=== PATIENT | female | born 1935 | race Caucasian/White ===

== ENCOUNTER 2016-10-20 07:17 | Inpatient (IN) | payer OTHER, MEDICARE ==
[2016-09-21 11:25] VITALS: BMI 31.0
--- NOTE | 2016-09-21 12:02 | PAT Medication Instructions ---
Service Date September 21, 2016. Current Home Medication List Amoxicillin (Amoxil), 2,000 MG PO PRIOR TO DENTAL APPT Aspirin Enteric Coated (Ecotrin Or Generic *), 81 MG PO QAM Calcium/Vitamin D (Os-Deon 500 Plus D), 1 TAB PO QAM Docusate Sodium (Colace), 100 MG PO QAM Levothyroxine Sodium (Levothyroxine Sodium), 1 TAB PO QAM Meloxicam (Mobic), 15 MG PO QAM PRN for Pain Metoprolol Succinate (Metoprolol Succinate ER), 25 MG PO QAM Polyvinyl Alcohol (Lubricant Drops), 1 DROPS OPL TID PRN for DRY EYE Simvastatin (Zocor), 40 MG PO QAM Medication Instructions For Your Scheduled Surgery - Hold the following medications 7-10 days prior to surgery per surgeon instructions: Meloxicam (Mobic), 15 MG PO QAM PRN for Pain - Hold the following medications the morning of surgery: Amoxicillin (Amoxil), 2,000 MG PO PRIOR TO DENTAL APPT Calcium/Vitamin D (Os-Deon 500 Plus D), 1 TAB PO QAM Docusate Sodium (Colace), 100 MG PO QAM - Take the following medications the morning of surgery with a sip of water: Aspirin Enteric Coated (Ecotrin Or Generic *), 81 MG PO QAM Levothyroxine Sodium (Levothyroxine Sodium), 1 TAB PO QAM Metoprolol Succinate (Metoprolol Succinate ER), 25 MG PO QAM Simvastatin (Zocor), 40 MG PO QAM Tylenol (if needed) Polyvinyl Alcohol (Lubricant Drops), 1 DROPS OPL TID PRN for DRY EYE - Take the following medications as scheduled the night before surgery: Tylenol (if needed) Polyvinyl Alcohol (Lubricant Drops), 1 DROPS OPL TID PRN for DRY EYE If you have any questions please call us at [phone] or [phone] ( Padmini) or [phone]
--- NOTE | 2016-09-21 13:00 | DIAGNOSTIC IMAGING REPORT ---
CHEST PREADMISSION(PA/LAT) CLINICAL HISTORY: PAT COMPARISON STUDY: No previous studies for comparison. FINDINGS: The bones soft tissues and hemidiaphragms are normal. The cardiomediastinal silhouette is normal. The lungs are clear. The pulmonary vasculature is normal. IMPRESSION: Negative chest. Electronically signed by: Jose Roberto Berg M.D. 09/21/2016 12:58 PM Dictated Date/Time: 09/21/2016 12:58 PM
[2016-09-21 13:17] LABS: BASO % 0.3 %; BASO ABS # 0.02 K/uL (0-0.2); COMPLETE YES; EOS % 4.2 %; HEMATOCRIT 36.8 % (37-47); IG% 0.3 %; LYMPH % 24.1 %; LYMPH ABS # 1.62 K/uL (1.2-3.4); MEAN CELL VOLUME 100.3 fL (80-100); MEAN CORPUSCULAR HEMOGLOBIN 32.4 pg (25-34); MEAN CORPUSCULAR HGB CONC 32.3 g/dl (32-36); MEAN PLATELET VOLUME 10.3 fL (7.4-10.4); MONO % 8.2 %; NEUT % 62.9 %; PLATELET COUNT 239 K/uL (130-400); RED BLOOD COUNT 3.67 M/uL (4.2-5.4); WHITE BLOOD COUNT 6.73 K/uL (4.8-10.8)
[2016-09-21 13:32] LABS: ESTIMATED AVERAGE GLUCOSE 111 mg/dl; HA1C FLAG Normal (Normal)
[2016-09-21 13:52] LABS: PROTHROMBIN TIME (PATIENT) 10.2 SECONDS (9.0-12.0)
[2016-09-21 14:14] LABS: BUN/CREATININE RATIO 24.7 (10-20); CALCIUM 9.4 mg/dl (8.5-10.1); CREATININE 0.87 mg/dl (0.60-1.20); POTASSIUM 3.9 mmol/L (3.5-5.1)
[2016-09-27 13:35] LABS: URINE APPEARANCE CLEAR (CLEAR); URINE BILIRUBIN NEG (NEG); URINE COLOR YELLOW; URINE EPITHELIAL CELL AUTO >30 /lpf (0-5); URINE NITRITE NEG (NEG); URINE PH 5.5 (4.5-7.5); URINE SPECIFIC GRAVITY 1.013 (1.000-1.030); UROBILINOGEN NEG (NEG)
[2016-09-27 13:48] LABS: MANUAL MICROSCOPIC REQUIRED? NO; REVIEW REQ? NO
--- NOTE | 2016-10-19 14:33 | HISTORY & PHYSICAL EXAMINATION ---
DATE OF ADMISSION: 10/20/2016 CHIEF COMPLAINT: Left knee pain. HISTORY OF PRESENT ILLNESS: The patient is an 81-year-old female with known osteoarthritis about her left knee. She had a previous right total knee approximately 11 years ago which has done well. She had a previous left knee corticosteroid injection as well as knee aspiration. She takes Aleve for pain p.r.n. She continues to have significant pain and disability with activities of daily living. She uses a cane for ambulation. She now desires to proceed with left total knee arthroplasty. PAST MEDICAL HISTORY: Hypercholesterolemia, hypothyroidism, osteoarthritis, breast cancer, and obesity. PAST SURGICAL HISTORY: Right knee, right hip, hysterectomy, left breast lumpectomy, bladder surgery, appendectomy, and tonsillectomy. MEDICATIONS: Include levothyroxine 50 mcg daily, Meloxicam 15 mg daily, simvastatin 40 mg daily, metoprolol succinate ER 25 mg daily, baby aspirin daily, stool softener daily, calcium plus D daily. ALLERGIES: NIACIN WHICH CAUSES HIVES. SOCIAL HISTORY AND REVIEW OF SYSTEMS: Noncontributory. PHYSICAL EXAMINATION: GENERAL: Well-nourished, well-developed elderly female who appears her stated age. HEENT: Normocephalic, atraumatic, extraocular movements intact, oropharynx pink and moist. NECK: Supple without adenopathy. LUNGS: Clear to auscultation bilaterally. HEART: Regular rate and rhythm. ABDOMEN: Soft, nontender, nondistended, obese. EXTREMITIES: The upper extremity within normal limits. The left knee has a valgus alignment. She complains primarily of anterior knee pain. Her range of motion is approximately 0-120 degrees with moderate crepitus. X-RAYS: X-rays were reviewed. She has well-fixed, well-aligned total knee on the right. Her left knee has a valgus alignment. She has mild to moderate tibiofemoral arthritis. She has severe patellofemoral arthritis with complete loss of the joint space and large osteophytes. ASSESSMENT: Left knee degenerative joint disease. PLAN: Risks versus benefits were discussed and consent was obtained. The patient's primary care physician is Dr. Andres Aquino. Will proceed with left total knee arthroplasty upon preop workup and medical clearance.
[2016-10-20] VITALS (10 sets, daily range): BP systolic 120–160; BP diastolic 52–71; PULSE 56–81; TEMP 34.5–36.9; O2SAT 93–98; Ht 160 cm; Wt 81.8 kg
[~2016-10-20] VITALS: Ht 160 cm; Wt 81.8 kg
--- NOTE | 2016-10-20 06:53 | History & Physical Bridge Note ---
H&P Re-Evaluation Bridge Note: I have examined the patient, reviewed the History & Physical and in the interval since the performance of the History & Physical I have noted the following changes of clinical significance: No changes noted
[~2016-10-20 07:17] MED LIST: ACETAMINOPHEN 500 MG TAB PO SCH; AMOX500C3 PO; ASPEC81 PO; BUPIVACAINE 0.5 % 5 MG/1 ML PF 10ML VIAL ONE; BUPIVACAINE/EPINEPHRINE 0.25% 1:200,000 30 ML VIAL ONE; CALC500C70 PO; CEFAZOLIN 2000 MG/60 ML D5W 60 ML IV SCH; CLC100X PO; CeleBREX 200 MG CAP PO SCH; DEXAMETHASONE 4 MG TAB PO SCH; FAMOTIDINE 20 MG TAB PO SCH; GABAPENTIN 300 MG CAP PO SCH; LACTATED RINGER'S 1000ML 1,000 ML IV SCH; LACTATED RINGER'S 1000ML 500 ML IV ONE; LACTATED RINGER'S 1000ML IV SCH; LEVO50TA6 PO; MELO15TA10 PO; METOCLOPRAMIDE HCL 10 MG TAB PO SCH; ROPIVACAINE 5MG/ML 30 ML 150 MG, BUPIVACAINE/EPINEPHR 0.5% MPF 30 ML, KETOROLAC TROMETH... INFIL SCH; SIMV40TA4 PO; TPRSR/25 PO; [UNRECOGNIZED DRUG - CODE] OPL
[2016-10-20] MEDS ORDERED: MIDAZOLAM HCL 1 MG/ML 2ML VIAL ONE (07:47)
[2016-10-20] MEDS ORDERED: ATROPINE SULFATE 0.1 MG/ML 5ML SYR IV PRN (08:30)
[2016-10-20] MEDS ORDERED: ONDANSETRON INJ 2 MG/ML 2 ML VIAL IV PRN (08:30)
[2016-10-20] MEDS ORDERED: FENTANYL CITRATE INJ 50 MCG/1 ML 2 ML VIAL IV PRN (08:30)
[2016-10-20] MEDS ORDERED: PHENYLEPHRINE 100MCG/ML 5ML SYR IV PRN (08:30)
[2016-10-20] MEDS ORDERED: EpHEDrine SULFATE INJ 50 MG/ML AMP IV PRN (08:30)
[2016-10-20] MEDS ORDERED: MEPERIDINE HCL 25 MG/ML CARP IV PRN (08:30)
[2016-10-20] MEDS ORDERED: LABETALOL HCL IV 5 MG/ML 20ML IV PRN (08:30)
[2016-10-20] MEDS ORDERED: NALOXONE HCL 0.4 MG/1 ML VIAL/CARP IV PRN (08:30)
[2016-10-20] MEDS ORDERED: FLUMAZENIL 0.1 MG/1 ML 10 ML VIAL IV PRN (08:30)
[2016-10-20] MEDS ORDERED: BACITRACIN 50000 UNIT VIAL ONE (08:57)
[2016-10-20] MEDS ORDERED: POVIDONE-IODINE OP SOLN 30 ML BTL ONE (08:57)
[2016-10-20] MEDS ORDERED: ORTHO JOINT ANESTHETIC ONE (08:57)
[2016-10-20] MEDS: TRANEXAMIC ACID INJ 1,000 MG in SODIUM CHLORIDE 0.9% 100ML 100 ML IV SCH ×2 (09:24→14:39)
[2016-10-20] MEDS ORDERED: PROPOFOL IV EMULSION 10 MG/ML 20 ML VIAL IV ONE (10:11)
[2016-10-20] MEDS ORDERED: LIDOCAINE HCL 2% 2 ML VIAL (20MG/ML) ONE (10:11)
--- NOTE | 2016-10-20 11:17 | [facility] Post Operative Brief Note ---
Immediate Operative Summary Operative Date Oct 20, 2016. Pre-Operative Diagnosis Left knee degenerative joint disease Post-Operative Diagnosis same Procedure(s) Performed Left total knee arthroplasty with lateral release Surgeon Dr. Zeng Boat Patcher Plastic Surgeon(s) Eitan Vázquez PA-C Estimated Blood Loss 10 ml Findings severe OA Specimens a. Left knee bone and tissue Disposition Recovery Room / PACU
--- NOTE | 2016-10-20 11:55 | OPERATIVE REPORT ---
DATE OF OPERATION: 10/20/2016 PREOPERATIVE DIAGNOSIS: Osteoarthritis left knee. POSTOPERATIVE DIAGNOSIS: Osteoarthritis left knee. PROCEDURE: Left total knee arthroplasty. SURGEON: Dr. Zeng. WHITE SPOOLER: Eitan Vázquez PA-C. ANESTHESIA: Spinal. COMPLICATIONS: None. OPERATION AND FINDINGS: Following induction of spinal anesthesia, the patient's left leg was prepped and draped in the usual sterile manner. Limb was exsanguinated with an Esmarch bandage and tourniquet was inflated to 350 mmHg. A longitudinal incision was made anteriorly. Subcutaneous tissue was sharply dissected. Electrocautery was used for hemostasis. Prepatellar bursa was incised and median parapatellar incision was performed. Patella was everted and the knee was flexed. Fat pad was removed to aid in visualization and the anterior and posterior cruciate ligaments were removed. The medial face of the tibia was cleared of soft tissue first with a Bovie and a Harris elevator. This tissue was retracted posteriorly using a blunt Hohmann. A Elizabeth retractor was used to expose the synovium above on the anterior aspect of the femur and this was removed down to bone. The PSI guide was placed on the distal femur and two pins were placed anteriorly and kept in position and two additional pins were placed distally and removed. The distal femoral cutting block was placed in position and the distal femoral cut was used in the +0 setting. Next, the cutting block was removed and size 3 block was placed in the distal end of the femur. Care was taken to ensure appropriate external rotation and feeler gauge was used to ensure no notching would occur. The femoral block was centered on the distal femur and in the medial and lateral direction and was fixed using two bone screws. The gold pins were then removed. The oscillating saw was used to create the bone cuts and the distal femoral cutting block was removed and the reciprocating saw was used to further trim the femoral cuts as well as a deep in the area for the trochlear groove. Next, posterior condyle remnants were removed. Following this, a meniscal clamp and knife were utilized to remove the anterior portion of both medial and lateral meniscus. The proximal tibia PSI guide was placed into position and the proximal tibial cutting guide was screwed into position. The extra medullary alignment guide was utilized to ensure appropriate alignment. The proximal tibia was cut and the proximal tibial cutting block was removed and this bone fragment was removed. The appropriate guide was used to perform the notch cut on the distal femur and a lamina lens molder and a cochlear knife were utilized to finish both medial and lateral meniscectomies to remove any remnants of the posterior or anterior cruciate ligaments. Following this, the distal femoral component was impacted into position and blunt Brett was used to sublux the tibia anteriorly. The proximal tibia was sized and a size 2 tibial tray was chosen as the size to be used. This was put into position and appropriate external rotation and a double check with extramedullary alignment guide was performed. The canal for the tibial stem was prepared first with a 17 mm drill and then the punch and a mallet and the trial tibial poly was placed. A 13 mm stabilized was chosen the size to be used. It was brought to extension and the patella was prepared with the patellar reamer. A size 31 component was chosen the size to be used. The trial component was placed and knee was taken through a full range of motion and there was found to be no lateral subluxation of the tibia. A lateral release was required to allow for proper patella tracking. The trials were all removed. The final components were obtained and assembled. Cement was mixed. The knee was thoroughly irrigated and the ortho mix was injected about the knee joint. The final components were cemented into position. After thoroughly suctioning and drying the bone ends, all excess cement was removed. The knee was held in extension while the cement hardened. The wound was irrigated and closed over a Hemovac drain. #1 Vicryl was used to close the extensor mechanism. Subcutaneous tissues closed using 0 Dexon. Skin was closed with jessica. Sterile dressing of Adaptic, 4 x 4's, sterile Webril, and Johny was applied. The patient tolerated the procedure well. Due to the complex nature of the procedure, the entire surgery was performed with the operational assistance of Eitan Vázquez PA-C. The specimen preparation assistant, under direct supervision, was involved in the actual performance of all aspects of the surgical procedure including hemostasis, tissue retraction and incision, instrument management, patient positioning, and wound closure. I attest to the content of the Intraoperative Record and any orders documented therein. Any exception s are noted below.
[2016-10-20] MEDS ORDERED: ZOLPIDEM TARTRATE 5 MG TAB PO PRN (12:45)
[2016-10-20] MEDS ORDERED: MoRPHine SULFATE 2 MG/ML CARP IV PRN (12:45)
[2016-10-20] MEDS ORDERED: MAGNESIUM HYDROXIDE SUSP 30 ML UDC PO PRN (12:45)
[2016-10-20] MEDS ORDERED: ALUMINUM/MAGNESIUM/SIMETH (MAALOX MAX) 30 ML UDC PO PRN (12:45)
[2016-10-20] MEDS ORDERED: METOCLOPRAMIDE HCL INJ 5 MG/ML 2 ML VIAL IV PRN (12:45)
--- NOTE | 2016-10-20 12:48 | DIAGNOSTIC IMAGING REPORT ---
LEFT KNEE 1 OR 2 VIEWS ROUTINE CLINICAL HISTORY: Postop knee arthroplasty COMPARISON: 09/07/2012 DISCUSSION: There are postsurgical changes of a total left knee arthroplasty. The femoral and tibial components appear well seated. Overlying skin jessica and surgical drains are evident. There is air in soft tissues consistent with recent surgery. IMPRESSION: Postsurgical changes of a total left knee arthroplasty. Electronically signed by: Maximiliano Balderas M.D. 10/20/2016 12:47 PM Dictated Date/Time: 10/20/2016 12:46 PM
--- NOTE | 2016-10-20 13:18 | Anesthesiology Progress Note ---
Anesthesia Post Op Note Date & Time Oct 20, 2016 at 13:18 Vital Signs Pain Intensity: 0 Vital Signs Past 12 Hours Date Time Temp Pulse Resp B/P (MAP) Pulse Ox O2 Delivery O2 Flow Rate FiO2 10/20/16 13:05 68 14 124/57 94 Nasal Cannula 4 10/20/16 12:55 66 14 122/58 96 Nasal Cannula 4 10/20/16 12:45 36.8 66 14 110/65 96 Nasal Cannula 4 10/20/16 12:35 63 14 111/54 94 Nasal Cannula 4 10/20/16 12:25 62 13 108/55 94 Nasal Cannula 4 10/20/16 12:15 64 15 113/56 96 Nasal Cannula 4 10/20/16 12:05 65 11 111/52 97 Nasal Cannula 4 10/20/16 11:55 67 13 116/58 96 Nasal Cannula 4 10/20/16 11:45 67 14 117/54 94 Nasal Cannula 4 10/20/16 11:39 36.6 72 16 111/59 95 Nasal Cannula 4 10/20/16 07:44 36.7 81 20 142/71 98 Room Air Notes Mental Status: alert / awake / arousable, participated in evaluation Pt Amnestic to Procedure: Yes Nausea / Vomiting: adequately controlled Pain: adequately controlled Airway Patency, RR, SpO2: stable & adequate BP & HR: stable & adequate Hydration State: stable & adequate Neuraxial Anesthesia: was administered, sensory block is resolving Anesthetic Complications: no major complications apparent
[2016-10-20] MEDS ORDERED: MoRPHine SULFATE 4 MG/ML 1 ML CARP\\VIAL IV PRN (15:00)
[2016-10-20] MEDS: D5W AND 1/2NSS + 20MEQ KCL 1,000 ML IV SCH (15:37)
[2016-10-20] MEDS: KETOROLAC TROMETHAMINE 15 MG/ML VIAL IV. SCH ×2 (15:37→21:46)
[2016-10-20] MEDS: FERROUS GLUCONATE 324 MG TAB PO SCH (17:47)
[2016-10-20] MEDS: CEFAZOLIN IV 2,000 MG in DEXTROSE 5% 50ML 50 ML IV SCH (17:48)
[2016-10-20] MEDS: ONDANSETRON INJ 2 MG/ML 2 ML VIAL IV PRN ×2 (19:42→19:45)
[2016-10-20] MEDS: HYDROCODONE/ACETAMOPHEN 5/325MG TAB PO PRN ×3 (19:45→23:52)
[2016-10-20] MEDS: DOCUSATE SODIUM 100 MG CAP PO SCH (20:44)
[2016-10-20] MEDS: ASPIRIN 81 MG ECTAB PO SCH (20:44)
[2016-10-21] MEDS: D5W AND 1/2NSS + 20MEQ KCL 1,000 ML IV SCH (00:34)
[2016-10-21] MEDS: CEFAZOLIN IV 2,000 MG in DEXTROSE 5% 50ML 50 ML IV SCH (03:25)
[2016-10-21] MEDS: KETOROLAC TROMETHAMINE 15 MG/ML VIAL IV. SCH ×2 (03:58→09:21)
[2016-10-21] MEDS: LEVOTHYROXINE 50 MCG TAB PO SCH (05:34)
[2016-10-21 06:57] LABS: HEMATOCRIT 36.3 % (37-47); MEAN CELL VOLUME 98.4 fL (80-100); MEAN CORPUSCULAR HEMOGLOBIN 31.2 pg (25-34); MEAN CORPUSCULAR HGB CONC 31.7 g/dl (32-36); MEAN PLATELET VOLUME 10.2 fL (7.4-10.4); PLATELET COUNT 227 K/uL (130-400); RED BLOOD COUNT 3.69 M/uL (4.2-5.4); WHITE BLOOD COUNT 16.07 K/uL (4.8-10.8)
[2016-10-21 07:26] VITALS: BP 157/75; PULSE 63; TEMP 36.3; O2SAT 90
[2016-10-21] MEDS ORDERED: DEXAMETHASONE INJ 10 MG in SYRINGE 0 ML IV ONE (07:30)
[2016-10-21 07:34] LABS: BUN/CREATININE RATIO 20.5 (10-20); CALCIUM 8.9 mg/dl (8.5-10.1); CREATININE 1.1 mg/dl (0.60-1.20); POTASSIUM 4.5 mmol/L (3.5-5.1)
--- NOTE | 2016-10-21 07:38 | Orthopedic Progress Note ---
Orthopedic Progress Note Date of Service Oct 21, 2016. Subjective Post OP Day: 1 Reports: feeling well (Pt states she can't move her foot on operative side) Objective N/V intact, dressing C/D/I (Hemovac d/c'd) Mild foot drop noted on operative side Date Time Temp Pulse Resp B/P (MAP) Pulse Ox O2 Delivery O2 Flow Rate FiO2 10/21/16 07:26 36.3 63 18 157/75 (102) 90 Room Air 10/20/16 23:44 Room Air 10/20/16 23:25 36.4 62 18 156/71 (99) 93 Room Air 10/20/16 21:00 98 Room Air 10/20/16 19:42 36.5 65 18 160/52 (88) 98 Nasal Cannula 2.0 10/20/16 16:30 34.5 56 16 138/71 (93) 97 Nasal Cannula 2.0 10/20/16 15:45 Nasal Cannula 3.0 10/20/16 15:26 34.8 57 16 120/68 (85) 96 Nasal Cannula 3.0 10/20/16 14:29 68 16 127/67 (87) 96 Nasal Cannula 2.0 10/20/16 14:01 66 16 122/66 (84) 96 Nasal Cannula 2.0 10/20/16 13:35 94 Nasal Cannula 3.0 10/20/16 13:35 94 Nasal Cannula 3.0 10/20/16 13:30 36.9 69 16 129/68 (88) 94 Nasal Cannula 3.0 10/20/16 13:15 36.4 65 14 126/58 96 Nasal Cannula 4 10/20/16 13:05 68 14 124/57 94 Nasal Cannula 4 10/20/16 12:55 66 14 122/58 96 Nasal Cannula 4 10/20/16 12:45 36.8 66 14 110/65 96 Nasal Cannula 4 10/20/16 12:35 63 14 111/54 94 Nasal Cannula 4 10/20/16 12:25 62 13 108/55 94 Nasal Cannula 4 10/20/16 12:15 64 15 113/56 96 Nasal Cannula 4 10/20/16 12:05 65 11 111/52 97 Nasal Cannula 4 10/20/16 11:55 67 13 116/58 96 Nasal Cannula 4 10/20/16 11:45 67 14 117/54 94 Nasal Cannula 4 10/20/16 11:39 36.6 72 16 111/59 95 Nasal Cannula 4 10/20/16 07:44 36.7 81 20 142/71 98 Room Air Laboratory Results 24 Hours: Test 10/21/16 06:08 Hematocrit 36.3 % Hemoglobin 11.5 g/dL Assessment & Plan Assessment: 81 yo female stable POD #1 s/p left TKA, mild foot drop likely related to intraoperative injection Plan: 1. Med management 2. DVT prophylaxis- ASA, SCDs 3. PT/OT 4. D/C planning- pt interested in [facility]
--- NOTE | 2016-10-21 07:40 | Discharge Instructions ---
Discharge Instructions Date of Service Oct 21, 2016. Admission Reason for Admission: Unilateral Primary Osteoarthritis, Left Knee Discharge Discharge Diagnosis / Problem: Left knee arthritis Discharge Goals Goal(s): Decrease discomfort, Improve function Activity Recommendations Activity Limitations: as noted below Weightbearing Status: Left weightbearing (as tolerated) . Instructions / Follow-Up Instructions / Follow-Up ACTIVITY RECOMMENDATIONS: SELF CARE INSTRUCTIONS AFTER TOTAL KNEE REPLACEMENT A. You may need to continue a physical therapy program after discharge from the hospital. There are several options available to you. Your doctor will assist you in selecting the best one for you. 1. An out-patient facility 2 to 3 times a week for therapy or home therapy. 2. Continue working on all exercises taught to you in the hospital. Your goals should be to increase bending of your knee to 90 degrees and beyond and to fully straighten your knee. B. You may progress at your own pace from walking with a walker or crutches to a cane; then to no assistive devices. C. Make walking a part of your daily routine. Be up as much as comfortable with rest periods throughout the day. Rest with leg elevation is very important. Use the ice wrap frequently for the first 3-4 weeks. D. There are no restrictions on activities. You may ride in a car, shop, participate in nurse emergency room and all social activities. E. Wear the long elastic stockings (FRANDY hose) 20 hours a day for 2 weeks after surgery. They can be removed several times a day for laundering and for a bath. F. You may shower, no tub baths until cleared by your doctor. SPECIAL CARE INSTRUCTIONS: VERY IMPORTANT TO READ AND REVIEW A. There are a few signs you need to watch for after you are home. Call [facility] if you notice any of the followin. Increased severe knee pain. Some pain is expected especially when you exercise. 2. Increased swelling in your leg or knee; pain or swelling of the calf muscle in either lower leg. 3. Any fluid drainage from the incision. 4. Shortness of breath or chest pain. B. Please call [facility] at if you have any concerns or questions about your operation or recovery. The doctor or his nurse will return your call promptly. C. You must take antibiotics before dental work, bladder, bowel or other surgery. Your doctor will provide you with a permanent care to carry describing this precaution. IMPORTANT: * REMEMBER TO TAKE ASPIRIN, 81 MG, TWICE DAILY FOR 4 WEEKS UNLESS OTHERWISE DIRECTED. THIS IS YOUR BLOOD THINNER. * HIGH RISK PATIENTS MAY BE PRESCRIBED A STRONGER BLOOD THINNER. THIS WILL BE PROVIDED AT DISCHARGE. * CALL IF INCREASED PAIN, REDNESS, DRAINAGE OR FEVER GREATER THAT 101. * WEAR FRANDY HOSE 20 HOURS PER DAY FOR 2 WEEKS. Silverlon- This is a large adhesive bandage that contains silver ions. This helps your incision heal by fighting off bacteria and protecting it from the outside environment. You are permitted to shower with this dressing. This will remain on your incision for 7 days and then should be removed. Some visible blood or drainage through the dressing window is normal. If there is significant drainage or leaking noted before the 7 days notify your doctor's office immediately. Once removed, keep incision clean and dry. If there is any drainage or redness noted, please call your surgeon. FOLLOW UP VISIT: If appointment is not already scheduled: Please call [facility] to make a follow-up appointment for 2 weeks after your surgery at . Current Hospital Diet Patient's current hospital diet: Regular Diet Discharge Diet Recommended Diet: Regular Diet Procedures Procedures Performed: Left total knee arthroplasty with lateral release Pending Studies Studies pending at discharge: no Laboratory Results Hemoglobin A1c Test 09/21/16 12:07 Range/Units Estimated Average Glucose 111 mg/dl Hemoglobin A1c 5.5 4.5-5.6 % Medical Emergencies . Who to Call and When: Medical Emergencies: If at any time you feel your situation is an emergency, please call 911 immediately. . Non-Emergent Contact Non-Emergency issues call your: Surgeon Call Non-Emergent contact if: temperature is above 101.5, your pain is not controlled, wound has increased drainage, wound has increased redness . "Provider Documentation" section prepared by Eitan Vázquez PA-C. . VTE Core Measure Inpt VTE Proph given/why not?: Other Anticoagulation (ASA 81mg bid), T.E.D. Stockings, SCD's [place] Drug Monitoring Program Search Results: patient reviewed within database, no issues identified
[2016-10-21] MEDS: METOPROLOL SUCC 25MG EXT REL TAB PO SCH (09:20)
[2016-10-21] MEDS: ASPIRIN 81 MG ECTAB PO SCH ×2 (09:21→20:34)
[2016-10-21] MEDS: FERROUS GLUCONATE 324 MG TAB PO SCH ×3 (09:21→18:06)
[2016-10-21] MEDS: PANTOprazole SOD 40 MG TAB PO SCH (09:22)
[2016-10-21] MEDS: SIMVASTATIN 40 MG TAB PO SCH (09:22)
[2016-10-21] MEDS: ONDANSETRON INJ 2 MG/ML 2 ML VIAL IV PRN (09:22)
[2016-10-21] MEDS: DOCUSATE SODIUM 100 MG CAP PO SCH ×2 (09:22→20:34)
[2016-10-21] MEDS: MULTIVITAMIN TAB PO SCH (09:22)
[2016-10-21] MEDS: HYDROCODONE/ACETAMOPHEN 5/325MG TAB PO PRN ×3 (09:25→15:16)
--- NOTE | 2016-10-21 10:24 | Anesthesiology Progress Note ---
Anesthesia Post Op Note Date & Time Oct 21, 2016 at 10:23 Vital Signs Pain Intensity: 7.0 Vital Signs Past 12 Hours Date Time Temp Pulse Resp B/P (MAP) Pulse Ox O2 Delivery O2 Flow Rate FiO2 10/21/16 07:26 36.3 63 18 157/75 (102) 90 Room Air 10/20/16 23:44 Room Air 10/20/16 23:25 36.4 62 18 156/71 (99) 93 Room Air Notes Mental Status: alert / awake / arousable, participated in evaluation Pt Amnestic to Procedure: Yes Nausea / Vomiting: adequately controlled Pain: adequately controlled Airway Patency, RR, SpO2: stable & adequate BP & HR: stable & adequate Hydration State: stable & adequate Neuraxial Anesthesia: sensory block resolved Anesthetic Complications: no major complications apparent
[2016-10-21 10:56] VITALS: BP 148/78; PULSE 65; TEMP 36.5; O2SAT 96
[2016-10-21 11:45] VITALS: BP 157/75; PULSE 63; O2SAT 90
[2016-10-21 11:49] VITALS: BP 166/71; PULSE 64; O2SAT 96
[2016-10-21 15:15] VITALS: BP 167/88; PULSE 65; TEMP 36.5; O2SAT 94
[2016-10-21] MEDS: CeleBREX 200 MG CAP PO SCH (20:34)
[2016-10-21 23:45] VITALS: BP 168/65; PULSE 67; TEMP 36.6; O2SAT 93
[2016-10-22] MEDS: HYDROCODONE/ACETAMOPHEN 5/325MG TAB PO PRN ×3 (00:46→13:52)
[2016-10-22] MEDS: LEVOTHYROXINE 50 MCG TAB PO SCH (06:11)
[2016-10-22 07:34] VITALS: BP 140/60; PULSE 68; TEMP 36.7; O2SAT 92
[2016-10-22 07:51] VITALS: O2SAT 92
--- NOTE | 2016-10-22 08:19 | Orthopedic Progress Note ---
Orthopedic Progress Note Date of Service Oct 22, 2016. Subjective Post OP Day: 2 Reports: feeling well, calf pain (Left side behind the knee), pain controlled w PO medications, Denies: chest pain, SOB, nausea / vomiting, light headedness Additional Notes: Patient states she feels well. She states she has some calf pain today. Unsure if it was from PT yesterday. She states it is behind her knee and runs down her calf muscle. Objective N/V intact, capillary refill less than 2 sec., dressing C/D/I, A&O x3, toes mobile patient had pain to palpation over the medial and lateral gastrocnemius. (+) Homans's sign. Patient was able to move toes and ankle. Dressing was C/D/I. Date Time Temp Pulse Resp B/P (MAP) Pulse Ox O2 Delivery O2 Flow Rate FiO2 10/22/16 07:51 92 Room Air 10/22/16 07:34 36.7 68 16 140/60 (86) 92 Room Air 10/22/16 00:40 Room Air 10/21/16 23:45 36.6 67 18 168/65 (99) 93 Room Air 10/21/16 15:15 Room Air 10/21/16 15:15 36.5 65 16 167/88 (114) 94 Room Air 10/21/16 11:49 64 166/71 (102) 96 Room Air 10/21/16 11:45 63 90 10/21/16 10:56 36.5 65 16 148/78 (101) 96 Room Air Assessment & Plan Assessment: 81 yo female stable POD #2 s/p left TKA Calf pain Plan: 1. Med management 2. DVT prophylaxis- ASA, SCDs 3. PT/OT 4. D/C planning- [facility] 5. Will check a left lower extremity doppler US to rule out DVT after increased calf pain S/P left TKA. Inhouse Planning Pain Management: Celebrex, [place], Morphine DVT Prophylaxis: TEDs, SCDs, ASA Discharge Planning Discharge Planning: usp facility ([facility]
[2016-10-22] MEDS: DOCUSATE SODIUM 100 MG CAP PO SCH (09:48)
[2016-10-22] MEDS: METOPROLOL SUCC 25MG EXT REL TAB PO SCH (09:48)
[2016-10-22] MEDS: MULTIVITAMIN TAB PO SCH (09:49)
[2016-10-22] MEDS: FERROUS GLUCONATE 324 MG TAB PO SCH ×2 (09:49→12:44)
[2016-10-22] MEDS: CeleBREX 200 MG CAP PO SCH (09:49)
[2016-10-22] MEDS: PANTOprazole SOD 40 MG TAB PO SCH (09:49)
[2016-10-22] MEDS: ASPIRIN 81 MG ECTAB PO SCH (09:49)
[2016-10-22] MEDS: SIMVASTATIN 40 MG TAB PO SCH (09:50)
--- NOTE | 2016-10-22 10:08 | DIAGNOSTIC IMAGING REPORT ---
Venous Doppler left leg LEFT VENOUS DOPP LOWER EXT UNILAT CLINICAL HISTORY: Calf pain, (+) Homans sign S/P left TKA pain TECHNIQUE: Venous Doppler COMPARISON STUDY: None FINDINGS: Normal study IMPRESSION: Normal study Electronically signed by: Jose Roberto Berg M.D. 10/22/2016 10:07 AM Dictated Date/Time: 10/22/2016 10:06 AM
[2016-10-22] MEDS ORDERED: ACET-1138 PO (12:33)
[2016-10-22] MEDS ORDERED: CLB200 PO (12:33)
[2016-10-22] MEDS ORDERED: ASPEC81 PO (12:33)
[2016-10-22] MEDS ORDERED: ONDA8TAB6 PO (12:33)
[2016-10-22] MEDS ORDERED: OXYSR10 PO (12:33)
[2016-10-22] MEDS ORDERED: RXC5 PO (12:33)
[2016-10-22 12:53] VITALS: BP 140/60; PULSE 68; TEMP 36.7; O2SAT 92
--- NOTE | 2016-11-04 12:02 | Discharge Summary ---
Orthopedic Discharge Summary Admission Date/Reason Oct 20, 2016 at 08:00 Unilateral Primary Osteoarthritis, Left Knee. Discharge Date/Disposition Oct 22, 2016 Rehab Diagnosis Principal Diagnosis: Left knee arthritis Procedure(s) Performed Left total knee arthroplasty Medication Reconciliation New Medications: Acetaminophen (Tylenol Extra Strength) 500 Mg Tab 1000 MG PO Q8 for 30 Days Ondansetron Hcl (Zofran) 8 Mg Tab 8 MG PO Q8 PRN for Nausea, #20 TAB Oxycodone HCl (Oxycontin) 10 Mg Tabcr 10 MG PO Q12, #20 Oxycodone HCl (Oxycodone HCl) 5 Mg Tab 5 MG PO Q4, #60 Aspirin (Aspirin EC Low Dose) 81 Mg Ectab 81 MG PO BID for 30 Days Take aspirin 81mg twice a day for 30 days. After 30 days, continue normal routine of aspirine 81mg once a day. Celecoxib (Celebrex) 200 Mg Cap 200 MG PO BID for 30 Days, #60 CAP Continued Medications: Amoxicillin (Amoxil) 500 Mg Cap 2000 MG PO PRIOR TO DENTAL APPT, #21 CAP Calcium/Vitamin D (Os-Deon 500 Plus D) Tab 1 TAB PO QAM, TAB Docusate Sodium (Colace) 100 Mg Cap 100 MG PO QAM, CAP Levothyroxine Sodium (Levothyroxine Sodium) 50 Mcg Tab 1 TAB PO QAM for 90 Days, #90 TAB 3 Refills Metoprolol Succinate (Metoprolol Succinate ER) 25 Mg Tabcr 25 MG PO QAM, #30 Polyvinyl Alcohol (Lubricant Drops) 1.4 % Mike 1 DROPS OPL TID PRN for DRY EYE Simvastatin (Zocor) 40 Mg Tab 40 MG PO QAM, TAB Discontinued Medications: Aspirin Enteric Coated (Ecotrin Or Generic *) 81 Mg Ectab 81 MG PO QAM, 0 Refills Meloxicam (Mobic) 15 Mg Tab 15 MG PO QAM PRN for Pain, TAB Admission Physical Exam As per Admitting History & Physical. Hospital Course Pt tolerated left TKA well. No post-op complications. Mild foot drop noted POD #1 which resolved prior to discharge. H/H stable and did not require transfusion. Pain well controlled with spinal anesthesia, intra-op injection, IV, and oral pain medications. Pt started on ASA 81mg bid for DVT prophylaxis. Pt discharged to [facility] and will follow-up in 10-14 days Discharge Instructions Please refer to the electronic Patient Visit Report (Discharge Instructions) for additional information.
== END 2016-10-22 14:09 | DRG 470 ==
LOC: C.ACU 07:17 → C.3E 08:00 → ENRESERV 13:11
PROC: 0SRD0J9 Replacement of Left Knee Joint with Synthetic Substitute, Cemented, Open Approach (ICD-10-PCS; principal; 2016-10-20 09:15)
DX: M17.12 Unilateral primary osteoarthritis, left knee (principal); M21.372 Foot drop, left foot; M79.662 Pain in left lower leg; E78.00 Pure hypercholesterolemia, unspecified; E03.9 Hypothyroidism, unspecified; E66.9 Obesity, unspecified; Z79.899 Other long term (current) drug therapy; Z79.82 Long term (current) use of aspirin; Z68.31 Body mass index [BMI] 31.0-31.9, adult; T50.905A Adverse effect of unspecified drugs, medicaments and biological substances, initial encounter

== ENCOUNTER 2017-04-08 16:52 | Emergency (ER) | payer OTHER, MEDICARE ==
[~2017-04-08] VITALS: Ht 160 cm; Wt 82.9 kg
[~2017-04-08 16:52] MED LIST changes: +ACET-1138 PO; -ACETAMINOPHEN 500 MG TAB PO SCH; -BUPIVACAINE 0.5 % 5 MG/1 ML PF 10ML VIAL ONE; -BUPIVACAINE/EPINEPHRINE 0.25% 1:200,000 30 ML VIAL ONE; -CEFAZOLIN 2000 MG/60 ML D5W 60 ML IV SCH; +CLB200 PO; -CeleBREX 200 MG CAP PO SCH; -DEXAMETHASONE 4 MG TAB PO SCH; -FAMOTIDINE 20 MG TAB PO SCH; -GABAPENTIN 300 MG CAP PO SCH; -LACTATED RINGER'S 1000ML 1,000 ML IV SCH; -LACTATED RINGER'S 1000ML 500 ML IV ONE; -LACTATED RINGER'S 1000ML IV SCH; -MELO15TA10 PO; -METOCLOPRAMIDE HCL 10 MG TAB PO SCH; +ONDA8TAB6 PO; +OXYSR10 PO; -ROPIVACAINE 5MG/ML 30 ML 150 MG, BUPIVACAINE/EPINEPHR 0.5% MPF 30 ML, KETOROLAC TROMETH... INFIL SCH; +RXC5 PO
[2017-04-08 17:01] VITALS: TEMP 36.7; Ht 160 cm; Wt 82.9 kg
[2017-04-08] MEDS ORDERED: ALBUT/IPRATROP 3MG/0.5MG NEB 3 ML VIAL INH STA (17:11)
[2017-04-08 18:08] LABS: BASO % 0.4 %; BASO ABS # 0.02 K/uL (0-0.2); COMPLETE YES; EOS % 5.4 %; HEMATOCRIT 38.4 % (37-47); IG% 0.2 %; LYMPH % 23.8 %; LYMPH ABS # 1.14 K/uL (1.2-3.4); MEAN CELL VOLUME 98.7 fL (80-100); MEAN CORPUSCULAR HEMOGLOBIN 31.6 pg (25-34); MEAN PLATELET VOLUME 10.2 fL (7.4-10.4); MONO % 14.4 %; NEUT % 55.8 %; PLATELET COUNT 223 K/uL (130-400); RED BLOOD COUNT 3.89 M/uL (4.2-5.4); WHITE BLOOD COUNT 4.78 K/uL (4.8-10.8)
[2017-04-08] MEDS ORDERED: DOCU100C31 PO (18:14)
[2017-04-08] MEDS ORDERED: ASPI81TA28 PO (18:14)
[2017-04-08] MEDS ORDERED: MELO7.5T5 PO (18:14)
[2017-04-08] MEDS ORDERED: TYLOTC500 PO (18:14)
[2017-04-08 18:23] LABS: BUN/CREATININE RATIO 19.3 (10-20); CALCIUM 9.4 mg/dl (8.5-10.1); CREATININE 0.97 mg/dl (0.60-1.20)
--- NOTE | 2017-04-08 18:32 | DIAGNOSTIC IMAGING REPORT ---
CHEST 2 VIEWS ROUTINE HISTORY: 81 years-old Female cough, wheeze acute cough with wheezing COMPARISON: Chest radiograph 09/21/2016 TECHNIQUE: PA and lateral views of the chest FINDINGS: Cardiac silhouette is upper limits of normal, unchanged. Atherosclerosis of the aorta. There is no pneumothorax, pleural effusion, focal airspace consolidation or overt pulmonary edema. Bones of the chest are grossly intact. Degenerative changes are seen within the spine and shoulders. IMPRESSION: No acute cardiopulmonary process. The above report was generated using voice recognition software. It may contain grammatical, syntax or spelling errors. Electronically signed by: Jacobo Tripathi M.D. 04/08/2017 6:31 PM Dictated Date/Time: 04/08/2017 6:29 PM
--- NOTE | 2017-04-08 18:46 | EMERGENCY ROOM VISIT NOTE ---
ED Visit Note First contact with patient: 18:33 Patient was seen by our PA/[employer] F[employer] MANAGER. I was involved in the patient's care and did evaluate the patient myself. I was involved in the care throughout the ER stay. The patient presents with cough. On exam, she is wheezing with rhonchi. She appears to have acute bronchitis. Chest film does not show pneumonia, laboratories are essentially unremarkable. She is not hypoxic or febrile. The patient will be discharged with an albuterol inhaler, she did well with a DuoNeb. A prescription for an antibiotic will be given to start if not improving over the next couple days with just the inhaler. Outpatient follow-up was suggested.
[2017-04-08] MEDS ORDERED: AMOX875T PO (19:00)
[2017-04-08] MEDS ORDERED: ALBUTEROL HFA 8 GM INHALER INH ONE (19:00)
--- NOTE | 2017-04-08 19:01 | EMERGENCY ROOM VISIT NOTE ---
History First contact with patient: 17:05 Chief Complaint: COUGH Stated Complaint: COUGH-CONGESTION Nursing Triage Summary: Pt states she had a scratchy throat on Monday. C/O x 2 days. Productive at time. Pt SO states "sometimes she coughs for an hour straight" Pt denies pain excepts "when I cough and with deep inhalation" History of Present Illness The patient is a 81 year old female who presents to the Emergency Room with complaints of worsening cough over the last several days. The patient states that she was seen by her PCP on Monday for a scratchy throat. She had just started coughing that day. He prophylactically placed her on Z-Nate. She has been taking that. She has only one more day left. The patient states that sometimes she is able to cough out the sputum and sometimes she is not. She took NyQuil last night and was finally able to sleep. The patient states that she has a history of getting bronchitis. The patient denies any fever, headache , ear pain. She states her throat is sore from coughing. The patient denies any history of asthma or COPD. Review of Systems 10 system review was performed and was negative unless stated otherwise history of present illness. Past Medical/Surgical History Medical Problems: (1) Atrial Fibrillation (2) Degenerative arthritis of left knee (3) Hx Of Breast Malignancy (4) Hypertension Nos (5) Knee Joint Replacement Status (6) Left knee DJD (7) Osteoarthros Nos-L/Leg (8) Pure Hypercholesterolem Social History Smoking Status: Never Smoker Alcohol Use: none Marital Status: Housing Status: lives with family Occupation Status: retired Current/Historical Medications Scheduled Amoxicillin (Amoxil), 2,000 MG PO PRIOR TO DENTAL APPT Aspirin (Aspirin Ec), 81 MG PO QAM Calcium/Vitamin D (Os-Deon 500 Plus D), 1 TAB PO QAM Docusate Sodium (Docusate Sodium), 100 MG PO QAM Levothyroxine Sodium (Levothyroxine Sodium), 50 MCG PO QAM Meloxicam (Mobic), 7.5 MG PO QAM Metoprolol Succinate (Metoprolol Succinate ER), 25 MG PO QAM Simvastatin (Zocor), 40 MG PO QAM Scheduled PRN Acetaminophen (Tylenol), 1,000 MG PO Q8H PRN for Pain Physical Exam Vital Signs Date Time Temp Pulse Resp B/P (MAP) Pulse Ox O2 Delivery O2 Flow Rate FiO2 04/08/17 18:26 83 18 153/90 93 Room Air 04/08/17 17:05 95 Room Air 04/08/17 17:01 36.7 77 16 151/76 94 Room Air Physical Exam PHYSICAL EXAM: Vital Signs were reviewed: Temperature 36.7, blood pressure 151/ 76, pulse 77, respiratory rate 16 Reviewed Nurse's notes and agree. Oxygen saturation is 94 % on room air which is normal . GENERAL: 81-year-old female appears in no acute distress. MENTAL STATUS: Alert, oriented, coherent. EARS: Canals clear. TMs good light reflex, no erythema or fluid level noted. NOSE: Nasal mucosa with mild erythema. Clear drainage noted.. PHARYNX: Moderate erythema, no edema noted. No exudate noted. Airway is adequate. NECK: Supple, non-tender. No lymphadenopathy noted. LUNGS: Patient has rhonchi throughout both lung miles with some expiratory wheezing noted. This is bilateral. Good air exchange noted. CARDIAC: Regular rate and rhythm without murmur. SKIN: No rashes noted. Medical Decision & Procedures ER Provider Diagnostic Interpretation: CHEST 2 VIEWS ROUTINE HISTORY: 81 years-old Female cough, wheeze acute cough with wheezing COMPARISON: Chest radiograph 09/21/2016 TECHNIQUE: PA and lateral views of the chest FINDINGS: Cardiac silhouette is upper limits of normal, unchanged. Atherosclerosis of the aorta. There is no pneumothorax, pleural effusion, focal airspace consolidation or overt pulmonary edema. Bones of the chest are grossly intact. Degenerative changes are seen within the spine and shoulders. IMPRESSION: No acute cardiopulmonary process. The above report was generated using voice recognition software. It may contain grammatical, syntax or spelling errors. Electronically signed by: Jacboo Tripathi M.D. 04/08/2017 6:31 PM Laboratory Results 04/08/17 17:45 Red Blood Count 3.89, Mean Corpuscular Volume 98.7, Mean Corpuscular Hemoglobin 31.6, Mean Corpuscular Hemoglobin Concent 32.0, Mean Platelet Volume 10.2, Neutrophils (%) (Auto) 55.8, Lymphocytes (%) (Auto) 23.8, Monocytes (%) (Auto) 14.4, Eosinophils (%) (Auto) 5.4, Basophils (%) (Auto) 0.4, Neutrophils # (Auto ) 2.66, Lymphocytes # (Auto) 1.14, Monocytes # (Auto) 0.69, Eosinophils # (Auto ) 0.26, Basophils # (Auto) 0.02 04/08/17 17:45 Test 04/08/17 17:45 04/08/17 17:50 White Blood Count 4.78 K/uL (4.8-10.8) Red Blood Count 3.89 M/uL (4.2-5.4) Hemoglobin 12.3 g/dL (12.0-16.0) Hematocrit 38.4 % (37-47) Mean Corpuscular Volume 98.7 fL (80-100) Mean Corpuscular Hemoglobin 31.6 pg (25-34) Mean Corpuscular Hemoglobin Concent 32.0 g/dl (32-36) Platelet Count 223 K/uL (130-400) Mean Platelet Volume 10.2 fL (7.4-10.4) Neutrophils (%) (Auto) 55.8 % Lymphocytes (%) (Auto) 23.8 % Monocytes (%) (Auto) 14.4 % Eosinophils (%) (Auto) 5.4 % Basophils (%) (Auto) 0.4 % Neutrophils # (Auto) 2.66 K/uL (1.4-6.5) Lymphocytes # (Auto) 1.14 K/uL (1.2-3.4) Monocytes # (Auto) 0.69 K/uL (0.11-0.59) Eosinophils # (Auto) 0.26 K/uL (0-0.5) Basophils # (Auto) 0.02 K/uL (0-0.2) RDW Standard Deviation 51.7 fL (36.4-46.3) RDW Coefficient of Variation 14.5 % (11.5-14.5) Immature Granulocyte % (Auto) 0.2 % Immature Granulocyte # (Auto) 0.01 K/uL (0.00-0.02) Anion Gap 5.0 mmol/L (3-11) Est Creatinine Clear Calc Drug Dose 44.8 ml/min Estimated GFR () 62.6 Estimated GFR (Non- 54.0 BUN/Creatinine Ratio 19.3 (10-20) Calcium Level 9.4 mg/dl (8.5-10.1) Influenza Type A Antigen Neg for Influ A (NEG) Influenza Type B Antigen Neg for Influ B (NEG) Medications Administered Medications (Trade) Dose Ordered Sig/Althea Route Start Time Stop Time Status Last Admin Dose Admin Albuterol/ Ipratropium (Duoneb) 3 ml NOW STAT INH 04/08/17 17:11 04/08/17 17:14 DC 04/08/17 17:52 3 ML ED Course The patient was evaluated. The patient's EMR medication list were reviewed. IV access was obtained. CBC and differential renal profile was ordered. The patient was given a DuoNeb. Chest x-ray was ordered and interpreted by the radiologist and myself as above without any acute findings. Rapid influenza was negative for influenza A and influenza B. Labs are reviewed and were unremarkable. White count was slightly low. The patient was reevaluated she still had scattered rhonchi and wheezing throughout both lung miles but there was much better air exchange. The patient was independently evaluated by Dr. Betts who agreed with treatment plan. The patient was given a Ventolin HFA inhaler with instructions on how to use. She was given 3 puffs all in the emergency room and given the inhaler to take with her. The patient was discharged home in stable condition.. Medical Decision Differential diagnosis include pneumonia, bronchitis, URI, influenza [place] Drug Monitoring Program Search Results: patient reviewed within database Medication Reconcilliation Current Medication List: was personally reviewed by me Blood Pressure Screening Patient's blood pressure: Elevated blood pressure Blood pressure disposition: Elevated BP felt to be situational Impression Primary Impression: Acute bronchitis Departure Information Dispostion Home / Self-Care Condition GOOD Prescriptions Amoxicillin & Pot Clavulanate (Augmentin 875-125 mg) 1 Tab Tab 1 TAB PO BID for 10 Days, #20 TAB Prov: Althea Berg PA-C 04/08/17 Referrals Andres Aquino D.O. (PCP) Forms HOME CARE DOCUMENTATION FORM, IMPORTANT VISIT INFORMATION Patient Instructions Bronchitis Acute, [facility] Additional Instructions Take your last Zithromax tomorrow. Use Ventolin HFA inhaler 2 puffs every 4 hours as needed for cough or chest tightness. Use this for at least 5 days. Recommend [id number] Mucinex as directed on the label for 5 days. If your symptoms are not improving in 3-4 days, start taking the Augmentin as prescribed. If symptoms are a lot worse follow-up with your family doctor or return to ER. Problem Qualifiers Primary Impression: Acute bronchitis Bronchitis organism: unspecified organism Qualified Codes: J20.9 - Acute bronchitis, unspecified
[2017-04-08 19:17] VITALS: BP 153/73; PULSE 81; O2SAT 97
== END 2017-04-08 19:21 | disposition home or self-care (01) ==
LOC: C.EDB 16:53 → C.EDC 19:21
DX: J20.9 Acute bronchitis, unspecified (principal); I10 Essential (primary) hypertension; E78.00 Pure hypercholesterolemia, unspecified; I48.91 Unspecified atrial fibrillation; Z79.82 Long term (current) use of aspirin; Z79.1 Long term (current) use of non-steroidal anti-inflammatories (NSAID)

== ENCOUNTER 2020-08-21 15:58 | Observation (INO) ==
--- OUTSIDE RECORDS SUMMARY | 2020-08-21 16:01 | External Medical Summary | Continuity of Care Document ---
:1935 Author Name Eduard Cortes Address Unavailable Unavailable , Care Team Providers Name Role Phone Luciana Cortes Unavailable [email or web address] PCP, UNKNOWN Unavailable Unavailable Assessments Assessed Problems:Encounter for preventive health examination Problems Active medical history not documented Allergies and Adverse Reactions Allergy history not documented Medications Medications not documented Procedures Procedures not documented Immunizations Influenza On: 09-Mar-2015 13:54 Lot #: [id number], [employer] Interventions Medications/Immunizations AdministeredInfluenza; Done: 09 Mar 2015 Plan of Treatment Planned Observations Planned Goals not documented Results No Known Results Results not documented Encounters Appointment; Luciana Eagle Nurse 09-Mar-2015 11:30 Encounter Diagnosis: Problem not documented
--- OUTSIDE RECORDS SUMMARY | 2020-08-21 16:01 | External Medical Summary | Continuity of Care Document ---
:1935 Author Name Eduard Cortes Address Unavailable Unavailable , Care Team Providers Name Role Phone Luciana Cortes [place] [email or web address] [place], UNKNOWN Unavailable Unavailable Assessments Assessed Problems:Encounter for preventive health examination Problems Active medical history not documented Allergies and Adverse Reactions Allergy history not documented Medications Medications not documented Procedures Procedures not documented Immunizations Influenza On: 09-Mar-2015 13:54 Lot #: [id number], [employer] Interventions Medications/Immunizations AdministeredInfluenza; Done: 09 Mar 2015 Plan of Treatment Planned Observations Planned Goals not documented Results No Known Results Results not documented Encounters Appointment; Luciana Eagle Nurse 09-Mar-2015 11:30 Encounter Diagnosis: Problem not documented
[2020-08-21] MEDS ORDERED: ASPIRIN CHEW 324 MG PO STA (16:08)
[2020-08-21] MEDS ORDERED: ONDANSETRON INJ 2 MG/ML 2 ML VIAL IV STA (16:08)
[2020-08-21] MEDS ORDERED: NITROGLYCERIN SL 0.4 MG/TAB TAB SL ONE (16:09)
--- NOTE | 2020-08-21 16:18 | Emergency Department Note ---
Impression & Plan Chest pain ED Provider Note NAME: ZEINAB RON AGE: 85 SEX: F : 1935 ARRIVES VIA: Walk-In INFORMANT: Patient, ED PROVIDER(S): José Luis León DO CHIEF COMPLAINT: Chest pain HPI: The patient is an 85-year-old female who presented to the emergency department for an evaluation of discomfort in her chest. The patient states that she awoke this morning and noticed discomfort in her left arm. She states that the pain was in her left shoulder and into her left side of her neck. She also notices it in her upper chest as well as across her upper back. She denies having any nausea or vomiting but did notice some GI upset earlier. She took a baby aspirin with only minimal relief in her symptoms. The patient states that the pain is been ongoing throughout the day. She presented to the emergency department today because of concerns it could be from her heart. She denies having any fever or cough. The patient has not had any recent traveling. She denies having any lower extremity swelling or pain. The patient did not see her primary care provider prior to coming to the emergency department. The patient states the pain is moderate at this time. She states it is not consistently associated with exertion. ROS: See above HPI for pertinent positives & negatives. A total of 10 systems reviewed and were otherwise negative. PAST MEDICAL HISTORY: See Below PAST SURGICAL HISTORY: See Below FAMILY HISTORY: See Below SOCIAL HISTORY: See Below HOME MEDICATIONS: See Below ALLERGIES: See Below VITALS: See Below PHYSICAL EXAMINATION: GENERAL: Patient is awake alert in no acute distress patient is resting comfortably and showing no signs of anxiety EYES: The conjunctivae are clear. The pupils are round and reactive. EARS, NOSE, MOUTH AND THROAT: The nose is without any evidence of any deformity. NECK: The neck is nontender and supple. RESPIRATORY: Normal respiratory effort is noted there is no evidence of wheezing rhonchi or rales CARDIOVASCULAR: Regular rate and rhythm noted there no murmurs rubs or gallops normal S1 normal S2. GASTROINTESTINAL: The abdomen is soft. Abdomen is nontender. MUSCULOSKELETAL/EXTREMITIES: There is no evidence of gross deformity full range of motion is noted in the hips and shoulders. SKIN: Trace pedal edema was noted bilaterally. Skin is warm and dry. Pulses are symmetric in both feet. NEUROLOGIC: Patient is awake alert and oriented x3. MEDICAL DECISION MAKING: The patient is an 85-year-old female who presented to the emergency department for an evaluation of chest pain. The patient describes anterior heaviness across her chest. It was also in her upper extremity and across her back. I discussed the patient's laboratory and radiographic studies with her. I also discussed the limitations of the emergency department work-up for chest pain with her. She was treated with nitroglycerin and aspirin in the emergency department. Symptoms were somewhat improved but not completely resolved. Given the patient's age and comorbidities I do feel the patient may require further inpatient management. I discussed her case with the on[facility]call [facility] They have agreed to evaluate the patient in the emergency department for further management and disposition. Triage Nursing notes reviewed. Prior medical records reviewed Vital Signs: reviewed and remarkable for elevated blood pressure. Differential diagnosis: Cardiac ischemia, aortic dissection, pulmonary embolism, pneumothorax, pneumonia, pericarditis, myocarditis, esophageal rupture, GERD, cholecystitis, pancreatitis, musculoskeletal, as well as other pathologies. ER treatment provided: See below Diagnostics interpreted by me: ECG: EKG was obtained in the emergency department. My interpretation is normal sinus rhythm at 79 bpm. There is no ectopy. There is no acute ST segment abnormalities noted. This was compared to a tracing from August 242017. No significant changes were noted. Cardiac Monitoring: An order was placed for continuous cardiac monitoring. The monitor shows a rate of 85 bpm with sinus rhythm. Laboratory studies: As stated above and show below. Imaging studies: See below Consultation(s): 181: I discussed this case with Sola who is on for the [facility] group. She will evaluate the patient in the emergency department Past Med/Surg History Medical History (Updated 08/21/20 @ 20:23 by José Luis León DO) Breast cancer Left breast s/p lumpectomy CKD (chronic kidney disease), stage III Coccygeal contusion Degenerative arthritis of left knee HLD (hyperlipidemia) Hypothyroidism Palpitations Right hip pain TIA (transient ischemic attack) Surgical History (Updated 08/21/20 @ 19:00 by Margarita Johnson PA-C) History of appendectomy History of arthroplasty of both knees History of hip replacement, total History of hysterectomy Family History (Updated 08/21/20 @ 19:01 by Margarita Johnson PA-C) Brother Coronary heart disease Cancer Bladder cancer Sister Cancer Breast cancer Father Cancer Stomach cancer Daughter Cancer AML Social History (Updated 08/21/20 @ 19:02 by Margarita Johnson PA-C) Smoking Status: Never smoker Hx Alcohol Use: No Hx Substance Use: No Feels Safe at Home: Yes Allergies Allergies Allergy/AdvReac Type Severity Reaction Status Date / Time niacin Allergy Unknown hives Verified 08/21/20 19:19 Opioid Analgesics AdvReac Unknown "gets very Uncoded 08/21/20 19:19 sick" Home Meds Home Medications Medication Instructions Recorded Confirmed acetaminophen [Tylenol Extra 1,000 mg PO TID PRN 08/21/20 08/21/20 Strength] aspirin [Aspir-81] 81 mg PO DAILY 08/21/20 08/21/20 calcium carbonate-vitamin D3 1 tab PO DAILY 08/21/20 08/21/20 [Calcium + D] cetirizine [Zyrtec] 10 mg PO DAILY PRN 08/21/20 08/21/20 conjugated estrogens [Premarin] 0.625 mg VAGINAL BID PRN 08/21/20 08/21/20 docusate sodium [Colace] 100 mg PO DAILY 08/21/20 08/21/20 hydrocortisone [Proctosol HC] 1 ea TOPICAL DAILY PRN 08/21/20 08/21/20 levothyroxine 50 mcg PO DAILY 08/21/20 08/21/20 metoprolol succinate 50 mg PO DAILY 08/21/20 08/21/20 simvastatin 40 mg PO DAILY 08/21/20 08/21/20 Results & Data (ED) Vital Signs Vital Signs - 24 hr 08/21/20 16:17 08/21/20 16:18 08/21/20 16:29 Pulse Rate 72 70 70 Pulse Rate [Apical] 72 Pulse Rate from SpO2 Sensor 72 70 Pulse Rhythm Regular Pulse Strength Normal Respiratory Rate 20 18 15 Respiratory Effort / Characteristics Non-Labored Spontaneous Non-Labored Spontaneous Respiratory Depth Normal Normal Respiratory Pattern Regular Regular Blood Pressure 176/95 H Blood Pressure [Left Arm] 176/96 H Blood Pressure Mean 122 Blood Pressure Mean [Left Arm] 122 Pulse Oximetry 98 98 97 Oxygen Delivery Method Room Air Room Air Sepsis Recent Fever Within 48 Hours No Sepsis New/Unexplained Change in Mental Status N/A Sepsis Action Taken by Nursing No Action Required 08/21/20 16:30 08/21/20 16:31 08/21/20 16:42 Pulse Rate 71 71 Pulse Rate [Apical] Pulse Rate from SpO2 Sensor 67 70 71 Pulse Rhythm Pulse Strength Respiratory Rate 21 17 Respiratory Effort / Characteristics Respiratory Depth Respiratory Pattern Blood Pressure 138/76 Blood Pressure [Left Arm] Blood Pressure Mean 96 Blood Pressure Mean [Left Arm] Pulse Oximetry 100 98 93 Oxygen Delivery Method Sepsis Recent Fever Within 48 Hours Sepsis New/Unexplained Change in Mental Status Sepsis Action Taken by Nursing 08/21/20 17:00 08/21/20 17:30 08/21/20 18:00 Pulse Rate 69 67 74 Pulse Rate [Apical] Pulse Rate from SpO2 Sensor 68 66 75 Pulse Rhythm Pulse Strength Respiratory Rate 20 18 27 H Respiratory Effort / Characteristics Respiratory Depth Respiratory Pattern Blood Pressure 163/80 H 147/91 H Blood Pressure [Left Arm] Blood Pressure Mean 107 109 Blood Pressure Mean [Left Arm] Pulse Oximetry 96 96 96 Oxygen Delivery Method Sepsis Recent Fever Within 48 Hours Sepsis New/Unexplained Change in Mental Status Sepsis Action Taken by Nursing 08/21/20 18:02 08/21/20 18:30 08/21/20 19:00 Pulse Rate 69 65 Pulse Rate [Apical] Pulse Rate from SpO2 Sensor 67 65 Pulse Rhythm Pulse Strength Respiratory Rate 18 13 Respiratory Effort / Characteristics Respiratory Depth Respiratory Pattern Blood Pressure 95/47 L 173/88 H Blood Pressure [Left Arm] Blood Pressure Mean 63 116 Blood Pressure Mean [Left Arm] Pulse Oximetry 98 97 Oxygen Delivery Method Sepsis Recent Fever Within 48 Hours Sepsis New/Unexplained Change in Mental Status Sepsis Action Taken by Nursing 08/21/20 19:30 08/21/20 19:31 08/21/20 20:00 Pulse Rate 68 77 69 Pulse Rate [Apical] Pulse Rate from SpO2 Sensor 67 75 69 Pulse Rhythm Pulse Strength Respiratory Rate 22 19 18 Respiratory Effort / Characteristics Respiratory Depth Respiratory Pattern Blood Pressure 225/88 H Blood Pressure [Left Arm] Blood Pressure Mean 133 Blood Pressure Mean [Left Arm] Pulse Oximetry 96 91 97 Oxygen Delivery Method Sepsis Recent Fever Within 48 Hours Sepsis New/Unexplained Change in Mental Status Sepsis Action Taken by Nursing 08/21/20 20:02 Pulse Rate 81 Pulse Rate [Apical] Pulse Rate from SpO2 Sensor 73 Pulse Rhythm Pulse Strength Respiratory Rate 20 Respiratory Effort / Characteristics Respiratory Depth Respiratory Pattern Blood Pressure 189/93 H Blood Pressure [Left Arm] Blood Pressure Mean 125 Blood Pressure Mean [Left Arm] Pulse Oximetry 99 Oxygen Delivery Method Sepsis Recent Fever Within 48 Hours Sepsis New/Unexplained Change in Mental Status Sepsis Action Taken by Residential Medications Current Medication List: was personally reviewed by me Laboratory Data Attestation: I reviewed the patient's lab results. Result diagrams: 08/21/20 16:15 08/21/20 16:15 Lab Results 08/21/20 08/21/20 08/21/20 Range/Units 16:15 16:15 19:08 WBC 9.08 (4.8-10.8) K/uL RBC 3.98 L (4.2-5.4) M/uL Hgb 13.0 (12.0-16.0) g/dL Hct 39.0 (37-47) % MCV 98.0 (80-100) fL MCH 32.7 (25-34) pg MCHC 33.3 (32-36) g/dL RDW Std Deviation 49.7 H (36.4-46.3) fL RDW Coeff of Dylon 13.9 (11.5-14.5) % Plt Count 263 (130-400) K/uL MPV 9.8 (7.4-10.4) fL Immature Gran % (Auto) 0.2 % Neut % (Auto) 60.6 % Lymph % (Auto) 25.0 % [place] % (Auto) 11.1 % Eos % (Auto) 2.9 % Baso % (Auto) 0.2 % Neut # (Auto) 5.50 (1.4-6.5) K/uL Lymph # (Auto) 2.27 (1.2-3.4) K/uL [place] # (Auto) 1.01 H (0.11-0.59) K/uL Eos # (Auto) 0.26 (0-0.5) K/uL Baso # (Auto) 0.02 (0-0.2) K/uL Immature Gran # (Auto) 0.02 (0.00-0.02) K/uL Sodium 139 (136-145) mmol/L Potassium 4.0 (3.5-5.1) mmol/L Chloride 106 (98-107) mmol/L Carbon Dioxide 29 (21-32) mmol/L Anion Gap 4.0 (3-11) BUN 16 (7-18) mg/dl Creatinine 0.94 (0.6-1.2) mg/dl Est Cr Clr Drug Dosing 43.0 ml/min Est GFR ( Amer) 63.2 Est GFR (Non-Af Amer) 54.5 BUN/Creatinine Ratio 16.5 (10-20) Glucose 78 (70-99) mg/dl Calcium 9.4 (8.5-10.1) mg/dl Total Bilirubin 0.4 (0.2-1) mg/dl AST 10 L (15-37) U/L ALT 15 (12-78) U/L Alkaline Phosphatase 89 (45-117) U/L Troponin I < 0.015 (0-0.045) ng/ml Total Protein 7.4 (6.4-8.2) gm/dl Albumin 3.8 (3.4-5.0) gm/dl Globulin 3.6 (2.5-4.0) gm/dl Albumin/Globulin Ratio 1.1 (0.9-2) Lipase 120 (73-393) U/L COVID-19 Eval Order CovFluRsv at [facility] SARS-CoV-2 (PCR) (Negative) Influenza Type A (PCR) (Neg) Influenza Type B (PCR) (Neg) RSV (RT-PCR) (Neg) 08/21/20 Range/Units 19:08 WBC (4.8-10.8) K/uL RBC (4.2-5.4) M/uL Hgb (12.0-16.0) g/dL Hct (37-47) % MCV (80-100) fL MCH (25-34) pg MCHC (32-36) g/dL RDW Std Deviation (36.4-46.3) fL RDW Coeff of Dylon (11.5-14.5) % Plt Count (130-400) K/uL MPV (7.4-10.4) fL Immature Gran % (Auto) % Neut % (Auto) % Lymph % (Auto) % [place] % (Auto) % Eos % (Auto) % Baso % (Auto) % Neut # (Auto) (1.4-6.5) K/uL Lymph # (Auto) (1.2-3.4) K/uL [place] # (Auto) (0.11-0.59) K/uL Eos # (Auto) (0-0.5) K/uL Baso # (Auto) (0-0.2) K/uL Immature Gran # (Auto) (0.00-0.02) K/uL Sodium (136-145) mmol/L Potassium (3.5-5.1) mmol/L Chloride (98-107) mmol/L Carbon Dioxide (21-32) mmol/L Anion Gap (3-11) BUN (7-18) mg/dl Creatinine (0.6-1.2) mg/dl Est Cr Clr Drug Dosing ml/min Est GFR ( Amer) Est GFR (Non-Af Amer) BUN/Creatinine Ratio (10-20) Glucose (70-99) mg/dl Calcium (8.5-10.1) mg/dl Total Bilirubin (0.2-1) mg/dl AST (15-37) U/L ALT (12-78) U/L Alkaline Phosphatase (45-117) U/L Troponin I (0-0.045) ng/ml Total Protein (6.4-8.2) gm/dl Albumin (3.4-5.0) gm/dl Globulin (2.5-4.0) gm/dl Albumin/Globulin Ratio (0.9-2) Lipase (73-393) U/L COVID-19 Eval Order SARS-CoV-2 (PCR) NEGATIVE (Negative) Influenza Type A (PCR) Negative (Neg) Influenza Type B (PCR) Negative (Neg) RSV (RT-PCR) Negative (Neg) Administered Medications Discontinued Medications Aspirin (Aspirin Chew 324 Mg) 324 mg PO NOW STA Stop: 08/21/20 16:09 Last Admin: 08/21/20 16:27 Dose: 324 mg Documented by: [id number] Nitroglycerin (Nitroglycerin Sl 0.4 Mg/Tab Tab) 0.4 mg SL UD ONE Stop: 08/21/20 16:10 Last Admin: 08/21/20 16:28 Dose: 0.4 mg Documented by: [id number] Ondansetron HCl (Ondansetron Inj 2 Mg/Ml 2 Ml Vial) 4 mg IV NOW STA Stop: 08/21/20 16:09 Last Admin: 08/21/20 16:28 Dose: 4 mg Documented by: [id number] Imaging Data Radiologist's Impression: Chest X-Ray 08/21/20 16:08 SINGLE VIEW CHEST CLINICAL HISTORY: Atypical chest pain FINDINGS: An AP, portable, upright chest radiograph is compared to study dated 08/24/2017. The heart is enlarged noting atherosclerotic calcification of the thoracic aorta. The pulmonary vasculature is noncongested. Chronic interstitial thickening is similar to previous. There is bibasilar scarring/atelectasis. No airspace consolidation or large pleural effusion is identified. No pneumothorax is seen. The skeletal structures are osteopenic. The bony thorax is grossly intact. Degenerative change is noted throughout the thoracic spine. IMPRESSION: Cardiomegaly with no active disease in the chest. ACT 112: Negative or not required by law. Electronically signed by: Nathanael Tomas M.D. 08/21/2020 4:21 PM Discharge Plan Visit Data Chief Complaint: Chest Pain Stated Complaint: CHEST PAIN/PRESSURE X 1DAY ED Provider: José Luis León Discharge Problem: Chest pain Forms Stand Alone Forms: [facility] Prescriptions Prescriptions: No Action cetirizine [Zyrtec] 10 mg Tablet 10 mg PO DAILY PRN (Reason: allergies) RF: 0 aspirin [Aspir-81] 81 mg Tablet,Delayed Release (Dr/Ec) 81 mg PO DAILY RF: 0 acetaminophen [Tylenol Extra Strength] 500 mg Tablet 1,000 mg PO TID PRN (Reason: Pain) RF: 0 Premarin 0.625 mg/gram Cream 0.625 mg VAGINAL BID PRN (Reason: ..) RF: 0 Proctosol HC 2.5 % Cream With Applicator 1 ea topical DAILY PRN (Reason: Hemorrhoids) RF: 0 calcium carbonate-vitamin D3 [Calcium + D] 600 mg(1,500mg) -200 unit Tablet 1 tab PO DAILY RF: 0 simvastatin 40 mg tablet 40 mg PO DAILY RF: 0 levothyroxine 50 mcg tablet 50 mcg PO DAILY RF: 0 docusate sodium [Colace] 100 mg Capsule 100 mg PO DAILY RF: 0 metoprolol succinate 25 mg tablet extended release 24 hr 50 mg PO DAILY RF: 0 Discharge Problem: Chest pain Qualifiers: Chest pain type: unspecified Qualified Code(s): R07.9 - Chest pain, unspecified
--- NOTE | 2020-08-21 16:22 | XRay Report ---
SINGLE VIEW CHEST CLINICAL HISTORY: Atypical chest pain FINDINGS: An AP, portable, upright chest radiograph is compared to study dated 08/24/2017. The heart i s enlarged noting atherosclerotic calcification of the thoracic aorta. The pulmonary vasculature is n oncongested. Chronic interstitial thickening is similar to previous. There is bibasilar scarring/atel ectasis. No airspace consolidation or large pleural effusion is identified. No pneumothorax is seen. The skeletal structures are osteopenic. The bony thorax is grossly intact. Degenerative change is not ed throughout the thoracic spine. IMPRESSION: Cardiomegaly with no active disease in the chest. ACT 112: Negative or not required by law. Electronically signed by: Nathanael Tomas M.D. 08/21/2020 4:21 PM
[2020-08-21 16:23] LABS: Basophils # (auto) 0.02 K/uL (0-0.2); Basophils % (auto) 0.2 %; Eosinophils # (auto) 0.26 K/uL (0-0.5); Eosinophils % (auto) 2.9 %; Immature Granulocytes # (auto) 0.02 K/uL (0.00-0.02); Immature Granulocytes % (auto) 0.2 %; Lymphocytes # (auto) 2.27 K/uL (1.2-3.4); Mean Corpuscular Hemoglobin 32.7 pg (25-34); Mean Corpuscular Hgb Conc 33.3 g/dL (32-36); Mean Platelet Volume 9.8 fL (7.4-10.4); Monocytes # (auto) 1.01 K/uL (0.11-0.59); Monocytes % (auto) 11.1 %; Neutrophils % (auto) 60.6 %; Platelet Count 263 K/uL (130-400); RDW Coefficient of Variation 13.9 % (11.5-14.5); RDW Standard Deviation 49.7 fL (36.4-46.3); Red Blood Count 3.98 M/uL (4.2-5.4); White Blood Count 9.08 K/uL (4.8-10.8)
[2020-08-21 16:42] LABS: Alanine Aminotransferase 15 U/L (12-78); Albumin Level 3.8 gm/dl (3.4-5.0); Aspartate Aminotransferase 10 U/L (15-37); BUN Creatinine Ratio 16.5 (10-20); Blood Urea Nitrogen 16 mg/dl (7-18); Calcium 9.4 mg/dl (8.5-10.1); Carbon Dioxide 29 mmol/L (21-32); Chloride 106 mmol/L (98-107); Est GFR (African American) 63.2; Est GFR (Non-African American) 54.5; Glucose 78 mg/dl (70-99); Lipase 120 U/L (73-393); Sodium 139 mmol/L (136-145)
[2020-08-21 16:47] LABS: Albumin Globulin Ratio 1.1 (0.9-2); Alkaline Phosphatase 89 U/L (45-117); Bilirubin,Total 0.4 mg/dl (0.2-1); Globulin 3.6 gm/dl (2.5-4.0); Total Protein 7.4 gm/dl (6.4-8.2); Troponin I < 0.015 ng/ml (0-0.045)
--- NOTE | 2020-08-21 19:02 | History & Physical Report ---
Date of Service August 21, 2020 Assessment & Plan (1) Chest pain: Pt is 85 y/o F with PMH palpitations, TIA, HLD, CKD III, hypothyroidism presented to ER with c/o bilateral shoulder pain and CP today. Denies palpitations, diaphoresis, SOB, dizziness In ER P: 72, R: 20, BP: 172/96, 95% on RA. Labs unremarkable. Initial troponin negative. EKG: sinus with Q waves inferior (seen on prior EKGs), Q wave anterior. CXR: no acute findings. In ER given 1 SL nitro without change in symptoms R/O ACS. Risk factors: hyperlipidemia, obesity, FH -Monitor Vitals -Repeat BP: 163/80. Monitor BP closely -Repeat EKG in am -Will trend troponin -echo -lipid panel in am, continue statin -continue aspirin & beta ronny -Nitro prn CP and repeat EKG for CP -Cardiology consult (2) Palpitations: History of palpitations. On metoprolol. Denies palpations since. -Continue metoprolol (3) HLD (hyperlipidemia): -Continue statin (4) CKD (chronic kidney disease), stage III: Cr: 0.9. Baseline Cr: 1.0 -Monitor renal functions and avoid nephrotoxic agents when possible (5) Hypothyroidism: -TSH in am -Continue levothyroxine DVT Prophylaxis -Heparin SQ Full Code as per discussion with pt, reports would not want prolonged life support if poor prognosis Follows with Dr Aquino for routine care Pt was seen and care coordinated with Dr Maravilla. See addendum History of Present Illness Chief Complaint: chest pain Primary Care Provider: Andres Aquino, Pt is 85 y/o F with PMH palpitations, TIA, HLD, CKD III, hypothyroidism presented to ER with c/o CP today. Patient states woke up this morning and had some pressure sensation to right shoulder. She initially thought she slept on her shoulder wrong. Patient states throughout the day pain spread to right- sided neck, anterior chest, left shoulder. She describes chest discomfort as as pressure and states "not real bad pain". Denies shortness of breath, dizziness, nausea vomiting. She has had prior history of palpitations and is on metoprolol and denies any palpitations since being on this. Denies other cardiac history. Patient states history of recurrent falls. Last fall over 1 month ago and occurred when she was trying to sit on chair and missed the chair chair. She denies any injury from that fall. Denies any dizziness, chest pain, shortness of breath symptoms prior to falls. She reports is not very active secondary to concern for falling. Pt had 2nd Pfizer COVID-19 vaccine on 07/29/2020. Reports after that had intermittent "flash of heat". Denies fevers. Denies diaphoresis, vomiting, diarrhea, constipation, MARQUEZ, syncope, vision changes, orthopnea, cough, sore throat, choking, otalgia, rhinorrhea, abdominal pain, paresthesias, extremity weakness, extremity edema, rashes, urinary symptoms. Allergies Allergy/AdvReac Type Severity Reaction Status Date / Time niacin Allergy Unknown hives Verified 08/21/20 19:19 Opioid Analgesics AdvReac Unknown "gets very Uncoded 08/21/20 19:19 sick" Home Medications Medication Instructions Recorded Confirmed Type acetaminophen [Tylenol Extra 1,000 mg PO TID PRN 08/21/20 08/21/20 History Strength] aspirin [Aspir-81] 81 mg PO DAILY 08/21/20 08/21/20 History calcium carbonate-vitamin D3 1 tab PO DAILY 08/21/20 08/21/20 History [Calcium + D] cetirizine [Zyrtec] 10 mg PO DAILY PRN 08/21/20 08/21/20 History conjugated estrogens [Premarin] 0.625 mg VAGINAL BID PRN 08/21/20 08/21/20 History docusate sodium [Colace] 100 mg PO DAILY 08/21/20 08/21/20 History hydrocortisone [Proctosol HC] 1 ea TOPICAL DAILY PRN 08/21/20 08/21/20 History levothyroxine 50 mcg PO DAILY 08/21/20 08/21/20 History metoprolol succinate 50 mg PO DAILY 08/21/20 08/21/20 History simvastatin 40 mg PO DAILY 08/21/20 08/21/20 History Past Med/Surg History Medical History (Updated 08/21/20 @ 20:23 by José Luis León DO) Breast cancer Left breast s/p lumpectomy CKD (chronic kidney disease), stage III Coccygeal contusion Degenerative arthritis of left knee HLD (hyperlipidemia) Hypothyroidism Palpitations Right hip pain TIA (transient ischemic attack) Surgical History (Updated 08/21/20 @ 19:00 by Margarita Johnson PA-C) History of appendectomy History of arthroplasty of both knees History of hip replacement, total History of hysterectomy Family History (Updated 08/21/20 @ 19:01 by Margarita Johnson PA-C) Brother Coronary heart disease Cancer Bladder cancer Sister Cancer Breast cancer Father Cancer Stomach cancer Daughter Cancer AML Social History (Updated 08/21/20 @ 19:02 by Margarita Johnson PA-C) Smoking Status: Never smoker Hx Alcohol Use: No Hx Substance Use: No Preferred Language: Singaporean Beliefs That Will Affect Care: None Current Living Situation: Significant Other Current Living Situation Comment: lives in one story house with one step Other Information That Helps Us Care for You: No Feels Safe at Home: Yes Safety Concerns: Feels Safe At This Time Assistive Devices: Glasses Review of Systems Review of Systems: All systems reviewed & are unremarkable except as noted in HPI & below Physical Exam Physical Exam: General: no distress, overweight Head: normocephalic, atraumatic Eyes: PERRL, EOM's intact, conjunctiva non-injected, anicteric ENT: normal inspection external ears, nose, mucous membranes moist Neck: supple, trachea midline, non-tender, ROM intact Lungs: clear, no respiratory distress, no wheezing/rhonchi/rales CV: RRR, no murmur, trace pretibial edema; chest wall non-tender to palpation Abd: normal BS, soft, non-tender Ext: no cyanosis, no calf tenderness, no tenderness with ROM of bilateral shoulders/arms Neuro: A&O x 3, no focal deficits noted, normal affect Skin: warm, dry Results & Data Results & Data ([facility]) Vital Signs (Past 12 Hours) Vital Signs Pulse Pulse Resp BP BP Pulse Ox 08/21/20 17:00 69 20 163/80 H 96 08/21/20 16:42 71 17 138/76 93 08/21/20 16:31 71 21 98 08/21/20 16:30 100 08/21/20 16:29 70 72 15 176/95 H 176/96 H 97 08/21/20 16:18 70 18 98 08/21/20 16:17 72 20 98 Laboratory Results Short CBC 08/21/20 Range/Units 16:15 WBC 9.08 (4.8-10.8) K/uL Hgb 13.0 (12.0-16.0) g/dL Hct 39.0 (37-47) % Plt Count 263 (130-400) K/uL BMP 08/21/20 16:15 Sodium 139 Potassium 4.0 Chloride 106 Carbon Dioxide 29 BUN 16 Creatinine 0.94 Glucose 78 Calcium 9.4 Cardiac Enzymes 08/21/20 Range/Units 16:15 Troponin I < 0.015 (0-0.045) ng/ml Liver Function 08/21/20 Range/Units 16:15 Total Bilirubin 0.4 (0.2-1) mg/dl AST 10 L (15-37) U/L ALT 15 (12-78) U/L Alkaline Phosphatase 89 (45-117) U/L Albumin 3.8 (3.4-5.0) gm/dl Diagnostic Findings Chest X-Ray 08/21/20 16:08 SINGLE VIEW CHEST CLINICAL HISTORY: Atypical chest pain FINDINGS: An AP, portable, upright chest radiograph is compared to study dated 08/24/2017. The heart is enlarged noting atherosclerotic calcification of the thoracic aorta. The pulmonary vasculature is noncongested. Chronic interstitial thickening is similar to previous. There is bibasilar scarring/atelectasis. No airspace consolidation or large pleural effusion is identified. No pneumothorax is seen. The skeletal structures are osteopenic. The bony thorax is grossly intact. Degenerative change is noted throughout the thoracic spine. IMPRESSION: Cardiomegaly with no active disease in the chest. ACT 112: Negative or not required by law. Electronically signed by: Nathanael Tomas M.D. 08/21/2020 4:21 PM ECG Rhythm: sinus rhythm Findings: + Q waves (Inferior, anterior) Supervising Physician Co-Signing Physician Notes Attending Addendum: The patient was seen and examined in ER She is an 85-year-old female with significant past medical history of palpitation, TIA, CKD stage III hypothyroidism with the history of completed second dose of COVID-19 vaccine on 29 July was admitted through ER with chest tightness and achiness involving bilateral shoulder area with associated minimal shortness of breath but no sweating, fever and/or chills The pain was not relieved with sublingual nitro and initial investigations are unremarkable She was still complaining some achiness involving the upper chest on either side during my examination in the emergency room On examination Minimal distress at rest and anxious Hemodynamically stable Chest-occasional crackles right base Heart-S1-S2, regular Abdomen-benign Extremities-trace edema bilaterally [employer]GER-alert, awake and oriented x3 Her admission labs, EKG and imaging studies reviewed EKG showed possible old inferior [place] otherwise nothing remarkable in the cardiac troponins were negative We will get serial cardiac enzymes and echocardiogram Recommendation could be secondary to Covid vaccination but difficult to justify Cardiology evaluation Agree with assessment and plan as outlined above by SANJANA Jimenez Dr
[2020-08-21 19:59] LABS: Influenza A virus by PCR Negative (Neg); Influenza B virus by PCR Negative (Neg); RSV by PCR Negative (Neg); SARS CoV2 RNA(COVID-19) InHosp NEGATIVE (Negative)
[2020-08-21] MEDS ORDERED: METOPROLOL TARTRATE 25 MG TAB PO STA (21:03)
[2020-08-21] MEDS ORDERED: ACETAMINOPHEN 325 MG TAB PO PRN (22:03)
[2020-08-21] MEDS ORDERED: NITROGLYCERIN SL 0.4 MG/TAB TAB SL PRN (22:03)
[2020-08-21] MEDS ORDERED: HYDROCORTISONE 2.5% CR 30 GM TUBE EXT PRN (22:34)
[2020-08-21] MEDS: HEPARIN SOD 5,000 UNIT/0.5 ML VIAL SQ SCH (23:25)
--- NOTE | 2020-08-22 00:05 | Electrocardiogram Report ---
Test Reason : Blood Pressure : / mmHG Vent. Rate : 079 BPM Atrial Rate : 079 BPM P-R Int : 186 ms QRS Dur : 092 ms QT Int : 392 ms P-R-T Axes : 001 -14 034 degrees QTc Int : 449 ms Normal sinus rhythm Low voltage QRS Inferior infarct (cited on or before 31-MAY-2004) Cannot rule out Anterior infarct , age undetermined Abnormal ECG When compared with ECG of 24-AUG-2017 12:35, No significant change was found Confirmed by Dat Carson ([id number]) on 08/22/2020 12:04:55 AM Referred By: Confirmed By:Dat Carson
[2020-08-22 04:11] LABS: Hematocrit (blood only) 40.3 % (37-47); Hemoglobin 12.9 g/dL (12.0-16.0); Mean Corpuscular Hemoglobin 31.7 pg (25-34); Mean Platelet Volume 9.9 fL (7.4-10.4); Platelet Count 274 K/uL (130-400); RDW Standard Deviation 50.8 fL (36.4-46.3); Red Blood Count 4.07 M/uL (4.2-5.4); White Blood Count 7.73 K/uL (4.8-10.8)
[2020-08-22 04:26] LABS: BUN Creatinine Ratio 18.4 (10-20); Calcium 9.1 mg/dl (8.5-10.1); Creatinine Clr Calc Pharmacy 45.3 ml/min; Est GFR (African American) 67.5; Est GFR (Non-African American) 58.3; Potassium 4.1 mmol/L (3.5-5.1)
[2020-08-22 04:37] LABS: Thyroid Stimulating Hormone 3.86 uIu/ml (0.300-4.500)
[2020-08-22] MEDS ORDERED: LEVOTHYROXINE SODIUM 50 MCG TABLET PO SCH (06:30)
[2020-08-22] MEDS ORDERED: METOPROLOL SUCC 50MG EXT REL TAB PO SCH (09:00)
[2020-08-22] MEDS ORDERED: ASPIRIN 81 MG ECTAB PO SCH ×2 (09:00)
[2020-08-22] MEDS ORDERED: DOCUSATE SODIUM 100 MG CAP PO SCH (09:00)
[2020-08-22] MEDS ORDERED: SIMVASTATIN 40 MG TAB PO SCH (09:00)
[2020-08-22] MEDS: HEPARIN SOD 5,000 UNIT/0.5 ML VIAL SQ SCH (09:11)
--- NOTE | 2020-08-22 12:50 | Hospitalist Progress Note ---
Date of Service August 22, 2020 Assessment & Plan (1) Chest pain: Pt is 85 y/o F with PMH palpitations, TIA, HLD, CKD III, hypothyroidism presented to ER with c/o bilateral shoulder pain and CP today. Denies palpitations, diaphoresis, SOB, dizziness In ER P: 72, R: 20, BP: 172/96, 95% on RA. Labs unremarkable. Initial troponin negative. EKG: sinus with Q waves inferior (seen on prior EKGs), Q wave anterior. CXR: no acute findings. In ER given 1 SL nitro without change in symptoms R/O ACS. Risk factors: hyperlipidemia, obesity, FH Nitro prn CP and repeat EKG for CP Serial cardiac enzymes and repeat EKG unremarkable Echo of the heart showed-normal LV size with mild hypertrophy without any wall motion abnormality, EF 60 to 65%, grade 1 diastolic dysfunction, aortic valve sclerosis without any significant stenosis, trace aortic regurgitation and no change compared with echo of 08/25/2017 Appreciate cardiology input and recommendation Like to be discharged today (2) Palpitations: History of palpitations. On metoprolol. Denies palpations since. -Continue metoprolol (3) HLD (hyperlipidemia): -Continue statin -Lipid profile showed triglyceride elevated at 313, cholesterol elevated at 214, LDL 102 and HDL 49 (4) CKD (chronic kidney disease), stage III: Cr: 0.9. Baseline Cr: 1.0 -Monitor renal functions and avoid nephrotoxic agents when possible -Creatinine is normal (5) Hypothyroidism: -TSH 3.860 -Continue levothyroxine DVT Prophylaxis -Heparin SQ Full Code as per discussion with pt, reports would not want prolonged life support if poor prognosis Follows with Dr Aquino for routine care Likely to be discharged this afternoon Admission and Anticipated Discharge Date Admission Date: August 21, 2020 Subjective 08/22/2020 The patient was seen and examined in medical telemetry unit She has been feeling much better today Denies any upper bilateral chest tenderness and/or pain and/or discomfort Denies any fever and/or chills, no nausea and or vomiting Review of Systems Review of Systems: All systems reviewed and are unremarkable except as noted below Cardiovascular: no chest pain, no chest pain at rest, no dyspnea at rest and no palpitations Gastrointestinal: no abdominal pain, no nausea and no vomiting Physical Exam Physical Exam: Lying in bed comfortably Constitutional: well developed, well nourished and + obese; not ill appearing and not in distress Eyes: PERRL, conjunctivae normal, anicteric sclerae ENMT: external ear and nose normal, oropharynx normal Neck: trachea midline, no thyromegaly Respiratory: no respiratory distress Auscultation: lungs clear to auscultation bilaterally Cardiovascular: Rate/Rhythm: regular rate, regular rhythm and + tachycardic Heart Sounds: + murmur (2/6 discharge systolic murmur over precordium) Extremities: + edema (Trace edema bilaterally) Gastrointestinal (Abdomen): Inspection/Auscultation: normal bowel sounds; abdomen not distended Percussion/Palpation: abdomen soft; abdomen nontender Musculoskeletal: No acute arthritis in any joint Neurologic: Alert, awake and oriented x3 Psychiatric: A+Ox3, euthymic affect Lymphatic: no cervical or axillary lymphadenopathy Results & Data Results & Data ([facility]) Vital Signs (Past 12 Hours) Vital Signs Temp Pulse Pulse Resp BP Pulse Ox 08/22/20 12:24 36.8 C 106 H 16 157/76 H 97 08/22/20 10:16 63 08/22/20 07:39 37.0 C 64 16 132/76 92 08/22/20 03:35 37.0 C 61 16 145/70 H 91 Laboratory Results Short CBC 08/21/20 08/22/20 Range/Units 16:15 03:50 WBC 9.08 7.73 (4.8-10.8) K/uL Hgb 13.0 12.9 (12.0-16.0) g/dL Hct 39.0 40.3 (37-47) % Plt Count 263 274 (130-400) K/uL BMP 08/21/20 08/22/20 16:15 03:50 Sodium 139 144 Potassium 4.0 4.1 Chloride 106 110 H Carbon Dioxide 29 30 BUN 16 16 Creatinine 0.94 0.89 Glucose 78 93 Calcium 9.4 9.1 Cardiac Enzymes 08/21/20 08/21/20 08/22/20 Range/Units 16:15 22:20 03:50 Troponin I < 0.015 < 0.015 < 0.015 (0-0.045) ng/ml Liver Function 08/21/20 Range/Units 16:15 Total Bilirubin 0.4 (0.2-1) mg/dl AST 10 L (15-37) U/L ALT 15 (12-78) U/L Alkaline Phosphatase 89 (45-117) U/L Albumin 3.8 (3.4-5.0) gm/dl Medications Administered Current Inpatient Medications Acetaminophen (Acetaminophen 325 Mg Tab) 650 mg PO Q4H PRN PRN Reason: Pain or Fever Stop: 09/20/20 22:02 Aspirin (Aspirin 81 Mg Ectab) 81 mg PO DAILY [facility] Stop: 09/21/20 08:59 Last Admin: 08/22/20 09:12 Dose: 81 mg Documented by: Docusate Sodium (Docusate Sodium 100 Mg Cap) 100 mg PO DAILY [facility] Stop: 09/21/20 08:59 Last Admin: 08/22/20 09:12 Dose: 100 mg Documented by: Heparin Sodium (Porcine) (Heparin Sod 5,000 Unit/0.5 Ml Vial) 5,000 units SQ Q12 RANJEET Stop: 09/20/20 22:02 Last Admin: 08/22/20 09:11 Dose: 5,000 units Documented by: Hydrocortisone (Hydrocortisone 2.5% Cr 30 Gm Tube) 1 appln EXT DAILY PRN PRN Reason: Hemorrhoids Stop: 09/20/20 22:33 Levothyroxine Sodium (Levothyroxine Sodium 50 Mcg Tablet) 50 mcg PO DAILYBB [facility] Stop: 09/21/20 06:29 Last Admin: 08/22/20 06:35 Dose: 50 mcg Documented by: Metoprolol Succinate (Metoprolol Succ 50mg Ext Rel Tab) 50 mg PO DAILY [facility] Stop: 09/21/20 08:59 Last Admin: 08/22/20 09:12 Dose: 50 mg Documented by: Nitroglycerin (Nitroglycerin Sl 0.4 Mg/Tab Tab) 0.4 mg SL UD PRN PRN Reason: Chest Pain Stop: 09/20/20 22:02 Simvastatin (Simvastatin 40 Mg Tab) 40 mg PO DAILY [facility] Stop: 09/21/20 08:59 Last Admin: 08/22/20 09:12 Dose: 40 mg Documented by: (1) Chest pain Chest pain type: unspecified Qualified Code(s): R07.9 - Chest pain, unspecified
--- NOTE | 2020-08-22 13:19 | Cardiology Consultation ---
Date of Consultation August 22, 2020 Assessment & Plan (1) Chest pain: Patient is an 85-year-old female with cardiovascular risk factors of hypertension hyperlipidemia, past TIA who presented with atypical pain for angina with right shoulder pain on awakening from sleep. Has been aware of ge neralized malaise and fatigue since Covid vaccination approximately 3 weeks ago no other focal complaints. No fevers chills or unexplained infections. Initial evaluation reveals no evidence of myocardial injury or ischemia. Overall LV systolic function is preserved. Recommendations: Patient's metoprolol succinate was increased from 25 mg to 50 mg on admission would continue at this dosing on discharge. Lipids reflect persistent hyperlipidemia with elevated triglycerides. Would recommend discontinuing simvastatin begin rosuvastatin 10 mg/day on discharge given persistent lipid abnormalities, risk factors, prior TIA Would recommend cardiology follow-up post hospital discharge. Patient requests Dr. Franklin Carson [facility] physician group (cares for patient's ) (2) HTN (hypertension): (3) CKD (chronic kidney disease), stage III: (4) TIA (transient ischemic attack): History of Present Illness Reason for Consultation: Chest pain, malaise Requesting Physician: Dr. Maravilla Attending Physician: Karis Maravilla MD History of Present Illness Patient is an 85-year-old female whose underlying issues 1. Hypertension on therapy 2. Hyperlipidemia 3. TIA 2018 without obstructive disease by CTA and carotid duplex 4. Prior history of palpitations no defined arrhythmia. Patient referred after hospitalization for complaints of right shoulder pain. Patient notes 2 to 3-week history of malaise after second dose of Covid vaccination. Last evening awakened from sleep with pain in her right shoulder and mild pressure sensation in chest and presented to the emergency room for further evaluation. She notes no ongoing complaints. Notes no recent change in exercise capacity other than malaise. Notes no fevers chills or unexplained infections. No prior history of cardiac disease, angina, congestive heart failure, arrhythmia. No history of valvular heart disease rheumatic fever scarlet fever. No recent change in weight dietary habits or sleep. Patient is relatively sedentary about home due to orthopedic issues but does perform on daily tasks and shopping. No recent change in exercise capacity. EKGs demonstrate sinus rhythm with Q waves in lead III and aVF unchanged from 2017. Echocardiogram demonstrates normal to hyperdynamic LV function with mild left hypertrophy and no wall motion or normality's. Cardiac enzymes negative for injury or infarct. Patient currently asymptomatic Allergies Allergy/AdvReac Type Severity Reaction Status Date / Time niacin Allergy Unknown hives Verified 08/21/20 19:19 Opioid Analgesics AdvReac Unknown "gets very Uncoded 08/21/20 19:19 sick" Home Medications Medication Instructions Recorded Confirmed Type acetaminophen [Tylenol Extra 1,000 mg PO TID PRN 08/21/20 08/21/20 History Strength] aspirin [Aspir-81] 81 mg PO DAILY 08/21/20 08/21/20 History calcium carbonate-vitamin D3 1 tab PO DAILY 08/21/20 08/21/20 History [Calcium + D] cetirizine [Zyrtec] 10 mg PO DAILY PRN 08/21/20 08/21/20 History conjugated estrogens [Premarin] 0.625 mg VAGINAL BID PRN 08/21/20 08/21/20 History docusate sodium [Colace] 100 mg PO DAILY 08/21/20 08/21/20 History hydrocortisone [Proctosol HC] 1 ea TOPICAL DAILY PRN 08/21/20 08/21/20 History levothyroxine 50 mcg PO DAILY 08/21/20 08/21/20 History metoprolol succinate 50 mg PO DAILY 08/21/20 08/21/20 History simvastatin 40 mg PO DAILY 08/21/20 08/21/20 History Patient History Medical History (Updated 08/22/20 @ 13:28 by Lance Groves MD) Breast cancer Left breast s/p lumpectomy CKD (chronic kidney disease), stage III Coccygeal contusion Degenerative arthritis of left knee HLD (hyperlipidemia) Hypothyroidism Palpitations Right hip pain TIA (transient ischemic attack) Surgical History (Updated 08/21/20 @ 19:00 by Margarita Johnson PA-C) History of appendectomy History of arthroplasty of both knees History of hip replacement, total History of hysterectomy Family History (Updated 08/21/20 @ 19:01 by Margarita Johnson PA-C) Brother Coronary heart disease Cancer Bladder cancer Sister Cancer Breast cancer Father Cancer Stomach cancer Daughter Cancer AML Social History (Updated 08/21/20 @ 19:02 by Margarita Johnson PA-C) Smoking Status: Never smoker Hx Alcohol Use: No Hx Substance Use: No Preferred Language: Surinamese Beliefs That Will Affect Care: None Current Living Situation: Significant Other Current Living Situation Comment: lives in one story house with one step Other Information That Helps Us Care for You: No Feels Safe at Home: Yes Safety Concerns: Feels Safe At This Time Assistive Devices: None and Denture - Upper Results & Data ([facility]) Vital Signs (Past 12 Hours) Vital Signs Temp Pulse Pulse Resp BP Pulse Ox 08/22/20 12:24 36.8 C 106 H 16 157/76 H 97 08/22/20 10:16 63 08/22/20 07:39 37.0 C 64 16 132/76 92 08/22/20 03:35 37.0 C 61 16 145/70 H 91 Laboratory Results Laboratory Results - last 24 hr 08/21/20 08/21/20 08/21/20 16:15 16:15 19:08 WBC 9.08 RBC 3.98 L Hgb 13.0 Hct 39.0 MCV 98.0 MCH 32.7 MCHC 33.3 RDW Std Deviation 49.7 H RDW Coeff of Dylon 13.9 Plt Count 263 MPV 9.8 Immature Gran % (Auto) 0.2 Neut % (Auto) 60.6 Lymph % (Auto) 25.0 [place] % (Auto) 11.1 Eos % (Auto) 2.9 Baso % (Auto) 0.2 Neut # (Auto) 5.50 Lymph # (Auto) 2.27 [place] # (Auto) 1.01 H Eos # (Auto) 0.26 Baso # (Auto) 0.02 Immature Gran # (Auto) 0.02 Sodium 139 Potassium 4.0 Chloride 106 Carbon Dioxide 29 Anion Gap 4.0 BUN 16 Creatinine 0.94 Est Cr Clr Drug Dosing 43.0 Est GFR ( Amer) 63.2 Est GFR (Non-Af Amer) 54.5 BUN/Creatinine Ratio 16.5 Glucose 78 Calcium 9.4 Total Bilirubin 0.4 AST 10 L ALT 15 Alkaline Phosphatase 89 Troponin I < 0.015 Total Protein 7.4 Albumin 3.8 Globulin 3.6 Albumin/Globulin Ratio 1.1 Triglycerides Cholesterol LDL Cholesterol, Calc VLDL Cholesterol, Calc HDL Cholesterol Cholesterol/HDL Ratio Lipase 120 TSH COVID-19 Eval Order CovFluRsv at [facility] SARS-CoV-2 (PCR) Influenza Type A (PCR) Influenza Type B (PCR) RSV (RT-PCR) 08/21/20 08/21/20 08/22/20 19:08 22:20 03:50 WBC RBC Hgb Hct MCV MCH MCHC RDW Std Deviation RDW Coeff of Dylon Plt Count MPV Immature Gran % (Auto) Neut % (Auto) Lymph % (Auto) [place] % (Auto) Eos % (Auto) Baso % (Auto) Neut # (Auto) Lymph # (Auto) [place] # (Auto) Eos # (Auto) Baso # (Auto) Immature Gran # (Auto) Sodium Potassium Chloride Carbon Dioxide Anion Gap BUN Creatinine Est Cr Clr Drug Dosing Est GFR ( Amer) Est GFR (Non-Af Amer) BUN/Creatinine Ratio Glucose Calcium Total Bilirubin AST ALT Alkaline Phosphatase Troponin I < 0.015 < 0.015 Total Protein Albumin Globulin Albumin/Globulin Ratio Triglycerides Cholesterol LDL Cholesterol, Calc VLDL Cholesterol, Calc HDL Cholesterol Cholesterol/HDL Ratio Lipase TSH COVID-19 Eval Order SARS-CoV-2 (PCR) NEGATIVE Influenza Type A (PCR) Negative Influenza Type B (PCR) Negative RSV (RT-PCR) Negative 08/22/20 08/22/20 03:50 03:50 WBC 7.73 RBC 4.07 L Hgb 12.9 Hct 40.3 MCV 99.0 MCH 31.7 MCHC 32.0 RDW Std Deviation 50.8 H RDW Coeff of Dylon 14.0 Plt Count 274 MPV 9.9 Immature Gran % (Auto) Neut % (Auto) Lymph % (Auto) [place] % (Auto) Eos % (Auto) Baso % (Auto) Neut # (Auto) Lymph # (Auto) [place] # (Auto) Eos # (Auto) Baso # (Auto) Immature Gran # (Auto) Sodium 144 Potassium 4.1 Chloride 110 H Carbon Dioxide 30 Anion Gap 4.0 BUN 16 Creatinine 0.89 Est Cr Clr Drug Dosing 45.3 Est GFR ( Amer) 67.5 Est GFR (Non-Af Amer) 58.3 BUN/Creatinine Ratio 18.4 Glucose 93 Calcium 9.1 Total Bilirubin AST ALT Alkaline Phosphatase Troponin I Total Protein Albumin Globulin Albumin/Globulin Ratio Triglycerides 313 H Cholesterol 214 H LDL Cholesterol, Calc 102 VLDL Cholesterol, Calc 63 HDL Cholesterol 49 Cholesterol/HDL Ratio 4 Lipase TSH 3.860 COVID-19 Eval Order SARS-CoV-2 (PCR) Influenza Type A (PCR) Influenza Type B (PCR) RSV (RT-PCR) (1) Chest pain Chest pain type: unspecified Qualified Code(s): R07.9 - Chest pain, unspecified
--- NOTE | 2020-08-22 18:43 | Electrocardiogram Report ---
Test Reason : Blood Pressure : / mmHG Vent. Rate : 063 BPM Atrial Rate : 063 BPM P-R Int : 214 ms QRS Dur : 088 ms QT Int : 426 ms P-R-T Axes : 002 -16 032 degrees QTc Int : 435 ms Sinus rhythm with 1st degree A-V block possible Inferior infarct (cited on or before 31-MAY-2004) Abnormal ECG When compared with ECG of 21-AUG-2020 16:11, No significant change was found Confirmed by Can Olivas ([id number]) on 08/22/2020 6:43:22 PM Referred By: REFERRED SELF Confirmed By:Ashutosh Olivas
--- NOTE | 2020-08-23 08:19 | Discharge Summary ---
Date of Service August 23, 2020 Admission HPI Per Admitting Provider Pt is 85 y/o F with PMH palpitations, TIA, HLD, CKD III, hypothyroidism presented to ER with c/o CP today. Patient states woke up this morning and had some pressure sensation to right shoulder. She initially thought she slept on her shoulder wrong. Patient states throughout the day pain spread to right- sided neck, anterior chest, left shoulder. She describes chest discomfort as as pressure and states "not real bad pain". Denies shortness of breath, dizziness, nausea vomiting. She has had prior history of palpitations and is on metoprolol and denies any palpitations since being on this. Denies other cardiac history. Patient states history of recurrent falls. Last fall over 1 month ago and occurred when she was trying to sit on chair and missed the chair chair. She denies any injury from that fall. Denies any dizziness, chest pain, shortness of breath symptoms prior to falls. She reports is not very active secondary to concern for falling. Pt had 2nd Pfizer COVID-19 vaccine on 07/29/2020. Reports after that had intermittent "flash of heat". Denies fevers. Denies diaphoresis, vomiting, diarrhea, constipation, MARQUEZ, syncope, vision changes, orthopnea, cough, sore throat, choking, otalgia, rhinorrhea, abdominal pain, paresthesias, extremity weakness, extremity edema, rashes, urinary symptoms. Admission Exam Per Admitting Provider Physical Exam: General: no distress, overweight Head: normocephalic, atraumatic Eyes: PERRL, EOM's intact, conjunctiva non-injected, anicteric ENT: normal inspection external ears, nose, mucous membranes moist Neck: supple, trachea midline, non-tender, ROM intact Lungs: clear, no respiratory distress, no wheezing/rhonchi/rales CV: RRR, no murmur, trace pretibial edema; chest wall non-tender to palpation Abd: normal BS, soft, non-tender Ext: no cyanosis, no calf tenderness, no tenderness with ROM of bilateral shoulders/arms Neuro: A&O x 3, no focal deficits noted, normal affect Skin: warm, dry Principal Diagnosis Chest pain-no ACS, hypertension, CKD, hyperlipidemia Discharge Exam Constitutional well developed, well nourished and + obese; not ill appearing and not in distress Eyes PERRL, conjunctivae normal, anicteric sclerae ENMT external ear and nose normal, oropharynx normal Neck trachea midline, no thyromegaly Respiratory no respiratory distress Auscultation: lungs clear to auscultation bilaterally Cardiovascular Rate/Rhythm: regular rate, regular rhythm and + tachycardic Heart Sounds: + murmur (2/6 discharge systolic murmur over precordium) Extremities: + edema (Trace edema bilaterally) Gastrointestinal (Abdomen) Inspection/Auscultation: normal bowel sounds; abdomen not distended Percussion/Palpation: abdomen soft; abdomen nontender Psychiatric A+Ox3, euthymic affect Lymphatic no cervical or axillary lymphadenopathy Discharge Data Allergies Allergy/AdvReac Type Severity Reaction Status Date / Time niacin Allergy Unknown hives Verified 08/21/20 19:19 Opioid Analgesics AdvReac Unknown "gets very Uncoded 08/21/20 19:19 sick" Consultations 08/21/20 18:12 ED Decision to Admit Stat 08/22/20 08:00 Consult Cardiology Routine Hospital Course (1) Chest pain: Pt is 85 y/o F with PMH palpitations, TIA, HLD, CKD III, hypothyroidism presented to ER with c/o bilateral shoulder pain and CP today. Denies palpitations, diaphoresis, SOB, dizziness In ER P: 72, R: 20, BP: 172/96, 95% on RA. Labs unremarkable. Initial troponin negative. EKG: sinus with Q waves inferior (seen on prior EKGs), Q wave anterior. CXR: no acute findings. In ER given 1 SL nitro without change in symptoms R/O ACS. Risk factors: hyperlipidemia, obesity, FH Nitro prn CP and repeat EKG for CP Serial cardiac enzymes and repeat EKG unremarkable Echo of the heart showed-normal LV size with mild hypertrophy without any wall motion abnormality, EF 60 to 65%, grade 1 diastolic dysfunction, aortic valve sclerosis without any significant stenosis, trace aortic regurgitation and no change compared with echo of 08/25/2017 Appreciate cardiology input and recommendation Like to be discharged today (2) Palpitations: History of palpitations. On metoprolol. Denies palpations since. -Continue metoprolol (3) HLD (hyperlipidemia): -Continue statin -Lipid profile showed triglyceride elevated at 313, cholesterol elevated at 214, LDL 102 and HDL 49 (4) CKD (chronic kidney disease), stage III: Cr: 0.9. Baseline Cr: 1.0 -Monitor renal functions and avoid nephrotoxic agents when possible -Creatinine is normal (5) Hypothyroidism: -TSH 3.860 -Continue levothyroxine DVT Prophylaxis -Heparin SQ Full Code as per discussion with pt, reports would not want prolonged life support if poor prognosis Follows with Dr Aquino for routine care Likely to be discharged this afternoon Total Time Total Time Spent Total Time Spent (In Minutes): 35 minutes Total Time Includes: Examination of the Patient, Discharge Planning, Medication Reconciliation and Communication With Other Providers Discharge Plan Discharge Items Patient Disposition: Home - Self-Care Reason For Visit: CP Discharge Diagnosis: Chest pain-no ACS, hypertension, CKD, hyperlipidemia Condition on Discharge: Good Activity: Resume your previous activity Non-emergency contact: Primary Care Provider Call non-emergency contact if: you have any medication questions and your symptoms worsen Follow-up/Referrals: Andres Aquino, DO [Primary Care Provider] - (Your doctor's office will call you with an appointment within 7 days) Diet: Heart Healthy Addtl Attending Provider Instructions: Your metoprolol succinate has been increased to 75 mg daily Simvastatin has been discontinued and rosuvastatin 10 mg has been prescribed Please make an appointment with the poker dealer as an outpatient Pending Studies at Discharge: No Stand-Alone Forms: [employer], Smoking Cessation Medications and DC Order Prescriptions: New metoprolol succinate 50 mg Tablet Extended Release 24 Hr 75 mg PO DAILY 30 Days Qty: 45 RF: 0 rosuvastatin [Crestor] 10 mg tablet 10 mg PO DAILY Qty: 30 RF: 0 Continued cetirizine [Zyrtec] 10 mg Tablet 10 mg PO DAILY PRN (Reason: allergies) RF: 0 aspirin 81 mg Tablet,Delayed Release (Dr/Ec) 81 mg PO DAILY RF: 0 acetaminophen [Tylenol Extra Strength] 500 mg Tablet 1,000 mg PO TID PRN (Reason: Pain) RF: 0 Premarin 0.625 mg/gram Cream 0.625 mg VAGINAL BID PRN (Reason: ..) RF: 0 hydrocortisone 2.5 % Cream With Applicator 1 ea topical DAILY PRN (Reason: Hemorrhoids) RF: 0 calcium carbonate-vitamin D3 600 mg(1,500mg) -200 unit Tablet 1 tab PO DAILY RF: 0 levothyroxine 50 mcg tablet 50 mcg PO DAILY RF: 0 docusate sodium [Colace] 100 mg Capsule 100 mg PO DAILY RF: 0 Changed metoprolol succinate 25 mg tablet extended release 24 hr 75 mg PO DAILY Qty: 0 RF: 0 Discontinued simvastatin 40 mg tablet 40 mg PO DAILY RF: 0 Discharge Orders: Discharge Order (Routine); Ordered 08/22/20 Ordered By: Karis Lagunas/Other Patient Handouts: Controlling High Blood Pressure, What Is GERD?, Eating Heart-Healthy Foods Admission Data Admit Date/Time: 08/21/20 18:27 Attending Provider: Karis Maravilla Admit Provider: Karis Maravilla Primary Care Provider: Andres Aquino Other Providers: Karis Maravilla ; Lance Groves Other Interventions: Discharge Summary Assessment (RN) Last Done: 08/22/20 13:57
== END 2020-08-22 14:54 | disposition home or self-care (01) ==
LOC: ED 15:58 → 2W 15:58

== ENCOUNTER 2021-03-18 10:11 | Observation (INO) ==
[2021-03-18] MEDS ORDERED: fentaNYL citrate 100 MCG/2 ML VIAL ONE (10:37)
[2021-03-18] MEDS ORDERED: HEPARIN (PORCINE) 1000 UNIT/ML 10 ML (CATH LAB USE ONLY) ONE (10:37)
[2021-03-18] MEDS ORDERED: niCARdipine HCL INJ 2.5 MG/ML 10 ML AMP ONE (10:37)
[2021-03-18] MEDS ORDERED: MIDAZOLAM HCL 1 MG/ML 2ML VIAL ONE ×2 (10:37→13:05)
[2021-03-18] MEDS ORDERED: NITROGLYCERIN/D5W 100MCG/ML 20ML SYR ONE (10:38)
--- NOTE | 2021-03-18 11:32 | History & Physical Bridge Note ---
Date of Service March 18, 2021 History & Physical Bridge Note I have examined the patient, reviewed the History & Physical and in the interval since the performance of the History & Physical I have noted the following changes of clinical significance: no changes noted
--- NOTE | 2021-03-18 11:34 | Pre Anesthesia Assessment ---
Date of Service March 18, 2021 Pre Sedation Assessment Vital Signs Temp Pulse Resp BP Pulse Ox 03/18/21 10:49 36.7 C 68 16 180/101 H 98 Cardiovascular + regular rate Respiratory normal respiratory effort, lungs clear to auscultation Pre-Sedation Airway Assessment Smoking Status: Never smoker Short, Thick Neck: No Thyromental Distance: > or= 3.5 Finger Breadths Oral Cavity: + Dentures Mallampati Class: III ASA: ASA3 NPO Status Date of Last Intake of Fluids: 03/17/21 Time of Last Intake of Fluids: 20:00 Date of Last Intake of Solid Food: 03/17/21 Time of Last Intake of Solid Foods: 20:00 Procedure Planning Contraindications for Sedation: none Current Medications Reviewed: Yes Notes The planned sedation has been discussed with the patient. Informed Consent was obtained. I have identified the patient, determined the appropriateness of sedation and have assessed the patient immediately prior to the procedure. All medicine(s) and interventions are by my order.
--- NOTE | 2021-03-18 12:30 | Cardiac Catheterization ---
[facility] Data: Director Packaging Cardiac Status Clinical evaluation leading to the procedure CAD Presenation: Unstable angina Anginal Classification: CCS IV Heart Failure: No Cardiogenic Shock within 24 Hours: No Cardiac Arrest within 24 Hours: No Imaging Studies Past 6 Months: Yes Stress Studies Past 6 Months: Yes Standard Exercise Test: No Stress Echocardiogram: No Stress Testing w/SPECT MPI: Yes - Positive and Risk/Extent of Ischemia (High) Cardiac CTA: No Coronary Anatomy Dominant: Right Diagnostic Physicians Name: Dat Carson MD Status: Elective Closure Device Percutaneous Entry Location: Radial Closure Device: Radial Band Recommendations: PCI without planned CABG Cardiac Cath Procedure Full Procedure Date March 18, 2021 Pre-Procedure Diagnosis Pre-Procedure Diagnosis: Angina and Positive Stress Test AUC Score AUC Score: 8 Post-Procedure Diagnosis Post-Procedure Diagnosis: Severe CAD and Normal Intracardiac Pressures Procedure(s) Performed Procedure(s) Performed: Coronary Angiography and Left Heart Cath Controller Operations And Hr Manager Dat Carson MD Icu Tech(s) Barratte Operator Estimated Blood Loss Estimated Blood Loss: < 20 ml Medication(s) Medication(s): Fentanyl, Lidocaine 1%, Nicardipine and Versed Summary of Findings Procedures: 1. Coronary angiography 2. Left heart catheterization 3. Moderate sedation Indication: 85-year-old female with hypertension, dyslipidemia, paroxysmal atrial fibrillation, and chest discomfort with exertion and at rest concerning for angina. She underwent myocardial perfusion study which suggested LAD infarct and ischemia. Echo demonstrated reduced LV systolic function with an EF of 40 to 45%, with LAD wall motion abnormalities. When speaking with her today, she reported chest pressure while laying in her bed. ECG demonstrated sinus rhythm with anterior infarct, minor ST elevation in the anterior leads and T wave inversion throughout the precordium. ST/T wave abnormalities new compared to nuclear stress test performed 03/12/2021. Coronary angiography: 1. Left main: No significant CAD. 2. Left anterior descending: Large caliber vessel that wraps around the apex. Mid LAD diffusely diseased with approximately 95% tandem lesions, involving ostial segments of small caliber D2 and D3. Remainder of LAD without significant CAD. There is also small caliber D1 and D4. Faint left to left collaterals. 3. Circumflex: Proximal circumflex 30%. Remainder of circumflex and OM1 without significant CAD. 4. Right coronary artery: RCA is large and dominant. Mid RCA diffusely diseased approximately 30 to 40%. Luminal irregularities within the distal RCA. Large PL 1, medium caliber PL 2, and large PDA without significant CAD. Faint right to left collaterals to septal perforators. Left heart catheterization: 1. Left ventriculography was not performed. 2. Normal LVEDP; 12 mmHg. 3. No aortic stenosis. Moderate sedation: 1. Sedation start time: 11:54 AM 2. Sedation end time: 12:29 PM Impression: 1. Severe mid LAD CAD. 2. Otherwise, nonobstructive CAD involving RCA and circumflex. 3. Normal left-sided filling pressure. 4. No significant aortic stenosis. 5. Unstable angina. Plan: 1. Images reviewed with Dr. Ramirez of interventional cardiology who plans to perform PCI of the LAD. 2. Risk factor modification. 3. Consider cardiac rehab. Hemodynamics Rest Ao:: 140/56 Final Ao: 139/55 LV: 142/3/12 Recommendations Recommendations: PCI without planned CABG Specimens Specimens: None Radiation Exposure (mGy) 599 mGy. Fluoro time 1.8 min. Contrast (mls) 45 ml Procedural Complication(s) None Disposition remains in research laboratory manager for PCI attempt I attest to the content of the Intraoperative Record and any orders documented therein. Any exceptions are noted below. [facility] Card Cath Procedure Codes Cardiac Catheterization Procedure 1: Cardiovascular Cath Procedures: 17221 Coronaries and LHC (+/-LV) Moderate Sedation Procedure 1: Sedation/Anesthesia: 70928 Mod Sedation by the same physician;Init15 Min Child Age 5 & Up Procedure 2: Sedation/Anesthesia: 93883 Mod Sedation by the same physician; Ea [id number] Minutes Procedure 3: Sedation/Anesthesia: 48859 Mod Sedation by the same physician; Ea [id number] Minutes PG Care Time/CCT Total # of Minutes Spent Total Time Spent with Patient: Total time spent is greater than 50% in coordination of care (as documented) at patient's floor/unit and/or counseling patient:
[2021-03-18] MEDS ORDERED: CLOPIDOGREL BISULFATE 300 MG TAB ONE (13:17)
--- NOTE | 2021-03-18 13:53 | Post Anesthesia Assessment ---
Date of Service March 18, 2021 Post Sedation Assessment Vital Signs Temp Pulse Resp BP Pulse Ox 03/18/21 13:30 68 16 148/74 H 98 03/18/21 10:49 98.1 F 68 16 180/101 H 98 Recovery Score Activity: Moves 4 extremities Respiration: Deep Breath/Cough Circulation: +/-20% PreAnes Value Consciousness: Fully Awake Oxygen Saturation: > 92% On Room Air Post Anesthesia Score: 10 Discharge Sedation Level of Care: Fast Track Phase II Post Sedation Plan On clinical assessment, the patient appears to have tolerated the sedation without complications. Patient is recovering as anticipated. Patient will continue to be monitored by nursing and may be discharged when sedation discharge criteria are met per below protocol. Upon Completions of procedure up to 15 minutes continue every 5 minute vital signs and the P.A.R. score; then discharge to a Phase I or Fast Track to Phase II per the following guidelines: * Discharge Patient to appropriate Phase II area if PAR is 8 or greater or r eturn to pre- procedure baseline. The post - procedure orders will be as directed. * If PAR score is less than 8 or not return to pre-procedure baseline then patient will follow Phase I monitoring till PAR is reached for Phase II. The Phase I may be done in procedure room or may call to secure a Phase I area. * If naloxone or flumazenil are used for reversal, hold in Phase I for continued monitoring from when last reversal dose was given for a minimum of 60 minutes or longer pending the nurse and/or physician discretion of patient condition before discharge to Phase II. Please call the Sedation Physician to re-evaluate and complete post-note for discharge to Phase II area. Do NOT discharge from procedure sedation or Phase 1 until post- sedation evaluation note is complete by procedure /sedation MD Sedation Discharge Instructions to be given to the patient at discharge to home.
[2021-03-18] MEDS ORDERED: NITROGLYCERIN SL 0.4 MG/TAB TAB SL PRN (14:01)
[2021-03-18] MEDS ORDERED: ONDANSETRON INJ 2 MG/ML 2 ML VIAL IV PRN (14:01)
--- NOTE | 2021-03-18 14:01 | Cardiac Catheterization ---
[facility] Data: Crocodile Farmer Cardiac Status Clinical evaluation leading to the procedure CAD Presenation: Unstable angina Anginal Classification: CCS IV Heart Failure: No Cardiogenic Shock within 24 Hours: No Cardiac Arrest within 24 Hours: No Imaging Studies Past 6 Months: Yes Stress Studies Past 6 Months: Yes Stress Testing w/SPECT MPI: Yes - Positive and Risk/Extent of Ischemia (High) Diagnostic Physicians Name: Can Ramirez MD Status: Elective Closure Device Percutaneous Entry Location: Radial Closure Device: Radial Band Recommendations: PCI without planned CABG PCI Indication: + Stress Test and Unstable Angina Lesion Segment Name: mid LAD Culprit Artery: Yes Stenosis Prior to Rx (%): 95+% Chronic Total Occlusion: No IVUS: No FFR: No Pre-Procedure JACQUI Flow: 2 Previously Treated Lesion: No Lesion Complexity: Non-High/Non-C Lesion Length (mm): 25 Thrombus Present: Yes Bifurcation Lesion: Yes Guidewire Across Lesion: Stenosis Post-Procedure (%): 0 Post-Procedure JACQUI Flow: 3 Devices(s) Deployed: Yes Yes Intraprocedure Events Significant Disection: No Perforation: No Cardiac Cath Procedure Full Procedure Date March 18, 2021 Pre-Procedure Diagnosis Pre-Procedure Diagnosis: Angina and Positive Stress Test AUC Score AUC Score: 8 Post-Procedure Diagnosis Post-Procedure Diagnosis: Severe CAD and Normal Intracardiac Pressures Procedure(s) Performed Procedure(s) Performed: Coronary Angiography and Left Heart Cath Marble Helper Can Ramirez MD Medical Device Assembler(s) Order Caller Estimated Blood Loss Estimated Blood Loss: < 20 ml Medication(s) Medication(s): Fentanyl, Lidocaine 1%, Nicardipine and Versed Summary of Findings Indication: Accelerating chest pain, abnormal stress test, acute ECG changes suggestive of ACS. Access: 6 Fr right radial artery Catheters: EBU 3.5 guide Findings: For full details of patient's coronary angiography please see cath report dictated by Dr. Carson. Briefly, patient found to have severe single-vessel disease with acute mid LAD 95+ percent stenosis. Decision to proceed with PCI. -- PCI -- Antithrombotic therapy: Heparin, clopidogrel Procedure: Left main cannulated with EBU 3.5 guide Agricultural Economics Professor 50 wire passed across lesion into distal vessel Mid LAD lesion predilated with 2.5 compliant balloon Dilated lesion stented with 2.75 x 33 mm Xience drug-eluting stent Stent post-dilated with 3.5 noncompliant balloon Compromised flow in small to medium caliber second diagonal post noncompliant balloon Diagonal through stent struts wired with whisper wire Ostium of D3 dilated with 2.0 balloon through stent struts. IC vasodilators administered for spasm Post procedure JACQUI 3 flow in LAD/diagonal, stent well expanded with minimal residual stenosis and no apparent cardiac complications. Arterial Closure: TR band Summary: 1. Successful PCI of mid LAD with single drug-eluting stent (2.75 x 33 mm Xience; postdilated with 3.5 NC). - PTCA of ostium of jailed third diagonal with 2.0 balloon Recommendations: To PCU for continued monitoring Loaded with clopidogrel 600 mg in Crocodile Farmer Triple therapy while admitted. Discharged on dual therapy with clopidogrel, apixaban Consult cardiac Rehab Hemodynamics Rest Ao:: 152/59/99 Final Ao: 145/50/91 LV: -- Recommendations Recommendations: PCI without planned CABG Specimens Specimens: None Radiation Exposure (mGy) 2925 Contrast (mls) 160 Fluids (cc crystalloids) Fluids (cc crystalloids): 200 Drains Drains: none Anesthesia moderate Procedural Complication(s) None Disposition PCU I attest to the content of the Intraoperative Record and any orders documented therein. Any exceptions are noted below. [facility] Card Cath Procedure Codes Moderate Sedation Procedure 1: Sedation/Anesthesia: 18301 Mod Sedation by the same physician; Ea [id number] Minutes Stenting Procedure 1: Cardiovascular Stent Procedures: 77436 Perc transcatheter placement of intracoronary stent(s), with ang PG Care Time/CCT Total # of Minutes Spent Total Time Spent with Patient: Total time spent is greater than 50% in coordination of care (as documented) at patient's floor/unit and/or counseling patient:
[2021-03-18] MEDS ORDERED: CETIRIZINE HCL 10 MG TABLET PO PRN (14:06)
[2021-03-18] MEDS ORDERED: SODIUM CHLORIDE 0.9% 1000ML 1,000 ML IV SCH (14:15)
[2021-03-18] MEDS ORDERED: ACETAMINOPHEN 500 MG TAB PO PRN (15:52)
[2021-03-18] MEDS: APIXABAN 5 MG TABLET PO SCH (20:12)
[2021-03-19 06:06] LABS: Basophils # (auto) 0.01 K/uL (0-0.2); Basophils % (auto) 0.2 %; Eosinophils # (auto) 0.28 K/uL (0-0.5); Eosinophils % (auto) 5.3 %; Hemoglobin 11.2 g/dL (12.0-16.0); Immature Granulocytes # (auto) 0.01 K/uL (0.00-0.02); Immature Granulocytes % (auto) 0.2 %; Lymphocytes % (auto) 17.2 %; Monocytes # (auto) 0.48 K/uL (0.11-0.59); Monocytes % (auto) 9.2 %; Neutrophils # (auto) 3.56 K/uL (1.4-6.5); Neutrophils % (auto) 67.9 %; Platelet Count 230 K/uL (130-400); RDW Standard Deviation 51.1 fL (36.4-46.3); White Blood Count 5.24 K/uL (4.8-10.8)
--- NOTE | 2021-03-19 06:08 | Electrocardiogram Report ---
Test Reason : Blood Pressure : / mmHG Vent. Rate : 067 BPM Atrial Rate : 067 BPM P-R Int : 204 ms QRS Dur : 086 ms QT Int : 398 ms P-R-T Axes : 011 -27 065 degrees QTc Int : 420 ms Normal sinus rhythm Minimal voltage criteria for LVH, may be normal variant ( R in aVL ) Inferior infarct (cited on or before 31-MAY-2004) Anterior infarct , age undetermined Abnormal ECG When compared with ECG of 22-AUG-2020 07:32, Anterior infarct is now Present T wave inversion now evident in Anterior leads Confirmed by Dat Carson ([id number]) on 03/19/2021 6:07:47 AM Referred By: Arvind Quigley Confirmed By:Dat Carson
[2021-03-19] MEDS ORDERED: LEVOTHYROXINE SODIUM 50 MCG TABLET PO SCH (06:30)
[2021-03-19 06:35] LABS: BUN Creatinine Ratio 19.7 (10-20); Calcium 9.5 mg/dl (8.5-10.1); Creatinine Clr Calc Pharmacy 43.4 ml/min; Est GFR (African American) 62.4 ml/min; Est GFR (Non-African American) 53.9 ml/min; Potassium 4.2 mmol/L (3.5-5.1)
[2021-03-19 07:57] VITALS: TEMP 98.2; O2SAT 95
--- NOTE | 2021-03-19 08:33 | Discharge Summary ---
Date of Service March 19, 2021 Admission HPI Per Admitting Provider 85-year-old female with hypertension, dyslipidemia, paroxysmal atrial fibrillation, and chest discomfort with exertion and at rest concerning for angina. She underwent myocardial perfusion study which suggested LAD infarct and ischemia. Echo demonstrated reduced LV systolic function with an EF of 40 to 45%, with LAD wall motion abnormalities. Cardiac catheterization was recommended and she presented on 03/18/2021 for elective outpatient cardiac catheterization. When speaking with her on 03/18/2021, she reported chest pressure while laying in her bed while awaiting her catheterization. This same discomfort had been intermittently occurring, even at rest. ECG demonstrated sinus rhythm with anterior infarct, minor ST elevation in the anterior leads and T wave inversion throughout the precordium. ST/T wave abnormalities new compared to nuclear stress test performed 03/12/2021. Following the ECG, she was promptly [facility]. While in the lab, she had reported that her symptoms had resolved. Diagnostic cardiac catheterization was performed demonstrating severe mid LAD CAD. She underwent PCI by Dr. Ramirez and was admitted for observation. Admission Exam Per Admitting Provider Gen.: No acute distress. Alert. HEENT: Anicteric sclera. Neck: No JVD. Cardiac: Regular. Normal S1-S2. No murmurs, rubs, or gallops. Pulmonary: Clear to auscultation bilaterally without wheezes, rales, or rhonchi. Abdomen: Soft, nontender, nondistended, with normoactive bowel sounds. No bruits noted. Extremities: 2+ radial pulses bilaterally. 2+ posterior tibialis pulses bilaterally. No cyanosis. Psychiatric: Affect appears appropriate. Principal Diagnosis Coronary artery disease s/p LAD PCI; unstable angina Discharge Exam Gen.: No acute distress. Alert and oriented. HEENT: Anicteric sclera. Neck: No JVD. Cardiac: PMI was nondisplaced. No ventricular heave. Regular. Normal S1-S2. No murmurs, rubs, or gallops. Pulmonary: Clear to auscultation bilaterally without wheezes, rales, or rhonchi. Abdomen: Soft, nontender, nondistended, with normoactive bowel sounds. No bruits noted. Extremities: 2+ radial pulses bilaterally. Right radial cath site was clean, dry, and intact without erythema or discharge. 2+ posterior tibialis pulses bilaterally. No significant pitting edema or cyanosis. Psychiatric: Affect appears appropriate. Discharge Data Allergies Allergy/AdvReac Type Severity Reaction Status Date / Time niacin Allergy Unknown hives Verified 03/16/21 14:59 Opioid Analgesics AdvReac Unknown "gets very Uncoded 03/16/21 14:59 sick" Consultations 03/18/21 14:04 Consult Cardiac Rehabilitation Routine Procedures Performed Operation Date: 03/18/21 11:00 Cardiac catheterization: Coronary angiography: 1. Left main: No significant CAD. 2. Left anterior descending: Large caliber vessel that wraps around the apex. Mid LAD diffusely diseased with approximately 95% tandem lesions, involving ostial segments of small caliber D2 and D3. Remainder of LAD without significant CAD. There is also small caliber D1 and D4. Faint left to left collaterals. 3. Circumflex: Proximal circumflex 30%. Remainder of circumflex and OM1 without significant CAD. 4. Right coronary artery: RCA is large and dominant. Mid RCA diffusely diseased approximately 30 to 40%. Luminal irregularities within the distal RCA. Large PL 1, medium caliber PL 2, and large PDA without significant CAD. Faint right to left collaterals to septal perforators. Left heart catheterization: 1. Left ventriculography was not performed. 2. Normal LVEDP; 12 mmHg. 3. No aortic stenosis. PCI: 1. Successful PCI of mid LAD with single drug-eluting stent (2.75 x 33 mm Xience; postdilated with 3.5 NC). - PTCA of ostium of jailed third diagonal with 2.0 balloon Ordered Studies 03/18/21 06:33 CL Cath Imgs for PACS use only Routine Hospital Course (1) CAD (coronary artery disease): (2) S/P coronary artery stent placement: (3) HTN (hypertension): (4) Paroxysmal atrial fibrillation: (5) Unstable angina: ASSESSMENT/PLAN: 1. CAD s/p LAD PCI: She reported no further angina today. No heart failure symptoms. Continue Plavix 75 mg daily for 6 months while on therapeutic anticoagulation therapy. Then can exchange Plavix for aspirin 81 mg daily. Continue beta-ronny and statin therapy. Recommend cardiac rehab to be arranged as an outpatient. 2. Unstable angina: Has been experiencing unstable angina as an outpatient and had such symptoms when presenting for catheterization today. Symptoms have resolved with PCI of her LAD. 3. Hypertension: Blood pressure was hypertensive following catheterization but normal this morning. Continue outpatient regimen. 4. Paroxysmal atrial fibrillation: Sinus rhythm on telemetry. Continue anticoagulation for stroke risk reduction. Continue beta-ronny. 5. Disposition: She was hemodynamically stable and angina free at the time of today's visit this morning. It was recommended that she ambulate in the hallways and if tolerated, could be discharged home from a cardiology standpoint. She has follow-up appointment scheduled next week with Mr. Quigley in the cardiology office and should keep this appointment. She should call sooner for any other questions or concerns. 911 for angina that does not resolve within 5 minutes of nitroglycerin. Discharge care instructions and restrictions regarding recent cardiac catheterization were included on her discharge instruction form. Total Time Total Time Spent Total Time Spent (In Minutes): 30 Discharge Plan Discharge Items Patient Disposition: Home - Self-Care Reason For Visit: ACS Discharge Diagnosis: Unstable angina found to have severe LAD coronary artery disease and underwent LAD stent placement/. Activity: Per Instructions section Non-emergency contact: Family Service Aide Call non-emergency contact if: you have any medication questions, your symptoms worsen, you have a fever, your wound has increased redness, your wound has increased drainage and your wound pain has increased Follow-up/Referrals: Arvind Quigley PA-C [Physician Scanning Manager] - 03/25/21 1:00 pm (Keep scheduled appointment on Mar 25, 2021 at 1PM) PCP,NO [Primary Care Provider] - (f/u with PCP in 1 week) Diet: Heart Healthy Addtl Attending Provider Instructions: ACTIVITY RECOMMENDATIONS: Excess manipulation of the wrist should be avoided for the next 24-48 hours. * No lifting over 2 pounds (approximately a 1/2 gallon of milk) with the utilized arm for 24 hours. * No strenuous activity such as bowling or tennis for 3 days. * Keep the site of the procedure covered with a bandage for 24 hours. *You may shower the day after the procedure. Do not take a tub bath or submerge the puncture site in water for the next 3 days. *Do not operate any motorized equipment for 3 days. SPECIAL CARE INSTRUCTIONS: The site may be slightly bruised and sore following your procedure. Should any of the following occur, contact the DrHemalatha who performed your procedure. 1. Redness/inflammation, swelling, chills, or fever, or colored drainage at procedure site within 3-7 days after your procedure. 2. Coldness, discoloration, ongoing numbness, severe pain, or swelling. Expect mild tingling of hand and tenderness at the puncture site for up to three days. If this persists beyond three days, or other symptoms develop, notify the Dr. who performed your procedure. BLEEDING: If the procedure site on your wrist begins to bleed, do not panic 1. Place 1 or 2 fingers firmly just slightly above the insertion site to stop the bleeding. You may be able to feel your pulse as you hold pressure. 2. Lift your finger after 5 minutes to see if the bleeding has stopped. 3. Once the bleeding has stopped, gently wipe the wrist area clean with a bandage. * If the bleeding from your wrist does not stop after 10 minutes, or if there is a large amount of bleeding or spurting, call 911 ([address] not drive yourself to the hospital). SKIN IRRITATION: * You may experience some redness and/or swelling in the area where radiation was administered. If any skin irritation occurs, please contact your family physician. FOLLOW UP VISIT: 1. Keep previously scheduled appointment with Mr. Quigley on Mar 25, 2021 at 1:00 PM. 2. Call sooner for questions/concerns at [phone]. 3. Keep any scheduled doctor appointments. Pending Studies at Discharge: No Stand-Alone Forms: My [facility] [employer], Smoking Cessation Medications and DC Order Prescriptions: New clopidogrel 75 mg Tablet 75 mg PO QAM Qty: 90 RF: 3 atorvastatin 40 mg tablet 40 mg PO HS Qty: 90 RF: 3 Continued nitroglycerin 0.4 mg tablet, sublingual 0.4 mg sublingual Q5M PRN (Reason: chest pain) Qty: 25 RF: 4 isosorbide mononitrate 30 mg tablet extended release 24 hr 30 mg PO DAILY Qty: 30 RF: 5 metoprolol succinate 100 mg tablet extended release 24 hr 100 mg PO DAILY RF: 0 Eliquis 5 mg tablet 5 mg PO BID RF: 0 cetirizine [Zyrtec] 10 mg Tablet 10 mg PO DAILY PRN (Reason: allergies) RF: 0 acetaminophen [Tylenol Extra Strength] 500 mg Tablet 1,000 mg PO TID PRN (Reason: Pain) RF: 0 Premarin 0.625 mg/gram Cream 0.625 mg VAGINAL BID PRN (Reason: ..) RF: 0 hydrocortisone 2.5 % Cream With Applicator 1 ea topical DAILY PRN (Reason: Hemorrhoids) RF: 0 calcium carbonate-vitamin D3 600 mg(1,500mg) -200 unit Tablet 1 tab PO DAILY RF: 0 levothyroxine 50 mcg tablet 50 mcg PO DAILY RF: 0 docusate sodium [Colace] 100 mg Capsule 100 mg PO DAILY RF: 0 Discontinued meloxicam 7.5 mg tablet 7.5 mg PO DAILY PRN (Reason: Other) RF: 0 lovastatin 40 mg tablet 40 mg PO DAILY RF: 0 aspirin 81 mg Tablet,Delayed Release (Dr/Ec) 81 mg PO DAILY RF: 0 Discharge Orders: Discharge Order (Routine); Ordered 03/19/21 Ordered By: Dat Lagunas/Other Patient Handouts: Blood Pressure Check Steps Admission Data Admit Date/Time: 03/18/21 14:05 Attending Provider: Chris Ramirez Admit Provider: Chris Ramirez Primary Care Provider: PCP,NO Other Interventions: Discharge Summary Assessment (RN) Last Done: 03/19/21 09:56 Coding Level of Care Code 12653 OBS Care - Discharge Diagnoses CAD (coronary artery disease) I25.10 S/P coronary artery stent placement Z95.5 HTN (hypertension) I10 Paroxysmal atrial fibrillation I48.0 Unstable angina I20.0
[2021-03-19] MEDS: APIXABAN 5 MG TABLET PO SCH (08:48)
[2021-03-19] MEDS ORDERED: CALCIUM 600MG + VIT D 400 IU TAB PO SCH (09:00)
[2021-03-19] MEDS ORDERED: METOPROLOL SUCC 50MG EXT REL TAB PO SCH (09:00)
[2021-03-19] MEDS ORDERED: CLOPIDOGREL BISULFATE 75 MG TAB PO SCH (09:00)
[2021-03-19] MEDS ORDERED: ISOSORBIDE MONO EXTENDED REL 30 MG TABCR PO SCH (09:00)
[2021-03-19] MEDS ORDERED: ASPIRIN 81 MG ECTAB PO SCH (09:00)
[2021-03-19] MEDS ORDERED: LOVASTATIN 20 MG TAB PO SCH (09:00)
[2021-03-19] MEDS ORDERED: DOCUSATE SODIUM 100 MG CAP PO SCH (09:00)
[2021-03-19 09:53] VITALS: BP 131/83; PULSE 67
[2021-03-19] MEDS ORDERED: ENOXAPARIN INJ 40 MG/0.4 ML SYR SQ SCH (11:15)
--- NOTE | 2021-03-19 13:37 | Electrocardiogram Report ---
Test Reason : Blood Pressure : / mmHG Vent. 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
== END 2021-03-19 11:17 | disposition home or self-care (01) ==
LOC: CC 10:11 → 2S 10:11

== ENCOUNTER 2021-08-11 17:51 | Observation (INO) ==
[2021-08-11 18:06] LABS: Basophils # (auto) 0.02 K/uL (0-0.2); Basophils % (auto) 0.3 %; Eosinophils # (auto) 0.22 K/uL (0-0.5); Eosinophils % (auto) 3.5 %; Hematocrit (blood only) 36.7 % (37-47); Immature Granulocytes # (auto) 0.01 K/uL (0.00-0.02); Immature Granulocytes % (auto) 0.2 %; Lymphocytes % (auto) 27.1 %; Mean Corpuscular Hemoglobin 31.9 pg (25-34); Mean Corpuscular Hgb Conc 32.7 g/dL (32-36); Mean Corpuscular Volume 97.6 fL (80-100); Monocytes # (auto) 0.68 K/uL (0.11-0.59); Monocytes % (auto) 10.8 %; Neutrophils # (auto) 3.64 K/uL (1.4-6.5); Neutrophils % (auto) 58.1 %; Platelet Count 231 K/uL (130-400); RDW Coefficient of Variation 14.7 % (11.5-14.5); RDW Standard Deviation 52.9 fL (36.4-46.3); Red Blood Count 3.76 M/uL (4.2-5.4); White Blood Count 6.27 K/uL (4.8-10.8)
[2021-08-11 18:31] LABS: Troponin I < 0.03 ng/ml (0-0.04)
[2021-08-11] MEDS ORDERED: SODIUM CHLORIDE 0.9% 500 ML IV ONE (18:33)
--- NOTE | 2021-08-11 18:37 | XRay Report ---
XR chest 1V portable CLINICAL HISTORY: Atypical chest pain. COMPARISON STUDY: Chest CT March 05, 2021 chest radiograph July 06, 2021. FINDINGS: Lung volumes are normal. No pneumothorax or pleural effusion is present. Mild cardiomegaly is unchanged. There is no evidence for pulmonary edema. Subtle interstitial prominence is unchanged. IMPRESSION: No acute cardiopulmonary findings. No change in appearance of the chest. ACT 112: Negative or not required by law. Electronically signed by: Zachery Daugherty M.D. 08/11/2021 6:36 PM
--- NOTE | 2021-08-11 18:43 | Emergency Department Note ---
Impression & Plan Bilateral leg weakness, Substernal chest pain, Cerebrovascular disease ED Provider Note NAME: ZEINAB RON AGE: 86 SEX: F ARRIVES VIA: Ambulance INFORMANT: Patient ED PROVIDER(S): Pancho Swan MD CHIEF COMPLAINT: weakness, chest pain PLAN: Disposition: Admit MEDICAL DECISION MAKING: The patient is a pleasant 86-year-old woman with a past medical history of CAD s/p PCI, PAF on Eliquis, HTN, HLD, hypothyroidism, CKD, h/o covid-19 who presen ts to the emergency department for evaluation of bilateral lower extremity weakness which began prior to arrival where she reports she was performing her normal routine cleaning the house and sat down to watch television for an hour or so but when it she attempted get up she felt her legs so weak that she could not get up safely. She reports she eventually had the strength to stand and then carefully walk with a cane but felt very weak and unsteady. She reports she does go to physical therapy to strengthen her legs in the setting of severe arthritis of both knees and hips where she reports her right side is worse than her left. Reports feeling some indigestion when she was attempting to walk with a cane that eventually subsided. Otherwise she denies any cough, congestion, chest pain, shortness of breath, nausea, vomiting, diarrhea or urinary symptoms. On arrival the patient is in no acute distress, afebrile with blood pressure 200s/80s and vital signs otherwise stable. She appears euvolemic to dry. She has no focal neurologic deficits. EKG without overt acute ischemia. CXR negative for acute cardiopulmonary process. WBC, hbg, and platelets wnl. Chemistry without acidosis. Electrolytes unremarkable. LFTs without significant abnormality. Troponin n egative/undetectable. BNP 115, nonspecific. TSH wnl. Lipase wnl. Covid-19 RNA, NAAT negative. CT head and CTA head/neck negative for ICH or acute ischemia. However interval cerebrovascular disease is noted including severe stenosis of left A2 segment, moderate to severe stenosis of the rigvht P1 segment and left posterior cerebral artery. Upon re-evaluation the patient did feel improved following IVF hydration. She was able to ambulate to the bathroom at her recent baseline per her report. Findings were reviewed with the patient and her daughter over the phone. Ultimately we agreed with plan for admission with her transient symptoms of weakness and given she lives alone. Case was discussed with Janet Cordero hospitalist who will evaluate the patient for admission. Triage Nursing notes reviewed and agree them. Prior medical records reviewed Vital Signs: reviewed and remarkable for hypertension. Differential diagnosis: Infection, dehydration, metabolic abnormality, hypo/hyperglycemia, electrolyte disturbance, anemia, hypoxia, cardiac sources, intracerebral event, toxicologic, neurologic, as well as other pathologies. ER treatment provided: See below. Diagnostics interpreted by me: ECG: NSR, 66 bpm, no ectopy, TWA, no overt ST elevation or depression. Cardiac Monitoring: An order for continuous cardiac monitoring was placed and demonstrated NSR, 66 bpm, no ectopy. Laboratory studies: See below Imaging studies: See below Consultation(s): [facility] will [facility] the patient for admission. HPI: The patient is a pleasant 86-year-old woman with a past medical history of CAD s/p PCI, PAF on Eliquis, HTN, HLD, hypothyroidism, CKD, h/o covid-19 who presents to the emergency department for evaluation of bilateral lower extremity weakness which began prior to arrival where she reports she was performing her normal routine cleaning the house and sat down to watch television for an hour or so but when it she attempted get up she felt her legs so weak that she could not get up safely. She reports she eventually had the strength to stand and then carefully walk with a cane but felt very weak and unsteady. She reports she does go to physical therapy to strengthen her legs in the setting of severe arthritis of both knees and hips where she reports her right side is worse than her left. Reports feeling some indigestion when she was attempting to walk with a cane that eventually subsided. Otherwise she denies any cough, congestion, chest pain, shortness of breath, nausea, vomiting, diarrhea or urinary symptoms. ROS: See above HPI for pertinent positives & negatives. A total of 10 systems reviewed and were otherwise negative. VITALS:See Below PHYSICAL EXAMINATION: GENERAL: Awake, alert, fatigued-appearing, in no distress HENT: Normocephalic, atraumatic. Oropharynx with dry mucous membranes and otherwise unremarkable. EYES: Normal conjunctiva. Sclera non-icteric. EOMI. No nystamgus. PEARRL. NECK: Supple. No nuchal rigidity. FROM. No JVD. RESPIRATORY: Clear to auscultation. CARDIAC: Regular rate, normal rhythm. Extremities warm and well perfused. Pulses equal. ABDOMEN: Soft, non-distended. No tenderness to palpation. No rebound or guard ing. No masses. RECTAL: Deferred. MUSCULOSKELETAL: Chest examination reveals no tenderness. The back is symmetrical on inspection without obvious abnormality. There is no CVA tenderness to palpation. No joint edema. LOWER EXTREMITIES: Calves are equal size bilaterally and non-tender. No edema. No discoloration. NEURO: Normal sensorium. No sensory or motor deficits noted. 5/5 strength and SILT x 4 extremities. Cerebellar function intact including [id number], alternating palms, [id number]. SKIN: No rash or jaundice noted. Pancho Swan MD Past Med/Surg History Medical History Breast cancer Left breast s/p lumpectomy CAD (coronary artery disease) CKD (chronic kidney disease), stage III Coccygeal contusion Degenerative arthritis of left knee HLD (hyperlipidemia) HTN (hypertension) Hypothyroidism Palpitations Right hip pain TIA (transient ischemic attack) Surgical History History of appendectomy History of arthroplasty of both knees History of hip replacement, total History of hysterectomy S/P coronary artery stent placement Family History Brother Coronary heart disease Cancer Bladder cancer Sister Cancer Breast cancer Father Cancer Stomach cancer Daughter Cancer AML Other No family history of adverse response to anesthesia No family history of bleeding disorder Social History Smoking Status: Never smoker Second Hand Exposure: No; Do You Dip or Chew Tobacco: No; Tobacco Cessation Education Requested by Patient: No Hx Alcohol Use: No Hx Substance Use: No Preferred Language: Indonesian Communication Ability: Effective Specialty Sales Consultant Required: No Beliefs That Will Affect Care: None Current Living Situation: Alone Current Living Situation Comment: lives in one story house with one step How many Children do You have: 4 Other Information That Helps Us Care for You: No Feels Safe at Home: Yes Safety Concerns: Feels Safe At This Time Assistive Devices: Cane, Glasses and Walker Allergies Allergies Allergy/AdvReac Type Severity Reaction Status Date / Time niacin Allergy Intermediate hives Verified 08/11/21 18:25 Opioid Analgesics AdvReac Intermediate "gets very Uncoded 08/11/21 18:25 sick" Home Meds Home Medications Medication Instructions Recorded Confirmed acetaminophen 500 mg tablet 1,000 mg PO TID PRN 08/21/20 08/11/21 (Tylenol Extra Strength) calcium carbonate 600 mg-vitamin 1 tab PO DAILY 08/21/20 08/11/21 D3 5 mcg (200 unit) tablet cetirizine 10 mg tablet (Zyrtec) 10 mg PO DAILY PRN 08/21/20 08/11/21 docusate sodium 100 mg capsule 100 mg PO DAILY PRN 08/21/20 08/11/21 (Colace) levothyroxine 50 mcg tablet 50 mcg PO DAILY 08/21/20 08/11/21 apixaban 5 mg tablet (Eliquis) 5 mg PO BID 10/14/20 08/11/21 albuterol sulfate 90 mcg/actuation 2 puff INHALATION QID PRN 04/26/21 08/11/21 aerosol inhaler hydrocortisone 2.5 % topical cream 1 applic CO DIRECTED PRN 07/06/21 08/11/21 with perineal applicator fluticasone furoate 100 1 ea INHALATION QAM 08/11/21 08/11/21 mcg-vilanterol 25 mcg/dose inhalation powder (Breo Ellipta) metoprolol succinate 50 mg 50 mg PO DAILY 08/11/21 08/11/21 tablet,extended release 24 hr Previous Rx's Medication Instructions Recorded isosorbide mononitrate 30 mg 30 mg PO DAILY #30 tab 03/13/21 tablet,extended release 24 hr nitroglycerin 0.4 mg sublingual 0.4 mg SUBLINGUAL Q5M PRN #25 tab 03/13/21 tablet atorvastatin 40 mg tablet 40 mg PO HS #90 tab 06/01/21 Results & Data (ED) Vital Signs Vital Signs - 24 hr 08/11/21 17:58 08/11/21 18:07 08/11/21 18:12 Temperature 36.7 C Temperature Source Oral Pulse Rate 67 67 67 Pulse Rate [Apical] 67 Pulse Rate from SpO2 Sensor Respiratory Rate 20 19 20 Respiratory Effort / Characteristics Non-Labored Spontaneous Respiratory Depth Normal Respiratory Pattern Regular Blood Pressure 201/86 H Blood Pressure [Right Arm] 201/86 H Blood Pressure Mean 124 Blood Pressure Mean [Right Arm] 124 Pulse Oximetry 97 97 97 Oxygen Delivery Method Room Air Room Air Sepsis Recent Fever Within 48 Hours No Sepsis New/Unexplained Change in Mental Status No Sepsis Action Taken by Nursing No Action Required 08/11/21 18:30 08/11/21 19:00 08/11/21 19:18 Temperature Temperature Source Pulse Rate 66 82 69 Pulse Rate [Apical] Pulse Rate from SpO2 Sensor 70 Respiratory Rate 20 15 24 Respiratory Effort / Characteristics Respiratory Depth Respiratory Pattern Blood Pressure 204/110 H 203/97 H Blood Pressure [Right Arm] Blood Pressure Mean 141 132 Blood Pressure Mean [Right Arm] Pulse Oximetry 96 98 96 Oxygen Delivery Method Sepsis Recent Fever Within 48 Hours Sepsis New/Unexplained Change in Mental Status Sepsis Action Taken by Nursing 08/11/21 19:30 08/11/21 19:45 08/11/21 20:00 Temperature Temperature Source Pulse Rate 68 67 Pulse Rate [Apical] Pulse Rate from SpO2 Sensor Respiratory Rate 16 16 Respiratory Effort / Characteristics Non-Labored Respiratory Depth Normal Respiratory Pattern Blood Pressure 179/83 H 198/73 H Blood Pressure [Right Arm] Blood Pressure Mean 115 114 Blood Pressure Mean [Right Arm] Pulse Oximetry 97 95 Oxygen Delivery Method Room Air Sepsis Recent Fever Within 48 Hours Sepsis New/Unexplained Change in Mental Status Sepsis Action Taken by Nursing 08/11/21 20:30 08/11/21 21:00 08/11/21 21:30 Temperature Temperature Source Pulse Rate 71 69 72 Pulse Rate [Apical] Pulse Rate from SpO2 Sensor 70 71 Respiratory Rate 13 19 21 Respiratory Effort / Characteristics Respiratory Depth Respiratory Pattern Blood Pressure 183/68 H 195/80 H 197/93 H Blood Pressure [Right Arm] Blood Pressure Mean 106 118 127 Blood Pressure Mean [Right Arm] Pulse Oximetry 95 95 96 Oxygen Delivery Method Sepsis Recent Fever Within 48 Hours Sepsis New/Unexplained Change in Mental Status Sepsis Action Taken by Nursing 08/11/21 21:45 08/11/21 22:00 08/11/21 22:30 Temperature Temperature Source Pulse Rate 74 74 Pulse Rate [Apical] Pulse Rate from SpO2 Sensor 73 75 Respiratory Rate 23 18 Respiratory Effort / Characteristics Respiratory Depth Respiratory Pattern Blood Pressure 196/80 H 186/83 H Blood Pressure [Right Arm] Blood Pressure Mean 118 117 Blood Pressure Mean [Right Arm] Pulse Oximetry 96 96 Oxygen Delivery Method Room Air Sepsis Recent Fever Within 48 Hours Sepsis New/Unexplained Change in Mental Status Sepsis Action Taken by Nursing Laboratory Data Attestation: I reviewed the patient's lab results. Result diagrams: 08/11/21 17:40 08/11/21 17:40 Lab Results 08/11/21 08/11/21 08/11/21 Range/Units 17:40 17:40 17:40 WBC 6.27 (4.8-10.8) K/uL RBC 3.76 L (4.2-5.4) M/uL Hgb 12.0 (12.0-16.0) g/dL Hct 36.7 L (37-47) % MCV 97.6 (80-100) fL MCH 31.9 (25-34) pg MCHC 32.7 (32-36) g/dL RDW Std Deviation 52.9 H (36.4-46.3) fL RDW Coeff of [place]ylon 14.7 H (11.5-14.5) % Plt Count 231 (130-400) K/uL MPV 10.0 (7.4-10.4) fL Immature Gran % (Auto) 0.2 % Neut % (Auto) 58.1 % Lymph % (Auto) 27.1 % [place] % (Auto) 10.8 % Eos % (Auto) 3.5 % Baso % (Auto) 0.3 % Neut # (Auto) 3.64 (1.4-6.5) K/uL Lymph # (Auto) 1.70 (1.2-3.4) K/uL [place] # (Auto) 0.68 H (0.11-0.59) K/uL Eos # (Auto) 0.22 (0-0.5) K/uL Baso # (Auto) 0.02 (0-0.2) K/uL Immature Gran # (Auto) 0.01 (0.00-0.02) K/uL Sodium 140 (136-145) mmol/L Potassium 4.3 (3.5-5.1) mmol/L Chloride 106 (98-107) mmol/L Carbon Dioxide 26 (21-32) mmol/L Anion Gap 8 (3-11) BUN 19 (6-23) mg/dl Creatinine 0.94 (0.6-1.2) mg/dl Est Cr Clr Drug Dosing 43.7 ml/min Est GFR ( Amer) 62.8 ml/min Est GFR (Non-Af Amer) 54.2 ml/min BUN/Creatinine Ratio 20.2 H (10-20) Glucose 91 (70-99(Fasting)) mg/dl Calcium 9.7 (8.5-10.1) mg/dl Phosphorus 3.9 (2.5-4.9) mg/dl Magnesium 2.1 (1.7-2.4) mg/dl Total Bilirubin 0.4 (0.2-1.0) mg/dl AST 16 (13-39) U/L ALT 14 (7-52) U/L Alkaline Phosphatase 67 (34-104) U/L Total Creatine Kinase 77 (26-192) U/L Troponin I < 0.03 (0-0.04) ng/ml B-Natriuretic Peptide (0-100) pg/ml Total Protein 6.4 (6.0-8.3) gm/dl Albumin 4.0 (3.4-5.0) gm/dl Globulin 2.4 L (2.5-4.0) gm/dl Albumin/Globulin Ratio 1.7 (0.9-2) Lipase 24 (11-82) U/L TSH 2.587 (0.300-4.500) uIu/ml SARS-CoV-2, RNA, NAAT (NEGATIVE) 08/11/21 08/11/21 08/11/21 Range/Units 17:40 18:15 19:25 WBC (4.8-10.8) K/uL RBC (4.2-5.4) M/uL Hgb (12.0-16.0) g/dL Hct (37-47) % MCV (80-100) fL MCH (25-34) pg MCHC (32-36) g/dL RDW Std Deviation (36.4-46.3) fL RDW Coeff of Dylon (11.5-14.5) % Plt Count (130-400) K/uL MPV (7.4-10.4) fL Immature Gran % (Auto) % Neut % (Auto) % Lymph % (Auto) % [place] % (Auto) % Eos % (Auto) % Baso % (Auto) % Neut # (Auto) (1.4-6.5) K/uL Lymph # (Auto) (1.2-3.4) K/uL [place] # (Auto) (0.11-0.59) K/uL Eos # (Auto) (0-0.5) K/uL Baso # (Auto) (0-0.2) K/uL Immature Gran # (Auto) (0.00-0.02) K/uL Sodium (136-145) mmol/L Potassium (3.5-5.1) mmol/L Chloride (98-107) mmol/L Carbon Dioxide (21-32) mmol/L Anion Gap (3-11) BUN (6-23) mg/dl Creatinine (0.6-1.2) mg/dl Est Cr Clr Drug Dosing ml/min Est GFR ( Amer) ml/min Est GFR (Non-Af Amer) ml/min BUN/Creatinine Ratio (10-20) Glucose (70-99(Fasting)) mg/dl Calcium (8.5-10.1) mg/dl Phosphorus (2.5-4.9) mg/dl Magnesium (1.7-2.4) mg/dl Total Bilirubin (0.2-1.0) mg/dl AST (13-39) U/L ALT (7-52) U/L Alkaline Phosphatase (34-104) U/L Total Creatine Kinase Cancelled (26-192) U/L Troponin I (0-0.04) ng/ml B-Natriuretic Peptide 115 H (0-100) pg/ml Total Protein (6.0-8.3) gm/dl Albumin (3.4-5.0) gm/dl Globulin (2.5-4.0) gm/dl Albumin/Globulin Ratio (0.9-2) Lipase (11-82) U/L TSH (0.300-4.500) uIu/ml SARS-CoV-2, RNA, NAAT NEGATIVE (NEGATIVE) Administered Medications Lorazepam (Lorazepam 2 Mg/1 Ml Vial) 0.25 mg IV Q1H PRN PRN Reason: anxiety pre/during mri Stop: 09/11/21 00:30 Last Admin: 08/12/21 01:08 Dose: 0.25 mg Documented by: [id number] Discontinued Medications Apixaban (Apixaban 5 Mg Tablet) 5 mg PO NOW STA Stop: 08/12/21 00:31 Last Admin: 08/12/21 02:44 Dose: 5 mg Documented by: [id number] Sodium Chloride (Nss) 500 mls @ 999 mls/hr IV .Q31M ONE Stop: 08/11/21 19:03 Last Infusion: 08/11/21 19:22 Dose: 0 mls/hr Documented by: [id number] Admin: 08/11/21 18:45 Dose: 999 mls/hr Documented by: [id number] Ioversol (Optiray 320 125ml) 118 ml IV ONCE ONE Stop: 08/11/21 20:22 Last Admin: 08/11/21 20:22 Dose: 118 ml Documented by: [id number] Imaging Data Radiologist's Impression: Chest X-Ray 08/11/21 17:59 XR chest 1V portable CLINICAL HISTORY: Atypical chest pain. COMPARISON STUDY: Chest CT March 05, 2021 chest radiograph July 06, 2021. FINDINGS: Lung volumes are normal. No pneumothorax or pleural effusion is present. Mild cardiomegaly is unchanged. There is no evidence for pulmonary edema. Subtle interstitial prominence is unchanged. IMPRESSION: No acute cardiopulmonary findings. No change in appearance of the chest. ACT 112: Negative or not required by law. Electronically signed by: Zachery Daugherty M.D. 08/11/2021 6:[address] 08/11/21 18:24 CT OF THE HEAD WITHOUT CONTRAST CLINICAL HISTORY: weakness COMPARISON STUDY: MRI of the brain August 24, 2017. Head CT July 06, 2021. CT DOSE: 638.56 mGycm TECHNIQUE: Helical axial images of the head were obtained without IV contrast. Automated exposure control was utilized for the study. A dose lowering technique was utilized adhering to the principles of ALARA. FINDINGS: No acute intracranial hemorrhage, midline shift or mass effect is pr esent. The ventricular system is unremarkable. White matter hypodensities are unchanged and suggest small vessel disease. The basal cisterns are patent. No extra-axial collections are present. There are no findings to suggest acute dural sinus thrombosis or acute territorial infarct. No significant calvarial abnormalities are present. Visualized portions of the sinuses and mastoid air cells are clear. IMPRESSION: No acute intracranial findings. No change in appearance of the brain. ACT 112: Negative or not required by law. Electronically signed by: Zachery Daugherty M.D. 08/11/2021 8:36 PM Head CTA 08/11/21 18:24 CTA ANGIOGRAPHY OF THE HEAD CLINICAL HISTORY: weakness COMPARISON STUDY: CTA of the head August 24, 2017. TECHNIQUE: Helical axial images of the head were obtained following uneventful intravenous administration of 118 cc of Optiray. Sagittal and coronal reconstructions were viewed as well as maximal intensity projections on an independent 3-D workstation. Automated exposure control was utilized for the study. A dose lowering technique was utilized adhering to the principles of ALARA. CT DOSE: 960.40 mGycm FINDINGS: Ventricular system is unremarkable. No extra-axial collections are present. White matter hypodensity suggests small vessel disease. There is no intracranial aneurysm. There is severe stenosis of the left A2 segment which is new since CTA of August 24, 2017. persistence of the left posterior cerebral artery is again noted. This vessel is now diminutive. This also represents a change since prior CT of August 24, 2017. There is focal moderate to severe stenosis of the right P1 segment. Mild stenosis of a right cervical branch of the middle cerebral artery is present. IMPRESSION: Interval development of stenoses within multiple intracranial vessels since CTA of August 24, 2017. These include severe stenosis of the left A2 segment, moderate to severe stenosis of the right P1 segment and the left posterior cerebral artery which arises from the internal carotid artery. ACT 112: Negative or not required by law. Electronically signed by: Zachery Daugherty M.D. 08/11/2021 8:58 PM Neck CTA 08/11/21 18:24 CT ANGIOGRAPHY OF THE NECK WITH CONTRAST CLINICAL HISTORY: weakness COMPARISON STUDY: CTA of the neck August 24, 2017. Technique: CT angiography of the carotid and vertebral arteries was obtained using Optiray and 3D reconstruction on an independent workstation. NASCET criteria was utilized. Automated exposure control was utilized for the study. A dose lowering technique was utilized adhering to the principles of ALARA. Findings: Lung apices are unremarkable. There is no cervical lymphadenopathy. The bilateral common carotid, cervical internal carotid and vertebral arteries are patent. No stenosis within these vessels. No dissection is present. There is moderate plaque of the aortic arch. There is mild plaque within the bilateral carotid bifurcations. The appearance is similar to prior CTA. IMPRESSION: No stenosis or dissection within the bilateral common carotid, cervical internal carotid or vertebral arteries. ACT 112: Negative or not required by law. Electronically signed by: Zachery Daugherty M.D. 08/11/2021 8:49 PM Discharge Plan Visit Data Chief Complaint: Chest Pain ED Provider: Pancho Swan Discharge Problem: Bilateral leg weakness, Substernal chest pain, Cerebrovascular disease Patient Disposition: Admitted As Inpatient Discharge Instructions Interventions: ED Discharge Assessment Last Done: 08/12/21 01:13
[2021-08-11 19:46] LABS: Alanine Aminotransferase 14 U/L (7-52); Albumin Globulin Ratio 1.7 (0.9-2); Alkaline Phosphatase 67 U/L (34-104); Anion Gap 8 (3-11); Aspartate Aminotransferase 16 U/L (13-39); BUN Creatinine Ratio 20.2 (10-20); Bilirubin,Total 0.4 mg/dl (0.2-1.0); Blood Urea Nitrogen 19 mg/dl (6-23); Calcium 9.7 mg/dl (8.5-10.1); Carbon Dioxide 26 mmol/L (21-32); Chloride 106 mmol/L (98-107); Creatine Kinase 77 U/L (26-192); Creatinine Clr Calc Pharmacy 43.7 ml/min; Est GFR (African American) 62.8 ml/min; Est GFR (Non-African American) 54.2 ml/min; Globulin 2.4 gm/dl (2.5-4.0); Glucose 91 mg/dl (70-99(Fasting)); Lipase 24 U/L (11-82); Magnesium 2.1 mg/dl (1.7-2.4); Phosphorus 3.9 mg/dl (2.5-4.9); Potassium 4.3 mmol/L (3.5-5.1); Sodium 140 mmol/L (136-145); Total Protein 6.4 gm/dl (6.0-8.3)
[2021-08-11] MEDS ORDERED: OPTIRAY 320 125ml IV ONE (20:21)
--- NOTE | 2021-08-11 20:37 | CT Scan Report ---
CT OF THE HEAD WITHOUT CONTRAST CLINICAL HISTORY: weakness COMPARISON STUDY: MRI of the brain August 24, 2017. Head CT July 06, 2021. CT DOSE: 638.56 mGycm TECHNIQUE: Helical axial images of the head were obtained without IV contrast. Automated exposure con trol was utilized for the study. A dose lowering technique was utilized adhering to the principles o f ALARA. FINDINGS: No acute intracranial hemorrhage, midline shift or mass effect is present. The ventricular system is unremarkable. White matter hypodensities are unchanged and suggest small vessel disease. Th e basal cisterns are patent. No extra-axial collections are present. There are no findings to suggest acute dural sinus thrombosis or acute territorial infarct. No significant calvarial abnormalities ar e present. Visualized portions of the sinuses and mastoid air cells are clear. IMPRESSION: No acute intracranial findings. No change in appearance of the brain. ACT 112: Negative or not required by law. Electronically signed by: Zachery Daugherty M.D. 08/11/2021 8:36 PM
--- NOTE | 2021-08-11 20:51 | CT Scan Report ---
CT ANGIOGRAPHY OF THE NECK WITH CONTRAST CLINICAL HISTORY: weakness COMPARISON STUDY: CTA of the neck August 24, 2017. Technique: CT angiography of the carotid and vertebral arteries was obtained using Optiray and 3D rec onstruction on an independent workstation. NASCET criteria was utilized. Automated exposure control was utilized for the study. A dose lowering technique was utilized adhering to the principles of ALA RA. Findings: Lung apices are unremarkable. There is no cervical lymphadenopathy. The bilateral common ca rotid, cervical internal carotid and vertebral arteries are patent. No stenosis within these vessels. No dissection is present. There is moderate plaque of the aortic arch. There is mild plaque within t he bilateral carotid bifurcations. The appearance is similar to prior CTA. IMPRESSION: No stenosis or dissection within the bilateral common carotid, cervical internal carotid or vertebral arteries. ACT 112: Negative or not required by law. Electronically signed by: Zachery Daugherty M.D. 08/11/2021 8:49 PM
--- NOTE | 2021-08-11 21:00 | CT Scan Report ---
CTA ANGIOGRAPHY OF THE HEAD CLINICAL HISTORY: weakness COMPARISON STUDY: CTA of the head August 24, 2017. TECHNIQUE: Helical axial images of the head were obtained following uneventful intravenous administr ation of 118 cc of Optiray. Sagittal and coronal reconstructions were viewed as well as maximal inten sity projections on an independent 3-D workstation. Automated exposure control was utilized for the study. A dose lowering technique was utilized adhering to the principles of ALARA. CT DOSE: 960.40 mGycm FINDINGS: Ventricular system is unremarkable. No extra-axial collections are present. White matter hy podensity suggests small vessel disease. There is no intracranial aneurysm. There is severe stenosis of the left A2 segment which is new since CTA of August 24, 2017. persistence of the left executive account manager ior cerebral artery is again noted. This vessel is now diminutive. This also represents a change sinc e prior CT of August 24, 2017. There is focal moderate to severe stenosis of the right P1 segment. Mil d stenosis of a right cervical branch of the middle cerebral artery is present. IMPRESSION: Interval development of stenoses within multiple intracranial vessels since CTA of August 24, 2017. Th wesley include severe stenosis of the left A2 segment, moderate to severe stenosis of the right P1 segme nt and the left posterior cerebral artery which arises from the internal carotid artery. ACT 112: Negative or not required by law. Electronically signed by: Zachery Daugherty M.D. 08/11/2021 8:58 PM
--- NOTE | 2021-08-12 00:28 | History & Physical Report ---
Date of Service August 12, 2021 Assessment & Plan (1) Right leg weakness: Plan: Transient RLE weakness Rule out recurrent TIA History PAF on Eliquis, patient NSR hx CAD status post stent hypertension, slight elevated hyperlipidemia on statin Rx left breast cancer status post surgery OBS Medical telemetry Neurochecks MRI brain Re: TIA Permissive hypertension until acute stroke ruled out May need additional work-up or neurology consultation pending MRI results DVT prophylaxis. Eliquis DNR Text document was generated using [employer] voice recognition software. It may contain grammatical or spelling errors. Kindly contact undersigned for clarification of any documentation item in question. History of Present Illness Chief Complaint: Transient right leg weakness Primary Care Provider: Mary Anne Evans MD History obtained from patient and records. Medical history significant for PAF on Eliquis, CAD status post stent, hypertension, hyperlipidemia, TIA, left breast cancer status post surgery. Last confinement August 2020 for chest pain. ACS ruled out. Hours ago, patient was watching television at home when she noted trouble in getting up. Both legs were weak but right leg weaker than usual. Patient denies headache, chest pain, S OB. Patient compliant with home medications. Leg strength back to baseline upon arrival at the ER. Medical History as above Surgical History : Knee surgeries, breast biopsy, partial mastectomy left, appendectomy, STANISLAV, hip replacement, bladder surgery, cataract surgeries Family History : Bladder cancer, AML, stomach cancer, heart disease Personal/Social history : Non-smoker, no EtOH intake, retired SAL[employer] Allergies Allergy/AdvReac Type Severity Reaction Status Date / Time niacin Allergy Intermediate hives Verified 08/11/21 18:25 Opioid Analgesics AdvReac Intermediate "gets very Uncoded 08/11/21 18:25 sick" Home Medications Medication Instructions Recorded Confirmed Type acetaminophen 500 mg tablet 1,000 mg PO TID PRN 08/21/20 08/11/21 History (Tylenol Extra Strength) calcium carbonate 600 mg-vitamin 1 tab PO DAILY 08/21/20 08/11/21 History D3 5 mcg (200 unit) tablet cetirizine 10 mg tablet (Zyrtec) 10 mg PO DAILY PRN 08/21/20 08/11/21 History docusate sodium 100 mg capsule 100 mg PO DAILY PRN 08/21/20 08/11/21 History (Colace) levothyroxine 50 mcg tablet 50 mcg PO DAILY 08/21/20 08/11/21 History apixaban 5 mg tablet (Eliquis) 5 mg PO BID 10/14/20 08/11/21 History isosorbide mononitrate 30 mg 30 mg PO DAILY #30 tab 03/13/21 08/11/21 Rx tablet,extended release 24 hr nitroglycerin 0.4 mg sublingual 0.4 mg SUBLINGUAL Q5M PRN #25 tab 03/13/21 08/11/21 Rx tablet albuterol sulfate 90 mcg/actuation 2 puff INHALATION QID PRN 04/26/21 08/11/21 History aerosol inhaler atorvastatin 40 mg tablet 40 mg PO HS #90 tab 06/01/21 08/11/21 Rx hydrocortisone 2.5 % topical cream 1 applic [place] DIRECTED PRN 07/06/21 08/11/21 History with perineal applicator fluticasone furoate 100 1 ea INHALATION QAM 08/11/21 08/11/21 History mcg-vilanterol 25 mcg/dose inhalation powder (Breo Ellipta) metoprolol succinate 50 mg 50 mg PO DAILY 08/11/21 08/11/21 History tablet,extended release 24 hr Past Med/Surg History Medical History Breast cancer Left breast s/p lumpectomy CAD (coronary artery disease) CKD (chronic kidney disease), stage III Coccygeal contusion Degenerative arthritis of left knee HLD (hyperlipidemia) HTN (hypertension) Hypothyroidism Palpitations Right hip pain TIA (transient ischemic attack) Surgical History History of appendectomy History of arthroplasty of both knees History of hip replacement, total History of hysterectomy S/P coronary artery stent placement Family History Brother Coronary heart disease Cancer Bladder cancer Sister Cancer Breast cancer Father Cancer Stomach cancer Daughter Cancer AML Other No family history of adverse response to anesthesia No family history of bleeding disorder Social History Smoking Status: Never smoker Second Hand Exposure: No; Do You Dip or Chew Tobacco: No; Tobacco Cessation Education Requested by Patient: No Hx Alcohol Use: No Hx Substance Use: No Preferred Language: Pashto Communication Ability: Effective House Player Required: No Beliefs That Will Affect Care: None Current Living Situation: Alone Current Living Situation Comment: lives in one story house with one step How many Children do You have: 4 Other Information That Helps Us Care for You: No Feels Safe at Home: Yes Safety Concerns: Feels Safe At This Time Assistive Devices: Cane, Glasses and Walker Review of Systems Review of Systems: As per HPI, all 10 systems reviewed, all other ROS negative Physical Exam Physical Exam: GENERAL: Comfortable, pleasant, obese, looks younger for stated age, respiratory distress SKIN: Normal color, warm HEENT: [place] palpebral conjunctivae, no ptosis, moist buccal mucosa NECK : Supple, short neck, no tenderness CHEST : CTA, no tenderness HEART : RRR, no obvious murmurs ABDOMEN: Some distention, nontender EXTREMITIES : No LE swelling/tenderness, no other conspicuous deformities noted NEUROLOGIC : Coherent, no facial asymmetry, gait and stance not assessed Results & Data Results & Data ([facility]) Vital Signs (Past 12 Hours) Vital Signs Temp Pulse Pulse Resp BP BP Pulse Ox 08/11/21 22:30 74 18 186/83 H 96 08/11/21 22:00 74 23 196/80 H 96 08/11/21 21:30 72 21 197/93 H 96 08/11/21 21:00 69 19 195/80 H 95 08/11/21 20:30 71 13 183/68 H 95 08/11/21 20:00 67 16 198/73 H 95 08/11/21 19:30 68 16 179/83 H 97 08/11/21 19:18 69 24 96 08/11/21 19:00 82 15 203/97 H 98 08/11/21 18:30 66 20 204/110 H 96 08/11/21 18:12 67 20 97 08/11/21 18:07 67 19 97 08/11/21 17:58 36.7 C 67 67 20 201/86 H 201/86 H 97 Laboratory Results Laboratory Results WBC 6.27 K/uL (4.8-10.8) 08/11/21 17:40 RBC 3.76 M/uL (4.2-5.4) L 08/11/21 17:40 Hgb 12.0 g/dL (12.0-16.0) 08/11/21 17:40 Hct 36.7 % (37-47) L 08/11/21 17:40 MCV 97.6 fL (80-100) 08/11/21 17:40 MCH 31.9 pg (25-34) 08/11/21 17:40 MCHC 32.7 g/dL (32-36) 08/11/21 17:40 RDW Std Deviation 52.9 fL (36.4-46.3) H 08/11/21 17:40 RDW Coeff of [place]ylon 14.7 % (11.5-14.5) H 08/11/21 17:40 Plt Count 231 K/uL (130-400) 08/11/21 17:40 MPV 10.0 fL (7.4-10.4) 08/11/21 17:40 Immature Gran % (Auto) 0.2 % 08/11/21 17:40 Neut % (Auto) 58.1 % 08/11/21 17:40 Lymph % (Auto) 27.1 % 08/11/21 17:40 [place] % (Auto) 10.8 % 08/11/21 17:40 Eos % (Auto) 3.5 % 08/11/21 17:40 Baso % (Auto) 0.3 % 08/11/21 17:40 Neut # (Auto) 3.64 K/uL (1.4-6.5) 08/11/21 17:40 Lymph # (Auto) 1.70 K/uL (1.2-3.4) 08/11/21 17:40 [place] # (Auto) 0.68 K/uL (0.11-0.59) H 08/11/21 17:40 Eos # (Auto) 0.22 K/uL (0-0.5) 08/11/21 17:40 Baso # (Auto) 0.02 K/uL (0-0.2) 08/11/21 17:40 Immature Gran # (Auto) 0.01 K/uL (0.00-0.02) 08/11/21 17:40 Sodium 140 mmol/L (136-145) 08/11/21 17:40 Potassium 4.3 mmol/L (3.5-5.1) 08/11/21 17:40 Chloride 106 mmol/L (98-107) 08/11/21 17:40 Carbon Dioxide 26 mmol/L (21-32) 08/11/21 17:40 Anion Gap 8 (3-11) 08/11/21 17:40 BUN 19 mg/dl (6-23) 08/11/21 17:40 Creatinine 0.94 mg/dl (0.6-1.2) 08/11/21 17:40 Est Cr Clr Drug Dosing 43.7 ml/min 08/11/21 17:40 Est GFR ( Amer) 62.8 ml/min 08/11/21 17:40 Est GFR (Non-Af Amer) 54.2 ml/min 08/11/21 17:40 BUN/Creatinine Ratio 20.2 (10-20) H 08/11/21 17:40 Glucose 91 mg/dl (70-99(Fasting)) 08/11/21 17:40 Calcium 9.7 mg/dl (8.5-10.1) 08/11/21 17:40 Phosphorus 3.9 mg/dl (2.5-4.9) 08/11/21 17:40 Magnesium 2.1 mg/dl (1.7-2.4) 08/11/21 17:40 Total Bilirubin 0.4 mg/dl (0.2-1.0) 08/11/21 17:40 AST 16 U/L (13-39) 08/11/21 17:40 ALT 14 U/L (7-52) 08/11/21 17:40 Alkaline Phosphatase 67 U/L (34-104) 08/11/21 17:40 Total Creatine Kinase 77 U/L (26-192) 08/11/21 17:40 Total Creatine Kinase Cancelled 08/11/21 17:40 Troponin I < 0.03 ng/ml (0-0.04) 08/11/21 17:40 B-Natriuretic Peptide 115 pg/ml (0-100) H 08/11/21 18:15 Total Protein 6.4 gm/dl (6.0-8.3) 08/11/21 17:40 Albumin 4.0 gm/dl (3.4-5.0) 08/11/21 17:40 Globulin 2.4 gm/dl (2.5-4.0) L 08/11/21 17:40 Albumin/Globulin Ratio 1.7 (0.9-2) 08/11/21 17:40 Lipase 24 U/L (11-82) 08/11/21 17:40 TSH 2.587 uIu/ml (0.300-4.500) 08/11/21 17:40 SARS-CoV-2, RNA, NAAT NEGATIVE (NEGATIVE) 08/11/21 19:25 Impressions Chest X-Ray 08/11/21 17:59 XR chest 1V portable CLINICAL HISTORY: Atypical chest pain. COMPARISON STUDY: Chest CT March 05, 2021 chest radiograph July 06, 2021. FINDINGS: Lung volumes are normal. No pneumothorax or pleural effusion is present. Mild cardiomegaly is unchanged. There is no evidence for pulmonary edema. Subtle interstitial prominence is unchanged. IMPRESSION: No acute cardiopulmonary findings. No change in appearance of the chest. ACT 112: Negative or not required by law. Electronically signed by: Zachery Daugherty M.D. 08/11/2021 6:[address] 08/11/21 18:24 CT OF THE HEAD WITHOUT CONTRAST CLINICAL HISTORY: weakness COMPARISON STUDY: MRI of the brain August 24, 2017. Head CT July 06, 2021. CT DOSE: 638.56 mGycm TECHNIQUE: Helical axial images of the head were obtained without IV contrast. Automated exposure control was utilized for the study. A dose lowering technique was utilized adhering to the principles of ALARA. FINDINGS: No acute intracranial hemorrhage, midline shift or mass effect is present. The ventricular system is unremarkable. White matter hypodensities are unchanged and suggest small vessel disease. The basal cisterns are patent. No extra-axial collections are present. There are no findings to suggest acute dural sinus thrombosis or acute territorial infarct. No significant calvarial abnormalities are present. Visualized portions of the sinuses and mastoid air cells are clear. IMPRESSION: No acute intracranial findings. No change in appearance of the brain. ACT 112: Negative or not required by law. Electronically signed by: Zachery Daugherty M.D. 08/11/2021 8:36 PM Head CTA 08/11/21 18:24 CTA ANGIOGRAPHY OF THE HEAD CLINICAL HISTORY: weakness COMPARISON STUDY: CTA of the head August 24, 2017. TECHNIQUE: Helical axial images of the head were obtained following uneventful intravenous administration of 118 cc of Optiray. Sagittal and coronal reconstructions were viewed as well as maximal intensity projections on an independent 3-D workstation. Automated exposure control was utilized for the study. A dose lowering technique was utilized adhering to the principles of ALARA. CT DOSE: 960.40 mGycm FINDINGS: Ventricular system is unremarkable. No extra-axial collections are present. White matter hypodensity suggests small vessel disease. There is no intracranial aneurysm. There is severe stenosis of the left A2 segment which is new since CTA of August 24, 2017. persistence of the left posterior cerebral artery is again noted. This vessel is now diminutive. This also represents a change since prior CT of August 24, 2017. There is focal moderate to severe stenosis of the right P1 segment. Mild stenosis of a right cervical branch of the middle cerebral artery is present. IMPRESSION: Interval development of stenoses within multiple intracranial vessels since CTA of August 24, 2017. These include severe stenosis of the left A2 segment, moderate to severe stenosis of the right P1 segment and the left posterior cerebral artery which arises from the internal carotid artery. ACT 112: Negative or not required by law. Electronically signed by: Zachery Daugherty M.D. 08/11/2021 8:58 PM Neck CTA 08/11/21 18:24 CT ANGIOGRAPHY OF THE NECK WITH CONTRAST CLINICAL HISTORY: weakness COMPARISON STUDY: CTA of the neck August 24, 2017. Technique: CT angiography of the carotid and vertebral arteries was obtained using Optiray and 3D reconstruction on an independent workstation. NASCET criteria was utilized. Automated exposure control was utilized for the study. A dose lowering technique was utilized adhering to the principles of ALARA. Findings: Lung apices are unremarkable. There is no cervical lymphadenopathy. The bilateral common carotid, cervical internal carotid and vertebral arteries are patent. No stenosis within these vessels. No dissection is present. There is moderate plaque of the aortic arch. There is mild plaque within the bilateral carotid bifurcations. The appearance is similar to prior CTA. IMPRESSION: No stenosis or dissection within the bilateral common carotid, cervical internal carotid or vertebral arteries. ACT 112: Negative or not required by law. Electronically signed by: Zachery Daugherty M.D. 08/11/2021 8:49 PM Diagnostic Findings EKG as per my interpretation: Rate 65, NSR, LAD, LAFB, inferior infarct, T wave abnormalities anterolateral leads
[2021-08-12] MEDS ORDERED: APIXABAN 5 MG TABLET PO STA (00:30)
[2021-08-12] MEDS ORDERED: LORazepam 2 MG/1 ML VIAL IV PRN (00:31)
[2021-08-12] MEDS ORDERED: PROMETHAZINE HCL 12.5 MG in SODIUM CHLORIDE 0.9% 50 ML IV PRN (00:36)
[2021-08-12] MEDS ORDERED: DOCUSATE SODIUM 100 MG CAP PO PRN (02:18)
[2021-08-12] MEDS ORDERED: ACETAMINOPHEN 325 MG TAB PO PRN (02:18)
[2021-08-12 06:12] LABS: Basophils # (auto) 0.01 K/uL (0-0.2); Basophils % (auto) 0.1 %; Eosinophils # (auto) 0.23 K/uL (0-0.5); Eosinophils % (auto) 3.1 %; Hematocrit (blood only) 36.9 % (37-47); Immature Granulocytes # (auto) 0.01 K/uL (0.00-0.02); Immature Granulocytes % (auto) 0.1 %; Lymphocytes # (auto) 1.39 K/uL (1.2-3.4); Lymphocytes % (auto) 18.8 %; Mean Corpuscular Hemoglobin 31.9 pg (25-34); Mean Corpuscular Hgb Conc 32.5 g/dL (32-36); Mean Corpuscular Volume 98.1 fL (80-100); Mean Platelet Volume 9.6 fL (7.4-10.4); Monocytes # (auto) 0.85 K/uL (0.11-0.59); Monocytes % (auto) 11.5 %; Neutrophils % (auto) 66.4 %; Platelet Count 229 K/uL (130-400); RDW Coefficient of Variation 14.8 % (11.5-14.5); Red Blood Count 3.76 M/uL (4.2-5.4); White Blood Count 7.39 K/uL (4.8-10.8)
[2021-08-12] MEDS ORDERED: LEVOTHYROXINE SODIUM 50 MCG TABLET PO SCH (06:30)
[2021-08-12 06:37] LABS: Chol HDL Ratio 4.3 (0-5)
--- NOTE | 2021-08-12 07:59 | Magnetic Resonance Report ---
MR brain wo con CLINICAL HISTORY: tia TECHNIQUE: Multiplanar and multisequence MR images of the brain were obtained without intravenous con trast. Comparison: Comparison is made to MRI brain 08/24/2017 FINDINGS: No abnormal restricted diffusion is identified. Foci of T2 and FLAIR hyperintensity are noted in the paraventricular areas consistent with chronic small vessel ischemic disease. Ex vacuo ventriculomegal y and sulcal enlargement is noted compatible with diffuse encephalomalacia. There are no masses, mass effect, or midline shift. No abnormal enhancement is seen. There is no evidence of acute intraparenc hymal hemorrhage. No extra axial fluid collections are seen. The corpus callosum, pituitary gland, an d cerebellar tonsils appear grossly unremarkable. Flow voids of the major intracranial arterial vessels are identified. The imaged portions of the para nasal sinuses, mastoid air cells, and orbits are unremarkable. IMPRESSION: Chronic volume loss and age related white matter changes without evidence of acute abnormality. ACT 112: Negative or not required by law. Electronically signed by: Jaxon Leiva M.D. 08/12/2021 7:58 AM
[2021-08-12] MEDS ORDERED: ISOSORBIDE MONO EXTENDED REL 30 MG TABCR PO SCH (09:00)
[2021-08-12] MEDS ORDERED: METOPROLOL SUCC 25MG EXT REL TAB PO SCH (09:00)
[2021-08-12] MEDS ORDERED: FLUTICASONE/VILANTEROL 100/25MCG 14 PUFFS/INHALER INH SCH (09:00)
[2021-08-12] MEDS ORDERED: APIXABAN 5 MG TABLET PO SCH (09:00)
--- NOTE | 2021-08-12 09:37 | Electrocardiogram Report ---
Test Reason : Blood Pressure : / mmHG Vent. Rate : 066 BPM Atrial Rate : 066 BPM P-R Int : 190 ms QRS Dur : 106 ms QT Int : 422 ms P-R-T Axes : -04 -20 056 degrees QTc Int : 442 ms Normal sinus rhythm Old Inferior infarct T wave abnormality, consider anterolateral ischemia Abnormal ECG When compared with ECG of 06-JUL-2021 13:10, Criteria for Anterior infarct are no longer Present T wave inversion more evident in Anterior leads Confirmed by Sonny Dorado ([id number]) on 08/12/2021 9:37:22 AM Referred By: REFERRED SELF Confirmed By:Sonny Dorado
--- NOTE | 2021-08-12 12:36 | Discharge Summary ---
Date of Service August 12, 2021 Admission HPI Per Admitting Provider History obtained from patient and records. Medical history significant for PAF on Eliquis, CAD status post stent, hypertension, hyperlipidemia, TIA, left breast cancer status post surgery. Last confinement August 2020 for chest pain. ACS ruled out. Hours ago, patient was watching television at home when she noted trouble in getting up. Both legs were weak but right leg weaker than usual. Patient denies headache, chest pain, S OB. Patient compliant with home medications. Leg strength back to baseline upon arrival at the ER. Medical History as above Surgical History : Knee surgeries, breast biopsy, partial mastectomy left, appendectomy, STANISLAV, hip replacement, bladder surgery, cataract surgeries Family History : Bladder cancer, AML, stomach cancer, heart disease Personal/Social history : Non-smoker, no EtOH intake, retired [employer] Admission Exam Per Admitting Provider GENERAL: Comfortable, pleasant, obese, looks younger for stated age, respiratory distress SKIN: Normal color, warm HEENT: Lithium palpebral conjunctivae, no ptosis, moist buccal mucosa NECK : Supple, short neck, no tenderness CHEST : CTA, no tenderness HEART : RRR, no obvious murmurs ABDOMEN: Some distention, nontender EXTREMITIES : No LE swelling/tenderness, no other conspicuous deformities noted NEUROLOGIC : Coherent, no facial asymmetry, gait and stance not assessed Principal Diagnosis Right leg weakness History PAF Hx CAD status post stent Hypertension Discharge Exam General- No acute distress Head- atraumatic Eyes- PERRL, EOMI, ENT- oropharynx clear Neck- supple, no JVD Lungs- clear to auscultation Heart- regular rhythm; no murmur Abdomen- normal bowel sounds, soft, nontender Extremities- no calf tenderness Neuro- alert, oriented x 3; PERRL, EOMI; no facial palsy; no dysarthria Skin- warm & dry Discharge Data Allergies Allergy/AdvReac Type Severity Reaction Status Date / Time niacin Allergy Intermediate hives Verified 08/11/21 18:25 Opioid Analgesics AdvReac Intermediate "gets very Uncoded 08/11/21 18:25 sick" Consultations 08/11/21 23:47 ED Decision to Admit Stat Ordered Studies 08/11/21 18:24 CT angio head w con Stat CT angio neck with con Stat CT head/brain wo con Stat 08/12/21 00:31 MR brain wo con Urgent MR brain wo con CLINICAL HISTORY: tia TECHNIQUE: Multiplanar and multisequence MR images of the brain were obtained without intravenous contrast. Comparison: Comparison is made to MRI brain 08/24/2017 FINDINGS: No abnormal restricted diffusion is identified. Foci of T2 and FLAIR hyperintensity are noted in the paraventricular areas consistent with chronic small vessel ischemic disease. Ex vacuo ventriculomegaly and sulcal enlargement is noted compatible with diffuse encephalomalacia. There are no masses, mass effect, or midline shift. No abnormal enhancement is seen. There is no evidence of acute intraparenchymal hemorrhage. No extra axial fluid collections are seen. The corpus callosum, pituitary gland, and cerebellar tonsils appear grossly unremarkable. Flow voids of the major intracranial arterial vessels are identified. The imaged portions of the paranasal sinuses, mastoid air cells, and orbits are unremarka ble. IMPRESSION: Chronic volume loss and age related white matter changes without evidence of acute abnormality. ACT 112: Negative or not required by law. Electronically signed by: Jaxon Leiva M.D. 08/12/2021 7:58 AM Dictated:08/12/21 0756 Transcribed: 08/12/21755 CT ANGIOGRAPHY OF THE NECK WITH CONTRAST CLINICAL HISTORY: weakness COMPARISON STUDY: CTA of the neck August 24, 2017. Technique: CT angiography of the carotid and vertebral arteries was obtained using Optiray and 3D reconstruction on an independent workstation. NASCET criteria was utilized. Automated exposure control was utilized for the study. A dose lowering technique was utilized adhering to the principles of ALARA. Findings: Lung apices are unremarkable. There is no cervical lymphadenopathy. The bilateral common carotid, cervical internal carotid and vertebral arteries are patent. No stenosis within these vessels. No dissection is present. There is moderate plaque of the aortic arch. There is mild plaque within the bilateral carotid bifurcations. The appearance is similar to prior CTA. IMPRESSION: No stenosis or dissection within the bilateral common carotid, cervical internal carotid or vertebral arteries. ACT 112: Negative or not required by law. Electronically signed by: Zachery Daugherty M.D. 08/11/2021 8:49 PM Dictated:08/11/212044 Transcribed: 08/11/212044 CTA ANGIOGRAPHY OF THE HEAD CLINICAL HISTORY: weakness COMPARISON STUDY: CTA of the head August 24, 2017. TECHNIQUE: Helical axial images of the head were obtained following uneventful intravenous administration of 118 cc of Optiray. Sagittal and coronal reconstructions were viewed as well as maximal intensity projections on an independent 3-D workstation. Automated exposure control was utilized for the study. A dose lowering technique was utilized adhering to the principles of ALARA. CT DOSE: 960.40 mGycm FINDINGS: Ventricular system is unremarkable. No extra-axial collections are present. White matter hypodensity suggests small vessel disease. There is no intracranial aneurysm. There is severe stenosis of the left A2 segment which is new since CTA of August 24, 2017. persistence of the left posterior cerebral artery is again noted. This vessel is now diminutive. This also rep resents a change since prior CT of August 24, 2017. There is focal moderate to severe stenosis of the right P1 segment. Mild stenosis of a right cervical branch of the middle cerebral artery is present. IMPRESSION: Interval development of stenoses within multiple intracranial vessels since CTA of August 24, 2017. These include severe stenosis of the left A2 segment, moderate to severe stenosis of the right P1 segment and the left posterior cerebral artery which arises from the internal carotid artery. ACT 112: Negative or not required by law. Electronically signed by: Zachery Daugherty M.D. 08/11/2021 8:58 PM Dictated:08/11/212051 Transcribed: 08/11/212051 CT OF THE HEAD WITHOUT CONTRAST CLINICAL HISTORY: weakness COMPARISON STUDY: MRI of the brain August 24, 2017. Head CT July 06, 2021. CT DOSE: 638.56 mGycm TECHNIQUE: Helical axial images of the head were obtained without IV contrast. Automated exposure control was utilized for the study. A dose lowering technique was utilized adhering to the principles of ALARA. FINDINGS: No acute intracranial hemorrhage, midline shift or mass effect is present. The ventricular system is unremarkable. White matter hypodensities are unchanged and suggest small vessel disease. The basal cisterns are patent. No extra-axial collections are present. There are no findings to suggest acute dural sinus thrombosis or acute territorial infarct. No significant calvarial abnormalities are present. Visualized portions of the sinuses and mastoid air cells are clear. IMPRESSION: No acute intracranial findings. No change in appearance of the brain. ACT 112: Negative or not required by law. Electronically signed by: Zachery Daugherty M.D. 08/11/2021 8:36 PM Dictated:08/11/212033 Transcribed: 08/11/212033 XR chest 1V portable CLINICAL HISTORY: Atypical chest pain. COMPARISON STUDY: Chest CT March 05, 2021 chest radiograph July 06, 2021. FINDINGS: Lung volumes are normal. No pneumothorax or pleural effusion is present. Mild cardiomegaly is unchanged. There is no evidence for pulmonary edema. Subtle interstitial prominence is unchanged. IMPRESSION: No acute cardiopulmonary findings. No change in appearance of the chest. ACT 112: Negative or not required by law. Electronically signed by: Zachery Daugherty M.D. 08/11/2021 6:36 PM Dictated:08/11/211834 Transcribed: 08/11/211834 Hospital Course (1) Right leg weakness: Transient RLE weakness Need to R/O CVA CT head showed no acute intracranial findings. No change in appearance of the b rain. CTA head/neck showed Interval development of stenoses within multiple intracranial vessels since CTA of August 24, 2017. MRI showed Chronic volume loss and age related white matter changes without evidence of acute abnormality. Denies any focal neuro deficit back to her baseline as per daughter PT/OT eval Continue Eliquis and Statin Plan to discharge home today History PAF Currently on NSR with rate control with metoprolol Continue Eliquis Hx CAD status post stent Continue Eliquis, statin, metoprolol Stable Hypertension Continue metoprolol and Isosorbide monionitrte Continue monitor BP Hypothyroidism TSH wnl Continue levothyroxine Left breast cancer status post surgery DVT prophylaxis. Eliquis DNR Total Time Total Time Spent Total Time Spent (In Minutes): 35 minutes Discharge Plan Discharge Items Patient Disposition: Home - Self-Care Reason For Visit: TIA Discharge Diagnosis: Right leg weakness Activity: Resume your previous activity Non-emergency contact: Primary Care Provider Call non-emergency contact if: you have any medication questions Follow-up/Referrals: Mary Anne Evans MD [Primary Care Provider] - (Date & Time 08/16/2021 11:00 AM Provider Mary Anne Evans MD Department General Internal Medicine [facility] ) Diet: Heart Healthy Addtl Attending Provider Instructions: Follow up with your primary care provider Dr. Gunn on 08/16/21 @ 11AM General Internal Medicine [facility] Continue physical and occupational therapy Fall precaution Seek medical attention if your symptoms reoccur Pending Studies at Discharge: No Stand-Alone Forms: My [employer], Smoking Cessation Medications and DC Order Prescriptions: Continued nitroglycerin 0.4 mg tablet, sublingual 0.4 mg sublingual Q5M PRN (Reason: chest pain) Qty: 25 RF: 4 isosorbide mononitrate 30 mg tablet extended release 24 hr 30 mg PO DAILY Qty: 30 RF: 5 Eliquis 5 mg tablet 5 mg PO BID RF: 0 atorvastatin 40 mg tablet 40 mg PO HS Qty: 90 RF: 3 albuterol sulfate 90 mcg/actuation HFA aerosol inhaler 2 puff INHALATION QID PRN (Reason: Shortness Of Breath Or Wheezing) RF: 0 cetirizine [Zyrtec] 10 mg Tablet 10 mg PO DAILY PRN (Reason: allergies) RF: 0 acetaminophen [Tylenol Extra Strength] 500 mg Tablet 1,000 mg PO TID PRN (Reason: Pain) RF: 0 calcium carbonate-vitamin D3 600 mg(1,500mg) -200 unit Tablet 1 tab PO DAILY RF: 0 levothyroxine 50 mcg tablet 50 mcg PO DAILY RF: 0 docusate sodium [Colace] 100 mg Capsule 100 mg PO DAILY PRN (Reason: Constipation) RF: 0 hydrocortisone 2.5 % Cream With Perineal Applicator [address] DIRECTED PRN (Reason: Hemorrhoids) RF: 0 metoprolol succinate 50 mg tablet extended release 24 hr 50 mg PO DAILY RF: 0 Breo Ellipta 100-25 mcg/dose blister with device 1 ea INHALATION QAM RF: 0 Discharge Orders: Discharge Order (Routine); Ordered 08/12/21 Ordered By: Sergio Herrera Admission Data Admit Date/Time: 08/12/21 00:33 Attending Provider: Sergio Herrera Admit Provider: Vu Colon Primary Care Provider: Mary Anne Evans Other Providers: Vu Colon Other Interventions: Discharge Summary Assessment (RN) Last Done: 08/12/21 12:57
[2021-08-12] MEDS ORDERED: ATORVASTATIN 40 MG TAB PO SCH (21:00)
== END 2021-08-12 13:22 | disposition home or self-care (01) ==
LOC: ED 17:51 → 2N 17:51

== ENCOUNTER 2021-11-06 14:15 | Inpatient (IN) ==
--- NOTE | 2021-11-06 15:06 | Emergency Department Note ---
Impression & Plan Acute ischemic stroke ED Provider Note NAME: ZEINAB RON AGE: 86 SEX: F : 1935 ARRIVES VIA: Walk-In INFORMANT: Patient, the patient's family members ED PROVIDER(S): José Luis León DO CHIEF COMPLAINT: Weakness HPI: The patient is an 86-year-old female who presented to the emergency department for an evaluation of unilateral weakness. The patient states that for the week she has been having problems where her right side becomes weak. She states she did notice some left-sided symptoms yesterday where her left hand appeared to have numbness. She is noticed symptoms intermittently where she tries to ambulate and feels as though she is going to fall because of right- sided weakness. She was fine this morning when she awoke. Additional history was obtained from family members and states that this morning when she got up for breakfast she was "perfectly fine" and appeared to be at her neurologic baseline. She was able to ambulate without difficulty. She did complain of a headache yesterday. She does have a history of TIA with paroxysmal atrial fibrillation as well as coronary artery disease. She had been taking blood thinners and took her last dose last evening. She normally takes Eliquis. Otherwise she states she is been compliant with her outpatient medications. Her family states that today at approximately 10:30 AM she started to have symptoms again. Symptoms normally only last about 20 minutes but today the symptoms are ongoing and persistent. This is why she presented to the emergency department. She presented to the emergency department via triage. ROS: See above HPI for pertinent positives & negatives. A total of 10 systems reviewed and were otherwise negative. PAST MEDICAL HISTORY: See Below PAST SURGICAL HISTORY: See Below FAMILY HISTORY: See Below SOCIAL HISTORY: See Below HOME MEDICATIONS: See Below ALLERGIES: See Below VITALS: See Below PHYSICAL EXAMINATION: GENERAL: Patient is awake alert in no acute distress patient is resting comfort ably and showing no signs of anxiety EYES: The conjunctivae are clear. The pupils are round and reactive. EARS, NOSE, MOUTH AND THROAT: The nose is without any evidence of any deformity. Mucous membranes are moist. Tongue is midline. NECK: The neck is nontender and supple. RESPIRATORY: Normal respiratory effort is noted there is no evidence of wheezing rhonchi or rales CARDIOVASCULAR: Regular rate and rhythm noted there no murmurs rubs or gallops normal S1 normal S2. GASTROINTESTINAL: The abdomen is soft. Abdomen is nontender. MUSCULOSKELETAL/EXTREMITIES: There is no evidence of gross deformity full range of motion is noted in the hips and shoulders. SKIN: Skin is warm and dry. There is no significant pedal edema NEUROLOGIC: Patient is awake alert and oriented x3. There is no facial droop. There is diminished harness mender strength in the right hand versus the left. The patient is able to hold her left leg off the bed for greater than 5 seconds however her right leg appears to be weaker and falls to the bed after only 2 to 3 seconds. MEDICAL DECISION MAKING: Patient is an 86-year-old female who presented to the emergency department for a n evaluation of strokelike symptoms. The exact onset of symptoms was somewhat vague and the patient does take oral anticoagulants which she last took last evening. She was not made a stroke alert because she appeared to be outside of the 3-hour window. She also complained of some symptoms earlier in the week so she was not made a stroke alert but had a complete stroke evaluation. She was found to have signs of a vessel occlusion but it was not a vessel that would be amenable to mechanical thrombectomy. I discussed this case with the telestroke neurology group at [facility]. The patient was reevaluated multiple times. Symptoms did begin to wax and wane. I discussed this case with the on- call [facility] hospitalist. They have agreed to evaluate the patient in the emergency department for further management and disposition. The patient was treated with aspirin in the emergency department. Triage Nursing notes reviewed. Prior medical records reviewed Vital Signs: reviewed and remarkable for elevated blood pressure. Differential diagnosis: Infection, dehydration, metabolic abnormality, hypo/hyperglycemia, electrolyte disturbance, anemia, hypoxia, cardiac sources, intracerebral event, toxicologic, neurologic, as well as other pathologies. ER treatment provided: See below Diagnostics interpreted by me: ECG: EKG was obtained in the emergency department. My interpretation is sinus rhythm at 76 bpm. There was no ectopy. LVH was noted by voltage criteria. Diffuse ST and T wave abnormalities were noted especially in the anterior and high lateral leads. This was compared to a tracing from August 11, 2021. A similar tracing was noted. Cardiac Monitoring: An order was placed for continuous cardiac monitoring. The monitor shows a rate of 74 bpm with sinus rhythm. Laboratory studies: As stated above and show below. Imaging studies: See below Consultation(s): I discussed this case with Dr Parks. ED COURSE: Procedures: none Critical Care: I have personally spent greater than 40 minutes of critical care time in the direct management of this patient. This includes bedside care, interpretation of diagnostic studies, and testing, discussion with consultants, patient, and f amily members, and other required patient management activities. This 40 minutes is in excess of all separately billable procedures. Past Med/Surg History Medical History Bilateral leg weakness Breast cancer Left breast s/p lumpectomy CAD (coronary artery disease) Cardiomyopathy, ischemic Resolved, LVEF 60% to 65% on Echo 06/16/21. Cerebrovascular disease Chest pain CKD (chronic kidney disease), stage III Coccygeal contusion Degenerative arthritis of left knee HLD (hyperlipidemia) HTN (hypertension) Hypothyroidism Palpitations Right hip pain TIA (transient ischemic attack) Surgical History History of appendectomy History of arthroplasty of both knees History of hip replacement, total History of hysterectomy S/P coronary artery stent placement Family History Brother Coronary heart disease Cancer Sister Cancer Father Cancer Daughter Cancer Other No family history of adverse response to anesthesia No family history of bleeding disorder Social History Smoking Status: Never smoker Second Hand Exposure: No; Hx Alcohol Use: No Hx Substance Use: No Preferred Language: Faroese Communication Ability: Effective Division Order Analyst Required: No Beliefs That Will Affect Care: None Current Living Situation: Alone Current Living Situation Comment: lives in one story house with one step How many Children do You have: 4 Feels Safe at Home: Yes Assistive Devices: Cane, Glasses and Walker Allergies Allergies Allergy/AdvReac Type Severity Reaction Status Date / Time niacin Allergy Intermediate hives Verified 11/06/21 17:15 Opioid Analgesics AdvReac Intermediate "gets very Uncoded 11/06/21 17:15 sick" Home Meds Home Medications Medication Instructions Recorded Confirmed acetaminophen 500 mg tablet 1,000 mg PO TID PRN 04/16/21 07/02/22 (Tylenol Extra Strength) levothyroxine 50 mcg tablet 50 mcg PO DAILYBB 08/21/20 11/06/21 apixaban 5 mg tablet (Eliquis) 5 mg PO BID 10/14/20 11/06/21 albuterol sulfate 90 mcg/actuation 2 puff INHALATION QID PRN 04/26/21 11/06/21 aerosol inhaler fluticasone furoate 100 1 ea INHALATION QAM 08/11/21 11/06/21 mcg-vilanterol 25 mcg/dose inhalation powder (Breo Ellipta) isosorbide mononitrate 30 mg 30 mg PO QAM 11/06/21 11/06/21 tablet,extended release 24 hr metoprolol succinate 100 mg 100 mg PO QAM 11/06/21 11/06/21 tablet,extended release 24 hr Previous Rx's Medication Instructions Recorded nitroglycerin 0.4 mg sublingual 0.4 mg SUBLINGUAL Q5M PRN #25 tab 03/13/21 tablet atorvastatin 40 mg tablet 40 mg PO HS #90 tab 06/01/21 Results & Data (ED) Vital Signs Vital Signs - 24 hr 11/06/21 14:22 11/06/21 14:44 11/06/21 14:50 Temperature 36.9 C Temperature Source Oral Pulse Rate 69 77 76 Pulse Rate [Finger] Pulse Rate from SpO2 Sensor 77 Respiratory Rate 18 24 21 Respiratory Effort / Characteristics Non-Labored Respiratory Depth Normal Respiratory Pattern Regular Blood Pressure Blood Pressure [Left Arm] Blood Pressure Mean Blood Pressure Mean [Left Arm] Blood Pressure Position Sitting Pulse Oximetry 96 97 Oxygen Delivery Method Room Air Sepsis Recent Fever Within 48 Hours No Sepsis New/Unexplained Change in Mental Status N/A Sepsis Action Taken by Nursing No Action Required 11/06/21 15:00 11/06/21 15:10 11/06/21 15:21 Temperature Temperature Source Pulse Rate 77 79 Pulse Rate [Finger] Pulse Rate from SpO2 Sensor Respiratory Rate 21 16 Respiratory Effort / Characteristics Non-Labored Respiratory Depth Normal Respiratory Pattern Blood Pressure 161/91 H Blood Pressure [Left Arm] Blood Pressure Mean 114 Blood Pressure Mean [Left Arm] Blood Pressure Position Pulse Oximetry 97 Oxygen Delivery Method Room Air Sepsis Recent Fever Within 48 Hours Sepsis New/Unexplained Change in Mental Status Sepsis Action Taken by Nursing 11/06/21 15:30 11/06/21 15:40 11/06/21 15:50 Temperature Temperature Source Pulse Rate 73 76 80 Pulse Rate [Finger] Pulse Rate from SpO2 Sensor 74 75 73 Respiratory Rate 17 21 16 Respiratory Effort / Characteristics Respiratory Depth Respiratory Pattern Blood Pressure 182/67 H Blood Pressure [Left Arm] Blood Pressure Mean 105 Blood Pressure Mean [Left Arm] Blood Pressure Position Pulse Oximetry 95 97 94 Oxygen Delivery Method Sepsis Recent Fever Within 48 Hours Sepsis New/Unexplained Change in Mental Status Sepsis Action Taken by Nursing 11/06/21 16:00 11/06/21 16:10 11/06/21 16:20 Temperature Temperature Source Pulse Rate 70 68 74 Pulse Rate [Finger] Pulse Rate from SpO2 Sensor 69 68 68 Respiratory Rate 22 19 23 Respiratory Effort / Characteristics Respiratory Depth Respiratory Pattern Blood Pressure 189/88 H Blood Pressure [Left Arm] Blood Pressure Mean 121 Blood Pressure Mean [Left Arm] Blood Pressure Position Pulse Oximetry 97 93 92 Oxygen Delivery Method Sepsis Recent Fever Within 48 Hours Sepsis New/Unexplained Change in Mental Status Sepsis Action Taken by Nursing 11/06/21 16:30 11/06/21 16:40 11/06/21 16:50 Temperature Temperature Source Pulse Rate 73 74 73 Pulse Rate [Finger] Pulse Rate from SpO2 Sensor 73 73 73 Respiratory Rate 21 22 20 Respiratory Effort / Characteristics Respiratory Depth Respiratory Pattern Blood Pressure 185/96 H Blood Pressure [Left Arm] Blood Pressure Mean 125 Blood Pressure Mean [Left Arm] Blood Pressure Position Pulse Oximetry 96 95 91 Oxygen Delivery Method Sepsis Recent Fever Within 48 Hours Sepsis New/Unexplained Change in Mental Status Sepsis Action Taken by Nursing 11/06/21 17:00 11/06/21 17:10 11/06/21 17:20 Temperature Temperature Source Pulse Rate 74 70 78 Pulse Rate [Finger] Pulse Rate from SpO2 Sensor 73 72 73 Respiratory Rate 21 22 28 H Respiratory Effort / Characteristics Respiratory Depth Respiratory Pattern Blood Pressure 214/139 H Blood Pressure [Left Arm] Blood Pressure Mean 164 Blood Pressure Mean [Left Arm] Blood Pressure Position Pulse Oximetry 96 99 93 Oxygen Delivery Method Sepsis Recent Fever Within 48 Hours Sepsis New/Unexplained Change in Mental Status Sepsis Action Taken by Nursing 11/06/21 17:30 11/06/21 17:31 11/06/21 17:40 Temperature Temperature Source Pulse Rate 78 79 77 Pulse Rate [Finger] Pulse Rate from SpO2 Sensor 73 74 77 Respiratory Rate 20 19 20 Respiratory Effort / Characteristics Respiratory Depth Respiratory Pattern Blood Pressure 202/65 H Blood Pressure [Left Arm] Blood Pressure Mean 110 Blood Pressure Mean [Left Arm] Blood Pressure Position Pulse Oximetry 95 90 93 Oxygen Delivery Method Sepsis Recent Fever Within 48 Hours Sepsis New/Unexplained Change in Mental Status Sepsis Action Taken by Nursing 11/06/21 17:50 11/06/21 17:51 11/06/21 18:00 Temperature Temperature Source Pulse Rate 79 76 74 Pulse Rate [Finger] Pulse Rate from SpO2 Sensor 79 77 74 Respiratory Rate 28 H 21 19 Respiratory Effort / Characteristics Respiratory Depth Respiratory Pattern Blood Pressure 227/92 H Blood Pressure [Left Arm] Blood Pressure Mean 137 Blood Pressure Mean [Left Arm] Blood Pressure Position Pulse Oximetry 93 93 96 Oxygen Delivery Method Sepsis Recent Fever Within 48 Hours Sepsis New/Unexplained Change in Mental Status Sepsis Action Taken by Nursing 11/06/21 18:01 11/06/21 18:56 Temperature Temperature Source Pulse Rate 75 Pulse Rate [Finger] 74 Pulse Rate from SpO2 Sensor 76 Respiratory Rate 16 18 Respiratory Effort / Characteristics Respiratory Depth Respiratory Pattern Blood Pressure 193/93 H Blood Pressure [Left Arm] 204/70 H Blood Pressure Mean 126 Blood Pressure Mean [Left Arm] 114 Blood Pressure Position Pulse Oximetry 96 93 Oxygen Delivery Method Room Air Sepsis Recent Fever Within 48 Hours Sepsis New/Unexplained Change in Mental Status Sepsis Action Taken by Usp Medications Current Medication List: was personally reviewed by me Laboratory Data Attestation: I reviewed the patient's lab results. Result diagrams: 11/06/21 14:57 11/06/21 14:57 Lab Results 11/06/21 11/06/21 11/06/21 Range/Units 14:57 14:57 14:57 WBC 6.84 (4.8-10.8) K/uL RBC 3.93 L (4.2-5.4) M/uL Hgb 12.6 (12.0-16.0) g/dL POC Hgb (12.0-16.0) g/dl Hct 38.8 (37-47) % POC Hct (37-47) % MCV 98.7 (80-100) fL MCH 32.1 (25-34) pg MCHC 32.5 (32-36) g/dL RDW Std Deviation 49.6 H (36.4-46.3) fL RDW Coeff of Dylon 13.9 (11.5-14.5) % Plt Count 244 (130-400) K/uL MPV 9.8 (7.4-10.4) fL Immature Gran % (Auto) 0.1 % Neut % (Auto) 65.0 % Lymph % (Auto) 23.4 % [place] % (Auto) 8.0 % Eos % (Auto) 3.4 % Baso % (Auto) 0.1 % Neut # (Auto) 4.44 (1.4-6.5) K/uL Lymph # (Auto) 1.60 (1.2-3.4) K/uL [place] # (Auto) 0.55 (0.11-0.59) K/uL Eos # (Auto) 0.23 (0-0.5) K/uL Baso # (Auto) 0.01 (0-0.2) K/uL Immature Gran # (Auto) 0.01 (0.00-0.02) K/uL PT 10.4 (9.0-12.0) Seconds INR 1.0 (0.9-1.1) APTT 25.1 (21.0-31.0) Seconds PTT Ratio 0.9 POC Sodium (135-144) mmol/L Sodium 142 (136-145) mmol/L POC Potassium (3.3-5.0) mmol/L Potassium 4.0 (3.5-5.1) mmol/L POC Chloride (101-112) mmol/L Chloride 107 (98-107) mmol/L Carbon Dioxide 28 (21-32) mmol/L POC Total CO2 (24-31) mmol/L Anion Gap 7 (3-11) POC Anion Gap (16-25) mmol/L POC BUN (7-18) mg/dl BUN 20 (6-23) mg/dl Creatinine 0.91 (0.6-1.2) mg/dl POC Creatinine (0.6-1.3) mg/dl Est Cr Clr Drug Dosing 44.2 ml/min Est GFR ( Amer) 65.3 ml/min Est GFR (Non-Af Amer) 56.3 ml/min BUN/Creatinine Ratio 22.0 H (10-20) Glucose 142 H (70-99(Fasting)) mg/dl POC Glucose (other) (70-99) mg/dl Calcium 9.7 (8.5-10.1) mg/dl POC Ioniz Calcium Yesica (1.12-1.32) mmol/l Magnesium 2.0 (1.7-2.4) mg/dl Total Bilirubin 0.4 (0.2-1.0) mg/dl AST 13 (13-39) U/L ALT 10 (7-52) U/L Alkaline Phosphatase 82 (34-104) U/L Troponin I High Sens 7.8 (0-14) pg/ml Total Protein 6.5 (6.0-8.3) gm/dl Albumin 3.8 (3.4-5.0) gm/dl Globulin 2.7 (2.5-4.0) gm/dl Albumin/Globulin Ratio 1.4 (0.9-2) SARS-CoV-2, RNA, NAAT (NEGATIVE) 11/06/21 11/06/21 Range/Units 15:03 15:25 WBC (4.8-10.8) K/uL RBC (4.2-5.4) M/uL Hgb (12.0-16.0) g/dL POC Hgb 12.6 (12.0-16.0) g/dl Hct (37-47) % POC Hct 37 (37-47) % MCV (80-100) fL MCH (25-34) pg MCHC (32-36) g/dL RDW Std Deviation (36.4-46.3) fL RDW Coeff of Dylon (11.5-14.5) % Plt Count (130-400) K/uL MPV (7.4-10.4) fL Immature Gran % (Auto) % Neut % (Auto) % Lymph % (Auto) % [place] % (Auto) % Eos % (Auto) % Baso % (Auto) % Neut # (Auto) (1.4-6.5) K/uL Lymph # (Auto) (1.2-3.4) K/uL [place] # (Auto) (0.11-0.59) K/uL Eos # (Auto) (0-0.5) K/uL Baso # (Auto) (0-0.2) K/uL Immature Gran # (Auto) (0.00-0.02) K/uL PT (9.0-12.0) Seconds INR (0.9-1.1) APTT (21.0-31.0) Seconds PTT Ratio POC Sodium 142 (135-144) mmol/L Sodium (136-145) mmol/L POC Potassium 4.0 (3.3-5.0) mmol/L Potassium (3.5-5.1) mmol/L POC Chloride 104 (101-112) mmol/L Chloride (98-107) mmol/L Carbon Dioxide (21-32) mmol/L POC Total CO2 27 (24-31) mmol/L Anion Gap (3-11) POC Anion Gap 17.0 (16-25) mmol/L POC BUN 19 H (7-18) mg/dl BUN (6-23) mg/dl Creatinine (0.6-1.2) mg/dl POC Creatinine 1.0 (0.6-1.3) mg/dl Est Cr Clr Drug Dosing ml/min Est GFR ( Amer) ml/min Est GFR (Non-Af Amer) ml/min BUN/Creatinine Ratio (10-20) Glucose (70-99(Fasting)) mg/dl POC Glucose (other) 147 H (70-99) mg/dl Calcium (8.5-10.1) mg/dl POC Ioniz Calcium Yesica 1.35 H (1.12-1.32) mmol/l Magnesium (1.7-2.4) mg/dl Total Bilirubin (0.2-1.0) mg/dl AST (13-39) U/L ALT (7-52) U/L Alkaline Phosphatase (34-104) U/L Troponin I High Sens (0-14) pg/ml Total Protein (6.0-8.3) gm/dl Albumin (3.4-5.0) gm/dl Globulin (2.5-4.0) gm/dl Albumin/Globulin Ratio (0.9-2) SARS-CoV-2, RNA, NAAT POSITIVE A* (NEGATIVE) Administered Medications Discontinued Medications Aspirin (Aspirin Chew 324 Mg) 324 mg PO NOW STA Stop: 11/06/21 17:01 Last Admin: 11/06/21 17:28 Dose: 324 mg Documented by: [id number] Ioversol (Optiray 320 125ml) 119 ml IV ONCE ONE Stop: 11/06/21 15:16 Last Admin: 11/06/21 15:16 Dose: 119 ml Documented by: [id number] Labetalol HCl (Labetalol Hcl Iv 5 Mg/Ml 20ml) 10 mg IV NOW STA Stop: 11/06/21 18:17 Last Admin: 11/06/21 18:52 Dose: 10 mg Documented by: [id number] Cosigned by: [id number] Imaging Data Radiologist's Impression: Chest X-Ray 11/06/21 14:46 XR chest 1V portable CLINICAL HISTORY: Stroke Like Symptoms TECHNIQUE: Single frontal radiograph of the chest was obtained. Comparison: Comparison is made to chest radiograph 08/11/2021 FINDINGS: No lines and tubes are seen. Cardiomegaly is noted. The lungs are clear. No evidence of pleural effusion or pneumothorax. IMPRESSION: Cardiomegaly without evidence of acute abnormality. ACT 112: Negative or not required by law. Electronically signed by: Jaxon Leiva M.D. 11/06/2021 3:[address] 11/06/21 14:46 CT angio neck with con, CT head/brain wo con, CT angio head w con CLINICAL HISTORY: Stroke Like Symptoms . Numbness to the right leg and arm. TECHNIQUE: Contiguous axial CT images of the head were acquired from the base of the skull to the vertex without intravenous contrast administration. CT kasey ography of the head and neck was performed following intravenous administration of iodinated contrast. Coronal and sagittal MIPS were obtained from the axial data set and were submitted for review. Automated dose lowering techniques and/or adjustment according to patient size were utilized for this examination. All measurements were calculated based on NASCET criteria. CT DOSE: 1049.69 mGy.cm Comparison: None available at the time of this dictation. FINDINGS: CT head: Areas of decreased attenuation are present in the periventricular and subcortical white matter bilaterally consistent with small vessel ischemic disease. Generalized cerebral atrophy with commensurate enlargement of the ventricles, sulci, and cisterns is also present. There is questionable edema and loss of russell-white differentiation in the left ARMOND territory. Lungs and soft tissues are unremarkable. CTA Neck: A 3 vessel aortic arch is shown. There is no significant atherosclerotic plaque in the aortic arch or the origins of the innominate, left common carotid, and left subclavian arteries. The common carotid, external carotid, cervical segments of the internal carotid arteries, and the cervical segments of the vertebral arteries are patent without hemodynamically significant stenosis. Tortuosity of the internal carotid arteries noted bilaterally. The left vertebral artery is dominant. CTA Head: The anterior and posterior cerebral circulations are patent. There is interruption of the left ARMOND A3 segment (series 5 image 116) with distal reconstitution (image 129). There is a relative decrease in prominence of the distal left frontal vasculature. The middle cerebral arteries and posterior cerebral arteries and their visualized branches are patent. IMPRESSION: 1. There is questionable edema in the left anterior cerebral artery territory. No evidence of hemorrhagic transformation is seen. 2. There is interruption of the left A3 segment with distal reconstitution, this may represent an acute occlusion in the setting of numbness and motor dysfunction in the right leg. 3. No occlusion, hemodynamically significant stenosis, or dissection in the major cervical arteries. Assessment of stenosis of the internal carotid arteries is based on NASCET criteria. ACT 112: Negative or not required by law. Electronically signed by: Jaxon Leiva M.D. 11/06/2021 3:50 PM Head CTA 11/06/21 14:46 CT angio neck with con, CT head/brain wo con, CT angio head w con CLINICAL HISTORY: Stroke Like Symptoms . Numbness to the right leg and arm. TECHNIQUE: Contiguous axial CT images of the head were acquired from the base of the skull to the vertex without intravenous contrast administration. CT angiogr aphy of the head and neck was performed following intravenous administration of iodinated contrast. Coronal and sagittal MIPS were obtained from the axial data set and were submitted for review. Automated dose lowering techniques and/or adjustment according to patient size were utilized for this examination. All measurements were calculated based on NASCET criteria. CT DOSE: 1049.69 mGy.cm Comparison: None available at the time of this dictation. FINDINGS: CT head: Areas of decreased attenuation are present in the periventricular and subcortical white matter bilaterally consistent with small vessel ischemic disease. Generalized cerebral atrophy with commensurate enlargement of the ve ntricles, sulci, and cisterns is also present. There is questionable edema and loss of russell-white differentiation in the left ARMOND territory. Lungs and soft tissues are unremarkable. CTA Neck: A 3 vessel aortic arch is shown. There is no significant atherosclerotic plaque in the aortic arch or the origins of the innominate, left common carotid, and left subclavian arteries. The common carotid, external carotid, cervical segments of the internal carotid arteries, and the cervical segments of the vertebral arteries are patent without hemodynamically significant stenosis. Tortuosity of the internal carotid arteries noted bilaterally. The left vertebral artery is dominant. CTA Head: The anterior and posterior cerebral circulations are patent. There is interruption of the left ARMOND A3 segment (series 5 image 116) with distal reconstitution (image 129). There is a relative decrease in prominence of the distal left frontal vasculature. The middle cerebral arteries and posterior cerebral arteries and their visualized branches are patent. IMPRESSION: 1. There is questionable edema in the left anterior cerebral artery territory. No evidence of hemorrhagic transformation is seen. 2. There is interruption of the left A3 segment with distal reconstitution, t his may represent an acute occlusion in the setting of numbness and motor dysfunction in the right leg. 3. No occlusion, hemodynamically significant stenosis, or dissection in the major cervical arteries. Assessment of stenosis of the internal carotid arteries is based on NASCET criteria. ACT 112: Negative or not required by law. Electronically signed by: Jaxon Leiva M.D. 11/06/2021 3:50 PM Neck CTA 11/06/21 14:46 CT angio neck with con, CT head/brain wo con, CT angio head w con CLINICAL HISTORY: Stroke Like Symptoms . Numbness to the right leg and arm. TECHNIQUE: Contiguous axial CT images of the head were acquired from the base of the skull to the vertex without intravenous contrast administration. CT angiography of the head and neck was performed following intravenous administration of iodinated contrast. Coronal and sagittal MIPS were obtained from the axial data set and were submitted for review. Automated dose lowering techniques and/or adjustment according to patient size were utilized for this examination. All measurements were calculated based on NASCET criteria. CT DOSE: 1049.69 mGy.cm Comparison: None available at the time of this dictation. FINDINGS: CT head: Areas of decreased attenuation are present in the periventricular and subcortical white matter bilaterally consistent with small vessel ischemic disease. Generalized cerebral atrophy with commensurate enlargement of the ventr icles, sulci, and cisterns is also present. There is questionable edema and loss of russell-white differentiation in the left ARMOND territory. Lungs and soft tissues are unremarkable. CTA Neck: A 3 vessel aortic arch is shown. There is no significant a therosclerotic plaque in the aortic arch or the origins of the innominate, left common carotid, and left subclavian arteries. The common carotid, external carotid, cervical segments of the internal carotid arteries, and the cervical segments of the vertebral arteries are patent without hemodynamically significant stenosis. Tortuosity of the internal carotid arteries noted bilaterally. The left vertebral artery is dominant. CTA Head: The anterior and posterior cerebral circulations are patent. There is interruption of the left ARMOND A3 segment (series 5 image 116) with distal reconstitution (image 129). There is a relative decrease in prominence of the distal left frontal vasculature. The middle cerebral arteries and posterior cerebral arteries and their visualized branches are patent. IMPRESSION: 1. There is questionable edema in the left anterior cerebral artery territory. No evidence of hemorrhagic transformation is seen. 2. There is interruption of the left A3 segment with distal reconstitution, this may represent an acute occlusion in the setting of numbness and motor dysfunction in the right leg. 3. No occlusion, hemodynamically significant stenosis, or dissection in the major cervical arteries. Assessment of stenosis of the internal carotid arteries is based on NASCET criteria. ACT 112: Negative or not required by law. Electronically signed by: Jaxon Leiva M.D. 11/06/2021 3:50 PM Discharge Plan Visit Data Chief Complaint: Weakness Stated Complaint: WEAKNESS ON R SIDE & BAD COUGH ED Provider: José Luis León Discharge Problem: Acute ischemic stroke Patient Disposition: Being Evaluated by Hospitalist Forms Stand Alone Forms: My [facility] Prescriptions Prescriptions: No Action nitroglycerin 0.4 mg tablet, sublingual 0.4 mg sublingual Q5M PRN (Reason: chest pain) Qty: 25 RF: 4 Eliquis 5 mg tablet 5 mg PO BID RF: 0 atorvastatin 40 mg tablet 40 mg PO HS Qty: 90 RF: 3 albuterol sulfate 90 mcg/actuation HFA aerosol inhaler 2 puff INHALATION QID PRN (Reason: Shortness Of Breath Or Wheezing) RF: 0 isosorbide mononitrate 30 mg tablet extended release 24 hr 30 mg PO QAM RF: 0 metoprolol succinate 100 mg tablet extended release 24 hr 100 mg PO QAM RF: 0 acetaminophen [Tylenol Extra Strength] 500 mg Tablet 1,000 mg PO TID PRN (Reason: Pain) RF: 0 levothyroxine 50 mcg tablet 50 mcg PO DAILYBB RF: 0 fluticasone furoate-vilanterol [Breo Ellipta] 100-25 mcg/dose blister with device 1 ea INHALATION QAM RF: 0 Referrals Referrals: Mary Anne Evans MD [Primary Care Provider] -
[2021-11-06 15:15] LABS: iSTAT Hemoglobin 12.6 g/dl (12.0-16.0); iSTAT Ionized Calcium 1.35 mmol/l (1.12-1.32)
[2021-11-06] MEDS ORDERED: OPTIRAY 320 125ml IV ONE (15:15)
[2021-11-06 15:24] LABS: Basophils # (auto) 0.01 K/uL (0-0.2); Basophils % (auto) 0.1 %; Eosinophils # (auto) 0.23 K/uL (0-0.5); Eosinophils % (auto) 3.4 %; Hematocrit (blood only) 38.8 % (37-47); Hemoglobin 12.6 g/dL (12.0-16.0); Immature Granulocytes # (auto) 0.01 K/uL (0.00-0.02); Immature Granulocytes % (auto) 0.1 %; Lymphocytes % (auto) 23.4 %; Mean Corpuscular Hemoglobin 32.1 pg (25-34); Mean Corpuscular Hgb Conc 32.5 g/dL (32-36); Mean Corpuscular Volume 98.7 fL (80-100); Mean Platelet Volume 9.8 fL (7.4-10.4); Monocytes # (auto) 0.55 K/uL (0.11-0.59); Neutrophils # (auto) 4.44 K/uL (1.4-6.5); Platelet Count 244 K/uL (130-400); RDW Coefficient of Variation 13.9 % (11.5-14.5); RDW Standard Deviation 49.6 fL (36.4-46.3); Red Blood Count 3.93 M/uL (4.2-5.4); White Blood Count 6.84 K/uL (4.8-10.8)
[2021-11-06 15:34] LABS: Partial Thromboplastin Ratio 0.9; Partial Thromboplastin Time 25.1 Seconds (21.0-31.0); Prothrombin Time 10.4 Seconds (9.0-12.0)
--- NOTE | 2021-11-06 15:52 | CT Scan Report ---
CT angio neck with con, CT head/brain wo con, CT angio head w con CLINICAL HISTORY: Stroke Like Symptoms . Numbness to the right leg and arm. TECHNIQUE: Contiguous axial CT images of the head were acquired from the base of the skull to the freddy zhen without intravenous contrast administration. CT angiography of the head and neck was performed f ollowing intravenous administration of iodinated contrast. Coronal and sagittal MIPS were obtained fr om the axial data set and were submitted for review. Automated dose lowering techniques and/or adjus tment according to patient size were utilized for this examination. All measurements were calculated based on NASCET criteria. CT DOSE: 1049.69 mGy.cm Comparison: None available at the time of this dictation. FINDINGS: CT head: Areas of decreased attenuation are present in the periventricular and subcortical white clotilde er bilaterally consistent with small vessel ischemic disease. Generalized cerebral atrophy with comme nsurate enlargement of the ventricles, sulci, and cisterns is also present. There is questionable atul ma and loss of russell-white differentiation in the left ARMOND territory. Lungs and soft tissues are unremarkable. CTA Neck: A 3 vessel aortic arch is shown. There is no significant atherosclerotic plaque in the aor tic arch or the origins of the innominate, left common carotid, and left subclavian arteries. The c ommon carotid, external carotid, cervical segments of the internal carotid arteries, and the cervical segments of the vertebral arteries are patent without hemodynamically significant stenosis. Tortuosi ty of the internal carotid arteries noted bilaterally. The left vertebral artery is dominant. CTA Head: The anterior and posterior cerebral circulations are patent. There is interruption of the left ARMOND A3 segment (series 5 image 116) with distal reconstitution (image 129). There is a relative decrease in prominence of the distal left frontal vasculature. The middle cerebral arteries and post erior cerebral arteries and their visualized branches are patent. IMPRESSION: 1. There is questionable edema in the left anterior cerebral artery territory. No evidence of hemorr hagic transformation is seen. 2. There is interruption of the left A3 segment with distal reconstitution, this may represent an ac eric occlusion in the setting of numbness and motor dysfunction in the right leg. 3. No occlusion, hemodynamically significant stenosis, or dissection in the major cervical arteries. Assessment of stenosis of the internal carotid arteries is based on NASCET criteria. ACT 112: Negative or not required by law. Electronically signed by: Jaxon Leiva M.D. 11/06/2021 3:50 PM
[2021-11-06 15:54] LABS: Albumin Globulin Ratio 1.4 (0.9-2); Albumin Level 3.8 gm/dl (3.4-5.0); Bilirubin,Total 0.4 mg/dl (0.2-1.0); Calcium 9.7 mg/dl (8.5-10.1); Creatinine Clr Calc Pharmacy 44.2 ml/min; Est GFR (African American) 65.3 ml/min; Est GFR (Non-African American) 56.3 ml/min; Globulin 2.7 gm/dl (2.5-4.0); Total Protein 6.5 gm/dl (6.0-8.3)
--- NOTE | 2021-11-06 15:58 | XRay Report ---
XR chest 1V portable CLINICAL HISTORY: Stroke Like Symptoms TECHNIQUE: Single frontal radiograph of the chest was obtained. Comparison: Comparison is made to chest radiograph 08/11/2021 FINDINGS: No lines and tubes are seen. Cardiomegaly is noted. The lungs are clear. No evidence of pleural effus ion or pneumothorax. IMPRESSION: Cardiomegaly without evidence of acute abnormality. ACT 112: Negative or not required by law. Electronically signed by: Jaxon Leiva M.D. 11/06/2021 3:57 PM
[2021-11-06 16:00] LABS: Troponin I High Sensitivity 7.8 pg/ml (0-14)
[2021-11-06] MEDS ORDERED: ASPIRIN CHEW 324 MG PO STA (17:00)
[2021-11-06] MEDS ORDERED: LABETALOL HCL IV 5 MG/ML 20ML IV STA (18:16)
--- NOTE | 2021-11-06 18:36 | History & Physical Report ---
Date of Service November 06, 2021 Assessment & Plan (1) Right sided weakness: Plan: Present on admission with right side weakness Need to r/o acute CVA Stroke alert did not call because pt symptoms improved and she would not be a candidate for TPA since pt is on Eliquis CT head/CTA head /neck showed questionable edema in the left anterior cerebral artery territory. There is interruption of the left A3 segment with distal reconstitution, this may represent an acute occlusion. ER physician reached out to [place] stroke tele that suggested possible adding aspirin with the Eliquis Aspirin 325mg given in the ER Currently patient is asymptomatic Neuro consult Due to the edema mentioned on CT head that increases the risk of bleeding, case discussed with neurology Will hold on aspirin for now and continue Eliquis Continue statin Will get MRI head and echo Will check Lipid panel Continue neuro check PT/OT/Speech eval Continue monitor closely COVID 19 Pt completed all the vaccines for Covid 19 Denies any symptoms Discussed with family that pt does not meet the criteria for dexamethasone and remdesivir since she saturates well on RA Continue Covid 19 precaution Continue monitor closely Hypertensive urgency BP elevated in the ER with systolic above 200 Will give labetalol 10mg IVx1 Will allow permissive HTN Continue metoprolol and Isosorbide mononitrate Will add labetalol 10mg for SBP above 185 Continue monitor BP History PAF EKG showed NSR Rate control with metoprolol Continue Eliquis Hx CAD status post stent Continue Eliquis, statin, metoprolol Stable Hypothyroidism Will check TSH in am Continue levothyroxine Left breast cancer status post surgery DVT prophylaxis. Eliquis History of Present Illness Chief Complaint: Right sided weakness Primary Care Provider: Mary Anne Evans MD 86-year-old female with a PMH Hypertension, Dyslipidemia, TIA (2018), Breast Cancer, Hypothyroidism, Osteoarthritis, Stage III CKD, Paroxysmal Atrial Fibrillation with RVR (diagnosed on 10/08/20), Ischemic Cardiomyopathy, CAD s/p stent placement presented to the ER with right sided weakness. History obtained from family at bedside. As per family pt has not been feeling herself for the last few days. On Monday daughter noticed that her speech was a little slurred but resolved after few minutes. On pt was very weak that she could not hold herself. yesterday she had some numbness in the last 3 fingers (left hand). This morning she was fine and ambulated with no problem. Around 10 AM, she developed right sided weakness. She was not able to lift her right upper extremity and could not even lift her right leg to get out of the car. Family said she did not have any other symptoms or neurological symptoms. Pt said that she feels fine now. Pt was tested positive for COVID 19, but family was shocked because pt only had a mild cough few days ago that resolved. Family said that pt received all the vaccines and booster for COVID 19 and as well as monoclonal antibody in the past. She was diagnosed with covid 19 last year. Family denies any recent travel or sick contact. Currently patient is moving all 4 extremities. Denies any chest pain, palpitation, dizziness, feve, chills and SOB. Allergies Allergy/AdvReac Type Severity Reaction Status Date / Time niacin Allergy Intermediate hives Verified 11/06/21 17:15 Opioid Analgesics AdvReac Intermediate "gets very Uncoded 11/06/21 17:15 sick" Home Medications Medication Instructions Recorded Confirmed Type acetaminophen 500 mg tablet 1,000 mg PO TID PRN 08/21/20 11/06/21 History (Tylenol Extra Strength) levothyroxine 50 mcg tablet 50 mcg PO DAILYBB 08/21/20 11/06/21 History apixaban 5 mg tablet (Eliquis) 5 mg PO BID 10/14/20 11/06/21 History nitroglycerin 0.4 mg sublingual 0.4 mg SUBLINGUAL Q5M PRN #25 tab 03/13/21 11/06/21 Rx tablet albuterol sulfate 90 mcg/actuation 2 puff INHALATION QID PRN 04/26/21 11/06/21 History aerosol inhaler atorvastatin 40 mg tablet 40 mg PO HS #90 tab 06/01/21 11/06/21 Rx fluticasone furoate 100 1 ea INHALATION QAM 08/11/21 11/06/21 History mcg-vilanterol 25 mcg/dose inhalation powder (Breo Ellipta) isosorbide mononitrate 30 mg 30 mg PO QAM 11/06/21 11/06/21 History tablet,extended release 24 hr metoprolol succinate 100 mg 100 mg PO QAM 11/06/21 11/06/21 History tablet,extended release 24 hr Past Med/Surg History Medical History Bilateral leg weakness Breast cancer Left breast s/p lumpectomy CAD (coronary artery disease) Cardiomyopathy, ischemic Resolved, LVEF 60% to 65% on Echo 06/16/21. Cerebrovascular disease Chest pain CKD (chronic kidney disease), stage III Coccygeal contusion Degenerative arthritis of left knee HLD (hyperlipidemia) HTN (hypertension) Hypothyroidism Palpitations Right hip pain TIA (transient ischemic attack) Surgical History History of appendectomy History of arthroplasty of both knees History of hip replacement, total History of hysterectomy S/P coronary artery stent placement Family History Brother Coronary heart disease Cancer Sister Cancer Father Cancer Daughter Cancer Other No family history of adverse response to anesthesia No family history of bleeding disorder Social History Smoking Status: Never smoker Second Hand Exposure: No; Hx Alcohol Use: No Hx Substance Use: No Preferred Language: Kazakh Communication Ability: Effective Services Engineer Required: No Beliefs That Will Affect Care: None Current Living Situation: Family Current Living Situation Comment: Lives with Son and How many Children do You have: 4 Other Information That Helps Us Care for You: No Feels Safe at Home: Yes Safety Concerns: Feels Safe At This Time Assistive Devices: Cane, Glasses and Walker Review of Systems Review of Systems: All systems reviewed & are unremarkable except as noted in HPI & below Physical Exam Physical Exam: General- No acute distress Head- atraumatic Eyes- PERRL, EOMI, ENT- oropharynx clear Neck- supple, no JVD Lungs- clear to auscultation Heart- regular rhythm; no murmur Abdomen- normal bowel sounds, soft, nontender Extremities- no calf tenderness Neuro- alert, oriented x 3; PERRL, EOMI; no facial palsy; no dysarthria Skin- warm & dry Results & Data Results & Data ([facility]) Vital Signs (Past 12 Hours) Vital Signs Temp Pulse Resp BP Pulse Ox 11/06/21 18:01 75 16 193/93 H 96 11/06/21 18:00 74 19 96 11/06/21 17:51 76 21 227/92 H 93 11/06/21 17:50 79 28 H 93 11/06/21 17:40 77 20 93 11/06/21 17:31 79 19 202/65 H 90 11/06/21 17:30 78 20 95 11/06/21 17:20 78 28 H 93 11/06/21 17:10 70 22 99 11/06/21 17:00 74 21 214/139 H 96 11/06/21 16:50 73 20 91 11/06/21 16:40 74 22 95 11/06/21 16:30 73 21 185/96 H 96 11/06/21 16:20 74 23 92 11/06/21 16:10 68 19 93 11/06/21 16:00 70 22 189/88 H 97 11/06/21 15:50 80 16 94 11/06/21 15:40 76 21 97 11/06/21 15:30 73 17 182/67 H 95 11/06/21 15:21 79 11/06/21 15:10 16 97 11/06/21 15:00 77 21 161/91 H 11/06/21 14:50 76 21 11/06/21 14:44 77 24 97 11/06/21 14:22 36.9 C [address] angio neck with con, CT head/brain wo con, CT angio head w con CLINICAL HISTORY: Stroke Like Symptoms . Numbness to the right leg and arm. TECHNIQUE: Contiguous axial CT images of the head were acquired from the base of the skull to the vertex without intravenous contrast administration. CT angiography of the head and neck was performed following intravenous administration of iodinated contrast. Coronal and sagittal MIPS were obtained from the axial data set and were submitted for review. Automated dose lowering techniques and/or adjustment according to patient size were utilized for this examination. All measurements were calculated based on NASCET criteria. CT DOSE: 1049.69 mGy.cm Comparison: None available at the time of this dictation. FINDINGS: CT head: Areas of decreased attenuation are present in the periventricular and subcortical white matter bilaterally consistent with small vessel ischemic disease. Generalized cerebral atrophy with commensurate enlargement of the ventricles, sulci, and cisterns is also present. There is questionable edema and loss of russell-white differentiation in the left ARMOND territory. Lungs and soft tissues are unremarkable. CTA Neck: A 3 vessel aortic arch is shown. There is no significant atherosclerotic plaque in the aortic arch or the origins of the innominate, left common carotid, and left subclavian arteries. The common carotid, external carotid, cervical segments of the internal carotid arteries, and the cervical segments of the vertebral arteries are patent without hemodynamically significant stenosis. Tortuosity of the internal carotid arteries noted bilaterally. The left vertebral artery is dominant. CTA Head: The anterior and posterior cerebral circulations are patent. There is interruption of the left ARMOND A3 segment (series 5 image 116) with distal reconstitution (image 129). There is a relative decrease in prominence of the distal left frontal vasculature. The middle cerebral arteries and posterior cerebral arteries and their visualized branches are patent. IMPRESSION: 1. There is questionable edema in the left anterior cerebral artery territory. No evidence of hemorrhagic transformation is seen. 2. There is interruption of the left A3 segment with distal reconstitution, this may represent an acute occlusion in the setting of numbness and motor dysfunction in the right leg. 3. No occlusion, hemodynamically significant stenosis, or dissection in the major cervical arteries. Assessment of stenosis of the internal carotid arteries is based on NASCET criteria. ACT 112: Negative or not required by law. Electronically signed by: Jaxon Leiva M.D. 11/06/2021 3:50 PM Dictated:11/06/21 1531 Transcribed: 11/06/[address] angio neck with con, CT head/brain wo con, CT angio head w con CLINICAL HISTORY: Stroke Like Symptoms . Numbness to the right leg and arm. TECHNIQUE: Contiguous axial CT images of the head were acquired from the base of the skull to the vertex without intravenous contrast administration. CT angiography of the head and neck was performed following intravenous administration of iodinated contrast. Coronal and sagittal MIPS were obtained from the axial data set and were submitted for review. Automated dose lowering techniques and/or adjustment according to patient size were utilized for this examination. All measurements were calculated based on NASCET criteria. CT DOSE: 1049.69 mGy.cm Comparison: None available at the time of this dictation. FINDINGS: CT head: Areas of decreased attenuation are present in the periventricular and subcortical white matter bilaterally consistent with small vessel ischemic disease. Generalized cerebral atrophy with commensurate enlargement of the ventricles, sulci, and cisterns is also present. There is questionable edema and loss of russell-white differentiation in the left ARMOND territory. Lungs and soft tissues are unremarkable. CTA Neck: A 3 vessel aortic arch is shown. There is no significant atherosclerotic plaque in the aortic arch or the origins of the innominate, left common carotid, and left subclavian arteries. The common carotid, external carotid, cervical segments of the internal carotid arteries, and the cervical segments of the vertebral arteries are patent without hemodynamically significant stenosis. Tortuosity of the internal carotid arteries noted bilaterally. The left vertebral artery is dominant. CTA Head: The anterior and posterior cerebral circulations are patent. There is interruption of the left ARMOND A3 segment (series 5 image 116) with distal reconstitution (image 129). There is a relative decrease in prominence of the distal left frontal vasculature. The middle cerebral arteries and posterior cerebral arteries and their visualized branches are patent. IMPRESSION: 1. There is questionable edema in the left anterior cerebral artery territory. No evidence of hemorrhagic transformation is seen. 2. There is interruption of the left A3 segment with distal reconstitution, this may represent an acute occlusion in the setting of numbness and motor dysfunction in the right leg. 3. No occlusion, hemodynamically significant stenosis, or dissection in the major cervical arteries. Assessment of stenosis of the internal carotid arteries is based on NASCET criteria. ACT 112: Negative or not required by law. Electronically signed by: Jaxon Leiva M.D. 11/06/2021 3:50 PM Dictated:11/06/21 1531 Transcribed: 11/06/[address] angio neck with con, CT head/brain wo con, CT angio head w con CLINICAL HISTORY: Stroke Like Symptoms . Numbness to the right leg and arm. TECHNIQUE: Contiguous axial CT images of the head were acquired from the base of the skull to the vertex without intravenous contrast administration. CT angiography of the head and neck was performed following intravenous administration of iodinated contrast. Coronal and sagittal MIPS were obtained from the axial data set and were submitted for review. Automated dose lowering techniques and/or adjustment according to patient size were utilized for this examination. All measurements were calculated based on NASCET criteria. CT DOSE: 1049.69 mGy.cm Comparison: None available at the time of this dictation. FINDINGS: CT head: Areas of decreased attenuation are present in the periventricular and subcortical white matter bilaterally consistent with small vessel ischemic disease. Generalized cerebral atrophy with commensurate enlargement of the ventricles, sulci, and cisterns is also present. There is questionable edema and loss of russell-white differentiation in the left ARMOND territory. Lungs and soft tissues are unremarkable. CTA Neck: A 3 vessel aortic arch is shown. There is no significant atherosclerotic plaque in the aortic arch or the origins of the innominate, left common carotid, and left subclavian arteries. The common carotid, external carotid, cervical segments of the internal carotid arteries, and the cervical segments of the vertebral arteries are patent without hemodynamically significant stenosis. Tortuosity of the internal carotid arteries noted bilaterally. The left vertebral artery is dominant. CTA Head: The anterior and posterior cerebral circulations are patent. There is interruption of the left ARMOND A3 segment (series 5 image 116) with distal reconstitution (image 129). There is a relative decrease in prominence of the distal left frontal vasculature. The middle cerebral arteries and posterior cerebral arteries and their visualized branches are patent. IMPRESSION: 1. There is questionable edema in the left anterior cerebral artery territory. No evidence of hemorrhagic transformation is seen. 2. There is interruption of the left A3 segment with distal reconstitution, this may represent an acute occlusion in the setting of numbness and motor dysfunction in the right leg. 3. No occlusion, hemodynamically significant stenosis, or dissection in the major cervical arteries. Assessment of stenosis of the internal carotid arteries is based on NASCET criteria. ACT 112: Negative or not required by law. Electronically signed by: Jaxon Leiva M.D. 11/06/2021 3:50 PM Dictated:11/06/21 1531 Transcribed: 11/06/21 1531 XR chest 1V portable CLINICAL HISTORY: Stroke Like Symptoms TECHNIQUE: Single frontal radiograph of the chest was obtained. Comparison: Comparison is made to chest radiograph 08/11/2021 FINDINGS: No lines and tubes are seen. Cardiomegaly is noted. The lungs are clear. No evidence of pleural effusion or pneumothorax. IMPRESSION: Cardiomegaly without evidence of acute abnormality. ACT 112: Negative or not required by law. Electronically signed by: Jaxon Leiva M.D. 11/06/2021 3:57 PM Dictated:11/06/21 1555 Transcribed: 11/06/21 1555 Code Status & VTE Plan VTE Prophylaxis Plan VTE Prophylaxis will be ordered: Yes
[2021-11-06] MEDS ORDERED: LABETALOL HCL IV 5 MG/ML 20ML IV PRN (20:44)
[2021-11-06] MEDS ORDERED: PHARMACIST DISCHARGE MED REC CONSULT PRN (22:03)
[2021-11-06] MEDS ORDERED: ALBUTEROL HFA 8 GM INHALER INH PRN (22:03)
[2021-11-06] MEDS ORDERED: LORazepam 0.25 MG in SYRINGE 0.125 ML IV PRN (22:03)
[2021-11-06] MEDS ORDERED: ATORVASTATIN 40 MG TAB PO SCH (22:03)
[2021-11-06] MEDS: APIXABAN 5 MG TABLET PO SCH (22:47)
[2021-11-07] MEDS: LEVOTHYROXINE SODIUM 50 MCG TABLET PO SCH (06:27)
[2021-11-07] MEDS: APIXABAN 5 MG TABLET PO SCH ×2 (08:08→19:57)
[2021-11-07] MEDS: FLUTICASONE/VILANTEROL 100/25MCG 14 PUFFS/INHALER INH SCH (08:10)
[2021-11-07] MEDS: ISOSORBIDE MONO EXTENDED REL 30 MG TABCR PO SCH (08:11)
[2021-11-07] MEDS: METOPROLOL SUCC 50MG EXT REL TAB PO SCH (08:11)
[2021-11-07 08:49] LABS: Basophils # (auto) 0.01 K/uL (0-0.2); Basophils % (auto) 0.1 %; Eosinophils # (auto) 0.22 K/uL (0-0.5); Hematocrit (blood only) 39.8 % (37-47); Hemoglobin 12.8 g/dL (12.0-16.0); Immature Granulocytes # (auto) 0.01 K/uL (0.00-0.02); Immature Granulocytes % (auto) 0.1 %; Lymphocytes # (auto) 1.39 K/uL (1.2-3.4); Lymphocytes % (auto) 18.9 %; Mean Corpuscular Hemoglobin 31.9 pg (25-34); Mean Corpuscular Hgb Conc 32.2 g/dL (32-36); Mean Corpuscular Volume 99.3 fL (80-100); Monocytes # (auto) 0.53 K/uL (0.11-0.59); Monocytes % (auto) 7.2 %; Neutrophils # (auto) 5.19 K/uL (1.4-6.5); Neutrophils % (auto) 70.7 %; Platelet Count 255 K/uL (130-400); RDW Standard Deviation 50.7 fL (36.4-46.3); Red Blood Count 4.01 M/uL (4.2-5.4); White Blood Count 7.35 K/uL (4.8-10.8)
[2021-11-07 09:04] LABS: Calcium 10.1 mg/dl (8.5-10.1); Chol HDL Ratio 4.4 (0-5); Creatinine Clr Calc Pharmacy 44.9 ml/min; Est GFR (African American) 67.1 ml/min; Est GFR (Non-African American) 57.9 ml/min; Potassium 4.3 mmol/L (3.5-5.1)
[2021-11-07] MEDS ORDERED: PERFLUTREN LIPID MICROSPHERE (DEFINITY) IV ONE (10:58)
--- NOTE | 2021-11-07 11:48 | Consultation Report ---
DATE OF SERVICE: 11/07/2021 REASON FOR CONSULTATION: Stroke. HISTORY OF PRESENT ILLNESS: The patient is an 86-year-old right-handed female with hypertension, dys lipidemia, transient ischemic attack, breast cancer, hypothyroidism, osteoporosis, kidney disease, pa roxysmal atrial fibrillation with rapid ventricular response diagnosed in 10/26, ischemic cardiomyopa thy, status post stent placement. The patient had not been feeling like herself for the last few day s. She had noted some sense that she was falling easily for the last several months. On Monday, camilo johns was mildly dysarthric for several minutes. On , the patient was very weak and yesterday had numbness in the 3 fingers of the left hand. On the morning of admission, she was seated in a car , tried to get out of the car and had right-sided weakness. She could not lift her right arm or her right leg. The patient's symptoms resolved. She had otherwise been well. Although she tested COVID positive, she indicates she has had cough for months, it is not changed, she has not recently been il l. She is on Eliquis and denies missing doses. No chest pain or palpitation. She denies any numbne ss in her feet. ALLERGIES: OPIOIDS. HOME MEDICATIONS: Tylenol, levothyroxine, apixaban 5 mg b.i.d., nitro, albuterol, atorvastatin, Breo Ellipta, Imdur, metoprolol. PAST MEDICAL HISTORY: Degenerative arthritis, hypertension, hyperlipidemia, right hip pain. PAST SURGICAL HISTORY: Lumpectomy, appendectomy, arthroplasty of both knees, total hip replacement, hysterectomy, coronary stenting. FAMILY HISTORY: Possible family history of stroke. SOCIAL HISTORY: The patient does not smoke or drink. She is currently living in her own home, but i s planning on moving to the [place]. DATABASE: Electrocardiogram: Normal sinus rhythm, LVH, inferior infarct, T-wave inversion less evide nt in the anterior leads and more evident in the lateral leads. Labs notable for BUN of 19, glucose of 142, ionized calcium of ____, LDL 101. COVID positive. Imaging shows a head CT, which I have rev iewed: Questionable edema in the left ARMOND territory, interruption of the left A3 segment with distal reconstitution, may represent acute occlusion, no significant stenosis in the internal carotid arteri es. PHYSICAL EXAMINATION: Most recent vitals are 131/76, pulse 72, 36.5, 95%. The patient is awake and alert, has no complaints such as headaches and oriented x3. No right/left confusion and no aphasia. The isolation room did not have a stethoscope or ophthalmoscope or reflex hammer. Her pupils appear postsurgical. There is normal extraocular motility, visual miles. Mild flattening of the left naso labial fold, which the patient states is old and tongue is midline. No dysarthria. Motor is 5/5, no drift. Normal rapid alternating movements. Symmetric reflexes to percussion. Toes are downgoing. Khmbbx-[id number]-[id number] and brab-ib-uzml are normal. Proprioception is diminished in the toes. IMPRESSION: Apparent left anterior cerebral artery infarction. PLAN: The patient should currently remain on Eliquis, add aspirin. MRI today with and without contr ast given her history of breast cancer. If an MRI cannot be done today, I would do a noncontrast CT of the head to rule out hemorrhagic conversion, which I doubt clinically. I would recommend a cardio logy evaluation to see if they recommend switching from Eliquis to another DOAC given this DOAC failu re. Good control of vascular risk factors. LDL is 101. Recommend echo. I do not think she needs a Zio as an outpatient unless there are any issues related to presumed bradycardia. The patient reports ambulatory difficulties with easy falling. She seems to have poor proprioception in her feet. I have ordered a B12, folate, and an RPR for further evaluation. Physical therapy loco audrey see the patient. Job ID: [id number]
--- NOTE | 2021-11-07 14:22 | Cardiology Consultation ---
Date of Consultation November 07, 2021 Assessment & Plan (1) Acute ischemic stroke: (2) Paroxysmal atrial fibrillation: (3) Anticoagulant long-term use: (4) CAD (coronary artery disease): (5) S/P coronary artery stent placement: (6) HTN (hypertension): (7) HLD (hyperlipidemia): ASSESSMENT/PLAN: 1. Acute stroke: As per Neurology. MRI is pending. If etiology of stroke is felt to be cardioembolic, consider replacing Eliquis with another anticoagulation therapy. If affordable, can use Xarelto 20 mg daily. Neurology to decide most likely etiology after appropriate testing. 2. Paroxysmal atrial fibrillation: In sinus rhythm. Continue beta-ronny. Continue anticoagulation for stroke risk reduction. 3. CAD s/p LAD PCI: No angina since PCI. Recommend anti-platelet therapy chronically. Start aspirin 81 mg daily. Continue statin therapy. Continue beta-ronny. 4. Hypertension: Blood pressure has mostly been elevated and severely at times with systolic blood pressure as high as 227. This may be contributing to her stroke symptoms that she has been having. Consider adjusting her antihypertensive regimen, such as amlodipine. Will defer blood pressure target to Neurology given acute stroke presentation. 5. Dyslipidemia: Goal LDL < 70. Increase atorvastatin 80 mg daily. 6. Disposition: Plan of care discussed with Dr. Herrera of the hospitalist service. Cardiology will sign off at this time. She can follow-up with Cardiology as previously scheduled as an outpatient. Thank you for allowing me to participate in the care of your patient. Please call for any other questions or concerns. Sincerely, Franklin Carson M.D. History of Present Illness Reason for Consultation: history of afib and acute CVA Requesting Physician: Sergio Herrera MD Attending Physician: Sergio Herrera MD History of Present Illness Ms. Quach is a very pleasant 86-year-old female with a history significant for CAD s/p LAD PCI, cardiomyopathy with normalized LV systolic function after LAD PCI, hypertension, dyslipidemia, paroxysmal atrial fibrillation, and TIA. She has had the following studies/procedures: 1. Echo 08/22/2020 [facility]: Normal LV size, wall motion, systolic function. EF 60-65%. Mild LVH. Sclerotic aortic valve without stenosis. 2. Echo 03/16/2021: Normal LV size. EF 40-45%. LAD wall motion abnormalities (aneurysmal apex and mid septum with akinetic mid anteroseptum and hypokinetic mid anterior and mid anterolateral wall segments). Moderate LVH. Mild MR. 3. Nuclear stress 03/12/2021: LAD ischemia with apical infarct. Transient ischemic dilation. EF 42%. Akinetic apex. 4. Cardiac catheterization 03/18/2021: Mid LAD diffusely diseased with 95% tandem lesions involving ostial segments of small D2 and D3. Faint nylf-wz-uhlm collaterals. Proximal circumflex 30%. Mid RCA diffuse 30-40%. Faint right to left collaterals. LVEDP 12. No . Underwent PCI of mid LAD with 2.75 x 33 mm Xience CELIA; post dilated 3.5 NC. PTCA of ostium of jailed D3 with 2 mm balloon. 5. Echo 06/20/2021: Normal LV size, wall motion, systolic function. EF 60-65%. Mild LVH. No significant valvular abnormalities. She was admitted on 11/06/2021 with stroke. She has been having issues with stroke-like symptoms such as right-sided weakness and at times difficulty speaking. Then on the day of presentation, she developed right-sided weakness. She was unable to lift her right arm or right leg. She denies any difficulty speaking or any other symptoms. Since then, she states that she is back to baseline and denies any residual weakness. She tested positive for COVID-19. She denies cough, fever, nausea, vomiting. She denies any recent chest pain, shortness of breath, syncope, near-syncope, palpitations, edema, or bleeding such as melena, hematochezia, or hematuria. She was seen by Neurology earlier today who recommended Cardiology consultation to decide if anticoagulation therapy should be changed as she takes anticoagulation therapy for history of AFib. Upon questioning, she has not been taking aspirin. She does not know when or why it was stopped but according to records, she is no longer on aspirin. She is no longer on any anti-platelet therapy, but had been on Plavix following PCI in March of 2021. She states that she has been compliant with Eliquis and has not missed any doses. Review of systems:As above. Review of systems otherwise negative/unremarkable. Family history:No known premature CAD. Social history:She denies tobacco, alcohol, or drug abuse. She has been 3 times and has been and . She had 5 children, 4 which lived. Her first child was a daughter who at 3 days due to congenital issues. 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 Her most recent , [employer]o), in 2021. She is moving into the [place]. She was unaccompanied in her hospital room. Allergies Allergy/AdvReac Type Severity Reaction Status Date / Time niacin Allergy Intermediate hives Verified 11/06/21 17:15 Opioid Analgesics AdvReac Intermediate "gets very Uncoded 11/06/21 17:15 sick" Home Medications Medication Instructions Recorded Confirmed Type acetaminophen 500 mg tablet 1,000 mg PO TID PRN 08/21/20 11/06/21 History (Tylenol Extra Strength) levothyroxine 50 mcg tablet 50 mcg PO DAILYBB 08/21/20 11/06/21 History apixaban 5 mg tablet (Eliquis) 5 mg PO BID 10/14/20 11/06/21 History nitroglycerin 0.4 mg sublingual 0.4 mg SUBLINGUAL Q5M PRN #25 tab 03/13/21 11/06/21 Rx tablet albuterol sulfate 90 mcg/actuation 2 puff INHALATION QID PRN 04/26/21 11/06/21 History aerosol inhaler atorvastatin 40 mg tablet 40 mg PO HS #90 tab 06/01/21 11/06/21 Rx fluticasone furoate 100 1 ea INHALATION QAM 08/11/21 11/06/21 History mcg-vilanterol 25 mcg/dose inhalation powder (Breo Ellipta) isosorbide mononitrate 30 mg 30 mg PO QAM 11/06/21 11/06/21 History tablet,extended release 24 hr metoprolol succinate 100 mg 100 mg PO QAM 11/06/21 11/06/21 History tablet,extended release 24 hr Patient History Medical History (Updated 11/07/21 @ 14:55 by Dat Carson MD) Anticoagulant long-term use Bilateral leg weakness Breast cancer Left breast s/p lumpectomy CAD (coronary artery disease) Cardiomyopathy, ischemic Resolved, LVEF 60% to 65% on Echo 06/16/21. Cerebrovascular disease Chest pain CKD (chronic kidney disease), stage III Coccygeal contusion Degenerative arthritis of left knee HLD (hyperlipidemia) HTN (hypertension) Hypothyroidism Paroxysmal atrial fibrillation Right hip pain TIA (transient ischemic attack) Surgical History History of appendectomy History of arthroplasty of both knees History of hip replacement, total History of hysterectomy S/P coronary artery stent placement Family History Brother Coronary heart disease Cancer Sister Cancer Father Cancer Daughter Cancer Other No family history of adverse response to anesthesia No family history of bleeding disorder Social History Smoking Status: Never smoker Second Hand Exposure: No; Hx Alcohol Use: No Hx Substance Use: No Preferred Language: Moldovan Communication Ability: Effective Security Tester Required: No Beliefs That Will Affect Care: None Current Living Situation: Family Current Living Situation Comment: Lives with Son and How many Children do You have: 4 Other Information That Helps Us Care for You: No Feels Safe at Home: Yes Safety Concerns: Feels Safe At This Time Assistive Devices: Cane, Glasses and Walker Physical Exam Physical Exam: Gen.: No acute distress. Alert and oriented. HEENT: Anicteric sclera. Neck: No JVD. No bruits. Normal carotid upstrokes bilaterally. Cardiac: PMI was nondisplaced. No ventricular heave. Regular. Normal S1-S2. No murmurs, rubs, or gallops. Pulmonary: Clear to auscultation bilaterally without wheezes, rales, or rhonchi. Abdomen: Soft, nontender, nondistended, with normoactive bowel sounds. No bruits noted. Extremities: 2+ radial pulses bilaterally. 2+ posterior tibialis pulses bilaterally. No edema or cyanosis. Psychiatric: Affect appears appropriate. Results & Data ([facility]) Vital Signs (Past 12 Hours) Vital Signs Temp Pulse Pulse Resp BP Pulse Ox 11/07/21 08:02 36.5 C 72 16 131/96 95 11/07/21 06:07 66 11/07/21 04:21 36.9 C 71 18 171/66 H 94 Laboratory Results Laboratory Results - last 24 hr 11/06/21 11/06/21 11/06/21 14:57 14:57 14:57 WBC 6.84 RBC 3.93 L Hgb 12.6 POC Hgb Hct 38.8 POC Hct MCV 98.7 MCH 32.1 MCHC 32.5 RDW Std Deviation 49.6 H RDW Coeff of Dylon 13.9 Plt Count 244 MPV 9.8 Immature Gran % (Auto) 0.1 Neut % (Auto) 65.0 Lymph % (Auto) 23.4 [place] % (Auto) 8.0 Eos % (Auto) 3.4 Baso % (Auto) 0.1 Neut # (Auto) 4.44 Lymph # (Auto) 1.60 [place] # (Auto) 0.55 Eos # (Auto) 0.23 Baso # (Auto) 0.01 Immature Gran # (Auto) 0.01 PT 10.4 INR 1.0 APTT 25.1 PTT Ratio 0.9 POC Sodium Sodium 142 POC Potassium Potassium 4.0 POC Chloride Chloride 107 Carbon Dioxide 28 POC Total CO2 Anion Gap 7 POC Anion Gap POC BUN BUN 20 Creatinine 0.91 POC Creatinine Est Cr Clr Drug Dosing 44.2 Est GFR ( Amer) 65.3 Est GFR (Non-Af Amer) 56.3 BUN/Creatinine Ratio 22.0 H Glucose 142 H POC Glucose POC Glucose (other) Estimat Average Glucose Hemoglobin A1c Calcium 9.7 POC Ioniz Calcium Yesica Magnesium 2.0 Total Bilirubin 0.4 AST 13 ALT 10 Alkaline Phosphatase 82 Troponin I High Sens 7.8 Total Protein 6.5 Albumin 3.8 Globulin 2.7 Albumin/Globulin Ratio 1.4 Triglycerides Cholesterol LDL Cholesterol, Calc VLDL Cholesterol, Calc HDL Cholesterol Cholesterol/HDL Ratio Vitamin B12 Folate TSH RPR SARS-CoV-2, RNA, NAAT 11/06/21 11/06/21 11/06/21 15:03 15:25 22:10 WBC RBC Hgb POC Hgb 12.6 Hct POC Hct 37 MCV MCH MCHC RDW Std Deviation RDW Coeff of Dylon Plt Count MPV Immature Gran % (Auto) Neut % (Auto) Lymph % (Auto) [place] % (Auto) Eos % (Auto) Baso % (Auto) Neut # (Auto) Lymph # (Auto) [place] # (Auto) Eos # (Auto) Baso # (Auto) Immature Gran # (Auto) PT INR APTT PTT Ratio POC Sodium 142 Sodium POC Potassium 4.0 Potassium POC Chloride 104 Chloride Carbon Dioxide POC Total CO2 27 Anion Gap POC Anion Gap 17.0 POC BUN 19 H BUN Creatinine POC Creatinine 1.0 Est Cr Clr Drug Dosing Est GFR ( Amer) Est GFR (Non-Af Amer) BUN/Creatinine Ratio Glucose POC Glucose 83 POC Glucose (other) 147 H Estimat Average Glucose Hemoglobin A1c Calcium POC Ioniz Calcium Yesica 1.35 H Magnesium Total Bilirubin AST ALT Alkaline Phosphatase Troponin I High Sens Total Protein Albumin Globulin Albumin/Globulin Ratio Triglycerides Cholesterol LDL Cholesterol, Calc VLDL Cholesterol, Calc HDL Cholesterol Cholesterol/HDL Ratio Vitamin B12 Folate TSH RPR SARS-CoV-2, RNA, NAAT POSITIVE A* 11/07/21 11/07/21 11/07/21 08:03 08:03 08:03 WBC 7.35 RBC 4.01 L Hgb 12.8 POC Hgb Hct 39.8 POC Hct MCV 99.3 MCH 31.9 MCHC 32.2 RDW Std Deviation 50.7 H RDW Coeff of Dylon 14.0 Plt Count 255 MPV 10.0 Immature Gran % (Auto) 0.1 Neut % (Auto) 70.7 Lymph % (Auto) 18.9 [place] % (Auto) 7.2 Eos % (Auto) 3.0 Baso % (Auto) 0.1 Neut # (Auto) 5.19 Lymph # (Auto) 1.39 [place] # (Auto) 0.53 Eos # (Auto) 0.22 Baso # (Auto) 0.01 Immature Gran # (Auto) 0.01 PT INR APTT PTT Ratio POC Sodium Sodium 141 POC Potassium Potassium 4.3 POC Chloride Chloride 104 Carbon Dioxide 29 POC Total CO2 Anion Gap 8 POC Anion Gap POC BUN BUN 16 Creatinine 0.89 POC Creatinine Est Cr Clr Drug Dosing 44.9 Est GFR ( Amer) 67.1 Est GFR (Non-Af Amer) 57.9 BUN/Creatinine Ratio 18.0 Glucose 100 H POC Glucose POC Glucose (other) Estimat Average Glucose Pending Hemoglobin A1c Pending Calcium 10.1 POC Ioniz Calcium Yesica Magnesium Total Bilirubin AST ALT Alkaline Phosphatase Troponin I High Sens Total Protein Albumin Globulin Albumin/Globulin Ratio Triglycerides 230 H Cholesterol 190 LDL Cholesterol, Calc 101 VLDL Cholesterol, Calc 46 H HDL Cholesterol 43 Cholesterol/HDL Ratio 4.4 Vitamin B12 Folate TSH RPR SARS-CoV-2, RNA, NAAT 11/07/21 11/07/21 11/07/21 08:03 08:03 08:03 WBC RBC Hgb POC Hgb Hct POC Hct MCV MCH MCHC RDW Std Deviation RDW Coeff of Dylon Plt Count MPV Immature Gran % (Auto) Neut % (Auto) Lymph % (Auto) [place] % (Auto) Eos % (Auto) Baso % (Auto) Neut # (Auto) Lymph # (Auto) [place] # (Auto) Eos # (Auto) Baso # (Auto) Immature Gran # (Auto) PT INR APTT PTT Ratio POC Sodium Sodium POC Potassium Potassium POC Chloride Chloride Carbon Dioxide POC Total CO2 Anion Gap POC Anion Gap POC BUN BUN Creatinine POC Creatinine Est Cr Clr Drug Dosing Est GFR ( Amer) Est GFR (Non-Af Amer) BUN/Creatinine Ratio Glucose POC Glucose POC Glucose (other) Estimat Average Glucose Hemoglobin A1c Calcium POC Ioniz Calcium Yesica Magnesium Total Bilirubin AST ALT Alkaline Phosphatase Troponin I High Sens Total Protein Albumin Globulin Albumin/Globulin Ratio Triglycerides Cholesterol LDL Cholesterol, Calc VLDL Cholesterol, Calc HDL Cholesterol Cholesterol/HDL Ratio Vitamin B12 244 Folate 19.03 TSH 3.817 RPR SARS-CoV-2, RNA, NAAT 11/07/21 08:03 WBC RBC Hgb POC Hgb Hct POC Hct MCV MCH MCHC RDW Std Deviation RDW Coeff of Dylon Plt Count MPV Immature Gran % (Auto) Neut % (Auto) Lymph % (Auto) [place] % (Auto) Eos % (Auto) Baso % (Auto) Neut # (Auto) Lymph # (Auto) [place] # (Auto) Eos # (Auto) Baso # (Auto) Immature Gran # (Auto) PT INR APTT PTT Ratio POC Sodium Sodium POC Potassium Potassium POC Chloride Chloride Carbon Dioxide POC Total CO2 Anion Gap POC Anion Gap POC BUN BUN Creatinine POC Creatinine Est Cr Clr Drug Dosing Est GFR ( Amer) Est GFR (Non-Af Amer) BUN/Creatinine Ratio Glucose POC Glucose POC Glucose (other) Estimat Average Glucose Hemoglobin A1c Calcium POC Ioniz Calcium Yesica Magnesium Total Bilirubin AST ALT Alkaline Phosphatase Troponin I High Sens Total Protein Albumin Globulin Albumin/Globulin Ratio Triglycerides Cholesterol LDL Cholesterol, Calc VLDL Cholesterol, Calc HDL Cholesterol Cholesterol/HDL Ratio Vitamin B12 Folate TSH RPR Pending SARS-CoV-2, RNA, NAAT Diagnostic Findings Telemetry personally reviewed: Sinus rhythm. Catheterization report reviewed as noted above in HPI. Echo 11/07/2021: Hyperdynamic LV systolic function. No regional wall motion abnormalities. Limited echo. Neck CTA/head CTA 11/06/2021: Per Radiology, questionable edema in the left anterior cerebral artery territory. No evidence of hemorrhagic transformation. Interruption of left A3 segment with distal reconstitution. Chest x-ray 11/06/2021: No acute abnormality per Radiology. ECG personally reviewed: ECG 11/06/2021 at 3:00 p.m.: Sinus rhythm 76 beats per minute. Possible inferior infarct. LVH. Repolarization abnormality. Medications Administered Current Inpatient Medications Albuterol (Albuterol Hfa 8 Gm Inhaler) 2 puffs INH QID PRN PRN Reason: Shortness Of Breath Or Wheezing Stop: 12/06/21 22:02 Apixaban (Apixaban 5 Mg Tablet) 5 mg PO BID [facility] Stop: 12/06/21 22:02 Last Admin: 11/07/21 08:08 Dose: 5 mg Documented by: Aspirin (Aspirin 81 Mg Ectab) [facility] Stop: 12/08/21 08:59 Atorvastatin Calcium (Atorvastatin 40 Mg Tab) 40 mg PO HS [facility] Stop: 12/06/21 22:02 Last Admin: 11/06/21 22:47 Dose: 40 mg Documented by: Fluticasone/Vilanterol (Fluticasone/Vilanterol 100/25mcg 14 Puffs/Inhaler) 1 puffs [facility]H [facility] Stop: 12/07/21 08:59 Last Admin: 11/07/21 08:10 Dose: 1 puffs Documented by: Lorazepam 0.25 mg/ Syringe 0.25 mls @ 2 mls/min IV NOW PRN PRN Reason: to be given for MRI Stop: 12/07/21 14:51 Isosorbide Mononitrate (Isosorbide [place] Extended Rel 30 Mg Tabcr) 30 mg [facility] Stop: 12/07/21 08:59 Last Admin: 11/07/21 08:11 Dose: 30 mg Documented by: Labetalol HCl (Labetalol Hcl Iv 5 Mg/Ml 20ml) 10 mg IV Q8H PRN PRN Reason: for sbp above 190 Stop: 11/08/21 20:43 Last Admin: 11/06/21 22:45 Dose: 10 mg Documented by: Levothyroxine Sodium (Levothyroxine Sodium 50 Mcg Tablet) [facility] Stop: 12/07/21 06:29 Last Admin: 11/07/21 06:27 Dose: 50 mcg Documented by: Metoprolol Succinate (Metoprolol Succ 50mg Ext Rel Tab) 100 mg PO QAM [facility] Stop: 12/07/21 08:59 Last Admin: 11/07/21 08:11 Dose: 100 mg Documented by: Miscellaneous Information (Pharmacist Discharge Med Rec Consult) 1 ea N/A UD PRN PRN Reason: Consult Stop: 12/06/21 22:02 PG Care Time/CCT Total # of Minutes Spent Total Time Spent with Patient: Total time spent is greater than 50% in coordination of care (as documented) at patient's floor/unit and/or counseling patient: Coding Level of Care Code 31120 Initial Inpt Care Lvl 3 Diagnoses Acute ischemic stroke I63.9 Paroxysmal atrial fibrillation I48.0 Anticoagulant long-term use Z79.01 CAD (coronary artery disease) I25.10 S/P coronary artery stent placement Z95.5 HTN (hypertension) I10 HLD (hyperlipidemia) E78.5
[2021-11-07] MEDS ORDERED: ASPIRIN 81 MG ECTAB PO STA (14:30)
--- NOTE | 2021-11-07 14:42 | XCELERA ---
[id number]
[2021-11-07] MEDS ORDERED: LORazepam 0.25 MG in SYRINGE 0.125 ML IV SCH (15:00)
[2021-11-07] MEDS ORDERED: GADOBUTROL 30ML VIAL IV ONE (16:46)
--- NOTE | 2021-11-07 17:01 | Hospitalist Progress Note ---
Date of Service November 07, 2021 Assessment & Plan (1) Right sided weakness: Plan: Present on admission with right side weakness Need to r/o acute CVA Stroke alert did not call because pt symptoms improved and she would not be a candidate for TPA since pt is on Eliquis CT head/CTA head /neck showed questionable edema in the left anterior cerebral artery territory. There is interruption of the left A3 segment with distal reconstitution, this may represent an acute occlusion. ER physician reached out to [place] stroke tele that suggested possible adding aspirin with the Eliquis Aspirin 325mg given in the ER Currently patient is asymptomatic Neuro on board recommended Eliquis and Aspirin for now Cardiology consulted about for possible anticoagulant therapy failure case discussed with cardiology ECHO showed normal left ventricular size with hyperdynamic systolic function. EF greater than 70% If etiology of stroke is felt to be cardioembolic, consider replacing Eliquis with another anticoagulation therapy. If affordable, can use Xarelto 20 mg daily. Total cholesterol 190, Triglyceride 230, LDL 101 and HDL 46 Continue statin MRI head pending PT/OT/Speech on board Continue monitor closely COVID 19 Pt completed all the vaccines for Covid 19 Denies any symptoms Discussed with family that pt does not meet the criteria for dexamethasone and remdesivir since she saturates well on RA Continue Covid 19 precaution Continue monitor closely Hypertensive urgency BP elevated in the ER with systolic above 200 Allow permissive HTN for 24hrs Continue metoprolol and Isosorbide mononitrate Will add Amlodipine 2.5 mg labetalol 10mg IV prn for SBP above 185 Continue monitor BP History PAF EKG showed NSR Rate control with metoprolol Continue Eliquis Hx CAD status post stent Continue Eliquis, statin, metoprolol cardiology said pt was supposed to be on aspirin but not sure why she was not taking it Stable Hypothyroidism TSH WNL Continue levothyroxine Left breast cancer status post surgery DVT prophylaxis. Eliquis Disposition Will discharge once medically stable Admission and Anticipated Discharge Date Admission Date: November 06, 2021 Subjective Pt was seen and examined for follow of right side weakness Lying in bed with no acute distress Pt said that she participates in therapy today She said that she is back to her baseline Denies any chest pain, palpitation, dizziness and SOB Review of Systems Review of Systems: All systems reviewed & are unremarkable except as noted in Subjective Physical Exam Physical Exam: General- No acute distress Head- atraumatic Eyes- PERRL, EOMI, ENT- oropharynx clear Neck- supple, no JVD Lungs- clear to auscultation Heart- regular rhythm; no murmur Abdomen- normal bowel sounds, soft, nontender Extremities- no calf tenderness Neuro- alert, oriented x 3; PERRL, EOMI; no facial palsy; no dysarthria Skin- warm & dry Results & Data Results & Data ([facility]) Vital Signs (Past 12 Hours) Vital Signs Temp Pulse Pulse Resp BP Pulse Ox 11/07/21 14:50 36.8 C 72 16 176/74 H 94 11/07/21 14:19 68 11/07/21 12:15 36.6 C 73 16 134/76 94 11/07/21 08:02 36.5 C 72 16 131/96 95 11/07/21 06:07 66
[2021-11-07] MEDS ORDERED: amLODIPine BESYLATE 5 MG TAB PO ONE (17:18)
--- NOTE | 2021-11-07 17:42 | Magnetic Resonance Report ---
MRI OF THE BRAIN WITHOUT AND WITH IV CONTRAST CLINICAL HISTORY: Stroke. COMPARISON STUDY: MRI of the brain August 12, 2021. Head CT and CTA of the head November 06, 2021. TECHNIQUE: Utilizing a 1.5 Geovanna magnet and dedicated coil, multiplanar, multiecho imaging of the br ain was performed pre and postcontrast administration. IV administration of 8 mL of Gadavist contras t was uneventful. Thin cut T1 post contrast imaging was performed. FINDINGS: Note is made of a few punctate hyperintense foci within the superior medial left frontal lo be on the diffusion-weighted sequence. There is an additional punctate focus within the left aspect o f the splenium of the corpus callosum. Correlation with the ADC map is difficult given the small size of these foci. However, these favor small acute infarcts. There is no mass effect. No hemorrhage. Ve ntricular system is unremarkable. Basal cisterns are patent. There are no extra-axial collections. Fl ow-voids for the major intracranial vessels are present there is no intracranial mass or pathologic e nhancement. Extensive white matter T2 hyperintense foci suggest small vessel disease. IMPRESSION: 1. A few punctate foci of restricted diffusion within the superior medial left frontal lobe and left aspect of the splenium of the corpus callosum. These are within the left anterior cerebral artery dis tribution and favor punctate acute infarcts. 2. Otherwise, no significant change in appearance of the brain since MRI of August 12, 2021. Extensive small vessel disease. ACT 112: Negative or not required by law. Electronically signed by: Zachery Daugherty M.D. 11/07/2021 5:39 PM
[2021-11-07] MEDS: amLODIPine BESYLATE 5 MG TAB PO SCH (17:53)
[2021-11-07] MEDS: ATORVASTATIN 40 MG TAB PO SCH (19:57)
[2021-11-08] MEDS: LEVOTHYROXINE SODIUM 50 MCG TABLET PO SCH (05:40)
[2021-11-08 07:47] LABS: Basophils # (auto) 0.01 K/uL (0-0.2); Basophils % (auto) 0.1 %; Eosinophils # (auto) 0.33 K/uL (0-0.5); Eosinophils % (auto) 4.4 %; Hematocrit (blood only) 38.7 % (37-47); Hemoglobin 12.4 g/dL (12.0-16.0); Immature Granulocytes # (auto) 0.02 K/uL (0.00-0.02); Immature Granulocytes % (auto) 0.3 %; Lymphocytes # (auto) 1.52 K/uL (1.2-3.4); Lymphocytes % (auto) 20.2 %; Mean Corpuscular Hemoglobin 31.1 pg (25-34); Monocytes # (auto) 0.66 K/uL (0.11-0.59); Monocytes % (auto) 8.8 %; Neutrophils # (auto) 4.99 K/uL (1.4-6.5); Neutrophils % (auto) 66.2 %; Platelet Count 248 K/uL (130-400); RDW Coefficient of Variation 14.2 % (11.5-14.5); RDW Standard Deviation 50.3 fL (36.4-46.3); Red Blood Count 3.99 M/uL (4.2-5.4); White Blood Count 7.53 K/uL (4.8-10.8)
[2021-11-08] MEDS: ISOSORBIDE MONO EXTENDED REL 30 MG TABCR PO SCH (08:01)
[2021-11-08] MEDS: METOPROLOL SUCC 50MG EXT REL TAB PO SCH (08:01)
[2021-11-08] MEDS: FLUTICASONE/VILANTEROL 100/25MCG 14 PUFFS/INHALER INH SCH (08:01)
[2021-11-08] MEDS: ASPIRIN 81 MG ECTAB PO SCH (08:01)
[2021-11-08] MEDS: amLODIPine BESYLATE 5 MG TAB PO SCH (08:02)
[2021-11-08] MEDS: APIXABAN 5 MG TABLET PO SCH ×2 (08:05→20:19)
[2021-11-08 08:36] LABS: BUN Creatinine Ratio 18.6 (10-20); Calcium 9.9 mg/dl (8.5-10.1); Creatinine Clr Calc Pharmacy 46.4 ml/min; Est GFR (African American) 69.9 ml/min; Est GFR (Non-African American) 60.3 ml/min; Potassium 4.2 mmol/L (3.5-5.1)
[2021-11-08 09:19] LABS: Estimated Average Glucose 126 mg/dl
--- NOTE | 2021-11-08 12:44 | Progress Notes ---
DATE OF SERVICE: 11/08/2021 I am seeing Mrs. Quach for several episodes over several days initially of some slurred speech, the n of some tingling in her left hand and then of some right body symptoms. Her MRI of the brain shows an acute patchy areas of restricted diffusion within the superomedial left frontal lobe and left asp ect of the splenium of the corpus callosum within the distribution of the anterior cerebral artery fa voring punctate acute infarcts. Her CTA of the neck was unremarkable and CTA of the left A3 segment is interrupted with distal reconstitution possibly representing an acute occlusion. Her LDL was 101. I discussed the patient's case with Dr. Herrera. The patient was not seen. This constellation of symptoms with a variety of several different symptoms with different anatomic localizations suggest a n embolic phenomenon. The occluded and distally reconstituted left A3 segment of the anterior cerebr al artery could be embolic. Therefore, cardiology had recommended if we felt this was an embolic inf arct that they would consider switching her DOAC. I think that is reasonable and defer to them regar ding agents. Eli had recommended her taking antiplatelet therapy with aspirin, which is not unre asonable. I would use a dose of 81 mg daily. Her LDL remains elevated at 101 and recommend a more a ggressive treatment with statin. We will sign off. Job ID: [id number]
--- NOTE | 2021-11-08 14:19 | Hospitalist Progress Note ---
Date of Service November 08, 2021 Assessment & Plan (1) Right sided weakness: Plan: Present on admission with right side weakness Need to r/o acute CVA Stroke alert did not call because pt symptoms improved and she would not be a candidate for TPA since pt is on Eliquis CT head/CTA head /neck showed questionable edema in the left anterior cerebral artery territory. There is interruption of the left A3 segment with distal reconstitution, this may represent an acute occlusion. ER physician reached out to [facility] stroke tele that suggested possible adding aspirin with the Eliquis MRI showed a few punctate foci of restricted diffusion within the superior medial left frontal lobe and left aspect of the splenium of the corpus callosum. These are within the left anterior cerebral artery distribution and favor punctate acute infarcts. Aspirin 325mg given in the ER Currently patient is asymptomatic Neuro on board Case discussed with neurology that suggested this is an embolic phenomenon that would consider switching her DOAC. Cardiology consulted about for possible anticoagulant therapy failure case discussed with cardiology ECHO showed normal left ventricular size with hyperdynamic systolic function. EF greater than 70% If etiology of stroke is felt to be cardioembolic, consider replacing Eliquis with another anticoagulation therapy. If affordable, can use Xarelto 20 mg daily. Total cholesterol 190, Triglyceride 230, LDL 101 and HDL 46 Statin increased to Atorvastatin 80mg and aspirin 81mg added Called [facility] to check the forrest on Xarelto. The pharmacy was not sure if patient has a prescription drug coverage: Xarelto cost $500 PT/OT/Speech on board Clinically stable COVID 19 Pt completed all the vaccines for Covid 19 Denies any symptoms Discussed with family that pt does not meet the criteria for dexamethasone and remdesivir since she saturates well on RA Continue Covid 19 precaution Continue monitor closely Hypertensive urgency BP elevated in the ER with systolic above 200 permissive HTN allowed for 24hrs to 48 hr BP improved Continue metoprolol and Isosorbide mononitrate Continue Amlodipine 2.5 mg labetalol 10mg IV prn for SBP above 185 Continue monitor BP History PAF EKG showed NSR Rate control with metoprolol Continue Eliquis Hx CAD status post stent Continue Eliquis, statin, metoprolol cardiology said pt was supposed to be on aspirin but not sure why she was not taking it Stable Hypothyroidism TSH WNL Continue levothyroxine Left breast cancer status post surgery DVT prophylaxis. Eliquis Disposition Plan to discharge home tomorrow Admission and Anticipated Discharge Date Admission Date: November 06, 2021 Subjective Pt was seen and examined for follow of right side weakness Sitting at the edge of the bed with no acute distress just finished eating her lunch She said that she is back to her baseline I called daughter Nereida 3 times with no answered, unfortunately Pt said daughter went to [place] and plan to drive back tonight to [facility] Denies any chest pain, palpitation, dizziness and SOB Review of Systems Review of Systems: All systems reviewed & are unremarkable except as noted in Subjective Physical Exam Physical Exam: General- No acute distress Head- atraumatic Eyes- PERRL, EOMI, ENT- oropharynx clear Neck- supple, no JVD Lungs- clear to auscultation Heart- regular rhythm; no murmur Abdomen- normal bowel sounds, soft, nontender Extremities- no calf tenderness Neuro- alert, oriented x 3; PERRL, EOMI; no facial palsy; no dysarthria Skin- warm & dry Results & Data Results & [facility] ([facility]) Vital Signs (Past 12 Hours) Vital Signs Temp Pulse Pulse Resp BP Pulse Ox 11/08/21 11:58 36.8 C 72 16 146/70 H 92 11/08/21 07:58 36.8 C 70 16 168/91 H 92 11/08/21 06:18 62 11/08/21 04:37 36.9 C 65 16 166/79 H 92
[2021-11-08] MEDS: ATORVASTATIN 40 MG TAB PO SCH (20:14)
--- NOTE | 2021-11-08 22:36 | Electrocardiogram Report ---
Test Reason : Blood Pressure : / mmHG Vent. 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
[2021-11-09] MEDS: ACETAMINOPHEN 500 MG TAB PO PRN ×2 (05:42→22:29)
[2021-11-09] MEDS: LEVOTHYROXINE SODIUM 50 MCG TABLET PO SCH (05:42)
[2021-11-09] MEDS: FLUTICASONE/VILANTEROL 100/25MCG 14 PUFFS/INHALER INH SCH (08:00)
[2021-11-09] MEDS: APIXABAN 5 MG TABLET PO SCH (08:01)
[2021-11-09] MEDS: ISOSORBIDE MONO EXTENDED REL 30 MG TABCR PO SCH (08:01)
[2021-11-09] MEDS: ASPIRIN 81 MG ECTAB PO SCH (08:01)
[2021-11-09] MEDS: METOPROLOL SUCC 50MG EXT REL TAB PO SCH (08:01)
[2021-11-09] MEDS: amLODIPine BESYLATE 5 MG TAB PO SCH (08:02)
[2021-11-09 08:17] LABS: Basophils # (auto) 0.01 K/uL (0-0.2); Basophils % (auto) 0.1 %; Eosinophils % (auto) 3.6 %; Hematocrit (blood only) 39.2 % (37-47); Hemoglobin 12.8 g/dL (12.0-16.0); Immature Granulocytes # (auto) 0.01 K/uL (0.00-0.02); Immature Granulocytes % (auto) 0.1 %; Lymphocytes # (auto) 1.82 K/uL (1.2-3.4); Lymphocytes % (auto) 22.1 %; Mean Corpuscular Hemoglobin 31.8 pg (25-34); Mean Corpuscular Hgb Conc 32.7 g/dL (32-36); Mean Corpuscular Volume 97.5 fL (80-100); Mean Platelet Volume 9.8 fL (7.4-10.4); Monocytes # (auto) 0.64 K/uL (0.11-0.59); Monocytes % (auto) 7.8 %; Neutrophils # (auto) 5.44 K/uL (1.4-6.5); Neutrophils % (auto) 66.3 %; Platelet Count 256 K/uL (130-400); Red Blood Count 4.02 M/uL (4.2-5.4); White Blood Count 8.22 K/uL (4.8-10.8)
[2021-11-09 08:41] LABS: BUN Creatinine Ratio 23.2 (10-20); Creatinine Clr Calc Pharmacy 40.2 ml/min; Est GFR (Non-African American) 50.9 ml/min; Potassium 4.4 mmol/L (3.5-5.1)
[2021-11-09] MEDS ORDERED: WARFARIN SOD 5 MG TAB PO ONE (17:36)
--- NOTE | 2021-11-09 18:55 | Hospitalist Progress Note ---
Date of Service November 09, 2021 Assessment & Plan (1) Right sided weakness: Plan: Present on admission with right side weakness Need to r/o acute CVA Stroke alert did not call because pt symptoms improved and she would not be a candidate for TPA since pt is on Eliquis CT head/CTA head /neck showed questionable edema in the left anterior cerebral artery territory. There is interruption of the left A3 segment with distal reconstitution, this may represent an acute occlusion. ER physician reached out to [place] stroke tele that suggested possible adding aspirin with the Eliquis MRI showed a few punctate foci of restricted diffusion within the superior medial left frontal lobe and left aspect of the splenium of the corpus callosum. These are within the left anterior cerebral artery distribution and favor punctate acute infarcts. Aspirin 325mg given in the ER Currently patient is asymptomatic Neuro on board Case discussed with neurology that suggested this is an embolic phenomenon that would consider switching her DOAC. Cardiology consulted about for possible anticoagulant therapy failure case discussed with cardiology ECHO showed normal left ventricular size with hyperdynamic systolic function. EF greater than 70% If etiology of stroke is felt to be cardioembolic, consider replacing Eliquis with another anticoagulation therapy. If affordable, can use Xarelto 20 mg daily. Total cholesterol 190, Triglyceride 230, LDL 101 and HDL 46 Continue statin increased to Atorvastatin 80mg and aspirin 81mg added Called [facility] pharmacy to check the forrest on Xarelto and Pradaxa. Cost for Pradaxa and Xarelto in the $500 cardiology was notified, her only option is to transition to coumadin Pt and family agreed about the change Major sides effect about warfarin discussed with patient and family such as abnormal bleeding (intracranial bleeding or GI bleeding) Pt understand that she has to have weekly blood test and dose will need to adjust often time Will give coumadin 5mg today and bridging with Lovenox therapeutic dose Eliquis discontinued PT/OT/Speech on board PT recommended inpatient rehab Clinically stable COVID 19 Pt completed all the vaccines for Covid 19 Denies any symptoms Discussed with family that pt does not meet the criteria for dexamethasone and remdesivir since she saturates well on RA Continue Covid 19 precaution Continue monitor closely Hypertensive urgency BP elevated in the ER with systolic above 200 permissive HTN allowed for 24hrs to 48 hr BP improved Continue metoprolol and Isosorbide mononitrate Amlodipine increased to 5mg daily labetalol 10mg IV prn for SBP above 185 Continue monitor BP History PAF EKG showed NSR Rate control with metoprolol discontinued Eliquis, then transition to coumadin Hx CAD status post stent Continue Eliquis, statin, metoprolol cardiology said pt was supposed to be on aspirin but not sure why she was not taking it Aspirin added Stable Hypothyroidism TSH WNL Continue levothyroxine Left breast cancer status post surgery DVT prophylaxis. Eliquis Disposition Waiting for placement to rehab Admission and Anticipated Discharge Date Admission Date: November 06, 2021 Subjective Pt was seen and examined for follow of right side weakness Lying in bed with no acute distress with son and daughter in law at bedside Pt said that she feels weak today She does not feel comfortable to go home She participated in therapy that recommended placement to rehab I called her pharmacy and check the cost for pradaxa. Both pradaxa and xarelto will be in the $500 dollars/for 30 days suuply Pt has no prescription coverage Son and daughter said that they are too costly and pt will not be able to afford either one cardiology was notified, her only option is to transition to coumadin Pt and family agreed about the change Major sides effect about warfarin discussed with patient and family such as abnormal bleeding (intracranial bleeding or GI bleeding) Pt understand that she has to have weekly blood test and dose will need to adjust often time Denies any chest pain, palpitation, dizziness and SOB Review of Systems Review of Systems: All systems reviewed & are unremarkable except as noted in Subjective Physical Exam Physical Exam: General- No acute distress Head- atraumatic Eyes- PERRL, EOMI, ENT- oropharynx clear Neck- supple, no JVD Lungs- clear to auscultation Heart- regular rhythm; no murmur Abdomen- normal bowel sounds, soft, nontender Extremities- no calf tenderness Neuro- alert, oriented x 3; PERRL, EOMI; no facial palsy; no dysarthria Skin- warm & dry Results & Data Results & Data ([facility]) Vital Signs (Past 12 Hours) Vital Signs Temp Pulse Pulse Resp BP Pulse Ox 11/09/21 15:33 93 11/09/21 14:23 36.5 C 65 16 144/72 H 93 11/09/21 14:20 73 11/09/21 11:13 36.4 C L 66 16 147/73 H 91 11/09/21 07:38 36.4 C L 64 16 157/78 H 92
[2021-11-09] MEDS ORDERED: ENOXAPARIN 1 MG/KG SQ SCH (20:00)
[2021-11-09] MEDS: ATORVASTATIN 40 MG TAB PO SCH (21:44)
[2021-11-09] MEDS: ENOXAPARIN 80 MG/0.8 ML SYR SQ SCH (22:29)
[2021-11-10] MEDS: LEVOTHYROXINE SODIUM 50 MCG TABLET PO SCH (05:51)
[2021-11-10 08:11] LABS: Hematocrit (blood only) 38.4 % (37-47); Hemoglobin 12.3 g/dL (12.0-16.0); Mean Corpuscular Hemoglobin 31.1 pg (25-34); Mean Platelet Volume 10.5 fL (7.4-10.4); Platelet Count 268 K/uL (130-400); RDW Standard Deviation 49.5 fL (36.4-46.3); Red Blood Count 3.96 M/uL (4.2-5.4); White Blood Count 7.07 K/uL (4.8-10.8)
[2021-11-10 08:29] LABS: INR 1.1 (0.9-1.1); Prothrombin Time 11.2 Seconds (9.0-12.0)
[2021-11-10 08:33] LABS: BUN Creatinine Ratio 26.3 (10-20); Calcium 9.9 mg/dl (8.5-10.1); Creatinine Clr Calc Pharmacy 41.9 ml/min; Est GFR (Non-African American) 53.5 ml/min
[2021-11-10] MEDS: METOPROLOL SUCC 50MG EXT REL TAB PO SCH (08:56)
[2021-11-10] MEDS: ISOSORBIDE MONO EXTENDED REL 30 MG TABCR PO SCH (08:57)
[2021-11-10] MEDS: ASPIRIN 81 MG ECTAB PO SCH (08:57)
[2021-11-10] MEDS: amLODIPine BESYLATE 5 MG TAB PO SCH (08:57)
[2021-11-10] MEDS: ENOXAPARIN 80 MG/0.8 ML SYR SQ SCH ×2 (08:59→20:30)
[2021-11-10] MEDS: FLUTICASONE/VILANTEROL 100/25MCG 14 PUFFS/INHALER INH SCH (08:59)
--- NOTE | 2021-11-10 10:33 | Hospitalist Progress Note ---
Date of Service November 10, 2021 Assessment & Plan (1) Right sided weakness: Plan: CVA Presented on admission with right side weakness Stroke alert was not called as symptoms improved and she was not be a candidate for TPA since pt is on Eliquis CT head/CTA head /neck showed questionable edema in the left anterior cerebral artery territory. There is interruption of the left A3 segment with distal reconstitution, this may represent an acute occlusion. MRI showed a few punctate foci of restricted diffusion within the superior medial left frontal lobe and left aspect of the splenium of the corpus callosum. These are within the left anterior cerebral artery distribution and favor punctate acute infarcts. Aspirin 325mg given in the ER ER physician reached out to [facility] stroke tele that suggested possible adding aspirin with the Eliquis Neuro recs noted CVA thought to be embolic in nature Neuro recommended switching her DOAC. Cardiology consulted about for possible anticoagulant therapy failure Cards recs noted ECHO showed normal left ventricular size with hyperdynamic systolic function. EF greater than 70% Dr Herrera discussed with patient and family. Cost of DOAC was prohibitive Patient currently on warfarin + lovenox bridge Needs to follow up with Anticoagulation clinic on discharge Continue Atorvastatin 80mg and aspirin 81mg PT/OT/Speech noted Will follow up with CM about discharge plans COVID 19 Infection Pt completed all the vaccines for Covid 19 On room air Continue Covid 19 precaution CXR did not show infiltrates/opacities No COVID specific therapies at this time Hypertensive urgency BP elevated in the ER with systolic above 200 permissive HTN allowed for 24hrs to 48 hr BP improved Continue metoprolol and Isosorbide mononitrate Amlodipine increased to 5mg daily On labetalol 10mg IV prn for SBP above 185 Continue monitor BP History of PAF EKG showed NSR Rate control with metoprolol On warfarin + lovenox bridge Hx CAD status post stent Continue statin, metoprolol On Aspirin Stable Hypothyroidism TSH WNL Continue levothyroxine Left breast cancer status post surgery DVT prophylaxis.Warfarin + lovenox Admission and Anticipated Discharge Date Admission Date: November 06, 2021 Subjective 86-year-old woman with history of hypertension, dyslipidemia, TIA, breast cancer, hypothyroidism, proximal A. fib, ischemic cardiomyopathy, CAD status post stent who presented with right-sided weakness Being managed for CVA. Found to be positive for COVID-19 Patient seen and examined. Patient reports generalized weakness Denies any nausea, vomiting, abdominal pain or diarrhea or constipation Reports some chest congestion. Denies cough, chest pain, shortness of breath Denies headache or dizziness Denies fevers or chills Reports appetite is fair today Denies dysuria, frequency, urgency Review of Systems Review of Systems: All systems reviewed & are unremarkable except as noted in Subjective Physical Exam Constitutional: + well hydrated; no acute distress Eyes: PERRL, conjunctivae normal, anicteric sclerae ENMT: external ear and nose normal, oropharynx normal Respiratory: normal respiratory effort, lungs clear to auscultation Cardiovascular: Rate/Rhythm: regular rate and regular rhythm S1-S2 Gastrointestinal (Abdomen): normal bowel sounds, soft, nontender, no hepatosplenomegaly Musculoskeletal: No pedal edema Neurologic: PERRL, EOMI, accommodation nl, no face palsy, no dysarthria Psychiatric: A+Ox3, euthymic affect Results & Data Results & Data ([facility]) Vital Signs (Past 12 Hours) Vital Signs Temp Pulse Pulse Resp BP Pulse Ox 11/10/21 08:05 36.7 C 63 19 157/60 H 93 11/10/21 07:28 61 11/10/21 04:17 36.3 C L 62 18 159/76 H 94 11/09/21 22:42 36.6 C 83 16 172/75 H 90 Laboratory Results Abnormal lab results 11/10/21 11/10/21 Range/Units 06:59 06:59 RBC 3.96 L (4.2-5.4) M/uL RDW Std Deviation 49.5 H (36.4-46.3) fL MPV 10.5 H (7.4-10.4) fL BUN 25 H (6-23) mg/dl BUN/Creatinine Ratio 26.3 H (10-20)
[2021-11-10] MEDS ORDERED: WARFARIN SOD 5 MG TAB PO SCH (16:00)
[2021-11-10] MEDS: ATORVASTATIN 40 MG TAB PO SCH (20:30)
[2021-11-10] MEDS: ACETAMINOPHEN 500 MG TAB PO PRN (20:36)
[2021-11-11] MEDS: LEVOTHYROXINE SODIUM 50 MCG TABLET PO SCH (05:44)
[2021-11-11] MEDS: ACETAMINOPHEN 500 MG TAB PO PRN (05:51)
[2021-11-11 08:06] LABS: INR 1.1 (0.9-1.1); Prothrombin Time 11.6 Seconds (9.0-12.0)
[2021-11-11] MEDS: ENOXAPARIN 80 MG/0.8 ML SYR SQ SCH (08:16)
[2021-11-11] MEDS: FLUTICASONE/VILANTEROL 100/25MCG 14 PUFFS/INHALER INH SCH (08:17)
[2021-11-11] MEDS: amLODIPine BESYLATE 5 MG TAB PO SCH (08:17)
[2021-11-11] MEDS: METOPROLOL SUCC 50MG EXT REL TAB PO SCH (08:17)
[2021-11-11] MEDS: ISOSORBIDE MONO EXTENDED REL 30 MG TABCR PO SCH (08:17)
[2021-11-11] MEDS: ASPIRIN 81 MG ECTAB PO SCH (08:17)
--- NOTE | 2021-11-11 16:08 | Discharge Summary ---
Date of Service November 11, 2021 Admission HPI Per Admitting Provider 86-year-old female with a PMH Hypertension, Dyslipidemia, TIA (2018), Breast Cancer, Hypothyroidism, Osteoarthritis, Stage III CKD, Paroxysmal Atrial Fibrillation with RVR (diagnosed on 10/08/20), Ischemic Cardiomyopathy, CAD s/p stent placement presented to the ER with right sided weakness. History obtained from family at bedside. As per family pt has not been feeling herself for the l ast few days. On Monday daughter noticed that her speech was a little slurred but resolved after few minutes. On pt was very weak that she could not hold herself. yesterday she had some numbness in the last 3 fingers (left hand). This morning she was fine and ambulated with no problem. Around 10 AM, she developed right sided weakness. She was not able to lift her right upper extremity and could not even lift her right leg to get out of the car. Family said she did not have any other symptoms or neurological symptoms. Pt said that she feels fine now. Pt was tested positive for COVID 19, but family was shocked because pt only had a mild cough few days ago that resolved. Family said that pt received all the vaccines and booster for COVID 19 and as well as monoclonal antibody in the past. She was diagnosed with covid 19 last year. Family denies any recent travel or sick contact. Currently patient is moving all 4 extremities. Denies any chest pain, palpitation, dizziness, feve, chills and SOB. Admission Exam Per Admitting Provider General- No acute distress Head- atraumatic Eyes- PERRL, EOMI, ENT- oropharynx clear Neck- supple, no JVD Lungs- clear to auscultation Heart- regular rhythm; no murmur Abdomen- normal bowel sounds, soft, nontender Extremities- no calf tenderness Neuro- alert, oriented x 3; PERRL, EOMI; no facial palsy; no dysarthria Skin- warm & dry Principal Diagnosis Cerebrovascular accident (Stroke) COVID 19 infection Hypertensive urgency Prediabetes Discharge Exam Constitutional + well hydrated; no acute distress Eyes PERRL, conjunctivae normal, anicteric sclerae ENMT external ear and nose normal, oropharynx normal Respiratory normal respiratory effort, lungs clear to auscultation Cardiovascular Rate/Rhythm: regular rate and regular rhythm S1 S2 Gastrointestinal (Abdomen) normal bowel sounds, soft, nontender, no hepatosplenomegaly Musculoskeletal No pedal edema Neurologic PERRL, EOMI, accommodation nl, no face palsy, no dysarthria Psychiatric A+Ox3, euthymic affect Discharge Data Allergies Allergy/AdvReac Type Severity Reaction Status Date / Time niacin Allergy Intermediate hives Verified 11/06/21 17:15 Opioid Analgesics AdvReac Intermediate "gets very Uncoded 11/06/21 17:15 sick" Consultations 11/06/21 17:00 ED Decision to Admit Stat 11/06/21 22:03 Consult Neurology Routine 11/07/21 11:59 Consult Cardiology Routine Ordered Studies 11/06/21 14:46 CT angio head w con Stat CT angio neck with con Stat CT head/brain wo con Stat CT head: Areas of decreased attenuation are present in the periventricular and subcortical white matter bilaterally consistent with small vessel ischemic disease. Generalized cerebral atrophy with commensurate enlargement of the ventricles, sulci, and cisterns is also present. There is questionable edema and loss of russell-white differentiation in the left ARMOND territory. Lungs and soft tissues are unremarkable. CTA Neck: A 3 vessel aortic arch is shown. There is no significant atherosclerotic plaque in the aortic arch or the origins of the innominate, left common carotid, and left subclavian arteries. The common carotid, external carotid, cervical segments of the internal carotid arteries, and the cervical segments of the vertebral arteries are patent without hemodynamically significant stenosis. Tortuosity of the internal carotid arteries noted bilaterally. The left vertebral artery is dominant. CTA Head: The anterior and posterior cerebral circulations are patent. There is interruption of the left ARMOND A3 segment (series 5 image 116) with distal reconstitution (image 129). There is a relative decrease in prominence of the distal left frontal vasculature. The middle cerebral arteries and posterior cerebral arteries and their visualized branches are patent. IMPRESSION: 1. There is questionable edema in the left anterior cerebral artery territory. No evidence of hemorrhagic transformation is seen. 2. There is interruption of the left A3 segment with distal reconstitution, this may represent an acute occlusion in the setting of numbness and motor dysfunction in the right leg. 3. No occlusion, hemodynamically significant stenosis, or dissection in the major cervical arteries 11/07/21 11:50 MR brain wo/w con Routine Note is made of a few punctate hyperintense foci within the superior medial left frontal lobe on the diffusion-weighted sequence. There is an additional punctate focus within the left aspect of the splenium of the corpus callosum. C orrelation with the ADC map is difficult given the small size of these foci. However, these favor small acute infarcts. There is no mass effect. No hemorrhage. Ventricular system is unremarkable. Basal cisterns are patent. There are no extra-axial collections. Flow-voids for the major intracranial vessels are present there is no intracranial mass or pathologic enhancement. Extensive white matter T2 hyperintense foci suggest small vessel disease. IMPRESSION: 1. A few punctate foci of restricted diffusion within the superior medial left frontal lobe and left aspect of the splenium of the corpus callosum. These are within the left anterior cerebral artery distribution and favor punctate acute infarcts. 2. Otherwise, no significant change in appearance of the brain since MRI of August 12, 2021. Extensive small vessel disease. Hospital Course (1) Right sided weakness: CVA Presented on admission with right sided weakness Stroke alert was not called as symptoms improved and she was not be a candidate for TPA since pt is on Eliquis CT head/CTA head /neck showed questionable edema in the left anterior cerebral artery territory. There is interruption of the left A3 segment with distal reconstitution, this may represent an acute occlusion. MRI showed a few punctate foci of restricted diffusion within the superior medial left frontal lobe and left aspect of the splenium of the corpus callosum. These are within the left anterior cerebral artery distribution and favor punctate acute infarcts. Aspirin 325mg given in the ER ER physician reached out to [facility] stroke tele that suggested possible adding aspirin with the Eliquis Was evaluated by Neurology CVA thought to be embolic in nature Neuro recommended switching her DOAC. Cardiology consulted about for possible anticoagulant therapy failure ECHO showed normal left ventricular size with hyperdynamic systolic function. EF greater than 70% Recommendation was to change to a different DOAC. However, cost was prohibitive for patient and family and they decided to switch to warfarin Patient currently on warfarin + lovenox bridge Patient will continue this at [facility] with INR check Needs to follow up with Anticoagulation clinic on discharge from rehab Continue Atorvastatin 80mg and aspirin 81mg COVID 19 Infection Patient was noted to be positive to COVID 19 on presentation Patient reports full vaccination CXR did not show infiltrates/opacities and no oxygen requirement No COVID specific therapies were given Hypertensive urgency BP elevated in the ER with systolic above 200 Permissive HTN allowed for 24hrs to 48 hr Continue metoprolol and Isosorbide mononitrate Started on amlodipine with better BP control History of PAF EKG showed NSR Rate control with metoprolol On warfarin + lovenox bridge Hx CAD status post stent Continue statin, metoprolol On Aspirin Stable Hypothyroidism TSH WNL Continue levothyroxine Left breast cancer status post surgery Updated patient about plans/med changes. Call to update POA was unanswered Total Time Total Time Spent Total Time Spent (In Minutes): 50 Total Time Includes: Examination of the Patient, Discharge Planning and Medication Reconciliation Discharge Plan Discharge Items Patient Disposition: Transfer Inpatient Rehab Fac Reason For Visit: STROKE LIKE SYMPTOMS Discharge Diagnosis: Cerebrovascular accident (Stroke) COVID 19 infection Hypertensive urgency Prediabetes Activity: As commented below Activity Comment: Per Physical therapy recommendations Non-emergency contact: Primary Care Provider and Neurologist Call non-emergency contact if: you have any medication questions and your symptoms worsen Follow-up/Referrals: Georgia Howard PA-C [Physician Admissions Consultant] - (Date & Time 12/08/2021 11:20 AM Provider Georgia Howard PA-C Department Neurology [facility] ) Mary Anne Evans MD [Primary Care Provider] - (Date & Time 11/16/2021 11:00 AM Provider Mary Anne Evans MD Department General Internal Medicine [facility] ) Diet: Carb Consistent or DM2, Heart Healthy and Low Sodium (2gm) Ambulatory Orders: Prothrombin Time INR (DAILY) Timeframe: 20211113 Location: Determined by Patient Ordered By: Ribera I. Ezekwem Prothrombin Time INR (DAILY) Timeframe: 20211114 Location: Determined by Patient Ordered By: Ribera I. Ezekwem Prothrombin Time INR (DAILY) Timeframe: 20211115 Location: Determined by Patient Ordered By: Ribera I. Ezekwem Prothrombin Time INR (DAILY) Timeframe: 20211116 Location: Determined by Patient Ordered By: Ribera I. Ezekwem Prothrombin Time INR (DAILY) Timeframe: 20211117 Location: Determined by Patient Ordered By: Ribera I. Ezekwem Addtl Attending Provider Instructions: Mrs Quach. You came to the hospital due to report of right sided weakness. You were evaluated and noted to have had a stroke. You were comanaged with the Neurologist and [facility]. Your blood thinner was changed from eliquis to warfarin. You are currently on lovenox + warfarin bridge until INR (a test which show how thin one's blood is) is within required range of 2-3. Once your INR is at goal, lovenox will be discontinued at the rehab center. You will need regular blood tests to monitor INR while you are at rehab as well as after discharge from rehab. You will need to follow up with Anticoagulation clinic for management of your warfarin. You were started on amlodipine for better blood pressure control. Please ensure follow up with Neurology as well as your Primary Doctor. It was a pleasure taking care of you. Pending Studies at Discharge: No Stand-Alone Forms: My [facility] [employer] Skilled Items Patient informed of condition?: Yes DNR: No Discharge Level of Care: Acute rehab Communicable Disease: Yes Discharge Prognosis: Stable Lines: None Urinary Catheter: No Medications and DC Order Prescriptions: New amlodipine [Norvasc] 5 mg Tablet 5 mg PO QAM 30 Days Qty: 30 RF: 0 aspirin 81 mg Tablet,Delayed Release (Dr/Ec) 81 mg PO QAM 30 Days Qty: 30 RF: 0 warfarin 5 mg Tablet 5 mg PO DAILY@1600 Qty: 30 RF: 0 enoxaparin [Lovenox] 80 mg/0.8 mL Syringe 80 mg subcut Q12H 5 Days Qty: 8 RF: 0 Continued nitroglycerin 0.4 mg tablet, sublingual 0.4 mg sublingual Q5M PRN (Reason: chest pain) Qty: 25 RF: 4 atorvastatin 40 mg tablet 40 mg PO HS Qty: 90 RF: 3 albuterol sulfate 90 mcg/actuation HFA aerosol inhaler 2 puff INHALATION QID PRN (Reason: Shortness Of Breath Or Wheezing) RF: 0 isosorbide mononitrate 30 mg tablet extended release 24 hr 30 mg PO QAM RF: 0 metoprolol succinate 100 mg tablet extended release 24 hr 100 mg PO QAM RF: 0 acetaminophen [Tylenol Extra Strength] 500 mg Tablet 1,000 mg PO TID PRN (Reason: Pain) RF: 0 levothyroxine 50 mcg tablet 50 mcg PO DAILYBB RF: 0 fluticasone furoate-vilanterol [Breo Ellipta] 100-25 mcg/dose blister with device 1 ea INHALATION QAM RF: 0 Discontinued Eliquis 5 mg tablet 5 mg PO BID RF: 0 Discharge Orders: Discharge Order (Routine); Ordered 11/11/21 Ordered By: Mounika Lagunas/Other Patient Handouts: What to Know When TakingWarfarin Admission Data Admit Date/Time: 11/06/21 18:13 Attending Provider: Mounika Billings I. Admit Provider: Sergio Herrera Primary Care Provider: Mary Anne Evans Other Providers: Sergio Herrera ; Georgia Lucas ; Dat Carson ; [facility] Other Interventions: Discharge Summary Assessment (RN) Last Done: 11/11/21 14:42
== END 2021-11-11 15:18 | DRG 64 ==
LOC: ED 14:15 → SUATTDRO 18:13 → 2N 18:13

== ENCOUNTER 2021-11-14 13:08 | Inpatient (IN) ==
[2021-11-14] MEDS ORDERED: OPTIRAY 320 125ml IV ONE (13:13)
[2021-11-14] MEDS ORDERED: SODIUM CHLORIDE 0.9% 1000ML 1,000 ML IV SCH (13:15)
[2021-11-14 13:27] LABS: Basophils # (auto) 0.03 K/uL (0-0.2); Basophils % (auto) 0.4 %; Eosinophils # (auto) 0.11 K/uL (0-0.50); Eosinophils % (auto) 1.6 %; Hematocrit (blood only) 35.3 % (34.1-44.9); Hemoglobin 11.2 g/dl (12.0-16.0); Immature Granulocytes # (auto) 0.02 K/uL (0.00-0.02); Immature Granulocytes % (auto) 0.3 %; Lymphocytes # (auto) 1.44 K/uL (1.2-3.4); Lymphocytes % (auto) 20.5 %; Mean Corpuscular Hemoglobin 31.3 pg (25.0-34.0); Mean Corpuscular Hgb Conc 31.7 g/dL (32.0-36.0); Mean Corpuscular Volume 98.6 fL (80.0-100.0); Mean Platelet Volume 9.8 fL (9.4-12.3); Monocytes # (auto) 0.87 K/uL (0.24-0.82); Monocytes % (auto) 12.4 %; Neutrophils # (auto) 4.56 K/uL (1.4-6.5); Neutrophils % (auto) 64.8 %; Platelet Count 224 K/uL (130-400); RDW Coefficient of Variation 13.6 % (11.5-14.5); RDW Standard Deviation 49.1 fL (36.4-46.3); Red Blood Count 3.58 M/uL (3.93-5.22); White Blood Count 7.03 K/ul (4.8-10.8)
--- NOTE | 2021-11-14 13:34 | Emergency Department Note ---
History of Present Illness General Chief complaint: Stroke Alert Stated complaint: STROKE SX, STROKE ALERT Source: patient, EMS and old records reviewed Mode of arrival: EMS Limitations: no limitations History of Present Illness Provider complaint: difficulty speaking, right sided weakness THis is an 86 yo female who presents via EMS with difficulty speaking and increased right sided weakness. EMS contacted medical command and patient was a stroke alert and immediately went to CT. EMS reported at bedside that symptoms were improving and pt had CVA 2 weeks ago and was in a rehab facility for this. VS stable and prehospital glucose check reassuring. On my review of EMR while pt in CT, confirmed CVA on CT and MRI 2 weeks ago. Residual right sided weakness at time of discharge. ON my evaluation, patient states overnight/early this am she felt unsteady even while seated but she didn't noted the increased weakness or speech difficulty until between 11:30 and noon when family came and she was unable to speak with them normally. Patient states she could think of the words but struggled to say them. She denied headache or nausea, denied vision changes. On arrival here, pt reports she feels her speech is almost completely back to normal and weakness on right sided has returned to her new baseline since the stroke. Patient was converted from Eliquis to coumadin at discharge, however accompanying records show last INR 1.8. Pt seen during a time of high acuity and national emergency pandemic while wearing PPE. Home Medications Medication Instructions Recorded Confirmed Type acetaminophen 500 mg tablet 1,000 mg PO TID PRN 08/21/20 11/14/21 History (Tylenol Extra Strength) levothyroxine 50 mcg tablet 50 mcg PO DAILYBB 08/21/20 11/14/21 History nitroglycerin 0.4 mg sublingual 0.4 mg SUBLINGUAL Q5M PRN #25 tab 03/13/21 11/14/21 Rx tablet albuterol sulfate 90 mcg/actuation 2 puff INHALATION QID PRN 04/26/21 11/14/21 History aerosol inhaler atorvastatin 40 mg tablet 40 mg PO HS #90 tab 06/01/21 11/14/21 Rx fluticasone furoate 100 1 ea INHALATION QAM 08/11/21 11/14/21 History mcg-vilanterol 25 mcg/dose inhalation powder (Breo Ellipta) isosorbide mononitrate 30 mg 30 mg PO QAM 11/06/21 11/14/21 History tablet,extended release 24 hr metoprolol succinate 100 mg 100 mg PO QAM 11/06/21 11/14/21 History tablet,extended release 24 hr amlodipine 5 mg tablet (Norvasc) 5 mg PO QAM 30 Days #30 tab 11/11/21 11/14/21 Rx aspirin 81 mg tablet,delayed 81 mg PO QAM 30 Days #30 tab 11/11/21 11/14/21 Rx release enoxaparin 80 mg/0.8 mL 80 mg SUBCUT Q12H 5 Days #8 ml 11/11/21 11/14/21 Rx subcutaneous syringe (Lovenox) warfarin 5 mg tablet 5 mg PO DAILY@1600 #30 tab 11/11/21 11/14/21 Rx Allergies Allergy/AdvReac Type Severity Reaction Status Date / Time niacin Allergy Intermediate hives Verified 11/06/21 17:15 Opioid Analgesics AdvReac Intermediate "gets very Uncoded 11/06/21 17:15 sick" Past Med/Surg History Medical History Anticoagulant long-term use Bilateral leg weakness Breast cancer Left breast s/p lumpectomy CAD (coronary artery disease) Cardiomyopathy, ischemic Resolved, LVEF 60% to 65% on Echo 06/16/21. Cerebrovascular disease Chest pain CKD (chronic kidney disease), stage III Coccygeal contusion Degenerative arthritis of left knee HLD (hyperlipidemia) HTN (hypertension) Hypothyroidism Paroxysmal atrial fibrillation Right hip pain TIA (transient ischemic attack) Surgical History History of appendectomy History of arthroplasty of both knees History of hip replacement, total History of hysterectomy S/P coronary artery stent placement Family History Brother Coronary heart disease Cancer Bladder cancer Sister Cancer Breast cancer Father Cancer Stomach cancer Daughter Cancer AML Other No family history of adverse response to anesthesia No family history of bleeding disorder Social History Smoking Status: Never smoker Second Hand Exposure: No; Do You Dip or Chew Tobacco: No; Hx Alcohol Use: No Hx Substance Use: No Preferred Language: Swazi Communication Ability: Effective Wound Treatment Rn Required: No Beliefs That Will Affect Care: None Current Living Situation: Rehab Current Living Situation Comment: [facility] How many Children do You have: 4 Other Information That Helps Us Care for You: No Feels Safe at Home: Yes Assistive Devices: Cane, Glasses and Walker Assistive Devices Comment: Glasses are with pt Review of Systems A total of 10 systems reviewed and were otherwise negative All systems reviewed & are unremarkable except as noted in HPI & below Physical Exam Vital Signs Vital Signs - 24 hr 11/14/21 13:17 11/14/21 13:41 11/14/21 14:03 Temperature Temperature Source Pulse Rate 66 Pulse Rate [Apical] 68 63 Pulse Rhythm [Apical] Pulse Strength [Apical] Respiratory Rate 18 18 18 Respiratory Effort / Characteristics Non-Labored Respiratory Depth Normal Blood Pressure 170/66 H Blood Pressure [Right Arm] 149/81 H 161/58 H Blood Pressure Mean 100 Blood Pressure Mean [Right Arm] 103 92 Blood Pressure Position [Right Arm] Pulse Oximetry 97 97 96 Oxygen Delivery Method Room Air Room Air Room Air Sepsis Recent Fever Within 48 Hours No Sepsis New/Unexplained Change in Mental Status No Sepsis Action Taken by Nursing No Action Required 11/14/21 14:22 Temperature 36.5 C Temperature Source Oral Pulse Rate Pulse Rate [Apical] 72 Pulse Rhythm [Apical] Regular Pulse Strength [Apical] Normal Respiratory Rate 16 Respiratory Effort / Characteristics Non-Labored Respiratory Depth Normal Blood Pressure Blood Pressure [Right Arm] 137/76 Blood Pressure Mean Blood Pressure Mean [Right Arm] 96 Blood Pressure Position [Right Arm] Lying Pulse Oximetry 94 Oxygen Delivery Method Room Air Sepsis Recent Fever Within 48 Hours Sepsis New/Unexplained Change in Mental Status Sepsis Action Taken by Nursing GENERAL: alert, well appearing, well nourished, no distress, non-toxic EYE EXAM: normal conjunctiva, PERRL and EOM's grossly intact, no nystagmus OROPHARYNX: no exudate, no erythema, lips, buccal mucosa, and tongue normal and mucous membranes are moist NECK: supple, no nuchal rigidity, no adenopathy, non-tender LUNGS: Clear to auscultation. Normal chest wall mechanics, no w/r/r HEART: no murmurs, S1 normal and S2 normal ABDOMEN: abdomen soft, non-tender, normo-active bowel sounds, no masses, no rebound or guarding. BACK: Back is symmetrical on inspection and there is no deformity, no midline tenderness, no CVA tenderness. SKIN: no rashes and no bruising UPPER EXTREMITIES: upper extremities are grossly normal. FROM, nml pulses b/l. LOWER EXTREMITIES: No pitting edema. FROM, nml pulses b/l. NEURO EXAM: Normal sensorium, cranial nerves II-XII grossly intact, normal speech, no facial droop, no gross weakness of arms, no gross weakness of legs. Right UE and LE fatigue easier and more quickly, weaker against resistance. No pronator drift. Gross sensation intact. Course Course 1340: DIscussed with Dr. Chun. Agrees patient does not at thrombolytic candidate due to recent confirmed stroke as well as use of anticoagulation. Given resolution of symptoms back to baseline, less likely a large vessel occlusion that would necessitate acute intervention such as thrombectomy. 1355: Pt updated on results. Administered Medications Amlodipine Besylate (Amlodipine Besylate 5 Mg Tab) 5 mg PO [facility] Stop: 12/15/21 08:59 Last Admin: 11/15/21 09:48 Dose: 5 mg Documented by: [id number] Aspirin (Aspirin 81 Mg Ectab) 81 mg PO [facility] Stop: 12/15/21 08:59 Last Admin: 11/15/21 09:48 Dose: 81 mg Documented by: [id number] Atorvastatin Calcium (Atorvastatin 40 Mg Tab) 40 mg PO [facility] Stop: 12/14/21 20:59 Last Admin: 11/14/21 21:21 Dose: 40 mg Documented by: [id number] Fluticasone/Vilanterol (Fluticasone/Vilanterol 100/25mcg 14 Puffs/Inhaler) 1 puffs INH [facility] Stop: 12/15/21 08:59 Last Admin: 11/15/21 09:48 Dose: 1 puffs Documented by: [id number] Isosorbide Mononitrate (Isosorbide Charles Extended Rel 30 Mg Tabcr) 30 mg PO [facility] Stop: 12/15/21 08:59 Last Admin: 11/15/21 09:48 Dose: 30 mg Documented by: [id number] Levothyroxine Sodium (Levothyroxine Sodium 50 Mcg Tablet) [facility] Stop: 12/15/21 06:29 Last Admin: 11/15/21 05:17 Dose: 50 mcg Documented by: [id number] Metoprolol Succinate (Metoprolol Succ 50mg Ext Rel Tab) 100 mg PO QAM [facility]AN[facility] Stop: 12/15/21 08:59 Last Admin: 11/15/21 09:48 Dose: 100 mg Documented by: [id number] Discontinued Medications Gadobutrol (Gadobutrol 10ml Vial) 8 ml IV ONCE ONE Stop: 11/14/21 23:15 Last Admin: 11/14/21 23:14 Dose: 8 ml Documented by: [id number] Sodium Chloride (Nss 1000ml) 1,000 mls @ 50 mls/hr IV .Q20H RANJEET Stop: 12/14/21 13:14 Last Infusion: 11/14/21 18:27 Dose: 0 mls/hr Documented by: [id number] Admin: 11/14/21 13:46 Dose: 50 mls/hr Documented by: [id number] Ioversol (Optiray 320 125ml) 120 ml IV ONCE ONE Stop: 11/14/21 13:14 Last Admin: 11/14/21 13:15 Dose: 120 ml Documented by: [id number] Lorazepam (Lorazepam 0.5 Mg Tab) 0.5 mg PO ONE ONE Stop: 11/14/21 21:01 Last Admin: 11/14/21 21:21 Dose: 0.5 mg Documented by: [id number] Warfarin Sodium (Warfarin Sod 5 Mg Tab) 5 mg PO NOW ONE Stop: 11/14/21 18:11 Last Admin: 11/14/21 19:25 Dose: 5 mg Documented by: [id number] Medical Decision Making Differential Diagnosis Differential Diagnosis includes but is not limited to ischemic Stroke, hemorrhagic stroke, bells palsy, mass, neoplasm, migraine headache, seizure, subarachnoid hemorrhage, TIA, and transient global amnesia. Medical Records Attestation: I reviewed the patient's medical records. Home Medications Current Medication List: was personally reviewed by me Laboratory Data Attestation: I reviewed the patient's lab results. Result diagrams: 11/15/21 07:26 11/15/21 07:26 Lab Results 11/14/21 11/14/21 11/14/21 Range/Units 13:18 13:18 13:18 WBC 7.03 (4.8-10.8) K/ul RBC 3.58 L (3.93-5.22) M/uL Hgb 11.2 L (12.0-16.0) g/dl Hct 35.3 (34.1-44.9) % MCV 98.6 (80.0-100.0) fL MCH 31.3 (25.0-34.0) pg MCHC 31.7 L (32.0-36.0) g/dL RDW Std Deviation 49.1 H (36.4-46.3) fL RDW Coeff of Dylon 13.6 (11.5-14.5) % Plt Count 224 (130-400) K/uL MPV 9.8 (9.4-12.3) fL Immature Gran % (Auto) 0.3 % Neut % (Auto) 64.8 % Lymph % (Auto) 20.5 % Charles % (Auto) 12.4 % Eos % (Auto) 1.6 % Baso % (Auto) 0.4 % Neut # (Auto) 4.56 (1.4-6.5) K/uL Lymph # (Auto) 1.44 (1.2-3.4) K/uL Charles # (Auto) 0.87 H (0.24-0.82) K/uL Eos # (Auto) 0.11 (0-0.50) K/uL Baso # (Auto) 0.03 (0-0.2) K/uL Immature Gran # (Auto) 0.02 (0.00-0.02) K/uL PT 26.6 H (9.0-12.0) Seconds POC INR (0.9-1.1) INR 2.6 H (0.9-1.1) APTT 48.5 H* (21.0-31.0) Seconds PTT Ratio 1.8 Heparin Anti-Xa, LM Wt > 1.50 (< 0.10) IU/ML Sodium (136-145) mmol/L Potassium (3.5-5.1) mmol/L Chloride (98-107) mmol/L Carbon Dioxide (21-32) mmol/L Anion Gap (3-11) BUN (6-23) mg/dl Creatinine (0.6-1.2) mg/dl Est Cr Clr Drug Dosing ml/min Est GFR ( Amer) ml/min Est GFR (Non-Af Amer) ml/min BUN/Creatinine Ratio (10-20) Glucose (70-99(Fasting)) mg/dl POC Glucose (70-99) mg/dl Calcium (8.5-10.1) mg/dl Magnesium (1.7-2.4) mg/dl Total Bilirubin (0.2-1.0) mg/dl AST (13-39) U/L ALT (7-52) U/L Alkaline Phosphatase (34-104) U/L Troponin I High Sens (0-14) pg/ml Total Protein (6.0-8.3) gm/dl Albumin (3.4-5.0) gm/dl Globulin (2.5-4.0) gm/dl Albumin/Globulin Ratio (0.9-2) Urine Color Urine Appearance (Clear) Urine pH (4.5-7.5) Ur Specific Sumner (1.000-1.030) Urine Protein (Negative) Urine Glucose (UA) (Negative) Urine Ketones (Negative) Urine Blood (Negative) Urine Nitrite (Negative) Urine Bilirubin (Negative) Urine Urobilinogen (Negative) Ur Leukocyte Esterase (Negative) Urine WBC (Auto) (0-5) /hpf Urine RBC (Auto) (0-4) /hpf U Hyaline Cast (Auto) (0-5) /lpf U Epithel Cells (Auto) (0-5) /lpf Urine Bacteria (Auto) (Negative) SARS-CoV-2, RNA, NAAT (NEGATIVE) Blood Type O Positive Antibody Screen NEGATIVE 11/14/21 11/14/21 11/14/21 Range/Units 13:18 13:24 13:39 WBC (4.8-10.8) K/ul RBC (3.93-5.22) M/uL Hgb (12.0-16.0) g/dl Hct (34.1-44.9) % MCV (80.0-100.0) fL MCH (25.0-34.0) pg MCHC (32.0-36.0) g/dL RDW Std Deviation (36.4-46.3) fL RDW Coeff of Dylon (11.5-14.5) % Plt Count (130-400) K/uL MPV (9.4-12.3) fL Immature Gran % (Auto) % Neut % (Auto) % Lymph % (Auto) % Charles % (Auto) % Eos % (Auto) % Baso % (Auto) % Neut # (Auto) (1.4-6.5) K/uL Lymph # (Auto) (1.2-3.4) K/uL Charles # (Auto) (0.24-0.82) K/uL Eos # (Auto) (0-0.50) K/uL Baso # (Auto) (0-0.2) K/uL Immature Gran # (Auto) (0.00-0.02) K/uL PT (9.0-12.0) Seconds POC INR 2.5 H (0.9-1.1) INR (0.9-1.1) APTT (21.0-31.0) Seconds PTT Ratio Heparin Anti-Xa, LM Wt (< 0.10) IU/ML Sodium 132 L (136-145) mmol/L Potassium 4.6 (3.5-5.1) mmol/L Chloride 101 (98-107) mmol/L Carbon Dioxide 26 (21-32) mmol/L Anion Gap 5 (3-11) BUN 27 H (6-23) mg/dl Creatinine 0.94 (0.6-1.2) mg/dl Est Cr Clr Drug Dosing 42.7 ml/min Est GFR ( Amer) 62.8 ml/min Est GFR (Non-Af Amer) 54.2 ml/min BUN/Creatinine Ratio 28.7 H (10-20) Glucose 83 (70-99(Fasting)) mg/dl POC Glucose 77 (70-99) mg/dl Calcium 9.0 (8.5-10.1) mg/dl Magnesium 2.0 (1.7-2.4) mg/dl Total Bilirubin 0.4 (0.2-1.0) mg/dl AST 73 H (13-39) U/L ALT 95 H (7-52) U/L Alkaline Phosphatase 98 (34-104) U/L Troponin I High Sens 6.9 (0-14) pg/ml Total Protein 5.9 L (6.0-8.3) gm/dl Albumin 3.5 (3.4-5.0) gm/dl Globulin 2.4 L (2.5-4.0) gm/dl Albumin/Globulin Ratio 1.5 (0.9-2) Urine Color Urine Appearance (Clear) Urine pH (4.5-7.5) Ur Specific Sumner (1.000-1.030) Urine Protein (Negative) Urine Glucose (UA) (Negative) Urine Ketones (Negative) Urine Blood (Negative) Urine Nitrite (Negative) Urine Bilirubin (Negative) Urine Urobilinogen (Negative) Ur Leukocyte Esterase (Negative) Urine WBC (Auto) (0-5) /hpf Urine RBC (Auto) (0-4) /hpf U Hyaline Cast (Auto) (0-5) /lpf U Epithel Cells (Auto) (0-5) /lpf Urine Bacteria (Auto) (Negative) SARS-CoV-2, RNA, NAAT (NEGATIVE) Blood Type Antibody Screen 11/14/21 11/14/21 Range/Units 14:35 14:45 WBC (4.8-10.8) K/ul RBC (3.93-5.22) M/uL Hgb (12.0-16.0) g/dl Hct (34.1-44.9) % MCV (80.0-100.0) fL MCH (25.0-34.0) pg MCHC (32.0-36.0) g/dL RDW Std Deviation (36.4-46.3) fL RDW Coeff of Dylon (11.5-14.5) % Plt Count (130-400) K/uL MPV (9.4-12.3) fL Immature Gran % (Auto) % Neut % (Auto) % Lymph % (Auto) % Charles % (Auto) % Eos % (Auto) % Baso % (Auto) % Neut # (Auto) (1.4-6.5) K/uL Lymph # (Auto) (1.2-3.4) K/uL Charles # (Auto) (0.24-0.82) K/uL Eos # (Auto) (0-0.50) K/uL Baso # (Auto) (0-0.2) K/uL Immature Gran # (Auto) (0.00-0.02) K/uL PT (9.0-12.0) Seconds POC INR (0.9-1.1) INR (0.9-1.1) APTT (21.0-31.0) Seconds PTT Ratio Heparin Anti-Xa, LM Wt (< 0.10) IU/ML Sodium (136-145) mmol/L Potassium (3.5-5.1) mmol/L Chloride (98-107) mmol/L Carbon Dioxide (21-32) mmol/L Anion Gap (3-11) BUN (6-23) mg/dl Creatinine (0.6-1.2) mg/dl Est Cr Clr Drug Dosing ml/min Est GFR ( Amer) ml/min Est GFR (Non-Af Amer) ml/min BUN/Creatinine Ratio (10-20) Glucose (70-99(Fasting)) mg/dl POC Glucose (70-99) mg/dl Calcium (8.5-10.1) mg/dl Magnesium (1.7-2.4) mg/dl Total Bilirubin (0.2-1.0) mg/dl AST (13-39) U/L ALT (7-52) U/L Alkaline Phosphatase (34-104) U/L Troponin I High Sens (0-14) pg/ml Total Protein (6.0-8.3) gm/dl Albumin (3.4-5.0) gm/dl Globulin (2.5-4.0) gm/dl Albumin/Globulin Ratio (0.9-2) Urine Color Yellow Urine Appearance Clear (Clear) Urine pH 6.5 (4.5-7.5) Ur Specific Sumner 1.035 H (1.000-1.030) Urine Protein Negative (Negative) Urine Glucose (UA) Negative (Negative) Urine Ketones Negative (Negative) Urine Blood Negative (Negative) Urine Nitrite Negative (Negative) Urine Bilirubin Negative (Negative) Urine Urobilinogen Negative (Negative) Ur Leukocyte Esterase 1+ H (Negative) Urine WBC (Auto) 5-10 H (0-5) /hpf Urine RBC (Auto) 0-4 (0-4) /hpf U Hyaline Cast (Auto) 0 (0-5) /lpf U Epithel Cells (Auto) 20-30 H (0-5) /lpf Urine Bacteria (Auto) Negative (Negative) SARS-CoV-2, RNA, NAAT NEGATIVE (NEGATIVE) Blood Type Antibody Screen Imaging Data Radiologist's Impression: XR chest 1V portable CLINICAL HISTORY: Stroke Like Symptoms TECHNIQUE: Single frontal radiograph of the chest was obtained. Comparison: Comparison is made to chest radiograph 11/06/2021 FINDINGS: No lines and tubes are seen. Cardiomegaly is noted. The lungs are clear. No evidence of pleural effusion or pneumothorax. IMPRESSION: No acute chest disease. ACT 112: Negative or not required by law. Electronically signed by: Jaxon Leiva M.D. 11/14/2021 1:[address] angio neck with con, CT head/brain wo con, CT angio head w con CLINICAL HISTORY: Stroke Like Symptoms TECHNIQUE: Contiguous axial CT images of the head were acquired from the base of the skull to the vertex without intravenous contrast administration. CT angiography of the head and neck was performed following intravenous administration of iodinated contrast. Coronal and sagittal MIPS were obtained from the axial data set and were submitted for review. Automated dose lowering techniques and/or adjustment according to patient size were utilized for this examination. All measurements were calculated based on NASCET criteria. CT DOSE: 1079.13 mGy.cm Comparison: Comparison is made to CT head 11/06/2021 FINDINGS: CT head: Areas of decreased attenuation are present in the periventricular and subcortical white matter bilaterally consistent with small vessel ischemic disease. Generalized cerebral atrophy with commensurate enlargement of the ventricles, sulci, and cisterns is also present. There is no acute intracranial hemorrhage or evidence of acute territorial infarction. No shift of the midline structures, mass effect, or extra-axial abnormalities are shown. Atherosclerotic calcifications are present in the intracranial segments of the internal carotid arteries. Lungs and soft tissues are unremarkable. CTA Neck: A 3 vessel aortic arch is shown. There is no significant atherosclerotic plaque in the aortic arch or the origins of the innominate, left common carotid, and left subclavian arteries. The common carotid, external carotid, cervical segments of the internal carotid arteries, and the cervical segments of the vertebral arteries are patent without hemodynamically significant stenosis. The left vertebral artery is dominant. Incidental note is made of tortuosity of the right vertebral artery. CTA Head: The anterior and posterior cerebral circulations are patent. No hemodynamically significant stenosis, aneurysm, dissection, or arteriovenous malformation is shown. Nonhemodynamically significant stenosis is seen in the right supraclinoid ICA. There is interruption of the left A2 segment, unchanged from prior exam. Stenosis at the left [employer] origin from the MCA is unchanged from the prior exam. Mild narrowing of the right P1 segment is less pronounced than on prior exam Atherosclerotic disease is noted. Focal filling defect in the left transverse sinus is unchanged from prior exam. IMPRESSION: 1. No acute intracranial hemorrhage, evidence of acute territorial infarction, or other acute intracranial disease process. 2. Multifocal stenoses in the cerebral arteries again noted most prominent in the left A2 segment and left P1 segment. Filling defect in the left transverse sinus is unchanged from prior exam, may represent nonocclusive sinus thrombus or anatomic variant. 3. No occlusion, hemodynamically significant stenosis, or dissection in the major cervical arteries. Assessment of stenosis of the internal carotid arteries is based on NASCET criteria. ACT 112: Negative or not required by law. Electronically signed by: Jaxon Leiva M.D. 11/14/2021 1:56 PM ECG Data Attestation: I personally reviewed and interpreted this ECG as follows: Indication: + other Rate (beats per minute): 65 Rhythm: + normal sinus ECG Intervals/blocks: + First degree AV block, + Normal QRS and + Normal QT ECG Hellier: + Normal ECG ST segments: + Nonspecific ST abnormalities MDM Narrative An order was placed for continuous cardiac monitoring. The monitor shows a rate of _70_ with __normal sinus_ rhythm. This is an 86 yo female brought by EMS from rehab with hx of recent CVA who presents for recurrent stroke like symptoms. Stroke alert called prehospital. Symptoms almost entirely resolved by arrival here. CT/CTA reassuring. INR now therapeutic at 2.5. Patient is not a candidate for TNK/tPA or intervention. CAse discussed with [facility] tele neurology. Mild dehydration noted. BP improved without intervention here. No ectopy or dysrhythmia on tele. We discussed all results and case discussed with hospitalist. Patient is already take ASA daily. Impression & Plan Stroke-like symptoms, Dehydration Discharge Plan Visit Data Chief Complaint: Stroke Alert Stated Complaint: STROKE SX, STROKE ALERT Discharge Problem: Stroke-like symptoms, Dehydration Patient Disposition: Admitted As Inpatient Discharge Instructions Interventions: ED Discharge Assessment Last Done: 11/14/21 16:12
[2021-11-14 13:47] LABS: Albumin Globulin Ratio 1.5 (0.9-2); Albumin Level 3.5 gm/dl (3.4-5.0); BUN Creatinine Ratio 28.7 (10-20); Bilirubin,Total 0.4 mg/dl (0.2-1.0); Creatinine Clr Calc Pharmacy 42.7 ml/min; Est GFR (African American) 62.8 ml/min; Est GFR (Non-African American) 54.2 ml/min; Globulin 2.4 gm/dl (2.5-4.0); Potassium 4.6 mmol/L (3.5-5.1); Total Protein 5.9 gm/dl (6.0-8.3)
[2021-11-14 13:52] LABS: Troponin I High Sensitivity 6.9 pg/ml (0-14)
--- NOTE | 2021-11-14 13:58 | XRay Report ---
XR chest 1V portable CLINICAL HISTORY: Stroke Like Symptoms TECHNIQUE: Single frontal radiograph of the chest was obtained. Comparison: Comparison is made to chest radiograph 11/06/2021 FINDINGS: No lines and tubes are seen. Cardiomegaly is noted. The lungs are clear. No evidence of pleural effus ion or pneumothorax. IMPRESSION: No acute chest disease. ACT 112: Negative or not required by law. Electronically signed by: Jaxon Leiva M.D. 11/14/2021 1:57 PM
--- NOTE | 2021-11-14 13:58 | CT Scan Report ---
CT angio neck with con, CT head/brain wo con, CT angio head w con CLINICAL HISTORY: Stroke Like Symptoms TECHNIQUE: Contiguous axial CT images of the head were acquired from the base of the skull to the freddy zhen without intravenous contrast administration. CT angiography of the head and neck was performed f ollowing intravenous administration of iodinated contrast. Coronal and sagittal MIPS were obtained fr om the axial data set and were submitted for review. Automated dose lowering techniques and/or adjus tment according to patient size were utilized for this examination. All measurements were calculated based on NASCET criteria. CT DOSE: 1079.13 mGy.cm Comparison: Comparison is made to CT head 11/06/2021 FINDINGS: CT head: Areas of decreased attenuation are present in the periventricular and subcortical white clotilde er bilaterally consistent with small vessel ischemic disease. Generalized cerebral atrophy with comme nsurate enlargement of the ventricles, sulci, and cisterns is also present. There is no acute intracr anial hemorrhage or evidence of acute territorial infarction. No shift of the midline structures, mas s effect, or extra-axial abnormalities are shown. Atherosclerotic calcifications are present in the intracranial segments of the internal carotid arteries. Lungs and soft tissues are unremarkable. CTA Neck: A 3 vessel aortic arch is shown. There is no significant atherosclerotic plaque in the aor tic arch or the origins of the innominate, left common carotid, and left subclavian arteries. The c ommon carotid, external carotid, cervical segments of the internal carotid arteries, and the cervical segments of the vertebral arteries are patent without hemodynamically significant stenosis. The left vertebral artery is dominant. Incidental note is made of tortuosity of the right vertebral artery. CTA Head: The anterior and posterior cerebral circulations are patent. No hemodynamically significan t stenosis, aneurysm, dissection, or arteriovenous malformation is shown. Nonhemodynamically signific ant stenosis is seen in the right supraclinoid ICA. There is interruption of the left A2 segment, unc hanged from prior exam. Stenosis at the left CURRICULUM ASSISTANT PRINCIPAL origin from the MCA is unchanged from the prior exam . Mild narrowing of the right P1 segment is less pronounced than on prior exam Atherosclerotic diseas e is noted. Focal filling defect in the left transverse sinus is unchanged from prior exam. IMPRESSION: 1. No acute intracranial hemorrhage, evidence of acute territorial infarction, or other acute intrac ranial disease process. 2. Multifocal stenoses in the cerebral arteries again noted most prominent in the left A2 segment an d left P1 segment. Filling defect in the left transverse sinus is unchanged from prior exam, may repr esent nonocclusive sinus thrombus or anatomic variant. 3. No occlusion, hemodynamically significant stenosis, or dissection in the major cervical arteries. Assessment of stenosis of the internal carotid arteries is based on NASCET criteria. ACT 112: Negative or not required by law. Electronically signed by: Jaxon Leiva M.D. 11/14/2021 1:56 PM
[2021-11-14 14:12] LABS: INR 2.6 (0.9-1.1); Partial Thromboplastin Ratio 1.8; Prothrombin Time 26.6 Seconds (9.0-12.0)
[2021-11-14 14:15] LABS: Partial Thromboplastin Time 48.5 Seconds (21.0-31.0)
[2021-11-14 15:10] LABS: Appearance Urine Clear (Clear); Bacteria Urine Automated Negative (Negative); Bilirubin Urine Negative (Negative); Blood Urine Negative (Negative); Cast Urine Automated 0 /lpf (0-5); Color Urine Yellow; Epithelial Cell Urine Auto 20-30 /lpf (0-5); Glucose Urine UA Negative (Negative); Ketones Urine Negative (Negative); Leukocyte Esterase Urine 1+ (Negative); Nitrite Urine Negative (Negative); Protein Urine Negative (Negative); RBC Urine Automated 0-4 /hpf (0-4); Specific Gravity Urine 1.035 (1.000-1.030); Urobilinogen Urine Negative (Negative); pH Urine 6.5 (4.5-7.5)
--- NOTE | 2021-11-14 15:14 | History & Physical Report ---
Date of Service November 14, 2021 Assessment & Plan (1) Expressive aphasia: (2) Cerebrovascular disease: (3) Anticoagulant long-term use: Plan: This is an 86yo F with a PMH of HTN, DLD, history of TIA in 2018, breast cancer, hypothyroidism, osteoarthritis, CKD 3, paroxysmal A. fib, ischemic cardiomyopathy, CAD s/p stent and recent admission for CVA and covid-19 infection who presents from [facility] for expressive aphasia. Was recently admitted at [facility] from 11/06-11/11/2021 for CVA. Was evaluated by neuro and cardiology, who felt that stroke was likely an embolic etiology. Anticoagulation was changed from Eliquis to Coumadin Expressive aphasia has since resolved CT head did not show any acute intracranial hemorrhage, acute territorial infarction CT angiogram head and neck noted multifocal stenosis in the cerebral arteries unchanged from prior exam on 11/06/2021, filling defect in left transverse sinus unchanged from prior exam which may represent nonocclusive sinus thrombosis or anatomic variant. No occlusion or hemodynamically significant stenosis or disse ction in the major cervical arteries Possible TIA MRI brain w/wo to evaluate for new infarcts Neuro consult Continue anticoagulation with coumadin INR is therapeutic at 2.6 today. Continue to monitor INR Continue ASA, statin PT/OT/speech evals Advance diet once passes dysphagia screen (4) Paroxysmal atrial fibrillation: Plan: Continue metoprolol succinate, anticoagulated with coumadin (5) COVID-19: Plan: Mild symptom of dry cough. Negative covid test today (6) CAD (coronary artery disease): (7) S/P coronary artery stent placement: Plan: Stable. Continue statin, metoprolol, aspirin, Imdur (8) Hypothyroidism: Plan: Continue levothyroxine (9) CKD (chronic kidney disease), stage III: Plan: Cr at baseline of 0.9. Continue to monitor with daily BMP DVT Ppx: coumadin Code status: FULL PCP: Cristina Dispo: Observation tele Patient seen in collaboration with Dr. Billings. Please see addendum. History of Present Illness Chief Complaint: stroke eval Primary Care Provider: Mary Anne Evans MD This is an 86yo F with a PMH of HTN, DLD, history of TIA in 2018, breast cancer, hypothyroidism, osteoarthritis, CKD 3, paroxysmal A. fib, ischemic cardiomyopathy, CAD s/p stent and recent admission for CVA and covid-19 infection who presents from [facility] for expressive aphasia. Patient was recently admitted at [facility] from 11/06-11/11/2021 for CVA. Was evaluated by neuro and cardiology and anticoagulation was changed from Eliquis to Coumadin. Patient was discharged to [facility] for rehab on warfarin with Lovenox bridging. Early this morning, patient was in recliner and felt she was being "pushed out of chair" and couldn't control her movements during that time. When on phone with son he noticed her speech was much slower than usual. Patient was thinking clearly and knew what she wanted to say but couldn't formulate words. Was sent to ED for further evaluation as a stroke alert. Symptoms resolved by time of arrival and telestroke evaluation. Tpa contraindicated due to anticoagulation. No worsening of R sided weakness that had been present on prior admission for CVA. Endorsing dry cough in setting of covid and lower back pain (chronic). No fever, chills, headache, lightheadedness, visual changes, CP, SOB, nausea, vomiting, abdominal pain, dysuria, diarrhea or constipation. Allergies Allergy/AdvReac Type Severity Reaction Status Date / Time niacin Allergy Intermediate hives Verified 11/06/21 17:15 Opioid Analgesics AdvReac Intermediate "gets very Uncoded 11/06/21 17:15 sick" Home Medications Medication Instructions Recorded Confirmed Type acetaminophen 500 mg tablet 1,000 mg PO TID PRN 08/21/20 11/06/21 History (Tylenol Extra Strength) levothyroxine 50 mcg tablet 50 mcg PO DAILYBB 08/21/20 11/06/21 History nitroglycerin 0.4 mg sublingual 0.4 mg SUBLINGUAL Q5M PRN #25 tab 03/13/21 11/06/21 Rx tablet albuterol sulfate 90 mcg/actuation 2 puff INHALATION QID PRN 04/26/21 11/06/21 History aerosol inhaler atorvastatin 40 mg tablet 40 mg PO HS #90 tab 06/01/21 11/06/21 Rx fluticasone furoate 100 1 ea INHALATION QAM 08/11/21 11/06/21 History mcg-vilanterol 25 mcg/dose inhalation powder (Breo Ellipta) isosorbide mononitrate 30 mg 30 mg PO QAM 11/06/21 11/06/21 History tablet,extended release 24 hr metoprolol succinate 100 mg 100 mg PO QAM 11/06/21 11/06/21 History tablet,extended release 24 hr amlodipine 5 mg tablet (Norvasc) 5 mg PO QAM 30 Days #30 tab 11/11/21 Rx aspirin 81 mg tablet,delayed 81 mg PO QAM 30 Days #30 tab 11/11/21 Rx release enoxaparin 80 mg/0.8 mL 80 mg SUBCUT Q12H 5 Days #8 ml 11/11/21 Rx subcutaneous syringe (Lovenox) warfarin 5 mg tablet 5 mg PO DAILY@1600 #30 tab 11/11/21 Rx Past Med/Surg History Medical History Anticoagulant long-term use Bilateral leg weakness Breast cancer Left breast s/p lumpectomy CAD (coronary artery disease) Cardiomyopathy, ischemic Resolved, LVEF 60% to 65% on Echo 06/16/21. Cerebrovascular disease Chest pain CKD (chronic kidney disease), stage III Coccygeal contusion Degenerative arthritis of left knee HLD (hyperlipidemia) HTN (hypertension) Hypothyroidism Paroxysmal atrial fibrillation Right hip pain TIA (transient ischemic attack) Surgical History History of appendectomy History of arthroplasty of both knees History of hip replacement, total History of hysterectomy S/P coronary artery stent placement Family History Brother Coronary heart disease Cancer Bladder cancer Sister Cancer Breast cancer Father Cancer Stomach cancer Daughter Cancer AML Other No family history of adverse response to anesthesia No family history of bleeding disorder Social History Smoking Status: Never smoker Second Hand Exposure: No; Do You Dip or Chew Tobacco: No; Hx Alcohol Use: No Hx Substance Use: No Preferred Language: Upper Sorbian Communication Ability: Effective Molded Grid And Parts Inspector Required: No Beliefs That Will Affect Care: None Current Living Situation: Rehab Current Living Situation Comment: [facility] How many Children do You have: 4 Other Information That Helps Us Care for You: No Feels Safe at Home: Yes Assistive Devices: Cane, Glasses and Walker Assistive Devices Comment: Glasses are with pt Review of Systems Review of Systems: At least ten systems reviewed and negative except as noted in the HPI. Physical Exam Physical Exam: Please see Dr. Billings's addendum for physical exam. Results & Data Results & Data ([facility]) Vital Signs (Past 12 Hours) Vital Signs Pulse Pulse Resp BP BP Pulse Ox 11/14/21 14:03 63 18 161/58 H 96 11/14/21 13:41 68 18 149/81 H 97 11/14/21 13:17 66 18 170/66 H 97 Laboratory Results Short CBC 11/14/21 11/14/21 Range/Units 13:18 13:18 WBC 7.03 (4.8-10.8) K/ul Hgb 11.2 L (12.0-16.0) g/dl Hct 35.3 (34.1-44.9) % Plt Count 224 (130-400) K/uL INR 2.6 H (0.9-1.1) BMP 11/14/21 13:18 Sodium 132 L Potassium 4.6 Chloride 101 Carbon Dioxide 26 BUN 27 H Creatinine 0.94 Glucose 83 Calcium 9.0 Liver Function 11/14/21 Range/Units 13:18 Total Bilirubin 0.4 (0.2-1.0) mg/dl AST 73 H (13-39) U/L ALT 95 H (7-52) U/L Alkaline Phosphatase 98 (34-104) U/L Albumin 3.5 (3.4-5.0) gm/dl Urine 11/14/21 Range/Units 14:35 Urine Color Yellow Urine Appearance Clear (Clear) Urine pH 6.5 (4.5-7.5) Ur Specific [place] 1.035 H (1.000-1.030) Urine Protein Negative (Negative) Urine Glucose (UA) Negative (Negative) Diagnostic Findings Chest X-Ray 11/14/21 13:06 XR chest 1V portable CLINICAL HISTORY: Stroke Like Symptoms TECHNIQUE: Single frontal radiograph of the chest was obtained. Comparison: Comparison is made to chest radiograph 11/06/2021 FINDINGS: No lines and tubes are seen. Cardiomegaly is noted. The lungs are clear. No evidence of pleural effusion or pneumothorax. IMPRESSION: No acute chest disease. ACT 112: Negative or not required by law. Electronically signed by: Jaxon Leiva M.D. 11/14/2021 1:[address] 11/14/21 13:06 CT angio neck with con, CT head/brain wo con, CT angio head w con CLINICAL HISTORY: Stroke Like Symptoms TECHNIQUE: Contiguous axial CT images of the head were acquired from the base of the skull to the vertex without intravenous contrast administration. CT angiography of the head and neck was performed following intravenous administration of iodinated contrast. Coronal and sagittal MIPS were obtained from the axial data set and were submitted for review. Automated dose lowering techniques and/or adjustment according to patient size were utilized for this examination. All measurements were calculated based on NASCET criteria. CT DOSE: 1079.13 mGy.cm Comparison: Comparison is made to CT head 11/06/2021 FINDINGS: CT head: Areas of decreased attenuation are present in the periventricular and subcortical white matter bilaterally consistent with small vessel ischemic disease. Generalized cerebral atrophy with commensurate enlargement of the ventricles, sulci, and cisterns is also present. There is no acute intracranial hemorrhage or evidence of acute territorial infarction. No shift of the midline structures, mass effect, or extra-axial abnormalities are shown. Atherosclerotic calcifications are present in the intracranial segments of the internal carotid arteries. Lungs and soft tissues are unremarkable. CTA Neck: A 3 vessel aortic arch is shown. There is no significant atherosclerotic plaque in the aortic arch or the origins of the innominate, left common carotid, and left subclavian arteries. The common carotid, external carotid, cervical segments of the internal carotid arteries, and the cervical segments of the vertebral arteries are patent without hemodynamically significant stenosis. The left vertebral artery is dominant. Incidental note is made of tortuosity of the right vertebral artery. CTA Head: The anterior and posterior cerebral circulations are patent. No hemodynamically significant stenosis, aneurysm, dissection, or arteriovenous malformation is shown. Nonhemodynamically significant stenosis is seen in the right supraclinoid ICA. There is interruption of the left A2 segment, unchanged from prior exam. Stenosis at the left STUNT PERFORMER origin from the MCA is unchanged from the prior exam. Mild narrowing of the right P1 segment is less pronounced than on prior exam Atherosclerotic disease is noted. Focal filling defect in the left transverse sinus is unchanged from prior exam. IMPRESSION: 1. No acute intracranial hemorrhage, evidence of acute territorial infarction, or other acute intracranial disease process. 2. Multifocal stenoses in the cerebral arteries again noted most prominent in the left A2 segment and left P1 segment. Filling defect in the left transverse sinus is unchanged from prior exam, may represent nonocclusive sinus thrombus or anatomic variant. 3. No occlusion, hemodynamically significant stenosis, or dissection in the major cervical arteries. Assessment of stenosis of the internal carotid arteries is based on NASCET criteria. ACT 112: Negative or not required by law. Electronically signed by: Jaxon Leiva M.D. 11/14/2021 1:56 PM Head CTA 11/14/21 13:06 CT angio neck with con, CT head/brain wo con, CT angio head w con CLINICAL HISTORY: Stroke Like Symptoms TECHNIQUE: Contiguous axial CT images of the head were acquired from the base of the skull to the vertex without intravenous contrast administration. CT angiog tor of the head and neck was performed following intravenous administration of iodinated contrast. Coronal and sagittal MIPS were obtained from the axial data set and were submitted for review. Automated dose lowering techniques and/or adjustment according to patient size were utilized for this examination. All measurements were calculated based on NASCET criteria. CT DOSE: 1079.13 mGy.cm Comparison: Comparison is made to CT head 11/06/2021 FINDINGS: CT head: Areas of decreased attenuation are present in the periventricular and subcortical white matter bilaterally consistent with small vessel ischemic disease. Generalized cerebral atrophy with commensurate enlargement of the ventricles, sulci, and cisterns is also present. There is no acute intracranial hemorrhage or evidence of acute territorial infarction. No shift of the midline structures, mass effect, or extra-axial abnormalities are shown. Atherosclerotic calcifications are present in the intracranial segments of the internal carotid arteries. Lungs and soft tissues are unremarkable. CTA Neck: A 3 vessel aortic arch is shown. There is no significant atherosclerotic plaque in the aortic arch or the origins of the innominate, left common carotid, and left subclavian arteries. The common carotid, external carotid, cervical segments of the internal carotid arteries, and the cervical segments of the vertebral arteries are patent without hemodynamically significant stenosis. The left vertebral artery is dominant. Incidental note is made of tortuosity of the right vertebral artery. CTA Head: The anterior and posterior cerebral circulations are patent. No hemodynamically significant stenosis, aneurysm, dissection, or arteriovenous malformation is shown. Nonhemodynamically significant stenosis is seen in the right supraclinoid ICA. There is interruption of the left A2 segment, unchanged from prior exam. Stenosis at the left STUNT PERFORMER origin from the MCA is unchanged from the prior exam. Mild narrowing of the right P1 segment is less pronounced than on prior exam Atherosclerotic disease is noted. Focal filling defect in the left transverse sinus is unchanged from prior exam. IMPRESSION: 1. No acute intracranial hemorrhage, evidence of acute territorial infarction, or other acute intracranial disease process. 2. Multifocal stenoses in the cerebral arteries again noted most prominent in the left A2 segment and left P1 segment. Filling defect in the left transverse sinus is unchanged from prior exam, may represent nonocclusive sinus thrombus or anatomic variant. 3. No occlusion, hemodynamically significant stenosis, or dissection in the major cervical arteries. Assessment of stenosis of the internal carotid arteries is based on NASCET criteria. ACT 112: Negative or not required by law. Electronically signed by: Jaxon Leiva M.D. 11/14/2021 1:56 PM Neck CTA 11/14/21 13:06 CT angio neck with con, CT head/brain wo con, CT angio head w con CLINICAL HISTORY: Stroke Like Symptoms TECHNIQUE: Contiguous axial CT images of the head were acquired from the base of the skull to the vertex without intravenous contrast administration. CT angiography of the head and neck was performed following intravenous administration of iodinated contrast. Coronal and sagittal MIPS were obtained from the axial data set and were submitted for review. Automated dose lowering techniques and/or adjustment according to patient size were utilized for this examination. All measurements were calculated based on NASCET criteria. CT DOSE: 1079.13 mGy.cm Comparison: Comparison is made to CT head 11/06/2021 FINDINGS: CT head: Areas of decreased attenuation are present in the periventricular and subcortical white matter bilaterally consistent with small vessel ischemic disease. Generalized cerebral atrophy with commensurate enlargement of the ventricles, sulci, and cisterns is also present. There is no acute intracranial hemorrhage or evidence of acute territorial infarction. No shift of the midline structures, mass effect, or extra-axial abnormalities are shown. Atherosclerotic calcifications are present in the intracranial segments of the internal carotid arteries. Lungs and soft tissues are unremarkable. CTA Neck: A 3 vessel aortic arch is shown. There is no significant atherosclerotic plaque in the aortic arch or the origins of the innominate, left common carotid, and left subclavian arteries. The common carotid, external carotid, cervical segments of the internal carotid arteries, and the cervical segments of the vertebral arteries are patent without hemodynamically significant stenosis. The left vertebral artery is dominant. Incidental note is made of tortuosity of the right vertebral artery. CTA Head: The anterior and posterior cerebral circulations are patent. No hemodynamically significant stenosis, aneurysm, dissection, or arteriovenous malformation is shown. Nonhemodynamically significant stenosis is seen in the right supraclinoid ICA. There is interruption of the left A2 segment, unchanged from prior exam. Stenosis at the left STUNT PERFORMER origin from the MCA is unchanged from the prior exam. Mild narrowing of the right P1 segment is less pronounced than on prior exam Atherosclerotic disease is noted. Focal filling defect in the left transverse sinus is unchanged from prior exam. IMPRESSION: 1. No acute intracranial hemorrhage, evidence of acute territorial infarction, or other acute intracranial disease process. 2. Multifocal stenoses in the cerebral arteries again noted most prominent in the left A2 segment and left P1 segment. Filling defect in the left transverse sinus is unchanged from prior exam, may represent nonocclusive sinus thrombus or anatomic variant. 3. No occlusion, hemodynamically significant stenosis, or dissection in the major cervical arteries. Assessment of stenosis of the internal carotid arteries is based on NASCET criteria. ACT 112: Negative or not required by law. Electronically signed by: Jaxon Leiva M.D. 11/14/2021 1:56 PM Code Status & VTE Plan VTE Prophylaxis Plan VTE Prophylaxis will be ordered: Yes Supervising Physician Co-Signing Physician Notes Date of Service: November 14, 2021 History and physical exam performed by me. History notable for 86-year-old woman with history of hypertension, dyslipidemia, TIA in 2018, breast cancer, hypothyroidism, osteoarthritis, CKD 3, paroxysmal A. fib with RVR, ischemic cardiomyopathy, CAD status post stent who was initially hospitalized from 11/06/2021 to 11/11/2021 for CVA and COVID-19 infection. During hospital stay, she was evaluated by neurology and cardiology and her home Eliquis was changed to warfarin due to stroke likely embolic while on Eliquis. Patient was discharged to [facility] for rehab on warfarin with Lovenox bridging. Reported today that she started feeling unsteady this morning, felt like somebody is pushing her. And when daughter was visiting she started having word finding difficulty. This necessitated transfer to the ER for evaluation for possible stroke. The time of my evaluation, all symptoms have resolved. Review of system notable for mild cough similar to time of discharge, chronic back pain On exam, General: Elderly woman, well hydrated, no acute distres Eyes: PERRL, conjunctivae normal, not pale, anicteric sclerae, EOM intact bilaterally ENMT: External ear and nose normal, oropharynx normal Respiratory: Normal respiratory effort, no respiratory distress, lungs clear to auscultation, no crackles and no wheezes Cardiovascular: RRR S1 S2 Gastrointestinal (Abdomen): Abdomen is not distended, soft, non-tender to palpation, no guarding, no palpable hepatosplenomegaly, normal bowel sounds Musculoskeletal: No pedal edema Genitourinary: No CVA tenderness Neurologic: PERRL, EOMI, Power is equal on both sides, fine touch intact, Speech is normal Psychiatric: Alert and oriented x 3, euthymic affect Labs are notable for hemoglobin of 11.2, INR of 2.6, sodium of 132, AST of 73 and ALT of 95. COVID is negative today CT head did not show any acute intracranial hemorrhage, acute territorial infarction. CT angiogram head and neck noted multifocal stenosis in the cerebral arteries unchanged from prior exam on 11/06/2021, filling defect in left transverse sinus unchanged from prior exam which may represent nonocclusive sinus thrombosis or anatomic variant. No occlusion or hemodynamically significant stenosis or dissection in the major cervical arteries Stroke like symptoms Possible TIA Rule out new infarcts Currently back to baseline Get MRI brain Neuro consult INR is therapeutic Continue warfarin and monitor INR Continue ASA, statin UA noted +1 leuk esterase, 5-10WBC. Get Urine culture Agree with other plans as detailed by Shantal Whittaker PA-C
[2021-11-14] MEDS ORDERED: ACETAMINOPHEN 325 MG TAB PO PRN (16:34)
[2021-11-14] MEDS ORDERED: POLYETHYLENE (MIRALAX) 17 GM PACK PO PRN (16:34)
[2021-11-14] MEDS ORDERED: ONDANSETRON INJ 2 MG/ML 2 ML VIAL IV PRN (16:34)
[2021-11-14] MEDS ORDERED: PHARMACIST DISCHARGE MED REC CONSULT PRN (16:34)
--- NOTE | 2021-11-14 17:33 | Communication Note ---
Date of Service: November 14, 2021 History and physical exam performed by me. History notable for 86-year-old woman with history of hypertension, dyslipidemia, TIA in 2018, breast cancer, hypothyroidism, osteoarthritis, CKD 3, paroxysmal A. fib with RVR, ischemic cardiomyopathy, CAD status post stent who was initially hospitalized from 11/06/2021 to 11/11/2021 for CVA and COVID-19 infection. During hospital stay, she was evaluated by neurology and cardiology and her home Eliquis was changed to warfarin due to stroke likely embolic while on Eliquis. Patient was discharged to [facility] for rehab on warfarin with Lovenox bridging. Reported today that she started feeling unsteady this morning, felt like somebody is pushing her. And when daughter was visiting she started having word finding difficulty. This necessitated transfer to the ER for evaluation for possible stroke. The time of my evaluation, all symptoms have resolved. Review of system notable for mild cough similar to time of discharge, chronic back pain On exam, General: Elderly woman, well hydrated, no acute distres Eyes: PERRL, conjunctivae normal, not pale, anicteric sclerae, EOM intact bilaterally ENMT: External ear and nose normal, oropharynx normal Respiratory: Normal respiratory effort, no respiratory distress, lungs clear to auscultation, no crackles and no wheezes Cardiovascular: RRR S1 S2 Gastrointestinal (Abdomen): Abdomen is not distended, soft, non-tender to palpation, no guarding, no palpable hepatosplenomegaly, normal bowel sounds Musculoskeletal: No pedal edema Genitourinary: No CVA tenderness Neurologic: PERRL, EOMI, Power is equal on both sides, fine touch intact, Speech is normal Psychiatric: Alert and oriented x 3, euthymic affect Labs are notable for hemoglobin of 11.2, INR of 2.6, sodium of 132, AST of 73 and ALT of 95. COVID is negative today CT head did not show any acute intracranial hemorrhage, acute territorial infarction. CT angiogram head and neck noted multifocal stenosis in the cerebral arteries unchanged from prior exam on 11/06/2021, filling defect in left transverse sinus unchanged from prior exam which may represent nonocclusive sinus thrombosis or anatomic variant. No occlusion or hemodynamically significant stenosis or dissection in the major cervical arteries Stroke like symptoms Possible TIA Rule out new infarcts Currently back to baseline Get MRI brain Neuro consult INR is therapeutic Continue warfarin and monitor INR Continue ASA, statin UA noted +1 leuk esterase, 5-10WBC. Get Urine culture Agree with other plans as detailed by Shantal Whittaker PA-C
[2021-11-14] MEDS ORDERED: WARFARIN SOD 5 MG TAB PO ONE (18:10)
[2021-11-14] MEDS ORDERED: ACETAMINOPHEN 500 MG TAB PO PRN (18:15)
[2021-11-14] MEDS ORDERED: NITROGLYCERIN SL 0.4 MG/TAB TAB SL PRN (18:15)
[2021-11-14] MEDS ORDERED: ALBUTEROL HFA 8 GM INHALER INH PRN (18:15)
[2021-11-14] MEDS ORDERED: LORazepam 0.5 MG TAB PO ONE (21:00)
[2021-11-14] MEDS: ATORVASTATIN 40 MG TAB PO SCH (21:21)
[2021-11-14] MEDS ORDERED: GADOBUTROL 10ML VIAL IV ONE (23:14)
[2021-11-15] MEDS: LEVOTHYROXINE SODIUM 50 MCG TABLET PO SCH (05:17)
[2021-11-15 07:52] LABS: Hematocrit (blood only) 38.4 % (34.1-44.9); Hemoglobin 12.3 g/dl (12.0-16.0); Mean Corpuscular Hemoglobin 31.4 pg (25.0-34.0); Mean Platelet Volume 10.2 fL (9.4-12.3); Platelet Count 232 K/uL (130-400); RDW Coefficient of Variation 13.8 % (11.5-14.5); RDW Standard Deviation 49.7 fL (36.4-46.3); Red Blood Count 3.92 M/uL (3.93-5.22); White Blood Count 6.34 K/ul (4.8-10.8)
[2021-11-15 08:17] LABS: INR 2.3 (0.9-1.1); Prothrombin Time 23.9 Seconds (9.0-12.0)
[2021-11-15 08:26] LABS: BUN Creatinine Ratio 27.6 (10-20); Calcium 9.5 mg/dl (8.5-10.1); Chol HDL Ratio 3.2 (0-5); Creatinine Clr Calc Pharmacy 45.1 ml/min; Est GFR (African American) 68.9 ml/min; Est GFR (Non-African American) 59.5 ml/min; Potassium 4.4 mmol/L (3.5-5.1)
[2021-11-15 08:38] LABS: Estimated Average Glucose 123 mg/dl; Hemoglobin A1C 5.9 % (4.5-5.6)
--- NOTE | 2021-11-15 09:03 | Magnetic Resonance Report ---
Brain MRI WITH AND WITHOUT CONTRAST HISTORY: recent stroke, recurrent symptoms TECHNIQUE: Multiplanar multisequence MRI of the brain was performed both before and after the intrave nous administration of contrast. COMPARISON STUDY: Brain MRI 11/07/2021. FINDINGS: Slight progression of the foci of restricted diffusion seen within the superomedial left fr ontal lobe and left aspect of the splenium of the corpus callosum consistent with acute infarcts. Dom inant focus within the left frontal lobe measures 2.8 cm. Edema associated with the acute infarcts win ve also slightly progressed. No midline shift. No intracranial hemorrhage identified. Patchy paravert ebral white matter T2 hyperintensity favors moderate to severe microvascular ischemic change. This is similar to the prior study. The major vascular flow-voids at the skull base are well-maintained. Par anasal sinuses and mastoid air cells are clear. Mild atrophic changes identified within the brain. No masses identified. Faint enhancement within the left ARMOND territory infarct likely corresponds to the acute to subacute changes. IMPRESSION: Interval progression of the small acute to subacute left ARMOND territory infarct as described above. ACT 112: Negative or not required by law. Electronically signed by: Michael Gibson M.D. 11/15/2021 9:00 AM
--- NOTE | 2021-11-15 09:15 | Neurology Consultation ---
Date of Consultation November 15, 2021 Assessment & Plan (1) Expressive aphasia: 1. continue aspirin 81 mg and Coumadin with therapeutic INR 2. PT/OT for any discharge needs 3. optimize HTN, HLD, DM LDL <70 but consider patients age 2. MRI is extension of previous stroke (2) Paroxysmal atrial fibrillation: 1. continue Coumadin with therapeutic INR (3) Right sided weakness: Supervising Physician Co-Signing Physician Notes An 86 yo F admitted with transient aphasia after recently being discharged with an left ARMOND stroke. Eliquis was stopped and started on Coumadin. INR is theraputic. She is also on ASA. Repeat MRI brain reviewed with Dr. Billings. My impresison is evolution of the previous stroke from 11/07/21. Recommend to continue ASA 81 mg daily and Coumadin with INR goal of 2-3. Recommend starting Keppra 250 mg BID for seizure prophylaxis. The transient aphasia may have be a focal seizure with post ical changes Vs decompensation from prior stroke. Will arrange EEG as outpatient when she follow up with Neurology. Plan to discharge back to Rehab tomorrow. History of Present Illness Reason for Consultation: Aphasia Requesting Physician: Mounika Billings MD Attending Physician: Mounika Billings MD History of Present Illness Farrah is an 86 year old female with a PMH - HTN, DLD, history of TIA in 2018, breast cancer, hypothyroidism, osteoarthritis, CKD 3, paroxysmal A. fib, ischemic cardiomyopathy, CAD s/p stent and recent admission for CVA and covid-19 infection who presents from [facility] for expressive aphasia to [facility] ED 11/15/21 She was recently admitted at [facility] from 11/06-11/11/2021 for CVA and evaluated by neuro and cardiology and anticoagulation was changed from Eliquis to Coumadin. She was discharged to [facility] for rehab on warfarin with Lovenox bridging. Early this morning, she was in recliner and felt she was being "pushed out of chair" and couldn't control her movements during that time. When on phone with son he noticed her speech was much slower than usual. She was thinking clearly and knew what she wanted to say but couldn't formulate words. Allergies Allergy/AdvReac Type Severity Reaction Status Date / Time niacin Allergy Intermediate hives Verified 11/06/21 17:15 Opioid Analgesics AdvReac Intermediate "gets very Uncoded 11/06/21 17:15 sick" Home Medications Medication Instructions Recorded Confirmed Type acetaminophen 500 mg tablet 1,000 mg PO TID PRN 08/21/20 11/14/21 History (Tylenol Extra Strength) levothyroxine 50 mcg tablet 50 mcg PO DAILYBB 08/21/20 11/14/21 History nitroglycerin 0.4 mg sublingual 0.4 mg SUBLINGUAL Q5M PRN #25 tab 03/13/21 11/14/21 Rx tablet albuterol sulfate 90 mcg/actuation 2 puff INHALATION QID PRN 04/26/21 11/14/21 History aerosol inhaler atorvastatin 40 mg tablet 40 mg PO HS #90 tab 06/01/21 11/14/21 Rx fluticasone furoate 100 1 ea INHALATION QAM 08/11/21 11/14/21 History mcg-vilanterol 25 mcg/dose inhalation powder (Breo Ellipta) isosorbide mononitrate 30 mg 30 mg PO QAM 11/06/21 11/14/21 History tablet,extended release 24 hr metoprolol succinate 100 mg 100 mg PO QAM 11/06/21 11/14/21 History tablet,extended release 24 hr amlodipine 5 mg tablet (Norvasc) 5 mg PO QAM 30 Days #30 tab 11/11/21 11/14/21 Rx aspirin 81 mg tablet,delayed 81 mg PO QAM 30 Days #30 tab 11/11/21 11/14/21 Rx release enoxaparin 80 mg/0.8 mL 80 mg SUBCUT Q12H 5 Days #8 ml 11/11/21 11/14/21 Rx subcutaneous syringe (Lovenox) warfarin 5 mg tablet 5 mg PO DAILY@1600 #30 tab 11/11/21 11/14/21 Rx Patient History Medical History Anticoagulant long-term use Bilateral leg weakness Breast cancer Left breast s/p lumpectomy CAD (coronary artery disease) Cardiomyopathy, ischemic Resolved, LVEF 60% to 65% on Echo 06/16/21. Cerebrovascular disease Chest pain CKD (chronic kidney disease), stage III Coccygeal contusion Degenerative arthritis of left knee HLD (hyperlipidemia) HTN (hypertension) Hypothyroidism Paroxysmal atrial fibrillation Right hip pain TIA (transient ischemic attack) Surgical History History of appendectomy History of arthroplasty of both knees History of hip replacement, total History of hysterectomy S/P coronary artery stent placement Family History Brother Coronary heart disease Cancer Bladder cancer Sister Cancer Breast cancer Father Cancer Stomach cancer Daughter Cancer AML Other No family history of adverse response to anesthesia No family history of bleeding disorder Social History Smoking Status: Never smoker Second Hand Exposure: No; Do You Dip or Chew Tobacco: No; Hx Alcohol Use: No Hx Substance Use: No Preferred Language: South Korean Communication Ability: Effective 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 She is back to [facility]. She is resting in the room this afternoon napping. Results & Data ([facility]) Vital Signs (Past 12 Hours) Vital Signs Temp Pulse Pulse Resp BP Pulse Ox 11/15/21 07:59 36.8 C 69 18 153/64 H 93 11/15/21 04:05 36.3 C L 63 16 130/74 96 11/14/21 23:49 36.8 C 66 18 148/80 H 97 11/14/21 23:00 61 Laboratory Results Abnormal lab results 11/14/21 11/14/21 11/14/21 Range/Units 13:18 13:18 13:18 RBC 3.58 L (3.93-5.22) M/uL Hgb 11.2 L (12.0-16.0) g/dl MCHC 31.7 L (32.0-36.0) g/dL RDW Std Deviation 49.1 H (36.4-46.3) fL Brantley # (Auto) 0.87 H (0.24-0.82) K/uL PT 26.6 H (9.0-12.0) Seconds INR 2.6 H (0.9-1.1) APTT 48.5 H* (21.0-31.0) Seconds Sodium 132 L (136-145) mmol/L BUN 27 H (6-23) mg/dl BUN/Creatinine Ratio 28.7 H (10-20) Hemoglobin A1c (4.5-5.6) % AST 73 H (13-39) U/L ALT 95 H (7-52) U/L Total Protein 5.9 L (6.0-8.3) gm/dl Globulin 2.4 L (2.5-4.0) gm/dl Ur Specific Cheney (1.000-1.030) Ur Leukocyte Esterase (Negative) Urine WBC (Auto) (0-5) /hpf U Epithel Cells (Auto) (0-5) /lpf 11/14/21 11/15/21 11/15/21 Range/Units 14:35 07:26 07:26 RBC 3.92 L (3.93-5.22) M/uL Hgb (12.0-16.0) g/dl MCHC (32.0-36.0) g/dL RDW Std Deviation 49.7 H (36.4-46.3) fL Brantley # (Auto) (0.24-0.82) K/uL PT (9.0-12.0) Seconds INR (0.9-1.1) APTT (21.0-31.0) Seconds Sodium (136-145) mmol/L BUN 24 H (6-23) mg/dl BUN/Creatinine Ratio 27.6 H (10-20) Hemoglobin A1c (4.5-5.6) % AST (13-39) U/L ALT (7-52) U/L Total Protein (6.0-8.3) gm/dl Globulin (2.5-4.0) gm/dl Ur Specific Cheney 1.035 H (1.000-1.030) Ur Leukocyte Esterase 1+ H (Negative) Urine WBC (Auto) 5-10 H (0-5) /hpf U Epithel Cells (Auto) 20-30 H (0-5) /lpf 11/15/21 11/15/21 Range/Units 07:26 07:26 RBC (3.93-5.22) M/uL Hgb (12.0-16.0) g/dl MCHC (32.0-36.0) g/dL RDW Std Deviation (36.4-46.3) fL Brantley # (Auto) (0.24-0.82) K/uL PT 23.9 H (9.0-12.0) Seconds INR 2.3 H (0.9-1.1) APTT (21.0-31.0) Seconds Sodium (136-145) mmol/L BUN (6-23) mg/dl BUN/Creatinine Ratio (10-20) Hemoglobin A1c 5.9 H (4.5-5.6) % AST (13-39) U/L ALT (7-52) U/L Total Protein (6.0-8.3) gm/dl Globulin (2.5-4.0) gm/dl Ur Specific Cheney (1.000-1.030) Ur Leukocyte Esterase (Negative) Urine WBC (Auto) (0-5) /hpf U Epithel Cells (Auto) (0-5) /lpf Diagnostic Findings CXR-No acute chest disease. CT head/CTA head/neck- No acute intracranial hemorrhage, evidence of acute territorial infarction, or other acute intracranial disease process. Multifocal stenoses in the cerebral arteries again noted most prominent in the left A2 segment and left P1 segment. Filling defect in the left transverse sinus is unchanged from prior exam, may represent nonocclusive sinus thrombus or anatomic variant. No occlusion, hemodynamically significant stenosis, or dissection in the major cervical arteries. MRI brain-Slight progression of the foci of restricted diffusion seen within the superomedial left frontal lobe and left aspect of the splenium of the corpus callosum consistent with acute infarcts. Dominant focus within the left frontal lobe measures 2.8 cm. Edema associated with the acute infarcts have also slightly progressed. No midline shift. No intracranial hemorrhage identified. Patchy paravertebral white matter T2 hyperintensity favors moderate to severe microvascular ischemic change. This is similar to the prior study. The major vascular flow-voids at the skull base are well-maintained. Paranasal sinuses and mastoid air cells are clear. Mild atrophic changes identified within the brain. No masses identified. Faint enhancement within the left ARMOND territory infarct likely corresponds to the acute to subacute changes.
[2021-11-15] MEDS: FLUTICASONE/VILANTEROL 100/25MCG 14 PUFFS/INHALER INH SCH (09:48)
[2021-11-15] MEDS: ASPIRIN 81 MG ECTAB PO SCH (09:48)
[2021-11-15] MEDS: ISOSORBIDE MONO EXTENDED REL 30 MG TABCR PO SCH (09:48)
[2021-11-15] MEDS: amLODIPine BESYLATE 5 MG TAB PO SCH (09:48)
[2021-11-15] MEDS: METOPROLOL SUCC 50MG EXT REL TAB PO SCH (09:48)
--- NOTE | 2021-11-15 12:51 | Electrocardiogram Report ---
Test Reason : Blood Pressure : / mmHG Vent. Rate : 065 BPM Atrial Rate : 065 BPM P-R Int : 210 ms QRS Dur : 092 ms QT Int : 428 ms P-R-T Axes : 017 -19 069 degrees QTc Int : 445 ms Sinus rhythm with 1st degree A-V block possible Inferior infarct (cited on or before 31-MAY-2004) Nonspecific ST abnormality Abnormal ECG When compared with ECG of 06-NOV-2021 15:00, AK interval has increased Confirmed by Can Olivas ([id number]) on 11/15/2021 12:50:36 PM Referred By: REFERRED SELF Confirmed By:Ashutosh Olivas
--- NOTE | 2021-11-15 13:03 | Hospitalist Progress Note ---
Date of Service November 15, 2021 Assessment & Plan (1) Expressive aphasia: (2) Cerebrovascular disease: (3) Anticoagulant long-term use: Plan: This is an 86yo F with a PMH of HTN, DLD, history of TIA in 2018, breast cancer, hypothyroidism, osteoarthritis, CKD 3, paroxysmal A. fib, ischemic cardiomyopathy, CAD s/p stent and recent admission for CVA and covid-19 infection who presents from [facility] for expressive aphasia. Was recently admitted at [facility] from 11/06-11/11/2021 for CVA. Was evaluated by neuro and cardiology, who felt that stroke was likely an embolic etiology. Anticoagulation was changed from Eliquis to Coumadin Expressive aphasia has since resolved CT head did not show any acute intracranial hemorrhage, acute territorial infarction CT angiogram head and neck noted multifocal stenosis in the cerebral arteries unchanged from prior exam on 11/06/2021, filling defect in left transverse sinus unchanged from prior exam which may represent nonocclusive sinus thrombosis or anatomic variant. No occlusion or hemodynamically significant stenosis or disse ction in the major cervical arteries MRI brain w/wo reported interval progression of actue to subacute left ARMOND territory infarct I reviewed the images with Dr Chairez Cannot rule out possible seizure as well Neurologist recommend starting keppra 250mg bid and to continue aspirin and warfarin Continue anticoagulation with coumadin INR is therapeutic at 2.3 today. Continue to monitor INR Continue ASA, statin PT/OT/speech evals noted (4) Paroxysmal atrial fibrillation: Plan: Continue metoprolol succinate, anticoagulated with coumadin (5) COVID-19: Plan: Mild symptom of dry cough. Negative covid test on admission (6) CAD (coronary artery disease): (7) S/P coronary artery stent placement: Plan: Stable. Continue statin, metoprolol, aspirin, Imdur (8) Hypothyroidism: Plan: Continue levothyroxine (9) CKD (chronic kidney disease), stage III: Plan: Cr at baseline of 0.87. Continue to monitor with daily BMP DVT Ppx: coumadin Code status: FULL PCP: Cristina Plan to dc back to rehab tomorrow Admission and Anticipated Discharge Date Admission Date: November 14, 2021 Subjective Patient seen and examined Reports no new symptoms today Reports still occasionally unsteady Denied any focal weakness or word finding difficulty today Denied any headache, dizziness, numbness Denied chest pain, palpitations. Reports mild occasional cough. Continuing to improve Denied any shortness of breath Denied nausea, vomiting,abd pain, diarrhea or constipation. RN reported overnight team noted a spot of blood on her pull. However, bowel movement this morning was normal Denied dysuria, freq, urgency, hematuria Denied fever or chills Physical Exam Physical Exam: General: Elderly woman, well hydrated, no acute distres Eyes: PERRL, conjunctivae normal, not pale, anicteric sclerae, EOM intact bilaterally ENMT: External ear and nose normal, oropharynx normal Respiratory: Normal respiratory effort, no respiratory distress, lungs clear to auscultation, no crackles and no wheezes Cardiovascular:RRR S1 S2 Gastrointestinal (Abdomen): Abdomen is not distended, soft, non-tender to palpation, no guarding, no palpable hepatosplenomegaly, normal bowel sounds Musculoskeletal:No pedal edema Genitourinary:No CVA tenderness Neurologic: PERRL, EOMI, Power is equal on both sides, fine touch intact, Speech is normal Psychiatric: Alert and oriented x 3, euthymic affect Results & Data Results & Data ([facility]) Vital Signs (Past 12 Hours) Vital Signs Temp Pulse Resp BP Pulse Ox 11/15/21 12:11 36.5 C 72 18 145/70 H 93 11/15/21 07:59 36.8 C 69 18 153/64 H 93 11/15/21 04:05 36.3 C L 63 16 130/74 96 Laboratory Results Abnormal lab results 11/14/21 11/15/21 11/15/21 Range/Units 13:39 07:26 07:26 RBC 3.92 L (3.93-5.22) M/uL RDW Std Deviation 49.7 H (36.4-46.3) fL PT (9.0-12.0) Seconds POC INR 2.5 H (0.9-1.1) INR (0.9-1.1) BUN 24 H (6-23) mg/dl BUN/Creatinine Ratio 27.6 H (10-20) Hemoglobin A1c (4.5-5.6) % 11/15/21 11/15/21 Range/Units 07:26 07:26 RBC (3.93-5.22) M/uL RDW Std Deviation (36.4-46.3) fL PT 23.9 H (9.0-12.0) Seconds POC INR (0.9-1.1) INR 2.3 H (0.9-1.1) BUN (6-23) mg/dl BUN/Creatinine Ratio (10-20) Hemoglobin A1c 5.9 H (4.5-5.6) % Diagnostic Findings BRAIN MRI Slight progression of the foci of restricted diffusion seen within the superomedial left frontal lobe and left aspect of the splenium of the corpus callosum consistent with acute infarcts. Dominant focus within the left frontal lobe measures 2.8 cm. Edema associated with the acute infarcts have also slightly progressed. No midline shift. No intracranial hemorrhage identified. Patchy paravertebral white matter T2 hyperintensity favors moderate to severe microvascular ischemic change. This is similar to the prior study. The major vascular flow-voids at the skull base are well-maintained. Paranasal sinuses and mastoid air cells are clear. Mild atrophic changes identified within the brain. No masses identified. Faint enhancement within the left ARMOND territory infarct likely corresponds to the acute to subacute changes. IMPRESSION: Interval progression of the small acute to subacute left ARMOND territory infarct as described above.
[2021-11-15] MEDS ORDERED: WARFARIN SOD 5 MG TAB PO SCH (16:00)
[2021-11-15] MEDS: WARFARIN SOD 5 MG TAB PO SCH (17:55)
[2021-11-15] MEDS: levETIRAcetam 250 MG TAB PO SCH (21:15)
[2021-11-15] MEDS: ATORVASTATIN 40 MG TAB PO SCH (21:15)
[2021-11-16] MEDS: LEVOTHYROXINE SODIUM 50 MCG TABLET PO SCH (06:06)
[2021-11-16 07:27] LABS: Hematocrit (blood only) 36.7 % (34.1-44.9); Hemoglobin 11.8 g/dl (12.0-16.0); Mean Corpuscular Hemoglobin 31.1 pg (25.0-34.0); Mean Corpuscular Hgb Conc 32.2 g/dL (32.0-36.0); Mean Corpuscular Volume 96.8 fL (80.0-100.0); Mean Platelet Volume 10.1 fL (9.4-12.3); Platelet Count 227 K/uL (130-400); RDW Coefficient of Variation 13.8 % (11.5-14.5); RDW Standard Deviation 48.9 fL (36.4-46.3); Red Blood Count 3.79 M/uL (3.93-5.22); White Blood Count 7.62 K/ul (4.8-10.8)
[2021-11-16 07:50] LABS: BUN Creatinine Ratio 26.4 (10-20); Calcium 9.4 mg/dl (8.5-10.1); Est GFR (African American) 54.3 ml/min; Est GFR (Non-African American) 46.8 ml/min; Potassium 4.2 mmol/L (3.5-5.1)
[2021-11-16] MEDS: ASPIRIN 81 MG ECTAB PO SCH (08:30)
[2021-11-16] MEDS: amLODIPine BESYLATE 5 MG TAB PO SCH (08:30)
[2021-11-16] MEDS: METOPROLOL SUCC 50MG EXT REL TAB PO SCH (08:31)
[2021-11-16] MEDS: FLUTICASONE/VILANTEROL 100/25MCG 14 PUFFS/INHALER INH SCH (08:31)
[2021-11-16] MEDS: levETIRAcetam 250 MG TAB PO SCH (08:31)
[2021-11-16] MEDS: ISOSORBIDE MONO EXTENDED REL 30 MG TABCR PO SCH (08:31)
[2021-11-16] MEDS ORDERED: STROKE PATIENT DISCHARGE STA (12:47)
--- NOTE | 2021-11-16 12:48 | Discharge Summary ---
Date of Service November 16, 2021 Admission HPI Per Admitting Provider This is an 86yo F with a PMH of HTN, DLD, history of TIA in 2018, breast cancer, hypothyroidism, osteoarthritis, CKD 3, paroxysmal A. fib, ischemic cardiomyopathy, CAD s/p stent and recent admission for CVA and covid-19 infection who presents from [facility] for expressive aphasia. Patient was recently admitted at [facility] from 11/06-11/11/2021 for CVA. Was evaluated by neuro and cardiology and anticoagulation was changed from Eliquis to Coumadin. Patient was discharged to [facility] for rehab on warfarin with Lovenox bridging. Early this morning, patient was in recliner and felt she was being "pushed out of chair" and couldn't control her movements during that time. When on phone with son he noticed her speech was much slower than usual. Patient was thinking clearly and knew what she wanted to say but couldn't formulate words. Was sent to ED for further evaluation as a stroke alert. Symptoms resolved by time of arrival and telestroke evaluation. Tpa contraindicated due to anticoagulation. No worsening of R sided weakness that had been present on prior admission for CVA. Endorsing dry cough in setting of covid and lower back pain (chronic). No fever, chills, headache, lightheadedness, visual changes, CP, SOB, nausea, vomiting, abdominal pain, dysuria, diarrhea or constipation. Admission Exam Per Admitting Provider General: Elderly woman, well hydrated, no acute distres Eyes: PERRL, conjunctivae normal, not pale, anicteric sclerae, EOM intact bilaterally ENMT: External ear and nose normal, oropharynx normal Respiratory: Normal respiratory effort, no respiratory distress, lungs clear to auscultation, no crackles and no wheezes Cardiovascular: RRR S1 S2 Gastrointestinal (Abdomen): Abdomen is not distended, soft, non-tender to palpation, no guarding, no palpable hepatosplenomegaly, normal bowel sounds Musculoskeletal: No pedal edema Genitourinary: No CVA tenderness Neurologic: PERRL, EOMI, Power is equal on both sides, fine touch intact, Speech is normal Psychiatric: Alert and oriented x 3, euthymic affect Principal Diagnosis Recent acute to subacute stroke (evolving) Recent COVID infection Discharge Exam General: Elderly woman, well hydrated, no acute distress, weak Eyes: PERRL, conjunctivae normal, not pale, anicteric sclerae, EOM intact bilaterally ENMT: External ear and nose normal, oropharynx normal Respiratory: Normal respiratory effort, no respiratory distress, lungs clear to auscultation, no crackles and no wheezes Cardiovascular:RRR S1 S2 Gastrointestinal (Abdomen): Abdomen is not distended, soft, non-tender to palpation, no guarding, no palpable hepatosplenomegaly, normal bowel sounds Musculoskeletal:No pedal edema Genitourinary:No CVA tenderness Neurologic: PERRL, EOMI, Power is equal in both UE and LE, fine touch intact, Speech is normal Psychiatric: Alert and oriented x 3, euthymic affect Discharge Data Allergies Allergy/AdvReac Type Severity Reaction Status Date / Time niacin Allergy Intermediate hives Verified 11/06/21 17:15 Opioids - Morphine Analogues AdvReac "gets very Verified 11/16/21 13:15 sick" Consultations 11/14/21 14:32 ED Decision to Admit Stat 11/14/21 16:34 Consult Neurology Routine Ordered Studies 11/14/21 13:06 CT angio head w con Stat CT angio neck with con Stat CT head/brain wo con Stat CT head: Areas of decreased attenuation are present in the periventricular and subcortical white matter bilaterally consistent with small vessel ischemic disease. Generalized cerebral atrophy with commensurate enlargement of the ventricles, sulci, and cisterns is also present. There is no acute intracranial hemorrhage or evidence of acute territorial infarction. No shift of the midline structures, mass effect, or extra-axial abnormalities are shown. Atherosclerotic calcifications are present in the intracranial segments of the internal carotid arteries. Lungs and soft tissues are unremarkable. CTA Neck: A 3 vessel aortic arch is shown. There is no significant atherosclerotic plaque in the aortic arch or the origins of the innominate, left common carotid, and left subclavian arteries. The common carotid, external carotid, cervical segments of the internal carotid arteries, and the cervical segments of the vertebral arteries are patent without hemodynamically significant stenosis. The left vertebral artery is dominant. Incidental note is made of tortuosity of the right vertebral artery. CTA Head: The anterior and posterior cerebral circulations are patent. No hemodynamically significant stenosis, aneurysm, dissection, or arteriovenous malformation is shown. Nonhemodynamically significant stenosis is seen in the right supraclinoid ICA. There is interruption of the left A2 segment, unchanged from prior exam. Stenosis at the left [employer] origin from the MCA is unchanged from the prior exam. Mild narrowing of the right P1 segment is less pronounced than on prior exam Atherosclerotic disease is noted. Focal filling defect in the left transverse sinus is unchanged from prior exam. IMPRESSION: 1. No acute intracranial hemorrhage, evidence of acute territorial infarction, or other acute intracranial disease process. 2. Multifocal stenoses in the cerebral arteries again noted most prominent in the left A2 segment and left P1 segment. Filling defect in the left transverse sinus is unchanged from prior exam, may represent nonocclusive sinus thrombus or anatomic variant. 3. No occlusion, hemodynamically significant stenosis, or dissection in the major cervical arteries. 11/14/21 16:34 MR brain wo/w con Routine Slight progression of the foci of restricted diffusion seen within the superomedial left frontal lobe and left aspect of the splenium of the corpus callosum consistent with acute infarcts. Dominant focus within the left frontal lobe measures 2.8 cm. Edema associated with the acute infarcts have also slightly progressed. No midline shift. No intracranial hemorrhage identified. Patchy paravertebral white matter T2 hyperintensity favors moderate to severe microvascular ischemic change. This is similar to the prior study. The major vascular flow-voids at the skull base are well-maintained. Paranasal sinuses and mastoid air cells are clear. Mild atrophic changes identified within the brain. No masses identified. Faint enhancement within the left ARMOND territory infarct likely corresponds to the acute to subacute changes. IMPRESSION: Interval progression of the small acute to subacute left ARMOND territory infarct as described above. Hospital Course (1) Expressive aphasia: (2) Cerebrovascular disease: (3) Anticoagulant long-term use: This is an 86yo F with a PMH of HTN, DLD, history of TIA in 2018, breast cancer, hypothyroidism, osteoarthritis, CKD 3, paroxysmal A. fib, ischemic cardiomyopathy, CAD s/p stent and recent admission for CVA and covid-19 infection who presents from [facility] for expressive aphasia. Was recently admitted at [facility] from 11/06-11/11/2021 for CVA. Was evaluated by neuro and cardiology, who felt that stroke was likely an embolic etiology. Anticoagulation was changed from Eliquis to Coumadin Expressive aphasia has since resolved CT head did not show any acute intracranial hemorrhage, acute territorial infarction CT angiogram head and neck noted multifocal stenosis in the cerebral arteries unchanged from prior exam on 11/06/2021, filling defect in left transverse sinus unchanged from prior exam which may represent nonocclusive sinus thrombosis or anatomic variant. No occlusion or hemodynamically significant stenosis or dissection in the major cervical arteries MRI brain w/wo reported interval progression of actue to subacute left ARMOND territory infarct Neurologist evaluated and recommend starting keppra 250mg bid and to continue aspirin and warfarin Continue anticoagulation with coumadin Continue to monitor INR at rehab Continue ASA, statin PT/OT/speech evals noted (4) Paroxysmal atrial fibrillation: Continue metoprolol succinate, anticoagulated with coumadin (5) COVID-19: Mild symptom of dry cough. Negative covid test on admission (6) CAD (coronary artery disease): (7) S/P coronary artery stent placement: Stable. Continue statin, metoprolol, aspirin, Imdur (8) Hypothyroidism: Continue levothyroxine (9) CKD (chronic kidney disease), stage III: Cr at baseline of 1.06 Total Time Total Time Spent Total Time Spent (In Minutes): 50 Total Time Includes: Examination of the Patient, Discharge Planning, Medication Reconciliation and Other (Called daughter and updated her) Discharge Plan Discharge Items Patient Disposition: Transfer Inpatient Rehab Fac Reason For Visit: Word finding difficulty Discharge Diagnosis: Recent acute to subacute stroke (evolving) Recent COVID infection Activity: As commented below Activity Comment: Per physical therapist recommendations Non-emergency contact: Primary Care Provider and Neurologist Call non-emergency contact if: you have any medication questions Follow-up/Referrals: Mary Anne Evans MD [Primary Care Provider] - Diet: Heart Healthy Ambulatory Orders: Prothrombin Time INR (Routine) Timeframe: 1 Day Location: Determined by Patient Ordered By: Mounika Barker Attending Provider Instructions: Mrs Quach You presented again to the hospital due to word finding difficulty and right sided weakness. You were evaluated. CT scan and MRI brain noted same stroke you had last week, evolving. Neurologist recommended starting a medication called keppra to prevent possible stroke which can result from your type of stroke. Please continue the aspirin and warfarin. They will continue to check your INR at rehab and adjust warfarin if needed. Please ensure follow up with your Primary Doctor and Neurologist. It was a pleasure taking care of you. Pending Studies at Discharge: No Stand-Alone Forms: My [facility] Skilled Items Patient informed of condition?: Yes DNR: No Discharge Level of Care: Acute rehab Communicable Disease: Yes Discharge Prognosis: Stable Lines: None Urinary Catheter: No Medications and DC Order Prescriptions: New levetiracetam [Keppra] 250 mg Tablet 250 mg PO BID Qty: 60 RF: 0 Continued nitroglycerin 0.4 mg tablet, sublingual 0.4 mg sublingual Q5M PRN (Reason: chest pain) Qty: 25 RF: 4 atorvastatin 40 mg tablet 40 mg PO HS Qty: 90 RF: 3 albuterol sulfate 90 mcg/actuation HFA aerosol inhaler 2 puff INHALATION QID PRN (Reason: Shortness Of Breath Or Wheezing) RF: 0 isosorbide mononitrate 30 mg tablet extended release 24 hr 30 mg PO QAM RF: 0 metoprolol succinate 100 mg tablet extended release 24 hr 100 mg PO QAM RF: 0 amlodipine [Norvasc] 5 mg Tablet 5 mg PO QAM 30 Days Qty: 30 RF: 0 aspirin 81 mg Tablet,Delayed Release (Dr/Ec) 81 mg PO QAM 30 Days Qty: 30 RF: 0 warfarin 5 mg Tablet 5 mg PO DAILY@1600 Qty: 30 RF: 0 acetaminophen [Tylenol Extra Strength] 500 mg Tablet 1,000 mg PO TID PRN (Reason: Pain) RF: 0 levothyroxine 50 mcg tablet 50 mcg PO DAILYBB RF: 0 fluticasone furoate-vilanterol [Breo Ellipta] 100-25 mcg/dose blister with device 1 ea INHALATION QAM RF: 0 Discontinued enoxaparin [Lovenox] 80 mg/0.8 mL Syringe 80 mg subcut Q12H 5 Days Qty: 8 RF: 0 Discharge Orders: Discharge Order (Routine); Ordered 11/16/21 Ordered By: Mounika Billings Admission Data Admit Date/Time: 11/15/21 15:13 Attending Provider: Mounika Billings I. Admit Provider: Mounika Billings I. Primary Care Provider: Mary Anne Evans Other Providers: Mounika Billings I. ; Jewel Chairez ; [facility] Other Interventions: Discharge Summary Assessment (RN) Last Done: 11/16/21 12:57
[2021-11-16] MEDS: WARFARIN SOD 5 MG TAB PO SCH (16:16)
== END 2021-11-16 16:24 | DRG 64 ==
LOC: ED 13:08 → 2S 13:08

== ENCOUNTER 2022-06-08 07:11 | Inpatient (IN) ==
--- NOTE | 2022-06-08 07:36 | Emergency Department Note ---
Impression & Plan Hypertensive urgency, Stroke-like symptoms, Paresthesia ED Provider Note Name: ZEINAB RON Age: 86 Sex: F Arrives Via: Ambulance Informant: Patient, EMS records,, family at bedside ED Provider: Dakotah Diallo MD Chief Complaint: Left hand paresthesias Impression: As per impression as above Medical Decision Making: Pleasant 86-year-old female who is on Coumadin for previous history of stroke a little under a year ago. She arrives for evaluation of another episode of left hand paresthesias which did go up her arm this time and into her face. By the time of her arrival she has an NIH of 1 (secondary to old left facial droop which is chronic) and has no further acute symptoms. She is significantly hypertensive on arrival. She was given very small doses of labetalol initially given she is somewhat bradycardic as well as to avoid dropping her too quickly. Her blood pressure will drop 20-30 points following this however shortly thereafter does start coming back up. She was given another bolus of some hydralazine which also had a similar effect. Patient does not have an acute headache, chest pain, other concerning signs or symptoms at this time. A CT scan of the head was obtained which is unremarkable. Laboratory work-up is unremarkable and EKG is stable. I will note that work-up and findings are actually very similar to her event that brought her to the ER just a few days ago. In the setting of this happening a second time despite Coumadin use I do feel that hospitalization is now indicated. It is difficult to tell as this is small stroke versus hypertensive crisis. I do not feel further anticoagulation would be indicated given she is already quite anticoagulated at this time she and family are comfortable with plan for hospitalization. Given the full resolution of symptoms on patient arrival and her already being on Coumadin there is no indication for stroke alert nor would she be a candidate for TNKase at this time. Prior Medical Record and Triage/Nursing Notes reviewed by Me Chart review done by me includes previous hospitalization in November 2021 for her acute stroke and COVID management at that time. Differentials:Hypertensive emergency/urgency, acute renal failure, intracranial hemorrhage, stroke, dissection, thrombosis, electrolyte imbalance, infectious etiology, cardiac etiology amongst many other pathologies considered Vital Signs: reviewed and remarkable for hypertension Interventions: Labetalol IV x2, hydralazine IV x1 Labs:Reviewed and remarkable for stable CBC, BMP, troponin INR is therapeutic UA is consistent with contamination rather than UTI at this time. Imaging:CT imaging of the head without contrast initial read by me reveals no evidence of intracranial hemorrhage. EKG:As per my interpretation indication strokelike symptoms. Normal sinus rhythm at 65 bpm no ectopy no ischemia. When compared to an EKG from June 05, 2022 there is no significant change. Consults:Discussed the case with [facility] hospitalist who will bring patient in for further evaluation. I will note that patient was cared for under my direction by Dr. Saucedo of the family medicine residency. Plan: Disposition:Hospitalization. Condition: Good History of Present Illness:86-year-old female arrives for evaluation of strokelike symptoms. Patient notes a history of a CVA little over a year ago as well as A-fib on Coumadin, CAD, hypertension, hyperlipidemia, CKD amongst others. Patient states 2 to 3 days ago she had an episode of left hand numbness primarily over the fourth and fifth digits. This was associated with significant hypertension. She was seen in the ER and symptoms had resolved. Work-up about time unremarkable and blood pressure trended down and she was sent home. Patient notes she was doing well until this morning and started having similar symptoms. Tingling of the left hand as well as up into the lips. No weakness appreciated. Denies any headache, ataxia or other significant symptoms. She notes she chronically has a left facial droop and that was unchanged. She did not have any fall, trauma, injury. She does note that symptoms have now resolved. Due to significantly elevated blood pressure she was sent to the ER from the [facility]. She currently states she is in no distress. No medications prior to arrival. She did not have her morning medications. Nothing seems to make symptoms better or worse. States she has missed no doses of her Coumadin. Past History:As per chart below Home Medications:See Below Allergies:niacin, opioids Vitals:Blood Pressure: 215/144, Pulse 73, RR 21, T 36.8C, O2 97% on RA Physical Exam: GENERAL: Patient is tired appearing and in no distress. EYES: No scleral icterus, unremarkable pupils. ENT: Mucous membranes moist, no nasal congestion. RESPIRATORY: No dyspnea. Clear to auscultation and equal bilaterally. No wheeze, no rhonchi. CARDIOVASCULAR: Regular rate and rhythm.No murmurs, rubs, gallops appreciated. GASTROINTESTINAL: Abdomen soft, non-tender, no peritonitis.Bowel sounds po sitive.No masses appreciated. EXTREMITIES: Normal motion all extremities, no cyanosis, no edema. NEUROLOGIC: Alert and oriented, no acute motor or sensory deficits, mild left lower facial droop otherwise no focal neurologic deficits appreciated and cranial nerves otherwise are unremarkable. SKIN: No rash, no jaundice, no diaphoresis. PSYCH: Appropriate GCS: 15 ED Course: Times/Reassessments: Patient stable with blood pressures quite hypertensive that would improve slightly before trending back up requiring several more rounds of IV antihypertensive and relatively small amounts. Dakotah Diallo MD Past Med/Surg History Medical History Anticoagulant long-term use Bilateral leg weakness Breast cancer Left breast s/p lumpectomy CAD (coronary artery disease) Cardiomyopathy, ischemic Resolved, LVEF 60% to 65% on Echo 06/16/21. Cerebrovascular disease Chest pain CKD (chronic kidney disease), stage III Coccygeal contusion Degenerative arthritis of left knee HLD (hyperlipidemia) HTN (hypertension) Hypothyroidism Paroxysmal atrial fibrillation Right hip pain TIA (transient ischemic attack) Surgical History History of appendectomy History of arthroplasty of both knees History of bladder suspension procedure History of hip replacement, total History of hysterectomy S/P coronary artery stent placement Family History Brother Coronary heart disease Cancer Bladder cancer Sister Cancer Breast cancer Father Cancer Stomach cancer Daughter Cancer AML Other No family history of adverse response to anesthesia No family history of bleeding disorder Social History Smoking Status: Never smoker Second Hand Exposure: No; Hx Alcohol Use: No Hx Substance Use: No Preferred Language: Polish Communication Ability: Effective Crop Pest Control Specialist Required: No Beliefs That Will Affect Care: None marital status: / Current Living Situation: Personal Care Facility Current Living Situation Comment: [facility] How many Children do You have: 4 Other Information That Helps Us Care for You: No Feels Safe at Home: Yes Safety Concerns: Feels Safe At This Time Assistive Devices: Glasses Allergies Allergies Allergy/AdvReac Type Severity Reaction Status Date / Time niacin Allergy Intermediate hives Verified 04/18/22 11:27 Opioids - Morphine Analogues AdvReac "gets very Verified 04/18/22 11:27 sick" Home Meds Home Medications Medication Instructions Recorded Confirmed acetaminophen 500 mg tablet 1,000 mg PO Q8H PRN Pain 08/21/20 06/08/22 (Tylenol Extra Strength) levothyroxine 50 mcg tablet 50 mcg PO DAILYBB 08/21/20 06/08/22 albuterol sulfate 90 mcg/actuation 2 puff inhalation QID PRN 04/26/21 06/08/22 aerosol inhaler Shortness Of Breath Or Wheezing metoprolol succinate 100 mg 100 mg PO QAM 11/06/21 06/08/22 tablet,extended release 24 hr aspirin 81 mg tablet,delayed 81 mg PO DAILY 01/13/22 06/08/22 release (Adult Low Dose Aspirin) cholecalciferol (vitamin D3) 50 50 mcg PO DAILY 06/08/22 06/08/22 mcg (2,000 unit) tablet warfarin 5 mg tablet 2.5 mg PO MOFR@1600 06/08/22 06/08/22 warfarin 5 mg tablet 5 mg PO DAILY 06/08/22 06/08/22 Previous Rx's Medication Instructions Recorded nitroglycerin 0.4 mg sublingual 0.4 mg sublingual Q5M PRN chest 03/13/21 tablet pain #25 tabs atorvastatin 40 mg tablet 40 mg PO HS #90 tabs 06/01/21 Results & Data (ED) Vital Signs Vital Signs - 24 hr 06/08/22 07:01 06/08/22 07:31 06/08/22 07:40 Temperature 36.8 C Temperature Source Oral Pulse Rate 73 63 62 Pulse Rate from SpO2 Sensor Pulse Rhythm Regular Pulse Strength Normal Respiratory Rate 21 18 22 Respiratory Effort / Characteristics Non-Labored Respiratory Depth Normal Respiratory Pattern Regular Blood Pressure 215/144 H Blood Pressure Mean 167 Blood Pressure Position Sitting Pulse Oximetry 97 98 97 Oxygen Delivery Method Room Air Room Air Room Air Sepsis Recent Fever Within 48 Hours No Sepsis New/Unexplained Change in Mental Status No Sepsis Action Taken by Nursing No Action Required 06/08/22 07:50 06/08/22 07:59 06/08/22 07:59 Temperature Temperature Source Pulse Rate 67 64 Pulse Rate from SpO2 Sensor Pulse Rhythm Pulse Strength Respiratory Rate 22 21 Respiratory Effort / Characteristics Respiratory Depth Respiratory Pattern Blood Pressure 198/88 H Blood Pressure Mean 124 Blood Pressure Position Pulse Oximetry 99 96 Oxygen Delivery Method Room Air Room Air Sepsis Recent Fever Within 48 Hours Sepsis New/Unexplained Change in Mental Status Sepsis Action Taken by Nursing 06/08/22 08:00 06/08/22 08:10 06/08/22 08:19 Temperature Temperature Source Pulse Rate 68 Pulse Rate from SpO2 Sensor 74 Pulse Rhythm Pulse Strength Respiratory Rate 15 Respiratory Effort / Characteristics Respiratory Depth Respiratory Pattern Blood Pressure 193/88 H Blood Pressure Mean 123 Blood Pressure Position Pulse Oximetry 96 97 Oxygen Delivery Method Room Air Room Air Sepsis Recent Fever Within 48 Hours Sepsis New/Unexplained Change in Mental Status Sepsis Action Taken by Nursing 06/08/22 08:19 06/08/22 08:20 06/08/22 08:20 Temperature Temperature Source Pulse Rate 69 68 Pulse Rate from SpO2 Sensor Pulse Rhythm Pulse Strength Respiratory Rate 22 19 Respiratory Effort / Characteristics Respiratory Depth Respiratory Pattern Blood Pressure 197/76 H Blood Pressure Mean 116 Blood Pressure Position Pulse Oximetry 96 96 Oxygen Delivery Method Room Air Room Air Sepsis Recent Fever Within 48 Hours Sepsis New/Unexplained Change in Mental Status Sepsis Action Taken by Nursing 06/08/22 08:30 06/08/22 08:30 06/08/22 08:40 Temperature Temperature Source Pulse Rate 67 Pulse Rate from SpO2 Sensor Pulse Rhythm Pulse Strength Respiratory Rate 20 Respiratory Effort / Characteristics Respiratory Depth Respiratory Pattern Blood Pressure 199/73 H 212/81 H Blood Pressure Mean 115 124 Blood Pressure Position Pulse Oximetry 96 Oxygen Delivery Method Room Air Sepsis Recent Fever Within 48 Hours Sepsis New/Unexplained Change in Mental Status Sepsis Action Taken by Nursing 06/08/22 08:40 06/08/22 08:57 06/08/22 09:00 Temperature Temperature Source Pulse Rate 66 83 Pulse Rate from SpO2 Sensor Pulse Rhythm Pulse Strength Respiratory Rate 18 20 Respiratory Effort / Characteristics Respiratory Depth Respiratory Pattern Blood Pressure 222/69 H Blood Pressure Mean 120 Blood Pressure Position Pulse Oximetry 96 Oxygen Delivery Method Room Air Sepsis Recent Fever Within 48 Hours Sepsis New/Unexplained Change in Mental Status Sepsis Action Taken by Nursing 06/08/22 09:00 06/08/22 09:11 06/08/22 09:11 Temperature Temperature Source Pulse Rate 66 67 Pulse Rate from SpO2 Sensor Pulse Rhythm Pulse Strength Respiratory Rate 18 22 Respiratory Effort / Characteristics Respiratory Depth Respiratory Pattern Blood Pressure 184/70 H Blood Pressure Mean 108 Blood Pressure Position Pulse Oximetry 97 94 Oxygen Delivery Method Room Air Room Air Sepsis Recent Fever Within 48 Hours Sepsis New/Unexplained Change in Mental Status Sepsis Action Taken by Nursing 06/08/22 09:15 06/08/22 09:21 06/08/22 09:21 Temperature Temperature Source Pulse Rate 65 63 Pulse Rate from SpO2 Sensor Pulse Rhythm Pulse Strength Respiratory Rate 20 16 Respiratory Effort / Characteristics Respiratory Depth Respiratory Pattern Blood Pressure 188/83 H Blood Pressure Mean 118 Blood Pressure Position Pulse Oximetry 95 95 Oxygen Delivery Method Room Air Room Air Sepsis Recent Fever Within 48 Hours Sepsis New/Unexplained Change in Mental Status Sepsis Action Taken by Nursing 06/08/22 09:30 06/08/22 09:30 06/08/22 09:40 Temperature Temperature Source Pulse Rate 67 68 Pulse Rate from SpO2 Sensor Pulse Rhythm Pulse Strength Respiratory Rate 20 18 Respiratory Effort / Characteristics Respiratory Depth Respiratory Pattern Blood Pressure 173/84 H Blood Pressure Mean 113 Blood Pressure Position Pulse Oximetry 96 94 Oxygen Delivery Method Room Air Room Air Sepsis Recent Fever Within 48 Hours Sepsis New/Unexplained Change in Mental Status Sepsis Action Taken by Nursing 06/08/22 09:40 06/08/22 09:45 06/08/22 09:50 Temperature Temperature Source Pulse Rate 66 Pulse Rate from SpO2 Sensor Pulse Rhythm Pulse Strength Respiratory Rate 14 Respiratory Effort / Characteristics Respiratory Depth Respiratory Pattern Blood Pressure 191/99 H 198/77 H Blood Pressure Mean 129 117 Blood Pressure Position Pulse Oximetry 99 Oxygen Delivery Method Room Air Sepsis Recent Fever Within 48 Hours Sepsis New/Unexplained Change in Mental Status Sepsis Action Taken by Nursing 06/08/22 09:50 06/08/22 10:00 06/08/22 10:00 Temperature Temperature Source Pulse Rate 65 70 Pulse Rate from SpO2 Sensor Pulse Rhythm Pulse Strength Respiratory Rate 20 24 Respiratory Effort / Characteristics Respiratory Depth Respiratory Pattern Blood Pressure 213/111 H Blood Pressure Mean 145 Blood Pressure Position Pulse Oximetry 95 95 Oxygen Delivery Method Room Air Room Air Sepsis Recent Fever Within 48 Hours Sepsis New/Unexplained Change in Mental Status Sepsis Action Taken by Nursing 06/08/22 10:10 06/08/22 10:10 06/08/22 10:20 Temperature Temperature Source Pulse Rate 70 Pulse Rate from SpO2 Sensor Pulse Rhythm Pulse Strength Respiratory Rate 22 Respiratory Effort / Characteristics Respiratory Depth Respiratory Pattern Blood Pressure 180/97 H 188/65 H Blood Pressure Mean 124 106 Blood Pressure Position Pulse Oximetry 93 Oxygen Delivery Method Room Air Sepsis Recent Fever Within 48 Hours Sepsis New/Unexplained Change in Mental Status Sepsis Action Taken by Nursing 06/08/22 10:20 06/08/22 10:30 06/08/22 10:30 Temperature Temperature Source Pulse Rate 68 68 Pulse Rate from SpO2 Sensor Pulse Rhythm Pulse Strength Respiratory Rate 21 19 Respiratory Effort / Characteristics Respiratory Depth Respiratory Pattern Blood Pressure 189/73 H Blood Pressure Mean 111 Blood Pressure Position Pulse Oximetry 97 98 Oxygen Delivery Method Room Air Room Air Sepsis Recent Fever Within 48 Hours Sepsis New/Unexplained Change in Mental Status Sepsis Action Taken by Nursing 06/08/22 10:40 06/08/22 10:40 06/08/22 10:50 Temperature Temperature Source Pulse Rate 64 Pulse Rate from SpO2 Sensor Pulse Rhythm Pulse Strength Respiratory Rate 22 Respiratory Effort / Characteristics Respiratory Depth Respiratory Pattern Blood Pressure 185/73 H 202/74 H Blood Pressure Mean 110 116 Blood Pressure Position Pulse Oximetry 97 Oxygen Delivery Method Room Air Sepsis Recent Fever Within 48 Hours Sepsis New/Unexplained Change in Mental Status Sepsis Action Taken by Nursing 06/08/22 10:50 06/08/22 11:00 06/08/22 11:00 Temperature Temperature Source Pulse Rate 67 71 Pulse Rate from SpO2 Sensor Pulse Rhythm Pulse Strength Respiratory Rate 19 19 Respiratory Effort / Characteristics Respiratory Depth Respiratory Pattern Blood Pressure 171/93 H Blood Pressure Mean 119 Blood Pressure Position Pulse Oximetry 97 95 Oxygen Delivery Method Room Air Room Air Sepsis Recent Fever Within 48 Hours Sepsis New/Unexplained Change in Mental Status Sepsis Action Taken by Nursing Laboratory Data 06/08/22 07:21 06/08/22 07:21 Lab Results 06/08/22 06/08/22 06/08/22 Range/Units 07:21 07:21 07:21 WBC 6.43 (4.8-10.8) K/ul RBC 3.77 L (4.20-5.40) M/uL Hgb 11.8 L (12.0-16.0) g/dl Hct 36.7 L (37.0-47.0) % MCV 97.3 (80.0-100.0) fL MCH 31.3 (25.0-34.0) pg MCHC 32.2 (32.0-36.0) g/dL RDW Std Deviation 51.5 H (36.4-46.3) fL RDW Coeff of Dylon 14.4 (11.5-14.5) % Plt Count 257 (130-400) K/uL MPV 10.2 (9.4-12.4) fL Immature Gran % (Auto) 0.3 % Neut % (Auto) 61.0 % Lymph % (Auto) 21.5 % Nelson % (Auto) 11.8 % Eos % (Auto) 4.8 % Baso % (Auto) 0.6 % Neut # (Auto) 3.92 (1.40-6.50) K/uL Lymph # (Auto) 1.38 (1.2-3.4) K/uL Nelson # (Auto) 0.76 H (0.11-0.59) K/uL Eos # (Auto) 0.31 (0-0.50) K/uL Baso # (Auto) 0.04 (0-0.2) K/uL Immature Gran # (Auto) 0.02 (0.01-0.20) K/uL PT 25.9 H (9.0-12.0) Seconds INR 2.6 H (0.9-1.1) APTT 37.0 H (21.0-31.0) Seconds PTT Ratio 1.3 Sodium 142 (136-145) mmol/L Potassium 4.2 (3.5-5.1) mmol/L Chloride 108 H (98-107) mmol/L Carbon Dioxide 29 (21-32) mmol/L Anion Gap 5 (3-11) BUN 19 (6-23) mg/dl Creatinine 1.00 (0.6-1.2) mg/dl Est Cr Clr Drug Dosing 43.1 ml/min Est GFR ( Amer) 58.3 ml/min Est GFR (Non-Af Amer) 50.3 ml/min BUN/Creatinine Ratio 19.0 (10-20) Glucose 91 (70-99(Fasting)) mg/dl Calcium 9.6 (8.5-10.1) mg/dl Magnesium 1.9 (1.7-2.4) mg/dl Total Bilirubin 0.5 (0.2-1.0) mg/dl Direct Bilirubin 0.0 (0-0.2) mg/dl AST 14 (13-39) U/L ALT 12 (7-52) U/L Alkaline Phosphatase 77 (34-104) U/L Troponin I High Sens 9.0 (0-14) pg/ml Total Protein 6.3 (6.0-8.3) gm/dl Albumin 3.8 (3.4-5.0) gm/dl Administered Medications Metoprolol Succinate (Metoprolol Succ 50mg Ext Rel Tab) 100 mg PO QAM [facility] Stop: 07/08/22 11:44 Last Admin: 06/08/22 13:18 Dose: 100 mg Documented By: JESU Discontinued Medications Aspirin (Aspirin 81 Mg Chew) 324 mg PO NOW ONE Stop: 06/08/22 13:00 Last Admin: 06/08/22 13:28 Dose: 324 mg Documented By: JENNIFER Hydralazine HCl (Hydralazine Hcl 20 Mg/Ml Vial) 5 mg IV NOW ONE Stop: 06/08/22 10:00 Last Admin: 06/08/22 10:08 Dose: 5 mg Documented By: JENNIFER Labetalol HCl (Labetalol Hcl Iv 5 Mg/Ml 20ml) 2.5 mg IV NOW STA Stop: 06/08/22 07:40 Last Admin: 06/08/22 08:14 Dose: 2.5 mg Documented By: JENNIFER Co-signed By: ALBERT Labetalol HCl (Labetalol Hcl Iv 5 Mg/Ml 20ml) 2.5 mg IV NOW STA Stop: 06/08/22 08:49 Last Admin: 06/08/22 09:05 Dose: 2.5 mg Documented By: JENNIFER Co-signed By: ALBERT Imaging Data Radiologist's Impression: Head CT 06/08/22 07:36 CT SCAN OF THE BRAIN WITHOUT IV CONTRAST CLINICAL HISTORY: Strokelike symptoms. COMPARISON STUDY: CT of the brain dated 06/05/2022. TECHNIQUE: Unenhanced axial CT scan of the brain is performed from the vertex to the skull base. A dose lowering technique was utilized adhering to the principles of ALARA. CT DOSE: 614.27 mGy.cm FINDINGS: Brain parenchyma: There is age-related involutional change noting advanced confluent subcortical and periventricular microangiopathic disease. There is no hemorrhage, mass effect, or evidence of acute territorial ischemia by CT criteria. Tiny chronic lacunar infarcts are noted in both thalami. Caro-white matter differentiation is preserved. No extra-axial fluid collection is seen. Ventricles, sulci, cisterns: Prominent secondary to involutional change. Intracranial vasculature: There is atherosclerotic calcification of the cavernous carotid and vertebral arteries. Calvarium: Unremarkable. Sinuses and mastoids: The visualized paranasal sinuses are clear. The mastoid air cells are well pneumatized. Orbits: The bony orbits are grossly intact. There are bilateral ocular lens implants. IMPRESSION: There is no hemorrhage, mass effect, or evidence of acute territorial ischemia by CT criteria. ACT 112: Negative or not required by law. Electronically signed by: Nathanael Tomas M.D. 06/08/2022 8:58 AM Discharge Plan Visit Data Chief Complaint: Hypertension Stated Complaint: HTN ED Provider: Dakotah Diallo ED Midlevel Provider: Sanju Saucedo Discharge Problem: Hypertensive urgency, Stroke-like symptoms, Paresthesia Patient Disposition: Admitted As Inpatient Discharge Instructions Interventions: ED Discharge Assessment Last Done: 06/08/22 13:00
[2022-06-08] MEDS ORDERED: LABETALOL HCL IV 5 MG/ML 20ML IV STA ×2 (07:39→08:48)
[2022-06-08 08:00] LABS: Basophils # (auto) 0.04 K/uL (0-0.2); Basophils % (auto) 0.6 %; Eosinophils # (auto) 0.31 K/uL (0-0.50); Eosinophils % (auto) 4.8 %; Hematocrit (blood only) 36.7 % (37.0-47.0); Hemoglobin 11.8 g/dl (12.0-16.0); Immature Granulocytes # (auto) 0.02 K/uL (0.01-0.20); Immature Granulocytes % (auto) 0.3 %; Lymphocytes # (auto) 1.38 K/uL (1.2-3.4); Lymphocytes % (auto) 21.5 %; Mean Corpuscular Hemoglobin 31.3 pg (25.0-34.0); Mean Corpuscular Hgb Conc 32.2 g/dL (32.0-36.0); Mean Corpuscular Volume 97.3 fL (80.0-100.0); Mean Platelet Volume 10.2 fL (9.4-12.4); Monocytes # (auto) 0.76 K/uL (0.11-0.59); Monocytes % (auto) 11.8 %; Neutrophils # (auto) 3.92 K/uL (1.40-6.50); Platelet Count 257 K/uL (130-400); RDW Coefficient of Variation 14.4 % (11.5-14.5); RDW Standard Deviation 51.5 fL (36.4-46.3); Red Blood Count 3.77 M/uL (4.20-5.40); White Blood Count 6.43 K/ul (4.8-10.8)
[2022-06-08 08:03] LABS: Albumin Level 3.8 gm/dl (3.4-5.0); Bilirubin,Total 0.5 mg/dl (0.2-1.0); Calcium 9.6 mg/dl (8.5-10.1); Creatinine Clr Calc Pharmacy 43.1 ml/min; Est GFR (African American) 58.3 ml/min; Est GFR (Non-African American) 50.3 ml/min; Magnesium 1.9 mg/dl (1.7-2.4); Potassium 4.2 mmol/L (3.5-5.1); Total Protein 6.3 gm/dl (6.0-8.3)
[2022-06-08 08:30] LABS: INR 2.6 (0.9-1.1); Partial Thromboplastin Ratio 1.3; Prothrombin Time 25.9 Seconds (9.0-12.0)
[2022-06-08 08:33] LABS: Appearance Urine Clear (Clear); Bacteria Urine Automated Negative (Negative); Bilirubin Urine Negative (Negative); Blood Urine Negative (Negative); Color Urine Yellow; Epithelial Cell Urine Auto >30 /lpf (0-5); Glucose Urine UA Negative (Negative); Ketones Urine Negative (Negative); Leukocyte Esterase Urine 2+ (Negative); Nitrite Urine Negative (Negative); Protein Urine Negative (Negative); RBC Urine Automated 0-4 /hpf (0-4); Specific Gravity Urine 1.006 (1.000-1.030); Urobilinogen Urine Negative (Negative); pH Urine 6.5 (4.5-7.5)
--- NOTE | 2022-06-08 08:59 | CT Scan Report ---
CT SCAN OF THE BRAIN WITHOUT IV CONTRAST CLINICAL HISTORY: Strokelike symptoms. COMPARISON STUDY: CT of the brain dated 06/05/2022. TECHNIQUE: Unenhanced axial CT scan of the brain is performed from the vertex to the skull base. A do se lowering technique was utilized adhering to the principles of ALARA. CT DOSE: 614.27 mGy.cm FINDINGS: Brain parenchyma: There is age-related involutional change noting advanced confluent subcortical and periventricular microangiopathic disease. There is no hemorrhage, mass effect, or evidence of acute t erritorial ischemia by CT criteria. Tiny chronic lacunar infarcts are noted in both thalami. Caro-whi te matter differentiation is preserved. No extra-axial fluid collection is seen. Ventricles, sulci, cisterns: Prominent secondary to involutional change. Intracranial vasculature: There is atherosclerotic calcification of the cavernous carotid and vertebr al arteries. Calvarium: Unremarkable. Sinuses and mastoids: The visualized paranasal sinuses are clear. The mastoid air cells are well pneu matized. Orbits: The bony orbits are grossly intact. There are bilateral ocular lens implants. IMPRESSION: There is no hemorrhage, mass effect, or evidence of acute territorial ischemia by CT edu elias. ACT 112: Negative or not required by law. Electronically signed by: Nathanael Tomas M.D. 06/08/2022 8:58 AM
[2022-06-08] MEDS ORDERED: hydrALAZINE HCL 20 MG/ML VIAL IV ONE (09:59)
--- NOTE | 2022-06-08 10:59 | History & Physical Report ---
Date of Service June 08, 2022 Assessment & Plan (1) Hypertensive urgency: Plan: In the field, EMS recorded BP as 198/78. Here in the ER this morning, BP cecy to 215/144 and again to 222/69. She has received two doses of Labetalol this morning and her BP remains at 198/77. She is being worked up for possible stroke with MRI pending, so for now would allow permissive HTN and would treat if BP rises >220/110. Will give her her home Toprol XL 100mg this morning, which she hasn't yet taken. Cont to monitor closely on telemetry. (2) Paresthesia: Plan: Paresthesia in her left hand with an associated feeling of swelling, whitish color and feels of cold. This is suggestive of an etiology including but not limited to possibly vascular (vasospasm such as Raynauds) vs complication of elevated blood pressure vs complicated migraine vs stroke symptom vs electrolyte derangement or dehydration. The latter is less likely given labs and clinical appearance and history. For now, will obtain brain MRI +/- vascular studies per Neurology recommendations given these were just performed November 2021. 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 Cont to monitor on telemetry. Allow permissive HTN for now. ASA 325 given, cont statin and ASA 81mg and warfarin for now. INR therapeutic at 2.6. (3) Anticoagulant long-term use: Plan: h/o PAF, was previously on apixaban but switched to warfarin after having an embolic stroke. Aspirin was added at that time. Currently in sinus rhythm. Managed by [facility]. (4) Paroxysmal atrial fibrillation: Plan: NSR, plan as above. Cont coumadin, Toprol. (5) S/P coronary artery stent placement: Plan: h/o CAD with associated ischemic cardiomyopathy, resolution of EF to normal per echo last year. Chronic, stable. Trop is negative and no clinical or diagnostic signs of ACS. Cont home meds including aspirin, statin and beta ronny. (6) Breast cancer: Plan: h/o left breast lumpectomy. (7) Hypothyroidism: Plan: chronic, stable. Recent TSH in May 2022 was 3.4. Cont synthroid per home regimen. (8) CKD (chronic kidney disease), stage III: Plan: chronic, stable. Cont to avoid nephrotoxic substances as able and renally dose medications as needed Warfarin DNR as confirmed with patient on admission. Dispo-to telemetry and back to [place] pending PT/OT assessments. Emma Alvarado DO [facility] Hospitalist History of Present Illness Chief Complaint: TIA symptoms Primary Care Provider: Mary Anne Evans MD 86 yo F presents with numbness in her left hand this morning prior to 0800 when she went to breakfast. She was putting on her socks and shoes when she noticed the tingling in her left 5,4, and middle fingers. She describes a sensation of them feeling swollen and they were white and cold. There was no associated numbness in the mouth or face as there had been with her prior embolic stroke last year. She also experienced left finger numbness a few days ago which was described as the same issue. She was sent home and reports that today her symptoms only lasted two minutes. She reports compliance with medications. She denies other stroke like symptoms. Specifically, she denies headache, visual changes, balance issues, difficulty moving any extremities, no difficultly finding her words, and no other numbness. Denies chest pain or SOB. Allergies Allergy/AdvReac Type Severity Reaction Status Date / Time niacin Allergy Intermediate hives Verified 04/18/22 11:27 Opioids - Morphine Analogues AdvReac "gets very Verified 04/18/22 11:27 sick" Home Medications Medication Instructions Recorded Confirmed Type acetaminophen 500 mg tablet 1,000 mg PO Q8H PRN Pain 08/21/20 06/08/22 History (Tylenol Extra Strength) levothyroxine 50 mcg tablet 50 mcg PO DAILYBB 08/21/20 06/08/22 History nitroglycerin 0.4 mg sublingual 0.4 mg sublingual Q5M PRN chest 03/13/21 06/08/22 Rx tablet pain #25 tabs albuterol sulfate 90 mcg/actuation 2 puff inhalation QID PRN 04/26/21 06/08/22 History aerosol inhaler Shortness Of Breath Or Wheezing atorvastatin 40 mg tablet 40 mg PO HS #90 tabs 06/01/21 06/08/22 Rx metoprolol succinate 100 mg 100 mg PO QAM 11/06/21 06/08/22 History tablet,extended release 24 hr aspirin 81 mg tablet,delayed 81 mg PO DAILY 01/13/22 06/08/22 History release (Adult Low Dose Aspirin) cholecalciferol (vitamin D3) 50 50 mcg PO DAILY 06/08/22 06/08/22 History mcg (2,000 unit) tablet warfarin 5 mg tablet 2.5 mg PO MOFR@1600 06/08/22 06/08/22 History warfarin 5 mg tablet 5 mg PO DAILY 06/08/22 06/08/22 History Past Med/Surg History Medical History Anticoagulant long-term use Bilateral leg weakness Breast cancer Left breast s/p lumpectomy CAD (coronary artery disease) Cardiomyopathy, ischemic Resolved, LVEF 60% to 65% on Echo 06/16/21. Cerebrovascular disease Chest pain CKD (chronic kidney disease), stage III Coccygeal contusion Degenerative arthritis of left knee HLD (hyperlipidemia) HTN (hypertension) Hypothyroidism Paroxysmal atrial fibrillation Right hip pain TIA (transient ischemic attack) Surgical History History of appendectomy History of arthroplasty of both knees History of bladder suspension procedure History of hip replacement, total History of hysterectomy S/P coronary artery stent placement Family History Brother Coronary heart disease Cancer Bladder cancer Sister Cancer Breast cancer Father Cancer Stomach cancer Daughter Cancer AML Other No family history of adverse response to anesthesia No family history of bleeding disorder Social History Smoking Status: Never smoker Second Hand Exposure: No; Hx Alcohol Use: No Hx Substance Use: No Preferred Language: Wolof Communication Ability: Effective Robotic Toy In[employer]or Required: No Beliefs That Will Affect Care: None marital status: / Current Living Situation: Personal Care Facility Current Living Situation Comment: [facility] How many Children do You have: 4 Other Information That Helps Us Care for You: No Feels Safe at Home: Yes Safety Concerns: Feels Safe At This Time Assistive Devices: Glasses Review of Systems Review of Systems: All systems were reviewed and negative except as indicated on HPI above. Physical Exam Physical Exam: CONSTITUTIONAL: WNWD, vitals as above, generally well- appearing EYES: EOMI bilaterally, PERRL, normal conjunctivae, no scleral icterus, no funduscopic abnormality ENT: external ear and nose normal, oropharynx clear NECK: trachea midline RESPIRATORY: clear to auscultation bilaterally, no crackles, rales or wheezes, normal respiratory effort CARDIOVASCULAR: regular rate and rhythm, S1 and 2 heard without murmurs, gallops or rubs, no JVD, no peripheral edema CHEST: inspection of chest was normal GASTROINTESTINAL: soft, nontender, ND no guarding MUSCULOSKELETAL: strength 5/5 throughout, head is normocephalic and atraumatic, ambulates with a shuffled gait and furniture walks/requires 1 assist. SKIN: warm and dry NEUROLOGIC: PERRL, EOMI, no facial palsy, no dysarthria. Touch, pain and proprioception normal. CN 2-12 grossly intact, no sensory deficit, normal cognition, normal speech, no tremor PSYCHIATRIC: alert cooperative and oriented to person, place and time. Euthymic mood, makes good eye contact, language grossly intact, recent and remote memory grossly intact. Results & Data Results & Data ([facility]) Vital Signs (Past 12 Hours) Vital Signs Temp Pulse Resp BP Pulse Ox O2 Del Method 06/08/22 09:50 65 20 95 Room Air 06/08/22 09:50 198/77 H 06/08/22 09:45 66 14 99 Room Air 06/08/22 09:40 191/99 H 06/08/22 09:40 68 18 94 Room Air 06/08/22 09:30 67 20 96 Room Air 06/08/22 09:30 173/84 H 06/08/22 09:21 63 16 95 Room Air 06/08/22 09:21 188/83 H 06/08/22 09:15 65 20 95 Room Air 06/08/22 09:11 67 22 94 Room Air 06/08/22 09:11 184/70 H 06/08/22 09:00 66 18 97 Room Air 06/08/22 09:00 222/69 H 06/08/22 08:57 83 20 06/08/22 08:40 66 18 96 Room Air 06/08/22 08:40 212/81 H 06/08/22 08:30 67 20 96 Room Air 06/08/22 08:30 199/73 H 06/08/22 08:20 68 19 96 Room Air 06/08/22 08:20 197/76 H 06/08/22 08:19 69 22 96 Room Air 06/08/22 08:19 193/88 H 06/08/22 08:10 97 Room Air 06/08/22 08:00 68 15 96 Room Air 06/08/22 07:59 198/88 H 06/08/22 07:59 64 21 96 Room Air 06/08/22 07:50 67 22 99 Room Air 06/08/22 07:40 62 22 97 Room Air 06/08/22 07:31 63 18 98 Room Air 06/08/22 07:01 36.8 C 73 21 215/144 H 97 Room Air Laboratory Results Short CBC 06/08/22 Range/Units 07:21 WBC 6.43 (4.8-10.8) K/ul Hgb 11.8 L (12.0-16.0) g/dl Hct 36.7 L (37.0-47.0) % Plt Count 257 (130-400) K/uL BMP 06/08/22 07:21 Sodium 142 Potassium 4.2 Chloride 108 H Carbon Dioxide 29 BUN 19 Creatinine 1.00 Glucose 91 Calcium 9.6 Liver Function 06/08/22 Range/Units 07:21 Total Bilirubin 0.5 (0.2-1.0) mg/dl Direct Bilirubin 0.0 (0-0.2) mg/dl AST 14 (13-39) U/L ALT 12 (7-52) U/L Alkaline Phosphatase 77 (34-104) U/L Albumin 3.8 (3.4-5.0) gm/dl Urine 06/08/22 Range/Units Unknown Urine Color Yellow Urine Appearance Clear (Clear) Urine pH 6.5 (4.5-7.5) Ur Specific Ward 1.006 (1.000-1.030) Urine Protein Negative (Negative) Urine Glucose (UA) Negative (Negative) Diagnostic Findings Head CT 06/08/22 07:36 CT SCAN OF THE BRAIN WITHOUT IV CONTRAST CLINICAL HISTORY: Strokelike symptoms. COMPARISON STUDY: CT of the brain dated 06/05/2022. TECHNIQUE: Unenhanced axial CT scan of the brain is performed from the vertex to the skull base. A dose lowering technique was utilized adhering to the principles of ALARA. CT DOSE: 614.27 mGy.cm FINDINGS: Brain parenchyma: There is age-related involutional change noting advanced confluent subcortical and periventricular microangiopathic disease. There is no hemorrhage, mass effect, or evidence of acute territorial ischemia by CT criteria. Tiny chronic lacunar infarcts are noted in both thalami. Caro-white matter differentiation is preserved. No extra-axial fluid collection is seen. Ventricles, sulci, cisterns: Prominent secondary to involutional change. Intracranial vasculature: There is atherosclerotic calcification of the cavernous carotid and vertebral arteries. Calvarium: Unremarkable. Sinuses and mastoids: The visualized paranasal sinuses are clear. The mastoid air cells are well pneumatized. Orbits: The bony orbits are grossly intact. There are bilateral ocular lens implants. IMPRESSION: There is no hemorrhage, mass effect, or evidence of acute territorial ischemia by CT criteria. ACT 112: Negative or not required by law. Electronically signed by: Nathanael Tomas M.D. 06/08/2022 8:58 AM
--- NOTE | 2022-06-08 11:04 | Communication Note ---
Date of Service: June 08, 2022 Resident attestation: I saw the patient and participated in the care with Dr. Diallo. Please see attending documentation. Resident Activity Tracking Resident Involvement: Resident Care Provided Care Provided: Adult ED
[2022-06-08] MEDS ORDERED: POLYETHYLENE (MIRALAX) 17 GM PACK PO PRN (12:59)
[2022-06-08] MEDS ORDERED: ALUMINUM/MAGNESIUM SUSP 30 ML UDC PO PRN (12:59)
[2022-06-08] MEDS ORDERED: ASPIRIN 81 MG CHEW PO ONE (12:59)
[2022-06-08] MEDS ORDERED: PHARMACIST DISCHARGE MED REC CONSULT PRN (12:59)
[2022-06-08] MEDS: METOPROLOL SUCC 50MG EXT REL TAB PO SCH (13:18)
--- NOTE | 2022-06-08 15:12 | Neurology Consultation ---
Date of Consultation June 08, 2022 Assessment & Plan (1) Stroke-like symptoms: Impression: The patient has had 2 short lasting episodes of left hand last 2 fingers and left lower lip paresthesias. Although short lasting symptoms involving the same location is unlikely to be related to cerebrovascular acci dent, however, there is no other clear explanation of paresthesia involving hand and ipsilateral face. The patient has history of left ARMOND territory ischemic stroke, on Coumadin, with therapeutic INR level as well as aspirin and Lipitor. LDL level is lower than 70. The patient has been having uncontrolled hypertension which might contribute to the patient's symptoms. Plan/recommendations: We will keep the patient on Coumadin, aspirin and Lipitor as before. Brain MRI. Management of hypertension. Treatment of urinary tract infection. If MRI shows new cerebrovascular accidents, then we will proceed with CT angiography of head and neck. Thank you for the consultation. (2) Paresthesia: Impression: As seen above. 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 (3) Hypertensive urgency: Impression: The patient has been treated for hypertension, but she presents the emergency department during last few days, with uncontrolled high blood pressure. (4) Anticoagulant long-term use: Impression: The patient had a cerebrovascular accident while she was on Eliquis which was initially started because of paroxysmal atrial fibrillation. Eliquis was switched to Coumadin and aspirin was added to treatment last year. The patient has been compliant on treatment and the last INR level was reportedly within therapeutic range. Plan: The patient will continue using on Coumadin and aspirin as before with goal INR level is between 2-3. (5) Paroxysmal atrial fibrillation: Impression: Currently on sinus rhythm. Rate is controlled. History of Present Illness Reason for Consultation: Left hand face paresthesias. Requesting Physician: Emma Alvarado Attending Physician: Emma Alvarado, History of Present Illness The patient is a 86-year-old pleasant female, who presents to the emergency department, with c/o left hand the last 2 digits in left lower lip recurrent paresthesia. She was in emergency department few days ago, with similar symptoms, which lasted only for seconds. This morning, the patient noticed the same symptoms, this time lasted for 1 to 2 minutes, and resolved completely. Otherwise, the patient denies any new neurological symptoms including speech disturbance, weakness, headaches, mental status change, or tonic-clonic activity. She was hospitalized in November 2021, and imaging studies showed left ARMOND territory a few small ischemic strokes, and the patient was seen by neuro logy then. 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 The patient has not had any speech disturbance since discharge from hospital. She was on Eliquis when she had a stroke, and Eliquis was switched to Coumadin and low-dose aspirin was added to treatment. Today's head CT did not show acute intracranial pathology. The patient has been having uncontrolled high blood pressure. She will be admitted to hospital for further evaluation. I have reviewed the patient's chart including imaging studies and visualized them personally. I have discussed the case with the patient and answered her questions in detail. Allergies Allergy/AdvReac Type Severity Reaction Status Date / Time niacin Allergy Intermediate hives Verified 04/18/22 11:27 Opioids - Morphine Analogues AdvReac "gets very Verified 04/18/22 11:27 sick" Home Medications Medication Instructions Recorded Confirmed Type acetaminophen 500 mg tablet 1,000 mg PO Q8H PRN Pain 08/21/20 06/08/22 History (Tylenol Extra Strength) levothyroxine 50 mcg tablet 50 mcg PO DAILYBB 08/21/20 06/08/22 History nitroglycerin 0.4 mg sublingual 0.4 mg sublingual Q5M PRN chest 03/13/21 06/08/22 Rx tablet pain #25 tabs albuterol sulfate 90 mcg/actuation 2 puff inhalation QID PRN 04/26/21 06/08/22 History aerosol inhaler Shortness Of Breath Or Wheezing atorvastatin 40 mg tablet 40 mg PO HS #90 tabs 06/01/21 06/08/22 Rx metoprolol succinate 100 mg 100 mg PO QAM 11/06/21 06/08/22 History tablet,extended release 24 hr aspirin 81 mg tablet,delayed 81 mg PO DAILY 01/13/22 06/08/22 History release (Adult Low Dose Aspirin) cholecalciferol (vitamin D3) 50 50 mcg PO DAILY 06/08/22 06/08/22 History mcg (2,000 unit) tablet warfarin 5 mg tablet 2.5 mg PO MOFR@1600 06/08/22 06/08/22 History warfarin 5 mg tablet 5 mg PO DAILY 06/08/22 06/08/22 History Patient History Medical History Anticoagulant long-term use Bilateral leg weakness Breast cancer Left breast s/p lumpectomy CAD (coronary artery disease) Cardiomyopathy, ischemic Resolved, LVEF 60% to 65% on Echo 06/16/21. Cerebrovascular disease Chest pain CKD (chronic kidney disease), stage III Coccygeal contusion Degenerative arthritis of left knee HLD (hyperlipidemia) HTN (hypertension) Hypothyroidism Paroxysmal atrial fibrillation Right hip pain TIA (transient ischemic attack) Surgical History History of appendectomy History of arthroplasty of both knees History of bladder suspension procedure History of hip replacement, total History of hysterectomy S/P coronary artery stent placement Family History Brother Coronary heart disease Cancer Bladder cancer Sister Cancer Breast cancer Father Cancer Stomach cancer Daughter Cancer AML Other No family history of adverse response to anesthesia No family history of bleeding disorder Social History Smoking Status: Never smoker Second Hand Exposure: No; Hx Alcohol Use: No Hx Substance Use: No Preferred Language: Bulgarian Communication Ability: Effective Fourth Hand Required: No Beliefs That Will Affect Care: None marital status: / Current Living Situation: Personal Care Facility Current Living Situation Comment: [facility] How many Children do You have: 4 Feels Safe at Home: Yes Assistive Devices: None Review of Systems Review of Systems: All systems reviewed & are unremarkable except as noted in HPI & below Physical Exam Physical Exam: General Examination: Constitutional: Well developed person in no acute distress. HENT: Normal exam with inspection. CV: Hearth rhythm is regular. Neck: Supple, no carotid bruits. Lungs: Non-labored and comfortable breathing. Abdomen: Soft, non-tender, non-distended. Skin: No rash or ecchymosis. Extremities: No edema or cyanosis NEUROLOGICAL EXAMINATION: Mental Status: Alert and oriented to place, person and time. Cranial Nerves: II-XII are intact. No nystagmus. Funduscopy: Normal looking optic discs. Motor: 5/5 in all extremities without asymmetry except right hip flexors are 4/5. Tone: Normal without spasticity or rigidity. Sensory: Intact grossly. Coordination: No dysmetria with FTN testing. Speech: Fluent. Comprehension is intact. Gait: Normal as reported No ataxia or abnormal walking pattern. DTRs: 2- in upper extremities and 1+ in lower extremities Results & Data ([facility]) Vital Signs (Past 12 Hours) Vital Signs Temp Pulse Pulse Resp BP BP Pulse Ox 06/08/22 15:07 36.8 C 67 20 179/64 H 95 06/08/22 13:10 171/73 H 06/08/22 13:10 63 19 97 06/08/22 13:00 66 21 06/08/22 13:00 195/74 H 06/08/22 12:50 182/68 H 06/08/22 12:50 68 15 06/08/22 12:40 72 17 06/08/22 12:40 205/95 H 06/08/22 12:30 70 17 06/08/22 12:30 188/95 H 06/08/22 12:20 63 16 06/08/22 12:20 183/108 H 06/08/22 12:10 71 24 06/08/22 12:10 191/80 H 06/08/22 12:01 68 18 98 06/08/22 11:50 192/72 H 06/08/22 11:50 65 14 96 06/08/22 11:40 196/88 H 06/08/22 11:40 65 15 97 06/08/22 11:30 69 16 95 06/08/22 11:30 185/77 H 06/08/22 11:20 73 24 97 06/08/22 11:20 199/91 H 06/08/22 11:16 71 20 97 06/08/22 11:16 192/83 H 06/08/22 11:00 71 19 95 06/08/22 11:00 171/93 H 06/08/22 10:50 67 19 97 06/08/22 10:50 202/74 H 06/08/22 10:40 64 22 97 06/08/22 10:40 185/73 H 06/08/22 10:30 68 19 98 06/08/22 10:30 189/73 H 06/08/22 10:20 68 21 97 06/08/22 10:20 188/65 H 06/08/22 10:10 70 22 93 06/08/22 10:10 180/97 H 06/08/22 10:00 70 24 95 06/08/22 10:00 213/111 H 06/08/22 09:50 65 20 95 06/08/22 09:50 198/77 H 06/08/22 09:45 66 14 99 06/08/22 09:40 191/99 H 06/08/22 09:40 68 18 94 06/08/22 09:30 67 20 96 06/08/22 09:30 173/84 H 06/08/22 09:21 63 16 95 06/08/22 09:21 188/83 H 06/08/22 09:15 65 20 95 06/08/22 09:11 67 22 94 06/08/22 09:11 184/70 H 06/08/22 09:00 66 18 97 06/08/22 09:00 222/69 H 06/08/22 08:57 83 20 06/08/22 08:40 66 18 96 06/08/22 08:40 212/81 H 06/08/22 08:30 67 20 96 06/08/22 08:30 199/73 H 06/08/22 08:20 68 19 96 06/08/22 08:20 197/76 H 06/08/22 08:19 69 22 96 06/08/22 08:19 193/88 H 06/08/22 08:10 97 06/08/22 08:00 68 15 96 06/08/22 07:59 198/88 H 06/08/22 07:59 64 21 96 06/08/22 07:50 67 22 99 06/08/22 07:40 62 22 97 06/08/22 07:31 63 18 98 06/08/22 07:01 36.8 C 73 21 215/144 H 97 O2 Del Method 06/08/22 15:07 Room Air 06/08/22 13:10 06/08/22 13:10 Room Air 06/08/22 13:00 06/08/22 13:00 06/08/22 12:50 06/08/22 12:50 06/08/22 12:40 06/08/22 12:40 06/08/22 12:30 06/08/22 12:30 06/08/22 12:20 06/08/22 12:20 06/08/22 12:10 06/08/22 12:10 06/08/22 12:01 Room Air 06/08/22 11:50 06/08/22 11:50 Room Air 06/08/22 11:40 06/08/22 11:40 Room Air 06/08/22 11:30 Room Air 06/08/22 11:30 06/08/22 11:20 Room Air 06/08/22 11:20 06/08/22 11:16 Room Air 06/08/22 11:16 06/08/22 11:00 Room Air 06/08/22 11:00 06/08/22 10:50 Room Air 06/08/22 10:50 06/08/22 10:40 Room Air 06/08/22 10:40 06/08/22 10:30 Room Air 06/08/22 10:30 06/08/22 10:20 Room Air 06/08/22 10:20 06/08/22 10:10 Room Air 06/08/22 10:10 06/08/22 10:00 Room Air 06/08/22 10:00 06/08/22 09:50 Room Air 06/08/22 09:50 06/08/22 09:45 Room Air 06/08/22 09:40 06/08/22 09:40 Room Air 06/08/22 09:30 Room Air 06/08/22 09:30 06/08/22 09:21 Room Air 06/08/22 09:21 06/08/22 09:15 Room Air 06/08/22 09:11 Room Air 06/08/22 09:11 06/08/22 09:00 Room Air 06/08/22 09:00 06/08/22 08:57 06/08/22 08:40 Room Air 06/08/22 08:40 06/08/22 08:30 Room Air 06/08/22 08:30 06/08/22 08:20 Room Air 06/08/22 08:20 06/08/22 08:19 Room Air 06/08/22 08:19 06/08/22 08:10 Room Air 06/08/22 08:00 Room Air 06/08/22 07:59 06/08/22 07:59 Room Air 06/08/22 07:50 Room Air 06/08/22 07:40 Room Air 06/08/22 07:31 Room Air 06/08/22 07:01 Room Air Laboratory Results Laboratory Results - last 24 hr 06/08/22 06/08/22 06/08/22 07:21 07:21 07:21 WBC 6.43 RBC 3.77 L Hgb 11.8 L Hct 36.7 L MCV 97.3 MCH 31.3 MCHC 32.2 RDW Std Deviation 51.5 H RDW Coeff of Dylon 14.4 Plt Count 257 MPV 10.2 Immature Gran % (Auto) 0.3 Neut % (Auto) 61.0 Lymph % (Auto) 21.5 Catron % (Auto) 11.8 Eos % (Auto) 4.8 Baso % (Auto) 0.6 Neut # (Auto) 3.92 Lymph # (Auto) 1.38 Catron # (Auto) 0.76 H Eos # (Auto) 0.31 Baso # (Auto) 0.04 Immature Gran # (Auto) 0.02 PT 25.9 H INR 2.6 H APTT 37.0 H PTT Ratio 1.3 Sodium 142 Potassium 4.2 Chloride 108 H Carbon Dioxide 29 Anion Gap 5 BUN 19 Creatinine 1.00 Est Cr Clr Drug Dosing 43.1 Est GFR ( Amer) 58.3 Est GFR (Non-Af Amer) 50.3 BUN/Creatinine Ratio 19.0 Glucose 91 Calcium 9.6 Magnesium 1.9 Total Bilirubin 0.5 Direct Bilirubin 0.0 AST 14 ALT 12 Alkaline Phosphatase 77 Troponin I High Sens 9.0 Total Protein 6.3 Albumin 3.8 Urine Color Urine Appearance Urine pH Ur Specific Midway Urine Protein Urine Glucose (UA) Urine Ketones Urine Blood Urine Nitrite Urine Bilirubin Urine Urobilinogen Ur Leukocyte Esterase Urine WBC (Auto) Urine RBC (Auto) U Hyaline Cast (Auto) U Epithel Cells (Auto) Urine Bacteria (Auto) SARS-CoV-2, RNA, NAAT 06/08/22 06/08/22 Unknown Unknown WBC RBC Hgb Hct MCV MCH MCHC RDW Std Deviation RDW Coeff of Dylon Plt Count MPV Immature Gran % (Auto) Neut % (Auto) Lymph % (Auto) Catron % (Auto) Eos % (Auto) Baso % (Auto) Neut # (Auto) Lymph # (Auto) Catron # (Auto) Eos # (Auto) Baso # (Auto) Immature Gran # (Auto) PT INR APTT PTT Ratio Sodium Potassium Chloride Carbon Dioxide Anion Gap BUN Creatinine Est Cr Clr Drug Dosing Est GFR ( Amer) Est GFR (Non-Af Amer) BUN/Creatinine Ratio Glucose Calcium Magnesium Total Bilirubin Direct Bilirubin AST ALT Alkaline Phosphatase Troponin I High Sens Total Protein Albumin Urine Color Yellow Urine Appearance Clear Urine pH 6.5 Ur Specific Midway 1.006 Urine Protein Negative Urine Glucose (UA) Negative Urine Ketones Negative Urine Blood Negative Urine Nitrite Negative Urine Bilirubin Negative Urine Urobilinogen Negative Ur Leukocyte Esterase 2+ H Urine WBC (Auto) 10-30 H Urine RBC (Auto) 0-4 U Hyaline Cast (Auto) 1-5 U Epithel Cells (Auto) >30 H Urine Bacteria (Auto) Negative SARS-CoV-2, RNA, NAAT NEGATIVE Diagnostic Findings Head CT 06/08/22 07:36 CT SCAN OF THE BRAIN WITHOUT IV CONTRAST CLINICAL HISTORY: Strokelike symptoms. COMPARISON STUDY: CT of the brain dated 06/05/2022. TECHNIQUE: Unenhanced axial CT scan of the brain is performed from the vertex to the skull base. A dose lowering technique was utilized adhering to the principles of ALARA. CT DOSE: 614.27 mGy.cm FINDINGS: Brain parenchyma: There is age-related involutional change noting advanced confluent subcortical and periventricular microangiopathic disease. There is no hemorrhage, mass effect, or evidence of acute territorial ischemia by CT criteria. Tiny chronic lacunar infarcts are noted in both thalami. Caro-white matter differentiation is preserved. No extra-axial fluid collection is seen. Ventricles, sulci, cisterns: Prominent secondary to involutional change. Intracranial vasculature: There is atherosclerotic calcification of the cavernous carotid and vertebral arteries. Calvarium: Unremarkable. Sinuses and mastoids: The visualized paranasal sinuses are clear. The mastoid air cells are well pneumatized. Orbits: The bony orbits are grossly intact. There are bilateral ocular lens implants. IMPRESSION: There is no hemorrhage, mass effect, or evidence of acute territorial ischemia by CT criteria. ACT 112: Negative or not required by law. Electronically signed by: Nathanael Tomas M.D. 06/08/2022 8:58 AM
--- NOTE | 2022-06-08 15:34 | Electrocardiogram Report ---
Test Reason : Blood Pressure : / mmHG Vent. Rate : 065 BPM Atrial Rate : 065 BPM P-R Int : 202 ms QRS Dur : 088 ms QT Int : 394 ms P-R-T Axes : 006 -22 077 degrees QTc Int : 409 ms Normal sinus rhythm Moderate voltage criteria for LVH, may be normal variant Inferior infarct (cited on or before 31-MAY-2004) Abnormal ECG When compared with ECG of 05-JUN-2022 22:15, Serial changes of Inferior infarct Present Confirmed by José Luis Kang ([id number]) on 06/08/2022 3:33:58 PM Referred By: REFERRED SELF Confirmed By:José Luis Kang
[2022-06-08] MEDS: WARFARIN SOD 5 MG TAB PO SCH (19:10)
--- NOTE | 2022-06-08 19:48 | Magnetic Resonance Report ---
MRI OF THE BRAIN WITHOUT CONTRAST CLINICAL HISTORY: Extremity tingling. Evaluate for stroke. COMPARISON STUDY: MRI of the brain November 14, [address] performed earlier today. TECHNIQUE: Utilizing a 1.5 Geovanna magnet and dedicated coil, multiplanar, multiecho imaging of the bra in was performed without IV contrast. FINDINGS: There are no foci of restricted diffusion to suggest acute infarct. No acute intracranial h emorrhage, midline shift or mass effect is present. Ventricular system is stable. Basal cisterns are patent. There are no extra-axial collections. Flow-voids for the major intracranial vessels are prese nt. Extensive white matter T2 hyperintense foci are similar to MRI of November 14, 2021. No intracranial masses identified on this unenhanced exam. There is no evidence for sinusitis. There is no mastoid fl uid. IMPRESSION: No acute intracranial findings. ACT 112: Negative or not required by law. Electronically signed by: Zachery Daugherty M.D. 06/08/2022 7:46 PM
[2022-06-08] MEDS: ATORVASTATIN 40 MG TAB PO SCH (20:32)
[2022-06-09] MEDS: LEVOTHYROXINE SODIUM 50 MCG TABLET PO SCH (06:38)
[2022-06-09 07:48] LABS: Hematocrit (blood only) 37.2 % (37.0-47.0); Hemoglobin 11.9 g/dl (12.0-16.0); INR 2.5 (0.9-1.1); Mean Corpuscular Hemoglobin 30.9 pg (25.0-34.0); Mean Corpuscular Volume 96.6 fL (80.0-100.0); Mean Platelet Volume 9.9 fL (9.4-12.4); Platelet Count 241 K/uL (130-400); Prothrombin Time 24.9 Seconds (9.0-12.0); RDW Coefficient of Variation 14.4 % (11.5-14.5); RDW Standard Deviation 51.6 fL (36.4-46.3); Red Blood Count 3.85 M/uL (4.20-5.40); White Blood Count 5.96 K/ul (4.8-10.8)
[2022-06-09 08:50] LABS: Calcium 9.5 mg/dl (8.5-10.1)
[2022-06-09 08:56] LABS: BUN Creatinine Ratio 22.1 (10-20); Chol HDL Ratio 3.4 (0-5); Creatinine Clr Calc Pharmacy 43.6 ml/min; Est GFR (Non-African American) 53.5 ml/min
[2022-06-09 09:23] LABS: Estimated Average Glucose 123 mg/dl; Hemoglobin A1C 5.9 % (4.5-5.6)
[2022-06-09] MEDS: ASPIRIN 81 MG ECTAB PO SCH (10:44)
[2022-06-09] MEDS: METOPROLOL SUCC 50MG EXT REL TAB PO SCH (10:45)
[2022-06-09] MEDS: CHOLECALCIFEROL 1,000 UNITS 25 MCG TAB PO SCH (10:45)
--- NOTE | 2022-06-09 11:00 | Pharmacy Report ---
- Date of Service June 09, 2022 - Pharmacy CVA/TIA Medication Review Medications to Prevent Stroke handout has been added to the patients discharge packet. Antiplatelet(s) * Aspirin 81mg PO daily Cholesterol * High intensity statin: atorvastatin 40 mg daily DVT Prophylaxis * pt on warfarin Therapeutic Anticoagulation * Hx Afib/Aflutter noted, and patient is currently receiving warfarin (INR therapeutic). Type 2 Diabetes * Patient does not have history of T2DM. * HbA1c: 5.9%
--- NOTE | 2022-06-09 15:42 | Hospitalist Progress Note ---
Date of Service June 09, 2022 Assessment & Plan (1) Hypertensive urgency: Plan: -A review of patient's antihypertensive history: She was previously on Toprol 100mg daily, Amlodipine 5mg daily, Imdur 30mg daily -- 11/2021 Imdur was discontinued 01/12/22 by Cardiology due to absence of ongoing angina symptoms, BP was controlled Not currently on Amlodipine, review of the notes here appears this medicine was discontinued between 01/2022--> 04/2022. Unclear why it was discontinued although patient suffers from chronic lower extremity swelling so I presume this may be the reason. Currently she is only on Toprol 100mg daily with uncontrolled blood pressure -Will add Lisinopril 10mg daily to start now. Consider switching to Coreg for better BP (2) Paresthesia: (3) Anticoagulant long-term use: Plan: h/o PAF, was previously on apixaban but switched to warfarin after having an embolic stroke. Aspirin was added at that time. Currently in sinus rhythm. Managed by [facility]. (4) Paroxysmal atrial fibrillation: Plan: Remains in NSR (5) S/P coronary artery stent placement: Plan: h/o CAD with associated ischemic cardiomyopathy, resolution of EF to normal per echo last year. Chronic, stable. Trop is negative and no clinical or diagnostic signs of ACS. Cont home meds including aspirin, statin and beta ronny. (6) Breast cancer: Plan: h/o left breast lumpectomy. (7) Hypothyroidism: Plan: chronic, stable. Recent TSH in May 2022 was 3.4. Cont synthroid per home regimen. (8) CKD (chronic kidney disease), stage III: Plan: chronic, stable. Cont to avoid nephrotoxic substances as able and renally dose medications as needed Plan DVT ppx -Therapeutic on coumadin Admission and Anticipated Discharge Date Admission Date: June 08, 2022 Subjective Patient with uncontrolled blood pressure No further numbness/tingling of her fingers or face Son and daughter in law are present at bedside and helps with providing history Physical Exam Physical Exam: Appears well, no acute distress, non toxic Respiratory: Breathing comfortably on room air, no wheezing/rhonchi/rales Cardiovascular: Regular rate and rhythm, no murmurs/rubs/gallops Gastrointestinal (Abdomen): Soft, non tender, non distended Musculoskeletal: Trace edema, no cyanosis or clubbing Neurologic: Awake, alert, spontaneously moving extremities Results & Data Results & Data ([facility]) Vital Signs (Past 12 Hours) Vital Signs Temp Pulse Pulse Resp BP Pulse Ox O2 Del Method 06/09/22 11:29 36.4 C L 60 18 193/76 H 94 Room Air 06/09/22 07:19 65 06/09/22 04:00 36.5 C 64 18 146/76 H 95 Room Air
[2022-06-09] MEDS: lisinopril 10 MG TAB PO SCH (16:00)
[2022-06-09] MEDS: WARFARIN SOD 5 MG TAB PO SCH (16:00)
--- NOTE | 2022-06-09 18:08 | Neurology Progress Note ---
Date of Service June 09, 2022 Assessment & Plan (1) Stroke-like symptoms: Plan: Impression: The patient has had 2 short lasting episodes of left hand last 2 fingers and left lower lip paresthesias. Although short lasting symptoms involving the same location is unlikely to be related to cerebrovascular accident, however, there was no other clear explanation of paresthesia involving hand and ipsilateral face at the same time. The patient has history of left [place] territory ischemic stroke, on Coumadin, with therapeutic INR level as well as aspirin and Lipitor. LDL level is lower than 70. The patient has been having uncontrolled hypertension which might contribute to the patient's symptoms. MRI is negative for acute CVA. TIA is unlikely but in differential. Hand paresthesia might be due to entrapment neuropathy. Hypertensive urgency might cause stroke-l maribel symptoms as well. Plan/recommendations: We will keep the patient on Coumadin, aspirin and Lipitor as before. Management of hypertension. Treatment of urinary tract infection. Follow up with neurology clinic. I will inform [facility] neurology group for appointment. Will sign off. (2) Paresthesia: Plan: Impression: As seen above. 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 (3) Hypertensive urgency: Plan: Impression: The patient has been treated for hypertension, but she presents the emergency department during last few days, with uncontrolled high blood pressure. (4) Anticoagulant long-term use: Plan: Impression: The patient had a cerebrovascular accident while she was on Eliquis which was initially started because of paroxysmal atrial fibrillation. Eliquis was switched to Coumadin and aspirin was added to treatment last year. The patient has been compliant on treatment and the last INR level was reportedly within therapeutic range. Plan: The patient will continue using on Coumadin and aspirin as before with goal INR level is between 2-3. (5) Paroxysmal atrial fibrillation: Plan: Impression: Currently on sinus rhythm. Rate is controlled. Admission and Anticipated Discharge Date Admission Date: June 08, 2022 Subjective No recurrence of neurological symptoms. Her blood pressure is still elevated. She is started on new blood pressure medication. Brain MRI today did not show acute pathology including cerebrovascular accident but moderately significant small vessel disease related chronic ischemic changes. Review of Systems Review of Systems: All systems reviewed & are unremarkable except as noted in Subjective Physical Exam Physical Exam: General Examination: Constitutional: Well developed person in no acute distress. HENT: Normal exam with inspection. CV: Hearth rhythm is regular. Neck: Supple, no carotid bruits. Lungs: Non-labored and comfortable breathing. Abdomen: Soft, non-tender, non-distended. Skin: No rash or ecchymosis. Extremities: No edema or cyanosis NEUROLOGICAL EXAMINATION: Mental Status: Alert and oriented to place, person and time. Cranial Nerves: II-XII are intact. No nystagmus. Funduscopy: Normal looking optic discs. Motor: 5/5 in all extremities without asymmetry except right hip flexors are 4 /5. Tone: Normal without spasticity or rigidity. Sensory: Intact grossly. Coordination: No dysmetria with FTN testing. Speech: Fluent. Comprehension is intact. Gait: Normal as reported No ataxia or abnormal walking pattern. DTRs: 2- in upper extremities and 1+ in lower extremities Results & Data ([facility]) Vital Signs (Past 12 Hours) Vital Signs Temp Pulse Pulse Resp BP Pulse Ox O2 Del Method 06/09/22 16:18 65 06/09/22 15:35 36.4 C L 62 20 186/82 H 100 Room Air 06/09/22 11:29 36.4 C L 60 18 193/76 H 94 Room Air 06/09/22 07:19 65 Laboratory Results Laboratory Results - last 24 hr 06/09/22 06/09/22 06/09/22 06:45 06:45 06:45 WBC 5.96 RBC 3.85 L Hgb 11.9 L Hct 37.2 MCV 96.6 MCH 30.9 MCHC 32.0 RDW Std Deviation 51.6 H RDW Coeff of Dylon 14.4 Plt Count 241 MPV 9.9 PT 24.9 H INR 2.5 H Sodium 142 Potassium 4.0 Chloride 108 H Carbon Dioxide 27 Anion Gap 7 BUN 21 Creatinine 0.95 Est Cr Clr Drug Dosing 43.6 Est GFR ( Amer) 62.0 Est GFR (Non-Af Amer) 53.5 BUN/Creatinine Ratio 22.1 H Glucose 83 Estimat Average Glucose Hemoglobin A1c Calcium 9.5 Triglycerides 188 H Cholesterol 145 LDL Cholesterol, Calc 64 VLDL Cholesterol, Calc 38 H HDL Cholesterol 43 Cholesterol/HDL Ratio 3.4 06/09/22 06:45 WBC RBC Hgb Hct MCV MCH MCHC RDW Std Deviation RDW Coeff of Dylon Plt Count MPV PT INR Sodium Potassium Chloride Carbon Dioxide Anion Gap BUN Creatinine Est Cr Clr Drug Dosing Est GFR ( Amer) Est GFR (Non-Af Amer) BUN/Creatinine Ratio Glucose Estimat Average Glucose 123 Hemoglobin A1c 5.9 H Calcium Triglycerides Cholesterol LDL Cholesterol, Calc VLDL Cholesterol, Calc HDL Cholesterol Cholesterol/HDL Ratio Diagnostic Findings Head CT 06/08/22 07:36 CT SCAN OF THE BRAIN WITHOUT IV CONTRAST CLINICAL HISTORY: Strokelike symptoms. COMPARISON STUDY: CT of the brain dated 06/05/2022. TECHNIQUE: Unenhanced axial CT scan of the brain is performed from the vertex to the skull base. A dose lowering technique was utilized adhering to the principles of ALARA. CT DOSE: 614.27 mGy.cm FINDINGS: Brain parenchyma: There is age-related involutional change noting advanced confluent subcortical and periventricular microangiopathic disease. There is no hemorrhage, mass effect, or evidence of acute territorial ischemia by CT criteria. Tiny chronic lacunar infarcts are noted in both thalami. Caro-white matter differentiation is preserved. No extra-axial fluid collection is seen. Ventricles, sulci, cisterns: Prominent secondary to involutional change. Intracranial vasculature: There is atherosclerotic calcification of the cavernous carotid and vertebral arteries. Calvarium: Unremarkable. Sinuses and mastoids: The visualized paranasal sinuses are clear. The mastoid air cells are well pneumatized. Orbits: The bony orbits are grossly intact. There are bilateral ocular lens implants. IMPRESSION: There is no hemorrhage, mass effect, or evidence of acute territorial ischemia by CT criteria. ACT 112: Negative or not required by law. Electronically signed by: Nathanael Tomas M.D. 06/08/2022 8:58 AM Brain MRI 06/08/22 11:24 MRI OF THE BRAIN WITHOUT CONTRAST CLINICAL HISTORY: Extremity tingling. Evaluate for stroke. COMPARISON STUDY: MRI of the brain November 14, [address] performed earlier today. TECHNIQUE: Utilizing a 1.5 Geovanna magnet and dedicated coil, multiplanar, multiecho imaging of the brain was performed without IV contrast. FINDINGS: There are no foci of restricted diffusion to suggest acute infarct. No acute intracranial hemorrhage, midline shift or mass effect is present. Ventricular system is stable. Basal cisterns are patent. There are no extra- axial collections. Flow-voids for the major intracranial vessels are present. Extensive white matter T2 hyperintense foci are similar to MRI of November 14, 2021. No intracranial masses identified on this unenhanced exam. There is no evidence for sinusitis. There is no mastoid fluid. IMPRESSION: No acute intracranial findings. ACT 112: Negative or not required by law. Electronically signed by: Zachery Daugherty M.D. 06/08/2022 7:46 PM
[2022-06-09] MEDS: ATORVASTATIN 40 MG TAB PO SCH (20:19)
[2022-06-10] MEDS: LEVOTHYROXINE SODIUM 50 MCG TABLET PO SCH (05:41)
[2022-06-10 07:28] LABS: BUN Creatinine Ratio 28.4 (10-20); Calcium 9.2 mg/dl (8.5-10.1); Est GFR (African American) 56.9 ml/min; Est GFR (Non-African American) 49.1 ml/min; Potassium 4.2 mmol/L (3.5-5.1)
[2022-06-10] MEDS: METOPROLOL SUCC 50MG EXT REL TAB PO SCH (08:03)
[2022-06-10] MEDS: lisinopril 10 MG TAB PO SCH (08:03)
[2022-06-10] MEDS: ASPIRIN 81 MG ECTAB PO SCH (08:04)
[2022-06-10] MEDS: CHOLECALCIFEROL 1,000 UNITS 25 MCG TAB PO SCH (08:04)
[2022-06-10] MEDS: ACETAMINOPHEN 500 MG TAB PO PRN (08:07)
[2022-06-10] MEDS ORDERED: lisinopril 10 MG TAB PO ONE (09:15)
--- NOTE | 2022-06-10 14:57 | Hospitalist Progress Note ---
Date of Service June 10, 2022 Assessment & Plan (1) Hypertensive urgency: Plan: -A review of patient's antihypertensive history: She was previously on Toprol 100mg daily, Amlodipine 5mg daily, Imdur 30mg daily -- 11/2021 Imdur was discontinued 01/12/22 by Cardiology due to absence of ongoing angina symptoms, BP was controlled Not currently on Amlodipine, review of the notes here appears this medicine was discontinued between 01/2022--> 04/2022. Unclear why it was discontinued although patient suffers from chronic lower extremity swelling so I presume this may be the reason. Continue Toprol 100mg daily. Lisinopril 10mg daily started yesterday--> increased to 20mg daily. Will continue to monitor (2) Paresthesia: (3) Anticoagulant long-term use: Plan: h/o PAF, was previously on apixaban but switched to warfarin after having an embolic stroke. Aspirin was added at that time. Currently in sinus rhythm. Managed by [facility]. (4) Paroxysmal atrial fibrillation: Plan: Remains in NSR (5) S/P coronary artery stent placement: Plan: h/o CAD with associated ischemic cardiomyopathy, resolution of EF to normal per echo last year. Chronic, stable. Trop is negative and no clinical or diagnostic signs of ACS. Cont home meds including aspirin, statin and beta ronny. (6) Breast cancer: Plan: h/o left breast lumpectomy. (7) Hypothyroidism: Plan: chronic, stable. Recent TSH in May 2022 was 3.4. Cont synthroid per home regimen. (8) CKD (chronic kidney disease), stage III: Plan: chronic, stable. Cont to avoid nephrotoxic substances as able and renally dose medications as needed Plan DVT ppx -Therapeutic on coumadin Disposition -From the [facility]. Will need visiting nurse for BP monitoring at discharge. Will monitor here for another day, likely discharge tomorrow Admission and Anticipated Discharge Date Admission Date: June 08, 2022 Subjective Feels well. No further numbness/tingling of arm or face BP improved yesterday after start of lisinopril BP this morning again elevated to 191/76 and dropped to 103/52 after morning medications were given Patient remains asymptomatic. She wants to return home but is agreeable to staying for another night for us to monitor her blood pressure. Her son, Lex, was called and updated Physical Exam Physical Exam: Sitting in chair, no acute distress, non toxic Respiratory: Breathing comfortably on room air, no wheezing/rhonchi/rales Cardiovascular: Regular rate and rhythm, no murmurs/rubs/gallops Gastrointestinal (Abdomen): soft,non tender, non distended Musculoskeletal: trace edema Neurologic: awake, alert, spontaneously moving extremities Results & Data Results & Data ([facility]) Vital Signs (Past 12 Hours) Vital Signs Temp Pulse Pulse Resp BP Pulse Ox O2 Del Method 06/10/22 08:00 61 06/10/22 11:00 36.6 C 61 18 103/52 L 94 Room Air 06/10/22 07:31 36.6 C 59 L 18 191/76 H 94 Room Air 06/10/22 04:00 36.5 C 62 18 124/67 92 Room Air
[2022-06-10] MEDS ORDERED: WARFARIN SOD 2.5 MG TAB PO SCH (16:00)
[2022-06-10] MEDS: WARFARIN SOD 5 MG TAB PO SCH (18:10)
[2022-06-10] MEDS: ATORVASTATIN 40 MG TAB PO SCH (20:37)
[2022-06-11] MEDS: ACETAMINOPHEN 500 MG TAB PO PRN (05:46)
[2022-06-11] MEDS: LEVOTHYROXINE SODIUM 50 MCG TABLET PO SCH (05:47)
[2022-06-11] MEDS: ASPIRIN 81 MG ECTAB PO SCH (08:42)
[2022-06-11] MEDS: CHOLECALCIFEROL 1,000 UNITS 25 MCG TAB PO SCH (08:42)
[2022-06-11] MEDS: METOPROLOL SUCC 50MG EXT REL TAB PO SCH (08:42)
[2022-06-11] MEDS ORDERED: lisinopril 20 MG TAB PO SCH (09:00)
--- NOTE | 2022-06-11 12:29 | Discharge Summary ---
Date of Service June 11, 2022 Admission HPI Per Admitting Provider 86 yo F presents with numbness in her left hand this morning prior to 0800 when she went to breakfast. She was putting on her socks and shoes when she noticed the tingling in her left 5,4, and middle fingers. She describes a sensation of them feeling swollen and they were white and cold. There was no associated numbness in the mouth or face as there had been with her prior embolic stroke last year. She also experienced left finger numbness a few days ago which was described as the same issue. She was sent home and reports that today her symptoms only lasted two minutes. She reports compliance with medications. She denies other stroke like symptoms. Specifically, she denies headache, visual changes, balance issues, difficulty moving any extremities, no difficultly finding her words, and no other numbness. Denies chest pain or SOB. Principal Diagnosis Hypertensive Urgency Discharge Exam Mrs Quach was seen and examined on the day of discharge. She feels well. Feels comfortable returning to the [place] today. Blood pressure has been stable On exam, she is sitting in chair, pleasant and comfortable, eating lunch, breathing comfortably on room air Discharge Data Allergies Allergy/AdvReac Type Severity Reaction Status Date / Time niacin Allergy Intermediate hives Verified 04/18/22 11:27 Opioids - Morphine Analogues AdvReac "gets very Verified 04/18/22 11:27 sick" Consultations 06/08/22 10:26 ED Decision to Admit Stat 06/08/22 12:59 Consult Neurology Routine Ordered Studies 06/08/22 07:36 CT head/brain wo con Stat 06/08/22 11:24 MR brain wo con Routine Hospital Course (1) Hypertensive urgency: -A review of patient's antihypertensive history: She was previously on Toprol 100mg daily, Amlodipine 5mg daily, Imdur 30mg daily -- 11/2021 Imdur was discontinued 01/12/22 by Cardiology due to absence of ongoing angina symptoms, BP was controlled Not currently on Amlodipine, review of the notes here appears this medicine was discontinued between 01/2022--> 04/2022. Unclear why it was discontinued althou gh patient suffers from chronic lower extremity swelling so I presume this may be the reason. Continue Toprol 100mg daily. Lisinopril 10mg was started here--> will discharge on lisinopril 10mg QHS. Will ask for twice a day blood pressure monitoring for up titrating medications as needed. (2) Paresthesia: Resolved. Likely related to very elevated blood pressure MRI brain here negative for acute stroke (3) Anticoagulant long-term use: h/o PAF, was previously on apixaban but switched to warfarin after having an embolic stroke. Aspirin was added at that time. Currently in sinus rhythm. Managed by [facility]. INR therapeutic, continued on home coumadin dosing while here (4) Paroxysmal atrial fibrillation: Remains in NSR (5) S/P coronary artery stent placement: (6) Breast cancer: (7) Hypothyroidism: (8) CKD (chronic kidney disease), stage III: Plan Ms Farrah Quach is a 86 year old female with history of PAF on coumadin, stroke with no residual deficit, CAD and hypertension who is a resident at the [facility] presented to the ER on 06/08 for numbness and tingling of her left hand and face. Upon arrival here her BP was noted to be very elevated with a systolic BP above 200. She underwent MRI brain which was negative for acute stroke For her hypertensive urgency, her Toprol 100mg daily was continued and she was also started on lisinopril 10mg QHS. With the addition of lisinopril, her blood pressure slowly improved and at the time of discharge was 124/73. She was seen by PT and she can return back to her prior living situation. She will need at least twice a day BP checks for the next 1 week to ensure BP stability while on this new regimen. Her INR was within therapeutic range and she was continued on her home coumadin dose. No other changes to her home medications were made here Prior to discharge, her daughter Nita was called and all questions were answered. Total Time Total Time Spent Total Time Spent (In Minutes): 40 Discharge Plan Discharge Items Patient Disposition: Personal Shelter Reason For Visit: HYPERTENSIVE URGENCY, PARESTHESIA Discharge Diagnosis: Hypertensive urgency Activity: Resume your previous activity Non-emergency contact: Primary Care Provider Call non-emergency contact if: you have any medication questions and your symptoms worsen Follow-up/Referrals: [facility] [Outside] Diet: Heart Healthy Addtl Attending Provider Instructions: You were admitted for numbness/tingling of your hand and face Blood pressure upon arrival here was very elevated You were started on lisinopril 10mg to be given in the evening. You can continue metoprolol as well Your blood pressure has been well controlled You should have your blood pressure checked twice a day for the next 1 week to monitor to see if additional changes are needed Recommend BMP in 2 weeks to monitor kidney function and electrolytes while on Lisinopril Pending Studies at Discharge: No Stand-Alone Forms: [employer], Smoking Cessation, Medications to Prevent Stroke Skilled Items Patient informed of condition?: Yes DNR: Yes Discharge Level of Care: Other Communicable Disease: No Discharge Prognosis: Stable Lines: None Urinary Catheter: No Medications and DC Order Prescriptions: New lisinopril 10 mg Tablet 10 mg PO HS 30 Days Qty: 30 0RF Continued nitroglycerin 0.4 mg tablet, sublingual 0.4 mg sublingual Q5M PRN (Reason: chest pain) Qty: 25 4RF Rx Instructions: up to 3 doses. If no resolution of Chest pain after 5 min, call 911. aspirin [Adult Low Dose Aspirin] 81 mg tablet,delayed release (DR/EC) 81 mg PO DAILY atorvastatin 40 mg tablet 40 mg PO HS Qty: 90 3RF albuterol sulfate 90 mcg/actuation HFA aerosol inhaler 2 puff INHALATION QID PRN (Reason: Shortness Of Breath Or Wheezing) metoprolol succinate 100 mg tablet extended release 24 hr 100 mg PO QAM acetaminophen [Tylenol Extra Strength] 500 mg Tablet 1,000 mg PO Q8H PRN (Reason: Pain) levothyroxine 50 mcg tablet 50 mcg PO DAILYBB warfarin 5 mg tablet 2.5 mg PO MOFR@1600 Rx Instructions: Take in addition the the 5mg dose on M and for total 7.5mg on these days. cholecalciferol (vitamin D3) 50 mcg (2,000 unit) Tablet 50 mcg PO DAILY warfarin 5 mg tablet 5 mg PO DAILY Protocol: Dose Management Condition: Monday (Week One) Dose/Route: 0 mg Instruction: 0 tablets Condition: Monday Dose/Route: 0 mg Instruction: 0 tablets Condition: Monday Dose/Route: 0 mg Instruction: 0 tablets Condition: Monday Dose/Route: 5 mg Instruction: 1 x 5 mg tablet Condition: Dose/Route: 7.5 mg Instruction: 1.5 x 5 mg tablets Condition: Monday Dose/Route: 7.5 mg Instruction: 1.5 x 5 mg tablets Condition: Monday Dose/Route: 5 mg Instruction: 1 x 5 mg tablet Condition: Monday (Week Two) Dose/Route: 5 mg Instruction: 1 x 5 mg tablet Condition: Monday Dose/Route: 7.5 mg Instruction: 1.5 x 5 mg tablets Condition: Monday Dose/Route: 5 mg Instruction: 1 x 5 mg tablet Condition: Monday Dose/Route: 5 mg Instruction: 1 x 5 mg tablet Condition: Dose/Route: 5 mg Instruction: 1 x 5 mg tablet Condition: Monday Dose/Route: 7.5 mg Instruction: 1.5 x 5 mg tablets Condition: Monday Dose/Route: 5 mg Instruction: 1 x 5 mg tablet Protocol Text: Adjustment Start Date: Monday04/19/22 INR Value: 1.4 INR Date: 04/14/22 Recheck Date: 04/21/22 Discharge Orders: Discharge Order (Routine); Ordered 06/11/22 Ordered By: Sean Lagunas/Other Patient Handouts: Hypertension Dc Admission Data Admit Date/Time: 06/08/22 11:11 Attending Provider: Sean Crabtree Admit Provider: Emma Alvarado Primary Care Provider: Mary Anne Evans Other Providers: Emma Alvarado ; Roel Brooks
[2022-06-11] MEDS ORDERED: lisinopril 10 MG TAB PO SCH (21:00)
== END 2022-06-11 15:20 | disposition home or self-care (01) | DRG 305 ==
LOC: ED 07:11 → SUATTDRO 11:11 → EDINP 11:11 → 2N 13:00

== ENCOUNTER 2022-06-13 11:15 | Observation (INO) ==
[2022-06-13 11:44] LABS: Basophils # (auto) 0.03 K/uL (0-0.2); Basophils % (auto) 0.4 %; Eosinophils # (auto) 0.37 K/uL (0-0.50); Eosinophils % (auto) 4.9 %; Hematocrit (blood only) 34.9 % (37.0-47.0); Hemoglobin 10.9 g/dl (12.0-16.0); Immature Granulocytes # (auto) 0.02 K/uL (0.01-0.20); Immature Granulocytes % (auto) 0.3 %; Lymphocytes # (auto) 1.65 K/uL (1.2-3.4); Mean Corpuscular Hemoglobin 31.2 pg (25.0-34.0); Mean Corpuscular Hgb Conc 31.2 g/dL (32.0-36.0); Mean Platelet Volume 10.1 fL (9.4-12.4); Monocytes # (auto) 0.87 K/uL (0.11-0.59); Monocytes % (auto) 11.6 %; Neutrophils # (auto) 4.55 K/uL (1.40-6.50); Neutrophils % (auto) 60.8 %; Platelet Count 236 K/uL (130-400); RDW Coefficient of Variation 14.6 % (11.5-14.5); RDW Standard Deviation 53.5 fL (36.4-46.3); Red Blood Count 3.49 M/uL (4.20-5.40); White Blood Count 7.49 K/ul (4.8-10.8)
[2022-06-13 11:51] LABS: iSTAT Creatinine 1.1 mg/dl (0.6-1.3); iSTAT Hemoglobin 11.2 g/dl (12.0-16.0); iSTAT Ionized Calcium 1.18 mmol/l (1.12-1.32); iSTAT Potassium 4.5 mmol/L (3.3-5.0)
[2022-06-13 12:00] LABS: INR 2.8 (0.9-1.1); Partial Thromboplastin Ratio 1.3; Partial Thromboplastin Time 35.6 Seconds (21.0-31.0)
--- NOTE | 2022-06-13 12:09 | Emergency Department Note ---
Impression & Plan Stroke-like symptoms, Chronic anticoagulation, Dysarthria ED Provider Note INFORMANT: Patient ED PROVIDER(S): Ammon Riddle MD CHIEF COMPLAINT: Strokelike symptoms PLAN: Disposition: Admitted Condition: Good Outpatient prescription management: none Referral: None MEDICAL DECISION MAKING: Patient presented to the ER because of strokelike symptoms. Prior records reviewed. The patient is anticoagulated and therefore is not a TNK candidate. She underwent CT imaging and no acute findings were noted. Blood work and ECG were unremarkable. The patient will require further management in the hospital. Consultation hospitalist service. Patient was evaluated in the ER and admitted for further management After review of the information above and other included data, I feel the patient requires admission. Triage Nursing notes reviewed and agree them. Vital Signs: reviewed and remarkable for mild hypertension Prior /Outside records reviewed: Prior hospitalization records reviewed regarding neurologic issues. Differential diagnosis: CVA, TIA,Infection, dehydration, metabolic abnormality, hypo/hyperglycemia, electrolyte disturbance, anemia, hypoxia, cardiac sources, intracerebral event, toxicologic, neurologic, as well as other pathologies. Diagnostics, as interpreted by me: ECG: Twelve-lead ECG reveals a sinus rhythm at 65 bpm. There is anterior T wave inversions and inferior Q waves. No ST elevation. Cardiac Monitoring: Cardiac monitoring ordered by me: The patient was placed on continuous cardiac monitoring and observed. It revealed sinus rhythm at 61 bpm Medical decision rules: none Imaging studies: CT and CT angiography negative for acute stroke. I refer you to the EMR for further details. HPI: The patient is a 87year old female who presents to the Emergency Room with complaints of stroke symptoms. This started 930 this morning and is improved but not resolved. The patient also notes the following associated symptoms, left-sided weakness, left facial droop, and dysarthria. Patient was recently admitted to hospital and discharged yesterday after hypertensive urgency. EMS did not report any significant high blood pressures prehospital. Currently the patient feels like she is speaking normally. On arrival there is still some mild facial droop present. The patient has been given no medication prehospital relieving factors. Current pain is rated as 0/10. Patient is anticoagulated. Pt denies LOC, headache, fevers, chills, diaphoresis, visual changes, neck pain, chest pain, breathing difficulties, nausea, vomiting, abdominal pain, back pain, melena, hematochezia, urinary symptoms, numbness, lymphadenopathy, rash, or other complaints. PAST MEDICAL HISTORY: See Below, CVA, anticoagulated PAST SURGICAL HISTORY: See Below, SOCIAL HISTORY: See Below, retired HOME MEDICATIONS: See Below ALLERGIES: See Below VITALS: See Below PHYSICAL EXAMINATION: GENERAL: Awake, alert, well-appearing, in no distress HENT: Normocephalic, atraumatic. Oropharynx unremarkable. EYES: Normal conjunctiva. Sclera non-icteric. PERRLA. EOMI. NECK: Inspection normal. Non-tender. Supple. No nuchal rigidity. FROM. No masses. RESPIRATORY: Clear to auscultation. No wheezes. No rales. Normal respiratory effort. CARDIAC: Normal rate. Normal rhythm. No murmurs. No rubs. Extremities warm and well perfused. Pulses equal. No JVD. GI: Soft, non-distended. No tenderness to palpation. No rebound or guarding. No masses. RECTAL: Deferred. MUSCULOSKELETAL: Atraumatic. Chest examination reveals no tenderness. The back is symmetrical on inspection without obvious abnormality. There is no CVA tenderness to palpation. No joint edema. LOWER EXTREMITIES: Calves are equal size bilaterally and non-tender. No edema. No discoloration. NEURO: Normal sensorium. Mild left-sided facial droop noted. Forehead examines normally. No other sensory or motor deficits noted. Cranial nerves II through XII intact otherwise. No drift. Strength equal. SKIN: No rash or jaundice noted. Past Med/Surg History Medical History Anticoagulant long-term use Bilateral leg weakness Breast cancer Left breast s/p lumpectomy CAD (coronary artery disease) Cardiomyopathy, ischemic Resolved, LVEF 60% to 65% on Echo 06/16/21. Cerebrovascular disease Chest pain CKD (chronic kidney disease), stage III COVID-19 HLD (hyperlipidemia) HTN (hypertension) Hypothyroidism Paroxysmal atrial fibrillation TIA (transient ischemic attack) Surgical History History of appendectomy History of arthroplasty of both knees History of bladder suspension procedure History of hip replacement, total History of hysterectomy S/P coronary artery stent placement Family History Brother Coronary heart disease Cancer Bladder cancer Sister Cancer Breast cancer Father Cancer Stomach cancer Daughter Cancer AML Other No family history of adverse response to anesthesia No family history of bleeding disorder Social History Smoking Status: Never smoker Second Hand Exposure: No; Hx Alcohol Use: No Hx Substance Use: No Preferred Language: Bangladeshi Communication Ability: Effective 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 Beliefs That Will Affect Care: None marital status: / Current Living Situation: Other Current Living Situation Comment: [facility] How many Children do You have: 4 Other Information That Helps Us Care for You: No Feels Safe at Home: Yes Assistive Devices: Walker and Wheelchair Allergies Allergies Allergy/AdvReac Type Severity Reaction Status Date / Time niacin Allergy Intermediate hives Verified 04/18/22 11:27 Opioids - Morphine Analogues AdvReac "gets very Verified 04/18/22 11:27 sick" Home Meds Home Medications Medication Instructions Recorded Confirmed acetaminophen 500 mg tablet 1,000 mg PO Q8H PRN Pain 08/21/20 06/13/22 (Tylenol Extra Strength) levothyroxine 50 mcg tablet 50 mcg PO DAILYBB 08/21/20 06/13/22 albuterol sulfate 90 mcg/actuation 2 puff inhalation QID PRN 04/26/21 06/13/22 aerosol inhaler Shortness Of Breath Or Wheezing metoprolol succinate 100 mg 100 mg PO QAM 11/06/21 06/13/22 tablet,extended release 24 hr cholecalciferol (vitamin D3) 50 50 mcg PO DAILY 06/08/22 06/13/22 mcg (2,000 unit) tablet warfarin 5 mg tablet 7.5 mg PO MOFR@1600 06/08/22 06/13/22 warfarin 5 mg tablet 5 mg PO SUTUWETHSA 06/13/22 06/13/22 Previous Rx's Medication Instructions Recorded nitroglycerin 0.4 mg sublingual 0.4 mg sublingual Q5M PRN chest 03/13/21 tablet pain #25 tabs atorvastatin 40 mg tablet 40 mg PO HS #90 tabs 06/01/21 lisinopril 10 mg tablet 10 mg PO .qhs #30 tabs 06/11/22 clopidogrel 75 mg tablet 75 mg PO QAM 30 days #30 tabs 06/14/22 Results & Data (ED) Vital Signs Vital Signs - 24 hr 06/13/22 11:30 06/13/22 11:30 06/13/22 12:13 Temperature 36.6 C Temperature Source Oral Pulse Rate 64 64 70 Respiratory Rate 18 18 23 Respiratory Effort / Characteristics Non-Labored Spontaneous Respiratory Depth Normal Respiratory Pattern Regular Blood Pressure 171/70 H 171/70 H 163/67 H Blood Pressure Mean 103 103 99 Blood Pressure Position Lying Pulse Oximetry 98 97 97 Oxygen Delivery Method Room Air Room Air Room Air Oxygen Flow Rate Sepsis Recent Fever Within 48 Hours No Sepsis New/Unexplained Change in Mental Status N/A Sepsis Action Taken by Nursing No Action Required Oxygen Flow Rate - Titration Pulse Oximetry Post Tiitration 06/13/22 12:43 Temperature Temperature Source Pulse Rate Respiratory Rate Respiratory Effort / Characteristics Respiratory Depth Respiratory Pattern Blood Pressure Blood Pressure Mean Blood Pressure Position Pulse Oximetry 85 L Oxygen Delivery Method Nasal Cannula Oxygen Flow Rate 0 Sepsis Recent Fever Within 48 Hours Sepsis New/Unexplained Change in Mental Status Sepsis Action Taken by Nursing Oxygen Flow Rate - Titration 2 Pulse Oximetry Post Tiitration 99 Laboratory Data 06/13/22 11:26 06/13/22 11:26 Lab Results 06/13/22 06/13/22 06/13/22 Range/Units 11:26 11:26 11:26 WBC 7.49 (4.8-10.8) K/ul RBC 3.49 L (4.20-5.40) M/uL Hgb 10.9 L (12.0-16.0) g/dl POC Hgb (12.0-16.0) g/dl Hct 34.9 L (37.0-47.0) % POC Hct (37-47) % MCV 100.0 (80.0-100.0) fL MCH 31.2 (25.0-34.0) pg MCHC 31.2 L (32.0-36.0) g/dL RDW Std Deviation 53.5 H (36.4-46.3) fL RDW Coeff of Dylon 14.6 H (11.5-14.5) % Plt Count 236 (130-400) K/uL MPV 10.1 (9.4-12.4) fL Immature Gran % (Auto) 0.3 % Neut % (Auto) 60.8 % Lymph % (Auto) 22.0 % Winn % (Auto) 11.6 % Eos % (Auto) 4.9 % Baso % (Auto) 0.4 % Neut # (Auto) 4.55 (1.40-6.50) K/uL Lymph # (Auto) 1.65 (1.2-3.4) K/uL Winn # (Auto) 0.87 H (0.11-0.59) K/uL Eos # (Auto) 0.37 (0-0.50) K/uL Baso # (Auto) 0.03 (0-0.2) K/uL Immature Gran # (Auto) 0.02 (0.01-0.20) K/uL PT 28.0 H (9.0-12.0) Seconds INR 2.8 H (0.9-1.1) APTT 35.6 H (21.0-31.0) Seconds PTT Ratio 1.3 POC Sodium (135-144) mmol/L Sodium 141 (136-145) mmol/L POC Potassium (3.3-5.0) mmol/L Potassium 4.6 (3.5-5.1) mmol/L POC Chloride (101-112) mmol/L Chloride 109 H (98-107) mmol/L Carbon Dioxide 28 (21-32) mmol/L POC Total CO2 (24-31) mmol/L Anion Gap 4 (3-11) POC Anion Gap (16-25) mmol/L POC BUN (7-18) mg/dl BUN 25 H (6-23) mg/dl Creatinine 1.09 (0.6-1.2) mg/dl POC Creatinine (0.6-1.3) mg/dl Est Cr Clr Drug Dosing 35.5 ml/min Est GFR ( Amer) 52.1 ml/min Est GFR (Non-Af Amer) 45.0 ml/min BUN/Creatinine Ratio 22.9 H (10-20) Glucose 82 (70-99(Fasting)) mg/dl POC Glucose (70-99) mg/dl POC Glucose (other) (70-99) mg/dl Calcium 8.9 (8.5-10.1) mg/dl POC Ioniz Calcium Yesica (1.12-1.32) mmol/l Magnesium 2.0 (1.7-2.4) mg/dl Total Bilirubin 0.3 (0.2-1.0) mg/dl AST 16 (13-39) U/L ALT 13 (7-52) U/L Alkaline Phosphatase 86 (34-104) U/L Troponin I High Sens 6.7 (0-14) pg/ml Total Protein 6.3 (6.0-8.3) gm/dl Albumin 3.6 (3.4-5.0) gm/dl Globulin 2.7 (2.5-4.0) gm/dl Albumin/Globulin Ratio 1.3 (0.9-2) SARS-CoV-2, RNA, NAAT (NEGATIVE) Blood Type Antibody Screen 06/13/22 06/13/22 06/13/22 Range/Units 11:35 11:38 11:39 WBC (4.8-10.8) K/ul RBC (4.20-5.40) M/uL Hgb (12.0-16.0) g/dl POC Hgb 11.2 L (12.0-16.0) g/dl Hct (37.0-47.0) % POC Hct 33 L (37-47) % MCV (80.0-100.0) fL MCH (25.0-34.0) pg MCHC (32.0-36.0) g/dL RDW Std Deviation (36.4-46.3) fL RDW Coeff of Dylon (11.5-14.5) % Plt Count (130-400) K/uL MPV (9.4-12.4) fL Immature Gran % (Auto) % Neut % (Auto) % Lymph % (Auto) % Winn % (Auto) % Eos % (Auto) % Baso % (Auto) % Neut # (Auto) (1.40-6.50) K/uL Lymph # (Auto) (1.2-3.4) K/uL Winn # (Auto) (0.11-0.59) K/uL Eos # (Auto) (0-0.50) K/uL Baso # (Auto) (0-0.2) K/uL Immature Gran # (Auto) (0.01-0.20) K/uL PT (9.0-12.0) Seconds INR (0.9-1.1) APTT (21.0-31.0) Seconds PTT Ratio POC Sodium 140 (135-144) mmol/L Sodium (136-145) mmol/L POC Potassium 4.5 (3.3-5.0) mmol/L Potassium (3.5-5.1) mmol/L POC Chloride 108 (101-112) mmol/L Chloride (98-107) mmol/L Carbon Dioxide (21-32) mmol/L POC Total CO2 29 (24-31) mmol/L Anion Gap (3-11) POC Anion Gap 8.0 L (16-25) mmol/L POC BUN 27 H (7-18) mg/dl BUN (6-23) mg/dl Creatinine (0.6-1.2) mg/dl POC Creatinine 1.1 (0.6-1.3) mg/dl Est Cr Clr Drug Dosing ml/min Est GFR ( Amer) ml/min Est GFR (Non-Af Amer) ml/min BUN/Creatinine Ratio (10-20) Glucose (70-99(Fasting)) mg/dl POC Glucose 73 (70-99) mg/dl POC Glucose (other) 85 (70-99) mg/dl Calcium (8.5-10.1) mg/dl POC Ioniz Calcium Yesica 1.18 (1.12-1.32) mmol/l Magnesium (1.7-2.4) mg/dl Total Bilirubin (0.2-1.0) mg/dl AST (13-39) U/L ALT (7-52) U/L Alkaline Phosphatase (34-104) U/L Troponin I High Sens (0-14) pg/ml Total Protein (6.0-8.3) gm/dl Albumin (3.4-5.0) gm/dl Globulin (2.5-4.0) gm/dl Albumin/Globulin Ratio (0.9-2) SARS-CoV-2, RNA, NAAT (NEGATIVE) Blood Type O Positive Antibody Screen NEGATIVE 06/13/22 Range/Units 12:30 WBC (4.8-10.8) K/ul RBC (4.20-5.40) M/uL Hgb (12.0-16.0) g/dl POC Hgb (12.0-16.0) g/dl Hct (37.0-47.0) % POC Hct (37-47) % MCV (80.0-100.0) fL MCH (25.0-34.0) pg MCHC (32.0-36.0) g/dL RDW Std Deviation (36.4-46.3) fL RDW Coeff of Dylon (11.5-14.5) % Plt Count (130-400) K/uL MPV (9.4-12.4) fL Immature Gran % (Auto) % Neut % (Auto) % Lymph % (Auto) % Winn % (Auto) % Eos % (Auto) % Baso % (Auto) % Neut # (Auto) (1.40-6.50) K/uL Lymph # (Auto) (1.2-3.4) K/uL Winn # (Auto) (0.11-0.59) K/uL Eos # (Auto) (0-0.50) K/uL Baso # (Auto) (0-0.2) K/uL Immature Gran # (Auto) (0.01-0.20) K/uL PT (9.0-12.0) Seconds INR (0.9-1.1) APTT (21.0-31.0) Seconds PTT Ratio POC Sodium (135-144) mmol/L Sodium (136-145) mmol/L POC Potassium (3.3-5.0) mmol/L Potassium (3.5-5.1) mmol/L POC Chloride (101-112) mmol/L Chloride (98-107) mmol/L Carbon Dioxide (21-32) mmol/L POC Total CO2 (24-31) mmol/L Anion Gap (3-11) POC Anion Gap (16-25) mmol/L POC BUN (7-18) mg/dl BUN (6-23) mg/dl Creatinine (0.6-1.2) mg/dl POC Creatinine (0.6-1.3) mg/dl Est Cr Clr Drug Dosing ml/min Est GFR ( Amer) ml/min Est GFR (Non-Af Amer) ml/min BUN/Creatinine Ratio (10-20) Glucose (70-99(Fasting)) mg/dl POC Glucose (70-99) mg/dl POC Glucose (other) (70-99) mg/dl Calcium (8.5-10.1) mg/dl POC Ioniz Calcium Yesica (1.12-1.32) mmol/l Magnesium (1.7-2.4) mg/dl Total Bilirubin (0.2-1.0) mg/dl AST (13-39) U/L ALT (7-52) U/L Alkaline Phosphatase (34-104) U/L Troponin I High Sens (0-14) pg/ml Total Protein (6.0-8.3) gm/dl Albumin (3.4-5.0) gm/dl Globulin (2.5-4.0) gm/dl Albumin/Globulin Ratio (0.9-2) SARS-CoV-2, RNA, NAAT NEGATIVE (NEGATIVE) Blood Type Antibody Screen Administered Medications Atorvastatin Calcium (Atorvastatin 40 Mg Tab) 40 mg PO [facility] Stop: 07/13/22 20:59 Last Admin: 06/13/22 20:56 Dose: 40 mg Documented By: WALTER Clopidogrel Bisulfate (Clopidogrel Bisulfate 75 Mg Tab) 75 mg PO [facility] Stop: 07/14/22 08:59 Last Admin: 06/14/22 08:07 Dose: 75 mg Documented By: WINTER Levothyroxine Sodium (Levothyroxine Sodium 50 Mcg Tablet) [facility] Stop: 07/14/22 06:29 Last Admin: 06/14/22 05:33 Dose: 50 mcg Documented By: WALTER Lisinopril (Lisinopril 10 Mg Tab) 10 mg PO [facility] Stop: 07/13/22 20:59 Last Admin: 06/13/22 20:56 Dose: 10 mg Documented By: WALTER Metoprolol Succinate (Metoprolol Succ 50mg Ext Rel Tab) 100 mg PO [facility] Stop: 07/14/22 08:59 Last Admin: 06/14/22 08:07 Dose: 100 mg Documented By: WINTER Warfarin Sodium (Warfarin Sod 5 Mg Tab) 5 mg PO SuTuWeThSa@1600 [facility] Stop: 07/14/22 15:59 Last Admin: 06/14/22 16:06 Dose: 5 mg Documented By: WINTER Warfarin Sodium (Warfarin Sod 7.5 Mg Tab) 7.5 mg PO MOFR@1600 [facility] Stop: 07/13/22 16:39 Last Admin: 06/13/22 17:58 Dose: 7.5 mg Documented By: FERN Discontinued Medications Ioversol (Optiray 320 500ml) 110 ml IV ONCE ONE Stop: 06/13/22 12:21 Last Admin: 06/13/22 12:05 Dose: 110 ml Documented By: BRAnabel Imaging Data Radiologist's Impression: Head CTA 06/13/22 11:30 CT angio head wo/w CLINICAL HISTORY: 87 years-old Female with acute stroke symptoms. Acute strokelike symptoms COMPARISON STUDY: CTA neck of same day, brain MRI 06/08/2022, CTA head 11/14/2021 TECHNIQUE: Unenhanced axial CT scan of the brain is performed. Subsequently, following the IV administration of 110 cc of Optiray, CT angiogram of the brain was performed from the skull base to the vertex. Images are reviewed in the axial, sagittal, and coronal planes. 3-D MIPS images are created and assessed. IV contrast was administered without complication. All measurements were obtained according to NASCET criteria. A dose lowering technique was utilized adhering to the principles of ALARA. CT DOSE: 1030.78 mGy.cm FINDINGS: CT BRAIN: There is no acute intracranial hemorrhage, midline shift, hydrocephalus, intracranial mass, territorial ischemia or abnormal extra-axial collections. No abnormal intra-axial or extra-axial enhancement. Involutional changes with chronic microvascular ischemic disease. Prior bilateral lens repair. Mastoid air cells and middle ear cavities are clear. No calvarial fracture. Paranasal sinuses are clear. CT ANGIOGRAM OF THE BRAIN: The imaged bilateral internal carotid arteries are patent. Unchanged high-grade stenosis of the A2 segment left anterior cerebral artery on image 114 series 5. Anterior and middle cerebral arteries are otherwise patent. Dominant left vertebral artery. The distal vertebral and basilar arteries are patent. Moderate stenosis of the P1 segment right posterior cerebral artery is similar to prior on image 86 series 5. Multifocal high-grade stenoses are again noted involving the left posterior cerebral artery which arises from the internal carotid artery. Dural sinuses appear patent. IMPRESSION: 1. Stable exam from the 11/14/2021 study. 2. Involutional changes with chronic microvascular ischemic disease. 3. High-grade stenoses within the left A2 segment, right P1 segment and left posterior cerebral artery again noted. ACT 112: Negative or not required by law. The above report was generated using voice recognition software. It may contain grammatical, syntax or spelling errors. Electronically signed by: Joe Tripathi M.D. 06/13/2022 1:15 PM Neck CTA 06/13/22 11:30 CT ANGIOGRAM OF THE NECK CLINICAL HISTORY: Strokelike symptoms. COMPARISON STUDY: CT angiogram of the neck dated 11/14/2021. TECHNIQUE: Following the IV administration of 110 of Optiray 320, CT angiogram of the neck was performed from the aortic arch to the skull base. Images are reviewed in the axial, sagittal, and coronal planes. 3-D MIPS images are created and assessed. IV contrast was administered without complication. All measurements were calculated based on NASCET criteria. A dose lowering technique was utilized adhering to the principles of ALARA. FINDINGS: Thoracic aorta: There is atherosclerotic calcification of the thoracic aorta. Visualized portions of the thoracic aorta are normal in caliber. The aortic arch demonstrates standard 3-vessel anatomy. Right carotid arterial system: The right common carotid artery is widely patent, as are the right internal and external carotid arteries. Calcified plaque is noted in the carotid bulb. Left carotid arterial system: The left common carotid artery is widely patent, as are the left internal and external carotid arteries. Calcified plaque is noted in the carotid bulb. Vertebral arteries: The vertebral arteries are widely patent bilaterally noting left-sided dominance. Subclavian arteries: Widely patent bilaterally. Intracranial vasculature: Diminished flow within the left posterior cerebral artery and the partially visualized left anterior cerebral artery is similar prior studies. Jugular veins: Widely patent bilaterally. Brain parenchyma: The visualized brain parenchyma the skull base is within normal limits. Lung apices: Partially visualized upper lobe lung parenchyma appears clear. Soft tissues: The visualized pharyngeal soft tissues are normal in appearance noting angiographic phase technique. The oropharyngeal airway appears widely patent. The salivary and thyroid glands are normal in appearance. No cervical lymphadenopathy is seen. Skeletal structures: The skeletal structures are osteopenic. The visualized calvarium at the skull base appears intact. The imaged cervical spine is maintained noting multilevel spondylosis. No lytic or blastic lesion is seen. Sinuses and mastoids: The visualized paranasal sinuses are clear. The mastoid air cells are well pneumatized. IMPRESSION: 1. Unremarkable CT angiogram of the neck. 2. Diminished flow within the left anterior cerebral artery and the left posterior cerebral artery is partially visualized at the skull base. This is similar to prior studies. See report of CT angiogram of the brain performed concurrently for detailed intracranial findings. ACT 112: Negative or not required by law. Electronically signed by: Nathanael Tomas M.D. 06/13/2022 12:52 PM Discharge Plan Visit Data Chief Complaint: Stroke/CVA Symptoms ED Provider: Ammon Riddle Discharge Problem: Stroke-like symptoms, Chronic anticoagulation, Dysarthria Patient Disposition: Admitted As Inpatient Condition: Good Discharge Instructions Interventions: ED Discharge Assessment Last Done: 06/13/22 16:11
[2022-06-13 12:20] LABS: Albumin Globulin Ratio 1.3 (0.9-2); Albumin Level 3.6 gm/dl (3.4-5.0); BUN Creatinine Ratio 22.9 (10-20); Bilirubin,Total 0.3 mg/dl (0.2-1.0); Calcium 8.9 mg/dl (8.5-10.1); Creatinine Clr Calc Pharmacy 35.5 ml/min; Est GFR (African American) 52.1 ml/min; Globulin 2.7 gm/dl (2.5-4.0); Potassium 4.6 mmol/L (3.5-5.1); Total Protein 6.3 gm/dl (6.0-8.3)
[2022-06-13] MEDS ORDERED: OPTIRAY 320 500ml IV ONE (12:20)
[2022-06-13 12:26] LABS: Troponin I High Sensitivity 6.7 pg/ml (0-14)
--- NOTE | 2022-06-13 12:28 | Electrocardiogram Report ---
Test Reason : Blood Pressure : / mmHG Vent. 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
--- NOTE | 2022-06-13 12:54 | CT Scan Report ---
CT ANGIOGRAM OF THE NECK CLINICAL HISTORY: Strokelike symptoms. COMPARISON STUDY: CT angiogram of the neck dated 11/14/2021. TECHNIQUE: Following the IV administration of 110 of Optiray 320, CT angiogram of the neck was perfor med from the aortic arch to the skull base. Images are reviewed in the axial, sagittal, and coronal p lanes. 3-D MIPS images are created and assessed. IV contrast was administered without complication. A ll measurements were calculated based on NASCET criteria. A dose lowering technique was utilized adh ering to the principles of ALARA. FINDINGS: Thoracic aorta: There is atherosclerotic calcification of the thoracic aorta. Visualized portions of the thoracic aorta are normal in caliber. The aortic arch demonstrates standard 3-vessel anatomy. Right carotid arterial system: The right common carotid artery is widely patent, as are the right int ernal and external carotid arteries. Calcified plaque is noted in the carotid bulb. Left carotid arterial system: The left common carotid artery is widely patent, as are the left audit intern al and external carotid arteries. Calcified plaque is noted in the carotid bulb. Vertebral arteries: The vertebral arteries are widely patent bilaterally noting left-sided dominance. Subclavian arteries: Widely patent bilaterally. Intracranial vasculature: Diminished flow within the left posterior cerebral artery and the partially visualized left anterior cerebral artery is similar prior studies. Jugular veins: Widely patent bilaterally. Brain parenchyma: The visualized brain parenchyma the skull base is within normal limits. Lung apices: Partially visualized upper lobe lung parenchyma appears clear. Soft tissues: The visualized pharyngeal soft tissues are normal in appearance noting angiographic pha se technique. The oropharyngeal airway appears widely patent. The salivary and thyroid glands are nor mal in appearance. No cervical lymphadenopathy is seen. Skeletal structures: The skeletal structures are osteopenic. The visualized calvarium at the skull ba se appears intact. The imaged cervical spine is maintained noting multilevel spondylosis. No lytic or blastic lesion is seen. Sinuses and mastoids: The visualized paranasal sinuses are clear. The mastoid air cells are well pneu matized. IMPRESSION: 1. Unremarkable CT angiogram of the neck. 2. Diminished flow within the left anterior cerebral artery and the left posterior cerebral artery is partially visualized at the skull base. This is similar to prior studies. See report of CT angiogram of the brain performed concurrently for detailed intracranial findings. ACT 112: Negative or not required by law. Electronically signed by: Nathanael Tomas M.D. 06/13/2022 12:52 PM
--- NOTE | 2022-06-13 13:16 | CT Scan Report ---
CT angio head wo/w CLINICAL HISTORY: 87 years-old Female with acute stroke symptoms. Acute strokelike symptoms COMPARISON STUDY: CTA neck of same day, brain MRI 06/08/2022, CTA head 11/14/2021 TECHNIQUE: Unenhanced axial CT scan of the brain is performed. Subsequently, following the IV administration of 110 cc of Optiray, CT angiogram of the brain was performed from the skull base to the vertex. Images are review ed in the axial, sagittal, and coronal planes. 3-D MIPS images are created and assessed. IV contrast was administered without complication. All measurements were obtained according to NASCET criteria. A dose lowering technique was utilized adhering to the principles of ALARA. CT DOSE: 1030.78 mGy.cm FINDINGS: CT BRAIN: There is no acute intracranial hemorrhage, midline shift, hydrocephalus, intracranial mass, territori al ischemia or abnormal extra-axial collections. No abnormal intra-axial or extra-axial enhancement. Involutional changes with chronic microvascular ischemic disease. Prior bilateral lens repair. Masto id air cells and middle ear cavities are clear. No calvarial fracture. Paranasal sinuses are clear. CT ANGIOGRAM OF THE BRAIN: The imaged bilateral internal carotid arteries are patent. Unchanged high-grade stenosis of the A2 se gment left anterior cerebral artery on image 114 series 5. Anterior and middle cerebral arteries are otherwise patent. Dominant left vertebral artery. The distal vertebral and basilar arteries are paten t. Moderate stenosis of the P1 segment right posterior cerebral artery is similar to prior on image 8 6 series 5. Multifocal high-grade stenoses are again noted involving the left posterior cerebral barbie ry which arises from the internal carotid artery. Dural sinuses appear patent. IMPRESSION: 1. Stable exam from the 11/14/2021 study. 2. Involutional changes with chronic microvascular ischemic disease. 3. High-grade stenoses within the left A2 segment, right P1 segment and left posterior cerebral arter y again noted. ACT 112: Negative or not required by law. The above report was generated using voice recognition software. It may contain grammatical, syntax o r spelling errors. Electronically signed by: Joe Tripathi M.D. 06/13/2022 1:15 PM
[2022-06-13 15:53] LABS: Appearance Urine Clear (Clear); Bacteria Urine Automated Negative (Negative); Bilirubin Urine Negative (Negative); Blood Urine Negative (Negative); Cast Urine Automated 0 /lpf (0-5); Color Urine Yellow; Glucose Urine UA Negative (Negative); Ketones Urine Negative (Negative); Leukocyte Esterase Urine 2+ (Negative); Nitrite Urine Negative (Negative); Protein Urine Negative (Negative); RBC Urine Automated 0-4 /hpf (0-4); Urobilinogen Urine Negative (Negative); WBC Urine Automated >30 /hpf (0-5); pH Urine 5.5 (4.5-7.5)
--- NOTE | 2022-06-13 16:04 | History & Physical Report ---
Date of Service June 13, 2022 Assessment & Plan (1) Cerebrovascular disease: (2) Stroke-like symptoms: Plan: Admit to telemetry Patient presenting from [facility] for evaluation of dysarthria, left-sided facial droop, possible left arm weakness. Symptoms have since completely resolved. Recently admitted to [facility] 06/08 through 06/11 for hypertensive urgency and paresthesias. Brain MRI on 06/08 negative for acute findings. In the ED, head and neck CTAs were unremarkable for acute findings. Demonstrates chronic finding of high-grade stenoses within the left A2 segment, right P1 segment and left posterior cerebral artery. Will obtain echo since not done during recent admission Neuro checks Will defer to neuro for additional imaging. Dr. Brooks notified via tiger text. Continue ASA, warfarin (INR 2.8), statin. (3) Paroxysmal atrial fibrillation: Plan: EKG demonstrates NSR today Rate controlled on metoprolol Anticoagulated on Coumadin, INR 2.8 (4) CAD (coronary artery disease): Plan: Appears stable, no reports of chest pain Continue ASA, statin, beta-ronny (5) HTN (hypertension): Plan: BP relatively controlled today, continue lisinopril metoprolol (6) Hypothyroidism: Plan: Continue levothyroxine DVT PROPHYLAXIS On Coumadin with therapeutic INR History of Present Illness Chief Complaint: Strokelike symptoms Primary Care Provider: Mary Anne Evans MD 87-year-old female with PMH paroxysmal atrial fibrillation on Coumadin, history of CVA, CAD, CKD stage III, hypothyroidism, breast cancer, and other problems listed below who presents to the ED for evaluation of strokelike symptoms. Patient recently admitted to [facility] 06/08 through 06/11 for hypertensive urgency. Patient started on lisinopril. Patient was also experiencing paresthesias that was felt to be due to elevated BP. Brain MRI on 06/08/2022 negative for acute findings. Patient reports that she has been doing well since [facility]. This morning, after walking back from having breakfast patient noted that she was tripping over her own feet. No fall. She reports receiving several phone calls this morning due to it being her birthday and when she was speaking to her son around 10 AM, her speech was very garbled. There is also reported left-sided facial droop and questionable left-sided weakness. EMS was called and patient was brought to the ED for further evaluation. Patient reports her symptoms resolved while she was in the ambulance on the way to the hospital. Patient denies chest pain, palpitations, shortness of breath. No lightheadedness, dizziness, diaphoresis, syncopal events. She denies abdominal pain, nausea, vomiting, diarrhea. No urinary symptoms. In the ED, head and neck CTAs are negative for acute findings. Demonstrates unchanged High-grade stenoses within the left A2 segment, right P1 segment and left posterior cerebral artery. Patient was also noted to be intermittently hypoxic while sleeping. Allergies Allergy/AdvReac Type Severity Reaction Status Date / Time niacin Allergy Intermediate hives Verified 04/18/22 11:27 Opioids - Morphine Analogues AdvReac "gets very Verified 04/18/22 11:27 sick" Home Medications Medication Instructions Recorded Confirmed Type acetaminophen 500 mg tablet 1,000 mg PO Q8H PRN Pain 08/21/20 06/13/22 History (Tylenol Extra Strength) levothyroxine 50 mcg tablet 50 mcg PO DAILYBB 08/21/20 06/13/22 History nitroglycerin 0.4 mg sublingual 0.4 mg sublingual Q5M PRN chest 03/13/21 06/13/22 Rx tablet pain #25 tabs albuterol sulfate 90 mcg/actuation 2 puff inhalation QID PRN 04/26/21 06/13/22 History aerosol inhaler Shortness Of Breath Or Wheezing atorvastatin 40 mg tablet 40 mg PO HS #90 tabs 06/01/21 06/13/22 Rx metoprolol succinate 100 mg 100 mg PO QAM 11/06/21 06/13/22 History tablet,extended release 24 hr aspirin 81 mg tablet,delayed 81 mg PO DAILY 01/13/22 06/13/22 History release (Adult Low Dose Aspirin) cholecalciferol (vitamin D3) 50 50 mcg PO DAILY 06/08/22 06/13/22 History mcg (2,000 unit) tablet warfarin 5 mg tablet 7.5 mg PO MOFR@1600 06/08/22 06/13/22 History lisinopril 10 mg tablet 10 mg PO .qhs #30 tabs 06/11/22 06/13/22 Rx warfarin 5 mg tablet 5 mg PO SUTUWETHSA 06/13/22 06/13/22 History Past Med/Surg History Medical History Anticoagulant long-term use Bilateral leg weakness Breast cancer Left breast s/p lumpectomy CAD (coronary artery disease) Cardiomyopathy, ischemic Resolved, LVEF 60% to 65% on Echo 06/16/21. Cerebrovascular disease Chest pain CKD (chronic kidney disease), stage III COVID-19 HLD (hyperlipidemia) HTN (hypertension) Hypothyroidism Paroxysmal atrial fibrillation TIA (transient ischemic attack) Surgical History History of appendectomy History of arthroplasty of both knees History of bladder suspension procedure History of hip replacement, total History of hysterectomy S/P coronary artery stent placement Family History Brother Coronary heart disease Cancer Bladder cancer Sister Cancer Breast cancer Father Cancer Stomach cancer Daughter Cancer AML Other No family history of adverse response to anesthesia No family history of bleeding disorder Social History Smoking Status: Never smoker Second Hand Exposure: No; Hx Alcohol Use: No Hx Substance Use: No Preferred Language: Yemeni Communication Ability: Effective Filament Welder Required: No Beliefs That Will Affect Care: None marital status: / Current Living Situation: Other Current Living Situation Comment: [facility] How many Children do You have: 4 Other Information That Helps Us Care for You: No Feels Safe at Home: Yes Assistive Devices: Glasses and Walker Review of Systems Review of Systems: ROS per HPI, all other systems reviewed and negative Physical Exam Constitutional: WD/WN, vitals as above Eyes: PERRL, conjunctivae normal, anicteric sclerae ENMT: external ear and nose normal, oropharynx normal Respiratory: normal respiratory effort, lungs clear to auscultation Cardiovascular: Rate/Rhythm: regular rate and regular rhythm Vessels: normal peripheral pulses Extremities: no edema Gastrointestinal (Abdomen): normal bowel sounds, soft, nontender, no hepatosplenomegaly Musculoskeletal: Extremities: no cyanosis and no clubbing Skin: no rashes, warm and dry Neurologic: moves all extremities (Difficulty lifting each leg off the bed due to chronic lower extremity weak) and awake; no focal motor deficits Speech / Cognition: normal speech Cranial Nerves: PERRL, EOM intact bilaterally and normal facial strength Coordination: normal [id number] test Pedal pushes and pulls strong bilaterally Psychiatric: A+Ox3, euthymic affect Results & Data Results & Data ([facility]) Vital Signs (Past 12 Hours) Vital Signs Temp Pulse Resp BP Pulse Ox O2 Del Method O2 Flow Rate 06/13/22 13:00 65 16 150/61 H 100 Nasal Cannula 2 06/13/22 12:50 65 15 100 06/13/22 12:40 64 14 89 L 06/13/22 12:43 85 L Nasal Cannula 0 06/13/22 12:13 70 23 163/67 H 97 Room Air 06/13/22 11:30 64 18 171/70 H 97 Room Air 06/13/22 11:30 36.6 C 64 18 171/70 H 98 Room Air Laboratory Results Short CBC 06/13/22 Range/Units 11:26 WBC 7.49 (4.8-10.8) K/ul Hgb 10.9 L (12.0-16.0) g/dl Hct 34.9 L (37.0-47.0) % Plt Count 236 (130-400) K/uL BMP 06/13/22 11:26 Sodium 141 Potassium 4.6 Chloride 109 H Carbon Dioxide 28 BUN 25 H Creatinine 1.09 Glucose 82 Calcium 8.9 Liver Function 06/13/22 Range/Units 11:26 Total Bilirubin 0.3 (0.2-1.0) mg/dl AST 16 (13-39) U/L ALT 13 (7-52) U/L Alkaline Phosphatase 86 (34-104) U/L Albumin 3.6 (3.4-5.0) gm/dl Diagnostic Findings Head CTA 06/13/22 11:30 CT angio head wo/w CLINICAL HISTORY: 87 years-old Female with acute stroke symptoms. Acute strokelike symptoms COMPARISON STUDY: CTA neck of same day, brain MRI 06/08/2022, CTA head 11/14/2021 TECHNIQUE: Unenhanced axial CT scan of the brain is performed. Subsequently, following the IV administration of 110 cc of Optiray, CT angiogram of the brain was performed from the skull base to the vertex. Images are reviewed in the axial, sagittal, and coronal planes. 3-D MIPS images are created and assessed. IV contrast was administered without complication. All measurements were obtained according to NASCET criteria. A dose lowering technique was utilized adhering to the principles of ALARA. CT DOSE: 1030.78 mGy.cm FINDINGS: CT BRAIN: There is no acute intracranial hemorrhage, midline shift, hydrocephalus, intracranial mass, territorial ischemia or abnormal extra-axial collections. No abnormal intra-axial or extra-axial enhancement. Involutional changes with chronic microvascular ischemic disease. Prior bilateral lens repair. Mastoid air cells and middle ear cavities are clear. No calvarial fracture. Paranasal sinuses are clear. CT ANGIOGRAM OF THE BRAIN: The imaged bilateral internal carotid arteries are patent. Unchanged high-grade stenosis of the A2 segment left anterior cerebral artery on image 114 series 5. Anterior and middle cerebral arteries are otherwise patent. Dominant left vertebral artery. The distal vertebral and basilar arteries are patent. Moderate stenosis of the P1 segment right posterior cerebral artery is similar to prior on image 86 series 5. Multifocal high-grade stenoses are again noted involving the left posterior cerebral artery which arises from the internal carotid arter y. Dural sinuses appear patent. IMPRESSION: 1. Stable exam from the 11/14/2021 study. 2. Involutional changes with chronic microvascular ischemic disease. 3. High-grade stenoses within the left A2 segment, right P1 segment and left posterior cerebral artery again noted. ACT 112: Negative or not required by law. The above report was generated using voice recognition software. It may contain grammatical, syntax or spelling errors. Electronically signed by: Joe Tripathi M.D. 06/13/2022 1:15 PM Neck CTA 06/13/22 11:30 CT ANGIOGRAM OF THE NECK CLINICAL HISTORY: Strokelike symptoms. COMPARISON STUDY: CT angiogram of the neck dated 11/14/2021. TECHNIQUE: Following the IV administration of 110 of Optiray 320, CT angiogram of the neck was performed from the aortic arch to the skull base. Images are reviewed in the axial, sagittal, and coronal planes. 3-D MIPS images are created and assessed. IV contrast was administered without complication. All measurements were calculated based on NASCET criteria. A dose lowering technique was utilized adhering to the principles of ALARA. FINDINGS: Thoracic aorta: There is atherosclerotic calcification of the thoracic aorta. Visualized portions of the thoracic aorta are normal in caliber. The aortic arch demonstrates standard 3-vessel anatomy. Right carotid arterial system: The right common carotid artery is widely patent, as are the right internal and external carotid arteries. Calcified plaque is noted in the carotid bulb. Left carotid arterial system: The left common carotid artery is widely patent, as are the left internal and external carotid arteries. Calcified plaque is noted in the carotid bulb. Vertebral arteries: The vertebral arteries are widely patent bilaterally noting left-sided dominance. Subclavian arteries: Widely patent bilaterally. Intracranial vasculature: Diminished flow within the left posterior cerebral artery and the partially visualized left anterior cerebral artery is similar prior studies. Jugular veins: Widely patent bilaterally. Brain parenchyma: The visualized brain parenchyma the skull base is within normal limits. Lung apices: Partially visualized upper lobe lung parenchyma appears clear. Soft tissues: The visualized pharyngeal soft tissues are normal in appearance noting angiographic phase technique. The oropharyngeal airway appears widely patent. The salivary and thyroid glands are normal in appearance. No cervical lymphadenopathy is seen. Skeletal structures: The skeletal structures are osteopenic. The visualized calvarium at the skull base appears intact. The imaged cervical spine is maintained noting multilevel spondylosis. No lytic or blastic lesion is seen. Sinuses and mastoids: The visualized paranasal sinuses are clear. The mastoid air cells are well pneumatized. IMPRESSION: 1. Unremarkable CT angiogram of the neck. 2. Diminished flow within the left anterior cerebral artery and the left posterior cerebral artery is partially visualized at the skull base. This is similar to prior studies. See report of CT angiogram of the brain performed concurrently for detailed intracranial findings. ACT 112: Negative or not required by law. Electronically signed by: Nathanael Tomas M.D. 06/13/2022 12:52 PM Code Status & VTE Plan Code Status Patient is a DNR as per my discussion with her. VTE Prophylaxis Plan VTE Prophylaxis will be ordered: No Reason for no VTE drug order: Contraindicated Supervising Physician Co-Signing Physician Notes I have seen and examined the patient and have discussed the case with the provider above. I agree with the assessment and plan as stated with the following exceptions. 87 yo F admitted multiple times in the past couple of weeks for TIA symptoms. Today she reports waking from a nap and having slurred speech and left facial droop with paresthesia on the left side of the mouth. She has had an extensive workup and outside of some areas of high-grade stenosis that are unchanged, there is no stroke. Symptoms then completely resolve within 30 minutes as they have in the past. Workup as above. Agree with adjusting her ASA to Plavix, continuing warfarin. Likely to home in am as no residual deficits present. Agree with overnight pulse ox test to see if there is any untreated APOLONIA that may be contributing to symptoms. BP around goal. Christiano, DO
[2022-06-13] MEDS ORDERED: WARFARIN SOD 7.5 MG TAB PO SCH (16:40)
[2022-06-13] MEDS ORDERED: PHARMACIST DISCHARGE MED REC CONSULT PRN (16:40)
[2022-06-13] MEDS ORDERED: ACETAMINOPHEN 325 MG TAB PO PRN (16:40)
--- NOTE | 2022-06-13 18:12 | Neurology Consultation ---
Date of Consultation June 13, 2022 Assessment & Plan (1) Stroke-like symptoms: Impression: The patient presented emergency department few times recently, with similar symptoms, with negative stroke work-up. However, she experienced expressive speech difficulty, tongue numbness, and left facial droop today, and was brought back to emergency department. Her symptoms resolved in less than [address] angiography was again showed left anterior cerebral artery and bilateral posterior cerebral artery stenosis as seen before. Recommendations/plan: We should contact with neuro interventionalist regarding recurrent neurological symptoms with intracranial arterial stenosis to find out whether the patient might get benefit from stenting. Because of recurrent symptoms on current treatment, I would recommend switching from aspirin to Plavix 75 mg daily. Meanwhile, the patient will stay on Coumadin with goal INR level between 2-3. EEG to evaluate for partial seizures. There is no indication for permissive hypertension. We should keep the patient's blood pressure within normal range. We should avoid hypotension at the same time. Telemetry monitoring while she is in the hospital. Thank you for the consultation. We will follow patient with you. (2) Dysarthria: Impression: As seen above. (3) Anticoagulant long-term use: (4) Paroxysmal atrial fibrillation: (5) Cerebrovascular disease: (6) HTN (hypertension): (7) CAD (coronary artery disease): (8) HLD (hyperlipidemia): History of Present Illness Reason for Consultation: Stroke like symptoms. Requesting Physician: Emma Alvarado DO Attending Physician: Emma Alvarado DO History of Present Illness The patient is a 87-year-old right-handed pleasant female, who was brought from group home, with speech disturbance, tongue numbness, and left facial droop. She was discharged from hospital 2 days ago, after she was hospitalized with similar symptoms, however, this time, she had speech disturbance with left facial droop as well. Symptoms resolved within 30 minutes. During last hospital stay, brain MRI was negative for acute cerebrovascular accident. CT angiography repeated again this time, which showed previously seen bilateral posterior cerebral artery and left anterior cerebral artery focal stenosis. There was no interval change. Apparently, the patient was hospitalized in November 2021, with similar symptoms, and then left [place] territory acute ischemic stroke was seen. The patient was on Eliquis then for atrial fibrillation, which was switched to Coumadin and aspirin was added to treatment. During last hospitalization, the patient's blood pressure was significantly elevated, and lisinopril was added to treatment. Today, her blood pressure was normal or slightly elevated. The patient has been compliant on treatment. INR level was therapeutic. Patient has been on Lipitor, with the last LDL level was lower than 70. The patient was symptom-free when she arrived to emergency department, and was admitted to the hospital, because of new symptoms including speech disturbance and facial droop. I have reviewed the patient's chart including imaging studies and visualized them personally. I have discussed the case with the patient, family, and hospitalist physician. Allergies Allergy/AdvReac Type Severity Reaction Status Date / Time niacin Allergy Intermediate hives Verified 04/18/22 11:27 Opioids - Morphine Analogues AdvReac "gets very Verified 04/18/22 11:27 sick" Home Medications Medication Instructions Recorded Confirmed Type acetaminophen 500 mg tablet 1,000 mg PO Q8H PRN Pain 08/21/20 06/13/22 History (Tylenol Extra Strength) levothyroxine 50 mcg tablet 50 mcg PO DAILYBB 08/21/20 06/13/22 History nitroglycerin 0.4 mg sublingual 0.4 mg sublingual Q5M PRN chest 03/13/21 06/13/22 Rx tablet pain #25 tabs albuterol sulfate 90 mcg/actuation 2 puff inhalation QID PRN 04/26/21 06/13/22 History aerosol inhaler Shortness Of Breath Or Wheezing atorvastatin 40 mg tablet 40 mg PO HS #90 tabs 06/01/21 06/13/22 Rx metoprolol succinate 100 mg 100 mg PO QAM 11/06/21 06/13/22 History tablet,extended release 24 hr aspirin 81 mg tablet,delayed 81 mg PO DAILY 01/13/22 06/13/22 History release (Adult Low Dose Aspirin) cholecalciferol (vitamin D3) 50 50 mcg PO DAILY 06/08/22 06/13/22 History mcg (2,000 unit) tablet warfarin 5 mg tablet 7.5 mg PO MOFR@1600 06/08/22 06/13/22 History lisinopril 10 mg tablet 10 mg PO .qhs #30 tabs 06/11/22 06/13/22 Rx warfarin 5 mg tablet 5 mg PO SUTUWETHSA 06/13/22 06/13/22 History Patient History Medical History Anticoagulant long-term use Bilateral leg weakness Breast cancer Left breast s/p lumpectomy CAD (coronary artery disease) Cardiomyopathy, ischemic Resolved, LVEF 60% to 65% on Echo 06/16/21. Cerebrovascular disease Chest pain CKD (chronic kidney disease), stage III COVID-19 HLD (hyperlipidemia) HTN (hypertension) Hypothyroidism Paroxysmal atrial fibrillation TIA (transient ischemic attack) Surgical History History of appendectomy History of arthroplasty of both knees History of bladder suspension procedure History of hip replacement, total History of hysterectomy S/P coronary artery stent placement Family History Brother Coronary heart disease Cancer Bladder cancer Sister Cancer Breast cancer Father Cancer Stomach cancer Daughter Cancer AML Other No family history of adverse response to anesthesia No family history of bleeding disorder Social History Smoking Status: Never smoker Second Hand Exposure: No; Hx Alcohol Use: No Hx Substance Use: No Preferred Language: Kazakh Communication Ability: Effective Report Analyst Required: No Beliefs That Will Affect Care: None marital status: / Current Living Situation: Other Current Living Situation Comment: [facility] How many Children do You have: 4 Other Information That Helps Us Care for You: No Feels Safe at Home: Yes Assistive Devices: Glasses and Walker Review of Systems Review of Systems: All systems reviewed & are unremarkable except as noted in HPI & below Physical Exam Physical Exam: General Examination: Constitutional: Well developed overweight person in no acute distress. HENT: Normal exam with inspection. CV: Hearth rhythm is regular. Neck: Supple, no carotid bruits. Lungs: Non-labored and comfortable breathing. Abdomen: Soft, non-tender, non-distended. Skin: No rash or ecchymosis. Extremities: No edema or cyanosis NEUROLOGICAL EXAMINATION: Mental Status: Alert and oriented to place, person and time. Cranial Nerves: II-XII are intact. No nystagmus. Funduscopy: Normal looking optic discs. Motor: 5/5 in all extremities without asymmetry except bilateral deltoids and hand crystal cutter are 4/5. Tone: Normal without spasticity or rigidity. Sensory: Intact to all sensory modalities except slightly decreased sensation in feet. Coordination: No dysmetria with FTN testing. Speech: Fluent. Comprehension is intact. Gait: Slightly unsteady but on her baseline. No ataxia or abnormal walking pattern. DTRs: 1- in upper extremities and knees and trace in ankles. No Babinsky. Musculoskeletal: Normal muscle bulk, no atrophy. Results & Data ([facility]) Vital Signs (Past 12 Hours) Vital Signs Temp Pulse Pulse Resp BP BP Pulse Ox 06/13/22 17:20 60 06/13/22 16:40 36.9 C 61 21 170/72 H 92 06/13/22 16:40 06/13/22 13:00 65 16 150/61 H 100 06/13/22 12:50 65 15 100 06/13/22 12:40 64 14 89 L 06/13/22 12:43 85 L 06/13/22 12:13 70 23 163/67 H 97 06/13/22 11:30 64 18 171/70 H 97 06/13/22 11:30 36.6 C 64 18 171/70 H 98 Pulse Ox O2 Del Method O2 Del Method O2 Flow Rate 06/13/22 17:20 06/13/22 16:40 Room Air 06/13/22 16:40 92 Room Air 06/13/22 13:00 Nasal Cannula 2 06/13/22 12:50 06/13/22 12:40 06/13/22 12:43 Nasal Cannula 0 06/13/22 12:13 Room Air 06/13/22 11:30 Room Air 06/13/22 11:30 Room Air Laboratory Results Laboratory Results - last 24 hr 06/13/22 06/13/22 06/13/22 11:26 11:26 11:26 WBC 7.49 RBC 3.49 L Hgb 10.9 L POC Hgb Hct 34.9 L POC Hct MCV 100.0 MCH 31.2 MCHC 31.2 L RDW Std Deviation 53.5 H RDW Coeff of Dylon 14.6 H Plt Count 236 MPV 10.1 Immature Gran % (Auto) 0.3 Neut % (Auto) 60.8 Lymph % (Auto) 22.0 [place] % (Auto) 11.6 Eos % (Auto) 4.9 Baso % (Auto) 0.4 Neut # (Auto) 4.55 Lymph # (Auto) 1.65 [place] # (Auto) 0.87 H Eos # (Auto) 0.37 Baso # (Auto) 0.03 Immature Gran # (Auto) 0.02 PT 28.0 H INR 2.8 H APTT 35.6 H PTT Ratio 1.3 POC Sodium Sodium 141 POC Potassium Potassium 4.6 POC Chloride Chloride 109 H Carbon Dioxide 28 POC Total CO2 Anion Gap 4 POC Anion Gap POC BUN BUN 25 H Creatinine 1.09 POC Creatinine Est Cr Clr Drug Dosing 35.5 Est GFR ( Amer) 52.1 Est GFR (Non-Af Amer) 45.0 BUN/Creatinine Ratio 22.9 H Glucose 82 POC Glucose POC Glucose (other) Calcium 8.9 POC Ioniz Calcium Yesica Magnesium 2.0 Total Bilirubin 0.3 AST 16 ALT 13 Alkaline Phosphatase 86 Troponin I High Sens 6.7 Total Protein 6.3 Albumin 3.6 Globulin 2.7 Albumin/Globulin Ratio 1.3 Urine Color Urine Appearance Urine pH Ur Specific [place] Urine Protein Urine Glucose (UA) Urine Ketones Urine Blood Urine Nitrite Urine Bilirubin Urine Urobilinogen Ur Leukocyte Esterase Urine WBC (Auto) Urine RBC (Auto) U Hyaline Cast (Auto) U Epithel Cells (Auto) Urine Bacteria (Auto) SARS-CoV-2, RNA, NAAT Blood Type Antibody Screen 06/13/22 06/13/22 06/13/22 11:35 11:38 11:39 WBC RBC Hgb POC Hgb 11.2 L Hct POC Hct 33 L MCV MCH MCHC RDW Std Deviation RDW Coeff of [place] Plt Count MPV Immature Gran % (Auto) Neut % (Auto) Lymph % (Auto) [place] % (Auto) Eos % (Auto) Baso % (Auto) Neut # (Auto) Lymph # (Auto) [place] # (Auto) Eos # (Auto) Baso # (Auto) Immature Gran # (Auto) PT INR APTT PTT Ratio POC Sodium 140 Sodium POC Potassium 4.5 Potassium POC Chloride 108 Chloride Carbon Dioxide POC Total CO2 29 Anion Gap POC Anion Gap 8.0 L POC BUN 27 H BUN Creatinine POC Creatinine 1.1 Est Cr Clr Drug Dosing Est GFR ( Amer) Est GFR (Non-Af Amer) BUN/Creatinine Ratio Glucose POC Glucose 73 POC Glucose (other) 85 Calcium POC Ioniz Calcium Yes[place] 1.18 Magnesium Total Bilirubin AST ALT Alkaline Phosphatase Troponin I High Sens Total Protein Albumin Globulin Albumin/Globulin Ratio Urine Color Urine Appearance Urine pH Ur Specific [place] Urine Protein Urine Glucose (UA) Urine Ketones Urine Blood Urine Nitrite Urine Bilirubin Urine Urobilinogen Ur Leukocyte Esterase Urine WBC (Auto) Urine RBC (Auto) U Hyaline Cast (Auto) U Epithel Cells (Auto) Urine Bacteria (Auto) SARS-CoV-2, RNA, NAAT Blood Type O Positive Antibody Screen NEGATIVE 06/13/22 06/13/22 12:30 Unknown WBC RBC Hgb POC Hgb Hct POC Hct MCV MCH MCHC RDW Std Deviation RDW Coeff of [place] Plt Count MPV Immature Gran % (Auto) Neut % (Auto) Lymph % (Auto) [place] % (Auto) Eos % (Auto) Baso % (Auto) Neut # (Auto) Lymph # (Auto) [place] # (Auto) Eos # (Auto) Baso # (Auto) Immature Gran # (Auto) PT INR APTT PTT Ratio POC Sodium Sodium POC Potassium Potassium POC Chloride Chloride Carbon Dioxide POC Total CO2 Anion Gap POC Anion Gap POC BUN BUN Creatinine POC Creatinine Est Cr Clr Drug Dosing Est GFR ( Amer) Est GFR (Non-Af Amer) BUN/Creatinine Ratio Glucose POC Glucose POC Glucose (other) Calcium POC Ioniz Calcium [place] Magnesium Total Bilirubin AST ALT Alkaline Phosphatase Troponin I High Sens Total Protein Albumin Globulin Albumin/Globulin Ratio Urine Color Yellow Urine Appearance Clear Urine pH 5.5 Ur Specific [place] 1.030 Urine Protein Negative Urine Glucose (UA) Negative Urine Ketones Negative Urine Blood Negative Urine Nitrite Negative Urine Bilirubin Negative Urine Urobilinogen Negative Ur Leukocyte Esterase 2+ H Urine WBC (Auto) >30 H Urine RBC (Auto) 0-4 U Hyaline Cast (Auto) 0 U Epithel Cells (Auto) 10-20 H Urine Bacteria (Auto) Negative SARS-CoV-2, RNA, NAAT NEGATIVE Blood Type Antibody Screen Diagnostic Findings Head CTA 06/13/22 11:30 CT angio head wo/w CLINICAL HISTORY: 87 years-old Female with acute stroke symptoms. Acute strokelike symptoms COMPARISON STUDY: CTA neck of same day, brain MRI 06/08/2022, CTA head 11/14/2021 TECHNIQUE: Unenhanced axial CT scan of the brain is performed. Subsequently, following the IV administration of 110 cc of Optiray, CT angiogram of the brain was performed from the skull base to the vertex. Images are reviewed in the axial, sagittal, and coronal planes. 3-D MIPS images are created and assessed. IV contrast was administered without complication. All measurements were obtained according to NASCET criteria. A dose lowering technique was utilized adhering to the principles of ALARA. CT DOSE: 1030.78 mGy.cm FINDINGS: CT BRAIN: There is no acute intracranial hemorrhage, midline shift, hydrocephalus, intrac ranial mass, territorial ischemia or abnormal extra-axial collections. No abnormal intra-axial or extra-axial enhancement. Involutional changes with chronic microvascular ischemic disease. Prior bilateral lens repair. Mastoid air cells and middle ear cavities are clear. No calvarial fracture. Paranasal sinuses are clear. CT ANGIOGRAM OF THE BRAIN: The imaged bilateral internal carotid arteries are patent. Unchanged high-grade stenosis of the A2 segment left anterior cerebral artery on image 114 series 5. Anterior and middle cerebral arteries are otherwise patent. Dominant left vertebral artery. The distal vertebral and basilar arteries are patent. Moderate stenosis of the P1 segment right posterior cerebral artery is similar to prior on image 86 series 5. Multifocal high-grade stenoses are again noted involving the left posterior cerebral artery which arises from the internal carotid artery. Dural sinuses appear patent. IMPRESSION: 1. Stable exam from the 11/14/2021 study. 2. Involutional changes with chronic microvascular ischemic disease. 3. High-grade stenoses within the left A2 segment, right P1 segment and left posterior cerebral artery again noted. ACT 112: Negative or not required by law. The above report was generated using voice recognition software. It may contain grammatical, syntax or spelling errors. Electronically signed by: Joe Tripathi M.D. 06/13/2022 1:15 PM Neck CTA 06/13/22 11:30 CT ANGIOGRAM OF THE NECK CLINICAL HISTORY: Strokelike symptoms. COMPARISON STUDY: CT angiogram of the neck dated 11/14/2021. TECHNIQUE: Following the IV administration of 110 of Optiray 320, CT angiogram of the neck was performed from the aortic arch to the skull base. Images are reviewed in the axial, sagittal, and coronal planes. 3-D MIPS images are created and assessed. IV contrast was administered without complication. All measurements were calculated based on NASCET criteria. A dose lowering techniq ue was utilized adhering to the principles of ALARA. FINDINGS: Thoracic aorta: There is atherosclerotic calcification of the thoracic aorta. Visualized portions of the thoracic aorta are normal in caliber. The aortic arch demonstrates standard 3-vessel anatomy. Right carotid arterial system: The right common carotid artery is widely patent, as are the right internal and external carotid arteries. Calcified plaque is noted in the carotid bulb. Left carotid arterial system: The left common carotid artery is widely patent, as are the left internal and external carotid arteries. Calcified plaque is noted in the carotid bulb. Vertebral arteries: The vertebral arteries are widely patent bilaterally noting left-sided dominance. Subclavian arteries: Widely patent bilaterally. Intracranial vasculature: Diminished flow within the left posterior cerebral artery and the partially visualized left anterior cerebral artery is similar prior studies. Jugular veins: Widely patent bilaterally. Brain parenchyma: The visualized brain parenchyma the skull base is within normal limits. Lung apices: Partially visualized upper lobe lung parenchyma appears clear. Soft tissues: The visualized pharyngeal soft tissues are normal in appearance noting angiographic phase technique. The oropharyngeal airway appears widely patent. The salivary and thyroid glands are normal in appearance. No cervical lymphadenopathy is seen. Skeletal structures: The skeletal structures are osteopenic. The visualized calvarium at the skull base appears intact. The imaged cervical spine is maintained noting multilevel spondylosis. No lytic or blastic lesion is seen. Sinuses and mastoids: The visualized paranasal sinuses are clear. The mastoid air cells are well pneumatized. IMPRESSION: 1. Unremarkable CT angiogram of the neck. 2. Diminished flow within the left anterior cerebral artery and the left posterior cerebral artery is partially visualized at the skull base. This is similar to prior studies. See report of CT angiogram of the brain performed concurrently for detailed intracranial findings. ACT 112: Negative or not required by law. Electronically signed by: Nathanael Tomas M.D. 06/13/2022 12:52 PM
[2022-06-13] MEDS ORDERED: ATORVASTATIN 40 MG TAB PO SCH (21:00)
[2022-06-13] MEDS ORDERED: lisinopril 10 MG TAB PO SCH (21:00)
[2022-06-14] MEDS ORDERED: LEVOTHYROXINE SODIUM 50 MCG TABLET PO SCH (06:30)
[2022-06-14 07:53] LABS: Basophils # (auto) 0.04 K/uL (0-0.2); Basophils % (auto) 0.7 %; Eosinophils # (auto) 0.37 K/uL (0-0.50); Hematocrit (blood only) 34.6 % (37.0-47.0); Hemoglobin 10.9 g/dl (12.0-16.0); Immature Granulocytes # (auto) 0.01 K/uL (0.01-0.20); Immature Granulocytes % (auto) 0.2 %; Lymphocytes # (auto) 1.65 K/uL (1.2-3.4); Lymphocytes % (auto) 26.9 %; Mean Corpuscular Hemoglobin 30.9 pg (25.0-34.0); Mean Corpuscular Hgb Conc 31.5 g/dL (32.0-36.0); Mean Platelet Volume 10.2 fL (9.4-12.4); Monocytes # (auto) 0.64 K/uL (0.11-0.59); Monocytes % (auto) 10.4 %; Neutrophils # (auto) 3.43 K/uL (1.40-6.50); Neutrophils % (auto) 55.8 %; Platelet Count 227 K/uL (130-400); RDW Coefficient of Variation 14.5 % (11.5-14.5); RDW Standard Deviation 52.2 fL (36.4-46.3); Red Blood Count 3.53 M/uL (4.20-5.40); White Blood Count 6.14 K/ul (4.8-10.8)
[2022-06-14 08:05] LABS: BUN Creatinine Ratio 20.8 (10-20); Calcium 9.9 mg/dl (8.5-10.1); Creatinine Clr Calc Pharmacy 36.5 ml/min; Est GFR (African American) 53.9 ml/min; Est GFR (Non-African American) 46.5 ml/min; Potassium 4.3 mmol/L (3.5-5.1)
[2022-06-14 08:13] LABS: INR 2.6 (0.9-1.1); Prothrombin Time 26.3 Seconds (9.0-12.0)
[2022-06-14] MEDS ORDERED: CLOPIDOGREL BISULFATE 75 MG TAB PO SCH (09:00)
[2022-06-14] MEDS ORDERED: ASPIRIN 81 MG ECTAB PO SCH (09:00)
[2022-06-14] MEDS ORDERED: METOPROLOL SUCC 50MG EXT REL TAB PO SCH (09:00)
--- NOTE | 2022-06-14 10:22 | XCELERA ---
[id number]
--- NOTE | 2022-06-14 11:57 | Pharmacy Report ---
- Date of Service June 14, 2022 - Pharmacy CVA/TIA Medication Review Medications to Prevent Stroke handout has been added to the patients discharge packet. Antiplatelet(s) * Clopidogrel 75mg daily Cholesterol * High intensity statin: atorvastatin 40 mg daily DVT Prophylaxis * Warfarin, today's INR 2.6 Therapeutic Anticoagulation * Hx Afib/Aflutter noted, and patient is currently receiving warfarin goal INR 2-3 Type 2 Diabetes * Patient does not have T2DM
[2022-06-14] MEDS ORDERED: WARFARIN SOD 5 MG TAB PO SCH (16:00)
[2022-06-14] MEDS ORDERED: STROKE PATIENT DISCHARGE STA (16:29)
--- NOTE | 2022-06-14 17:44 | Discharge Summary ---
Date of Service June 14, 2022 Admission HPI Per Admitting Provider 87-year-old female with PMH paroxysmal atrial fibrillation on Coumadin, history of CVA, CAD, CKD stage III, hypothyroidism, breast cancer, and other problems listed below who presents to the ED for evaluation of strokelike symptoms. Patient recently admitted to [facility] 06/08 through 06/11 for hypertensive urgency. Patient started on lisinopril. Patient was also experiencing paresthesias that was felt to be due to elevated BP. Brain MRI on 06/08/2022 negative for acute findings. Patient reports that she has been doing well since returning back to personal long-term. This morning, after walking back from having breakfast patient noted that she was tripping over her own feet. No fall. She reports receiving several phone calls this morning due to it being her birthday and when she was speaking to her son around 10 AM, her speech was very garbled. There is also reported left-sided facial droop and questionable left-sided weakness. EMS was called and patient was brought to the ED for further evaluation. Patient reports her symptoms resolved while she was in the ambulance on the way to the hospital. Patient denies chest pain, palpitations, shortness of breath. No lightheadedness, dizziness, diaphoresis, syncopal events. She denies abdominal pain, nausea, vomiting, diarrhea. No urinary symptoms. In the ED, head and neck CTAs are negative for acute findings. Demonstrates unchanged High-grade stenoses within the left A2 segment, right P1 segment and left posterior cerebral artery. Patient was also noted to be intermittently hypoxic while sleeping. 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 She feels well. No neurologic symptoms currently. She had declined her EEG earlier today (as she has done in the past) and not interested in pursuing invasive intervention Discharge Data Allergies Allergy/AdvReac Type Severity Reaction Status Date / Time niacin Allergy Intermediate hives Verified 04/18/22 11:27 Opioids - Morphine Analogues AdvReac "gets very Verified 04/18/22 11:27 sick" Consultations 06/13/22 14:44 ED Decision to Admit Stat 06/13/22 14:59 Consult Neurology Routine Ordered Studies 06/13/22 11:30 CT angio head wo/w Stat CT angio neck with con Stat Hospital Course (1) Cerebrovascular disease: (2) Stroke-like symptoms: (3) Paroxysmal atrial fibrillation: (4) CAD (coronary artery disease): (5) HTN (hypertension): (6) Hypothyroidism: Plan Mrs Farrah Quach is a very pleasant 87 year old female who is a resident at the [facility] who was brought to the ER 06/13/22 for stroke like symptoms. Her history is significant for history of A fib previously on Eliquis who developed an embolic stroke while on Eliquis. History also of hypertension, CAD, hypothyroidism, HLD. Brief summary of patient's recent hospitalizations as below: 11/06/21-11/11/21--Patient presented to the ER for right side weakness and was found to have multiple punctate infarcts within the left ARMOND distribution. At that time she also had a CTA head and neck which showed multiple focal areas of stenosis. Upon presentation to the ER, her case was reviewed by ED provider with [facility] and it was felt that her lesions were not amenable to mechanical thrombectomy so she was admitted here for medical management. She was also not a TPA candidate due to being on Eliquis. Her acute stroke was felt to be embolic in nature and represented a failure of Eliquis therapy. Her Eliquis was discontinued and she was switched to coumadin. She was eventually discharged to [facility] for rehab. 11/14-11/16/21- From [facility] she was sent back to the ER for dysarthria and worsened right side weakness. CTA head/neck again shows unchanged multiple focal stenosis and MRI brain shows interval progression of acute to subacute left ARMOND infarct. After release from [facility], she was placed into the [facility] where she was doing well. 06/08-06/11/22- She presents to the ER with left arm numbness and facial numbness. On presentation, her BP was noted to be significantly elevated. Stroke workup was negative and it was thought that her symptoms may be due to her markedly elevated blood pressure. She was started on lisinopril 10mg QHS for her blood pressure and monitored in the hospital for 2 days to ensure BP stability. She was discharged back to the [facility] in stable condition. 06/13/22- While at the [facility], again she experienced left arm and facial numbness but this time also dysarthria and left facial droop. She was sent back to the ER for evaluation. Patient's symptoms had resolved by the time she arrived to the ER. Her CTA head/neck again shows stable stenosis. She was again seen by Neurology and because of her ongoing symptoms, it was recommended she have an EEG and her case be discussed with Neuroradiology to determine if her stenotic lesions are amenable to stenting. Patient declines EEG and also declined consideration of stenting. In light of patient's request for conservative management, she was discharged back to the [facility]. She was continued on her prior medications with the exception of her aspirin which was switched to Plavix. It was recommended to her family that they develop an action plan with the [facility] so that if she again develops these symptoms, she be monitored there for a period of time before sending back to the ER for yet another stroke workup. Patient and her family are in agreement with this plan. Total Time Total Time Spent Total Time Spent (In Minutes): 60 Discharge Plan Discharge Items Patient Disposition: Personal [facility] Reason For Visit: STROKE SYMPTOMS Discharge Diagnosis: Stroke like symptoms Condition on Discharge: Good Activity: Resume your previous activity Non-emergency contact: Primary Care Provider and Neurologist Call non-emergency contact if: you have any medication questions Follow-up/Referrals: Mary Anne Evans MD [Primary Care Provider] - Diet: Heart Healthy Addtl Attending Provider Instructions: Please follow up with your family doctor Your systolic blood pressure goal is 140-160. Avoid low blood pressure. Avoid high blood pressure Pending Studies at Discharge: No Stand-Alone Forms: My [employer], Smoking Cessation, Medications to Prevent Stroke Skilled Items Patient informed of condition?: Yes DNR: Yes Discharge Level of Care: Other Communicable Disease: No Discharge Prognosis: Stable Lines: None Urinary Catheter: No Medications and DC Order Prescriptions: New clopidogrel 75 mg Tablet 75 mg PO QAM 30 Days Qty: 30 0RF Continued nitroglycerin 0.4 mg tablet, sublingual 0.4 mg sublingual Q5M PRN (Reason: chest pain) Qty: 25 4RF Rx Instructions: up to 3 doses. If no resolution of Chest pain after 5 min, call 911. atorvastatin 40 mg tablet 40 mg PO HS Qty: 90 3RF albuterol sulfate 90 mcg/actuation HFA aerosol inhaler 2 puff INHALATION QID PRN (Reason: Shortness Of Breath Or Wheezing) metoprolol succinate 100 mg tablet extended release 24 hr 100 mg PO QAM acetaminophen [Tylenol Extra Strength] 500 mg Tablet 1,000 mg PO Q8H PRN (Reason: Pain) levothyroxine 50 mcg tablet 50 mcg PO DAILYBB warfarin 5 mg tablet 7.5 mg PO MOFR@1600 Rx Instructions: Take in addition the the 5mg dose on M and F for total 7.5mg on these days. cholecalciferol (vitamin D3) 50 mcg (2,000 unit) Tablet 50 mcg PO DAILY lisinopril 10 mg tablet 10 mg PO .qhs Qty: 30 0RF warfarin 5 mg tablet 5 mg PO SUTUWETHSA Discontinued aspirin [Adult Low Dose Aspirin] 81 mg tablet,delayed release (DR/EC) 81 mg PO DAILY Discharge Orders: Discharge Order (Routine); Ordered 06/14/22 Ordered By: Sean Crabtree Admission Data Admit Date/Time: 06/13/22 13:48 Attending Provider: Sean Crabtree Admit Provider: Emma Alvarado Primary Care Provider: Mary Anne Evans Other Providers: Emma Alvarado ; Roel Brooks ; BOBBY, Other Interventions: Discharge Summary Assessment (RN) Last Done: 06/14/22 16:31
--- NOTE | 2022-06-30 07:06 | Coding Query ---
A supporting diagnosis is required for the test/procedure performed on this patient in order for us to be reimbursed by the patient's insurance. Please provide a supporting diagnosis for the following test/procedure listed below next to the test name along with your signature. *If there is no additional diagnosis for this patient that would support the following test/procedure please document that below next to the test/procedure. Test(s)/Procedure(s) that require a supporting diagnosis: * [id number] PULSE OXIMETRY DIAGNOSIS: hypoxia DATE OF SERVICE: 06/13/22 Provider Signature: MORRO Beckman Date: 07/07/22 Thank you [facility] Information Management Once completed, please kindly fax back to [phone] For questions please call [phone] [facility]
== END 2022-06-14 16:55 | disposition home or self-care (01) ==
LOC: ED 11:15 → 2E 11:15 → SUATTDRO 13:48 → 2E 16:11